=== PATIENT | male | born 1965 | race Caucasian/White ===

== ENCOUNTER → 2017-07-23 | Outpatient (CLI) | payer BC ==
[~2017-07-23] MED LIST: ASPI81TA28 PO; ATOR-24 PO; ATOR-54 PO; HMLI SC; INSDGI SC; LISI-461 PO; MULT-506 PO; PARO1TAB27 PO; TURM1POW
[2017-07-23 16:27] LABS: THYROID STIMULATING HORMONE 0.194 uIu/ml (0.300-4.500)
== END | disposition home or self-care (01) ==
LOC: C.LAB1850 14:33
PROVIDERS: ATTEND Physician Assistant
DX: R94.6 Abnormal results of thyroid function studies (principal)

== ENCOUNTER 2017-09-07 21:02 | Inpatient (IN) | payer BC ==
[~2017-09-07] VITALS: Ht 167.6 cm; Wt 75.7 kg
[2017-09-07] MEDS ORDERED: SODIUM CHLORIDE 0.9% 1000ML 1,000 ML IV STA ×3 (21:08→21:46)
--- NOTE | 2017-09-07 21:34 | EMERGENCY ROOM VISIT NOTE ---
History First contact with patient: 21:09 Chief Complaint: HYPERGLYCEMIA Stated Complaint: SEVERE VOMITING, HIGH PULSE, HIGH BLOOD SUGAR Nursing Triage Summary: Pt reports vomiting since yesterday. Pt has insulin pump and blood sugar was 453. Pt also reports elevated heart rate today. History of Present Illness The patient is a 51 year old male who presents to the Emergency Room with complaints of a 2-4 day hx of nausea/vomiting, diarrhea, hyperglycemia, nausea/ vomiting, and tachycardia He started to have diarrhea 4 days ago, which has stopped in the last 24 hours. He started having vomiting with any oral intake about 36 hours ago; he cannot keep any fluids or solids down. He has not had anything to eat or drink today. Diagnosed with IDDM about 18 years ago. Checks BG 3-4 times per day. Sugars were 350 after day, came back down to his normal range of 150-180, and 1 hr ago was 453. Last check prior to that was last night and was normal/150s. He states he hasn't checked glucose since then because he hasn't been eating. He reports he disconnected his pump because he hasn't eaten all day and didn't think he needed any insulin. Last changed pump on 4 days ago. Diagnosed with DM 18 years ago but was just started on pump in the last week. Last A1c was 8.2, which is the highest it has ever been. He also reports his breathing is labored and has an excessively dry mouth. 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 Had been seen by primary care walk in clinic today who gave him zofran for nausea, which didn't help, so family then called endo nurse, who suggested he present at ER. Review of Systems Constitutional: No fever, No chills, No sweats, No weight loss, No weakness , No fatigue, No problem reported Eyes: No worsening of vision, No eye pain, No redness, No discharge, No diplopia, No problem reported ENT: No hearing loss, No unusual epistaxis, No nasal symptoms, No sore throat, No tinnitus, No dental problems, No trouble swallowing, No problem reported Respiratory: + problem reported (weird breathing), No cough, No sputum, No wheezing, No shortness of breath, No dyspnea on exertion, No dyspnea at rest, No hemoptysis Cardiovascular: No chest pain, No orthopnea, No PND, No edema, No claudication, No palpitations, No problem reported Abdomen: + nausea, + vomiting, + diarrhea, No pain, No constipation, No GI bleeding, No problem reported Genitourinary - Male: No hematuria, No dysuria, No urinary frequency, No urinary urgency, No urinary hesitancy, No urinary retention, No urinary incontinence, No penile discharge, No lesions, No impotence, No problem reported Neurologic: No memory loss, No paralysis, No weakness, No numbness/tingling , No vertigo, No balance problems, No problem reported Endocrine: + fatigue, + excessive thirst, No excessive urination Past Medical/Surgical History Medical Problems: (1) Diabetes (2) DKA (diabetic ketoacidoses) (3) Hypertension Family History Diabetes mellitus Heart disease Hypertension Social History Smoking Status: Never Smoker Alcohol Use: occasionally Drug Use: none Marital Status: Housing Status: lives with family Occupation Status: employed Current/Historical Medications Scheduled Aspirin (Aspirin Ec), 81 MG PO DAILY Atorvastatin (Lipitor), 40 MG PO QPM Atorvastatin (Lipitor), 1 TAB PO DAILY Insulin Lispro (Human) (Humalog), 1 DOSE INJ UD Lisinopril (Lisinopril), 10 MG PO DAILY Methimazole (Methimazole), 10 MG PO DAILY Multivitamin (Multivitamin), 1 TAB PO DAILY Paroxetine (Paxil), 20 MG PO DAILY Physical Exam Vital Signs Date Time Temp Pulse Resp B/P (MAP) Pulse Ox O2 Delivery O2 Flow Rate FiO2 09/07/17 22:35 117 16 177/86 98 Room Air 09/07/17 21:42 99 Room Air 09/07/17 21:35 115 09/07/17 21:05 36.3 126 20 141/79 96 Room Air Physical Exam General Appearance: WD/WN, + mild distress Head: normocephalic, atraumatic Eyes: normal inspection, PERRL, EOMI ENT: normal ENT inspection, hearing grossly normal, pharynx normal Neck: supple, no adenopathy, thyroid normal, no JVD Respiratory/Chest: chest non-tender, lungs clear, normal breath sounds, + pertinent finding ([place] breathing with fruity odor) Cardiovascular: no edema, no gallop, no JVD, no murmur, normal peripheral pulses, + tachycardia Abdomen / GI: normal bowel sounds, non tender, soft, no organomegaly, no pulsatile mass Back: normal inspection, no CVA tenderness Extremities: normal inspection, no calf tenderness, no pedal edema 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, no motor/sensory deficits, alert , normal mood/affect, normal reflexes, oriented x 3 Medical Decision & Procedures Laboratory Results Test 09/07/17 21:38 09/07/17 22:34 Immature Granulocyte % (Auto) 0.3 % White Blood Count 18.25 K/uL (4.8-10.8) Red Blood Count 5.06 M/uL (4.7-6.1) Hemoglobin 15.4 g/dL (14.0-18.0) Hematocrit 46.1 % (42-52) Mean Corpuscular Volume 91.1 fL (80-100) Mean Corpuscular Hemoglobin 30.4 pg (25-34) Mean Corpuscular Hemoglobin Concent 33.4 g/dl (32-36) Platelet Count 310 K/uL (130-400) Mean Platelet Volume 10.5 fL (7.4-10.4) Neutrophils (%) (Auto) 92.7 % Lymphocytes (%) (Auto) 2.7 % Monocytes (%) (Auto) 4.2 % Eosinophils (%) (Auto) 0.0 % Basophils (%) (Auto) 0.1 % Neutrophils # (Auto) 16.92 K/uL (1.4-6.5) Lymphocytes # (Auto) 0.50 K/uL (1.2-3.4) Monocytes # (Auto) 0.77 K/uL (0.11-0.59) Eosinophils # (Auto) 0.00 K/uL (0-0.5) Basophils # (Auto) 0.01 K/uL (0-0.2) Immature Granulocyte # (Auto) 0.05 K/uL (0.00-0.02) Prothrombin Time 12.1 SECONDS (9.0-12.0) Prothromb Time International Ratio 1.1 (0.9-1.1) Activated Partial Thromboplast Time 26.7 SECONDS (21.0-31.0) Partial Thromboplastin Ratio 1.0 Total Bilirubin 1.6 mg/dl (0.2-1) Direct Bilirubin 0.5 mg/dl (0-0.2) Aspartate Amino Transf (AST/SGOT) 27 U/L (15-37) Alanine Aminotransferase (ALT/SGPT) 52 U/L (12-78) Alkaline Phosphatase 117 U/L (45-117) Troponin I < 0.015 ng/ml (0-0.045) Total Protein 8.5 gm/dl (6.4-8.2) Albumin 4.5 gm/dl (3.4-5.0) Lipase 174 U/L (73-393) Thyroid Stimulating Hormone (TSH) 0.850 uIu/ml (0.300-4.500) Urine Color YELLOW Urine Appearance CLEAR (CLEAR) Urine pH 5.0 (4.5-7.5) Urine Specific [place] 1.025 (1.000-1.030) Urine Protein NEG (NEG) Urine Glucose (UA) 3+ (NEG) Urine Ketones 3+ (NEG) Urine Occult Blood NEG (NEG) Urine Nitrite NEG (NEG) Urine Bilirubin NEG (NEG) Urine Urobilinogen NEG (NEG) Urine Leukocyte Esterase NEG (NEG) Urine RBC 0-4 /hpf (0-4) Urine WBC 0 /hpf (0-5) Urine Epithelial Cells 0-5 /lpf (0-5) Urine Bacteria NEG (NEG) Medications Administered Medications (Trade) Dose Ordered Sig/Chip Route Start Time Stop Time Status Last Admin Dose Admin Sodium Chloride 1,000 ml @ 999 mls/hr Q1H1M STAT IV 09/07/17 21:08 09/07/17 22:08 DC 09/07/17 21:08 999 MLS/HR Sodium Chloride 1,000 ml @ 999 mls/hr Q1H1M STAT IV 09/07/17 21:46 09/07/17 22:46 DC 09/07/17 22:17 999 MLS/HR Insulin Human Regular (Insulin IV Infusion Protocol) 1 ea NOW STAT N/A 09/07/17 22:27 09/07/17 22:28 DC 09/07/17 22:27 1 EA Miscellaneous (Insulin Protocol Dka Goal Range) 1 ea ONE ONCE N/A 09/07/17 22:30 09/07/17 22:31 DC 09/07/17 22:30 1 EA Miscellaneous (Insulin Protocol Moderate Stress Level) 1 ea ONE ONCE N/A 09/07/17 22:30 09/07/17 22:31 DC 09/07/17 22:30 1 EA Insulin Human Regular (NovoLIN R BOLUS FROM BAG) 2 unit NOW STAT IV 09/07/17 22:54 09/07/17 22:55 DC 09/07/17 22:54 2 UNIT ECG Indication: nausea, tachycardia, vomiting Rate (beats per minute): 113 Rhythm: sinus tachycardia Findings: no acute ischemic change Comparison ECG Date: no prior available ED Course 2114: Obtained full h&p from patient and . 2149: The patient was evaluated in room A12B by Dr. Ricci, who obtain a complete history and physical. 2206: Ordered NSS 1000 ml @ 999 mls/hr IV, NSS 1000 ml @ 125 mls/hr IV. 2145: Ordered NSS 1000 ml @ 999 mls/hr IV. 2226: Ordered Insulin Human Regular 1 ea N/A. 2229: Ordered Insulin Protocol Moderate Stress Level 1 ea N/A, Insulin Protocol Dka Goal Range 1 ea N/A. 223: I reevaluated the patient and he is feeling better. Urine showed 3+ ketonuria 224: Ordered Insulin Human Regular 1 ea Protocol N/A. 2245: Ordered Dc All Previously Ordered Diabetes Meds 1 ea N/A. 2251: Discussed the patient's case with Dr. Dillard. The patient will be evaluated for further treatment and disposition. Medical Decision Triage Nursing notes reviewed. The patient's presentation and history were concerning for hyperglycemia, vomiting and diarrhea. Etiologies such as hypo/hyperglycemia, DKA, dehydration, metabolic, infection, electrolyte abnormalities, cardiac sources, intracerebral event, toxicologic, neurologic, as well as others were entertained. The patient was evaluated. Clinically he is doing relatively well. He appears dehydrated and was mildly tachycardic. IV was established. He was given a 2 L normal saline bolus and then normal saline at 125 an hour. With simple treatment of the dehydration he was already feeling better. His heart rate was improving. Blood work was performed and the patient was found to have a leukocytosis on CBC. Chemistry panel revealed findings consistent with DKA and hyperglycemia. Repeat blood sugar revealed improvement however he was still very hyperglycemic. The patient had an insulin drip ordered. Consultation was made with internal medicine. The patient was admitted for further management. Impression Primary Impression: DKA (diabetic ketoacidoses) Departure Information Dispostion Admitted as an inpatient Condition FAIR Referrals Antoine Hernandez M.D. (PCP) Patient Instructions My [facility] Resident Tracking Resident Involvement: Resident Care Provided Care Provided: Adult ED Problem Qualifiers Primary Impression: DKA (diabetic ketoacidoses) Diabetes mellitus type: other specified (including KWAIS) Diabetes mellitus complication detail: without coma Qualified Codes: E13.10 - Other specified diabetes mellitus with ketoacidosis without coma
[2017-09-07] MEDS ORDERED: INSU100I INJ (21:49)
[2017-09-07] MEDS ORDERED: METH10TA6 PO (21:49)
[2017-09-07 21:51] LABS: HEMATOCRIT 46.1 % (42-52); MEAN CELL VOLUME 91.1 fL (80-100); MEAN CORPUSCULAR HEMOGLOBIN 30.4 pg (25-34); MEAN CORPUSCULAR HGB CONC 33.4 g/dl (32-36); MEAN PLATELET VOLUME 10.5 fL (7.4-10.4); PLATELET COUNT 310 K/uL (130-400); RED BLOOD COUNT 5.06 M/uL (4.7-6.1); WHITE BLOOD COUNT 18.25 K/uL (4.8-10.8)
[2017-09-07 22:04] LABS: INR 1.1 (0.9-1.1); PROTHROMBIN TIME (PATIENT) 12.1 SECONDS (9.0-12.0)
[2017-09-07 22:20] LABS: BASO % 0.1 %; BASO ABS # 0.01 K/uL (0-0.2); COMPLETE YES; IG% 0.3 %; LYMPH % 2.7 %; MONO % 4.2 %; NEUT % 92.7 %
[2017-09-07 22:25] LABS: ALT/SGPT 52 U/L (12-78); AST/SGOT 27 U/L (15-37); BLOOD UREA NITROGEN 36 mg/dl (7-18); BUN/CREATININE RATIO 21.2 (10-20); CALCIUM 10.2 mg/dl (8.5-10.1); CARBON DIOXIDE 8 mmol/L (21-32); CHLORIDE 87 mmol/L (98-107); CREATININE 1.69 mg/dl (0.60-1.40); GLUCOSE 590 mg/dl (70-99); MAGNESIUM 2.5 mg/dl (1.8-2.4); POTASSIUM 5.8 mmol/L (3.5-5.1); SODIUM 126 mmol/L (136-145)
[2017-09-07 22:26] LABS: ALKALINE PHOSPHATASE 117 U/L (45-117)
[2017-09-07] MEDS ORDERED: INSULIN IV INFUSION PROTOCOL STA ×2 (22:27→22:41)
[2017-09-07] MEDS ORDERED: DKA GOAL RANGE 150-250 mg/dl 1 EA ONE ×2 (22:30→22:45)
[2017-09-07] MEDS ORDERED: MODERATE STRESS LEVEL ONE (22:30)
[2017-09-07] MEDS ORDERED: DC ALL PREVIOUSLY ORDERED DIABETES MEDS ONE (22:45)
[2017-09-07] MEDS ORDERED: PHARMACY GLYCEMIC MGMT CONSULT PRN (22:45)
[2017-09-07] MEDS ORDERED: NovoLIN R BOLUS FROM BAG IV STA (22:54)
[2017-09-07] MEDS ORDERED: GLUCOSE 40% GEL 15 GM TUBE PO PRN (23:00)
[2017-09-07] MEDS ORDERED: GLUCOSE 10 TABS/TUBE PO PRN (23:00)
[2017-09-07] MEDS ORDERED: GLUCAGON FOR INJ 1 MG VIAL SQ PRN (23:00)
[2017-09-07] MEDS ORDERED: MAGNESIUM HYDROXIDE SUSP 30 ML UDC PO PRN (23:00)
[2017-09-07] MEDS ORDERED: ACETAMINOPHEN 325 MG TAB PO PRN (23:00)
[2017-09-07] MEDS ORDERED: ZOLPIDEM TARTRATE 5 MG TAB PO PRN (23:00)
[2017-09-07] MEDS ORDERED: DEXTROSE 50% 50 ML SYR IV PRN (23:00)
[2017-09-07] MEDS ORDERED: ONDANSETRON INJ 2 MG/ML 2 ML VIAL IV PRN (23:00)
[2017-09-07] MEDS ORDERED: ALUMINUM/MAGNESIUM/SIMETH (MAALOX MAX) 30 ML UDC PO PRN (23:00)
[2017-09-07] MEDS ORDERED: POLYETHYLENE (MIRALAX) 17 GM PACK PO PRN (23:00)
[2017-09-07] MEDS: INSULIN REGULAR 250 UNITS in SODIUM CHLORIDE 0.9% 250ML 250 ML IV SCH (23:07)
--- NOTE | 2017-09-07 23:11 | History and Physical ---
History & Physical Date & Time of Service: Sep 07, 2017 at 23:00 Chief Complaint: Severe Vomiting, High Pulse, High Blood Sugar Primary Care Physician: Antoine Hernandez M.D. History of Present Illness Source: patient, family 51 y/o M Hx DM I, HTN, HPL, hyperthyroidism. Recently began using an insulin pump as his A1C had been higher than expected. He developed nausea, vomiting and diarrhea 2 days prior which had persisted. He was attempting to take fluids and insulin as needed at home, however his readings continued to climb. He then developed weakness and hyperventilation and presented to the ER where DKA was confirmed. He denies CP, SOB, fevers and states he feels markedly improved after receiving a few liters of fluid an insulin in the ER. Past Medical/Surgical History Medical Problems: 1) Diabetes 2) Hypertension 3) Hyperlipidemia 4) Hyperthyroidism Family History Diabetes mellitus Heart disease Hypertension Social History Does not smoke or drink - works in [employer] Smoking Status: Never Smoker Drug Use: none Marital Status: Occupational Status: employed Allergies Coded Allergies: Penicillins (Unverified Allergy, Unknown, family allergy, 09/07/17) never been tested personally,but family is allergic Home Medications Scheduled Aspirin (Aspirin Ec), 81 MG PO DAILY Atorvastatin (Lipitor), 40 MG PO QPM Atorvastatin (Lipitor), 1 TAB PO DAILY Insulin Lispro (Human) (Humalog), 1 DOSE INJ UD Lisinopril (Lisinopril), 10 MG PO DAILY Methimazole (Methimazole), 10 MG PO DAILY Multivitamin (Multivitamin), 1 TAB PO DAILY Paroxetine (Paxil), 20 MG PO DAILY Review of Systems Constitutional: + weakness, No fever, No chills, No sweats Eyes: No worsening of vision ENT: No hearing loss, No unusual epistaxis, No nasal symptoms Respiratory: No cough, No wheezing Cardiovascular: No chest pain, No PND Abdomen: + nausea, + vomiting, + diarrhea Musculoskeletal: No joint pain Genitourinary - Male: No hematuria, No dysuria, No urinary frequency Neurologic: + weakness, No memory loss, No paralysis Psychiatric: No depression symptoms Endocrine: No fatigue Hematologic / Lymphatic: No abnormal bleeding/bruising Integumentary: No rash Allergic / Immunologic: No environmental allergies Physical Exam Vital Signs Date Time Temp Pulse Resp B/P (MAP) Pulse Ox O2 Delivery O2 Flow Rate FiO2 09/07/17 22:35 117 16 177/86 98 Room Air 09/07/17 21:42 99 Room Air 09/07/17 21:35 115 09/07/17 21:05 36.3 126 20 141/79 96 Room Air General Appearance: WD/WN, no apparent distress Head: normocephalic Eyes: normal inspection ENT: normal ENT inspection, pharynx normal Neck: supple, no JVD Respiratory/Chest: chest non-tender, lungs clear, normal breath sounds Cardiovascular: regular rate, rhythm, no edema, no gallop Abdomen/GI: normal bowel sounds, non tender, soft Back: normal inspection, no CVA tenderness Extremities/Musculoskelatal: normal inspection, no calf tenderness, normal capillary refill 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, no motor/sensory deficits, alert, oriented x 3 Skin: normal color, warm/dry Diagnostics Laboratory Results Results Past 24 Hours Test 09/07/17 21:38 09/07/17 22:34 09/07/17 22:40 09/07/17 22:48 Range/Units White Blood Count 18.25 4.8-10.8 K/uL Red Blood Count 5.06 4.7-6.1 M/uL Hemoglobin 15.4 14.0-18.0 g/dL Hematocrit 46.1 42-52 % Mean Corpuscular Volume 91.1 80-100 fL Mean Corpuscular Hemoglobin 30.4 25-34 pg Mean Corpuscular Hemoglobin Concent 33.4 32-36 g/dl Platelet Count 310 130-400 K/uL Mean Platelet Volume 10.5 7.4-10.4 fL Neutrophils (%) (Auto) 92.7 % Lymphocytes (%) (Auto) 2.7 % Monocytes (%) (Auto) 4.2 % Eosinophils (%) (Auto) 0.0 % Basophils (%) (Auto) 0.1 % Neutrophils # (Auto) 16.92 1.4-6.5 K/uL Lymphocytes # (Auto) 0.50 1.2-3.4 K/uL Monocytes # (Auto) 0.77 0.11-0.59 K/uL Eosinophils # (Auto) 0.00 0-0.5 K/uL Basophils # (Auto) 0.01 0-0.2 K/uL RDW Standard Deviation 45.4 36.4-46.3 fL RDW Coefficient of Variation 13.7 11.5-14.5 % Immature Granulocyte % (Auto) 0.3 % Immature Granulocyte # (Auto) 0.05 0.00-0.02 K/uL Prothrombin Time 12.1 9.0-12.0 SECONDS Prothromb Time International Ratio 1.1 0.9-1.1 Activated Partial Thromboplast Time 26.7 21.0-31.0 SECONDS Partial Thromboplastin Ratio 1.0 Sodium Level 126 136-145 mmol/L Potassium Level 5.8 3.5-5.1 mmol/L Chloride Level 87 98-107 mmol/L Carbon Dioxide Level 8 21-32 mmol/L Anion Gap 32.0 3-11 mmol/L Blood Urea Nitrogen 36 7-18 mg/dl Creatinine 1.69 0.60-1.40 mg/dl Est Creatinine Clear Calc Drug Dose 46.6 ml/min Estimated GFR () 53.3 Estimated GFR (Non- 46.0 BUN/Creatinine Ratio 21.2 10-20 Random Glucose 590 70-99 mg/dl Calcium Level 10.2 8.5-10.1 mg/dl Magnesium Level 2.5 1.8-2.4 mg/dl Total Bilirubin 1.6 0.2-1 mg/dl Direct Bilirubin 0.5 0-0.2 mg/dl Aspartate Amino Transf (AST/SGOT) 27 15-37 U/L Alanine Aminotransferase (ALT/SGPT) 52 12-78 U/L Alkaline Phosphatase 117 45-117 U/L Troponin I < 0.015 0-0.045 ng/ml Total Protein 8.5 6.4-8.2 gm/dl Albumin 4.5 3.4-5.0 gm/dl Lipase 174 73-393 U/L Thyroid Stimulating Hormone (TSH) 0.850 0.300-4.500 uIu/ml Bedside Glucose 460 70-99 mg/dl Microbiology Results 09/07/17 Urine Culture, Received Pending Impression Assessment and Plan 51 y/o M Hx DM I, HTN, HPL, hyperthyroidism. Recently began using an insulin pump as his A1C had been higher than expected. He developed nausea, vomiting and diarrhea 2 days prior which had persisted. He was attempting to take fluids and insulin as needed at home, however his readings continued to climb. He then developed weakness and hyperventilation and presented to the ER where DKA was confirmed. He denies CP, SOB, fevers and states he feels markedly improved after receiving a few liters of fluid an insulin in the ER. 1) DM with DKA - Pt placed on a DKA, insulin infusion protocol - electrolytes will be trended Q4h, aggressive hydration provided. He will be monitored on telemetry overnight. 2) Nausea/vomiting and diarrhea - appear to be resolving - possibly viral - can work-up further if symptoms recur or pt develops fevers. 3) HTN - Cont JONE with holding parameters for an elevated K 4) HPL - cont Statin Tx 5) Hyperthyroidism - recent Dx - had been placed on Methimazole which we will continue - he is pending outp f/u on 09/18. Level of Care Telemetry Resuscitation Status FULL RESUSCITATION VTE Prophylaxis VTE Risk Assessment Done? Y/N: Yes Risk Level: Low Given or contraindicated: Unfractionated heparin SQ
--- NOTE | 2017-09-07 23:13 | EMERGENCY ROOM VISIT NOTE ---
History Report prepared by Dyllan: Melanie Cr Under the Supervision of: Dr. Johnie Ricci M.D. First contact with patient: 21:08 Chief Complaint: HYPERGLYCEMIA Stated Complaint: SEVERE VOMITING, HIGH PULSE, HIGH BLOOD SUGAR History of Present Illness The patient is a 51 year old male who presents to the Emergency Room with complaints of an episode of hyperglycemia starting 2 days ago. The patient states he has had nausea, vomiting, and diarrhea. He states that he was just started on an Insulin pump this week. He reports that his sugars have been off since Thanksgiving and started vomiting on Thanksgiving, two days ago. He states that he can't keep anything down, even water. The patient reports that he turned his Insulin pump off last night because he thought since he wasn't able to eat he didn't need Insulin. He reports he normally checks his Insulin 3- 4 times a day. He states that when he checked it last night it was 150. He reports he didn't check it till right before he came in today and it was 453. The patient complains of being excessively thirsty. He notes he last changed his pump four days ago. He notes he has had Diabetes for 18 years. He notes that he tried Zofran at home with no relief. Pt denies LOC, headache, fevers, chills, diaphoresis, visual changes, neck pain , chest pain, breathing difficulties, abdominal pain, back pain, melena, hematochezia, urinary symptoms, numbness, weakness, lymphadenopathy, rash, or other complaints. Source of History: patient Onset: 2 days ago Position: other (global) Quality: other (global) Timing: other (episode) Associated Symptoms: + nausea, + vomiting, + diarrhea Note: The patient complains of being excessively thirsty. Review of Systems See HPI for pertinent positives and negatives. A total of ten systems were reviewed and were otherwise negative. Past Medical & Surgical Medical Problems: (1) Diabetes (2) DKA (diabetic ketoacidoses) (3) Hypertension Family History Diabetes mellitus Heart disease Hypertension Social History Smoking Status: Never Smoker Alcohol Use: occasionally Drug Use: none Marital Status: Housing Status: lives with family Occupation Status: employed Current/Historical Medications Scheduled Aspirin (Aspirin Ec), 81 MG PO DAILY Atorvastatin (Lipitor), 40 MG PO QPM Atorvastatin (Lipitor), 1 TAB PO DAILY Insulin Lispro (Human) (Humalog), 1 DOSE INJ UD Lisinopril (Lisinopril), 10 MG PO DAILY Methimazole (Methimazole), 10 MG PO DAILY Multivitamin (Multivitamin), 1 TAB PO DAILY Paroxetine (Paxil), 20 MG PO DAILY Allergies Coded Allergies: Penicillins (Unverified Allergy, Unknown, family allergy, 09/07/17) never been tested personally,but family is allergic Physical Exam Vital Signs Date Time Temp Pulse Resp B/P (MAP) Pulse Ox O2 Delivery O2 Flow Rate FiO2 09/07/17 22:35 117 16 177/86 98 Room Air 09/07/17 21:42 99 Room Air 09/07/17 21:35 115 09/07/17 21:05 36.3 126 20 141/79 96 Room Air Physical Exam GENERAL: Awake, alert, tired-appearing, in no distress HENT: Normocephalic, atraumatic. Oropharynx unremarkable. Dry mucus membranes. EYES: Normal conjunctiva. Sclera non-icteric. NECK: Supple. No nuchal rigidity. FROM. No JVD. RESPIRATORY: Clear to auscultation. CARDIAC: Tachycardic rate, normal rhythm. Extremities warm and well perfused. Pulses equal. ABDOMEN: Soft, non-distended. No tenderness to palpation. No rebound or guarding. No masses. RECTAL: Deferred. MUSCULOSKELETAL: Chest examination reveals no tenderness. The back is symmetrical on inspection without obvious abnormality. There is no CVA tenderness to palpation. No joint edema. LOWER EXTREMITIES: Calves are equal size bilaterally and non-tender. No edema. No discoloration. NEURO: Normal sensorium. No sensory or motor deficits noted. SKIN: No rash or jaundice noted. Tinting of skin noted. Medical Decision & Procedures Laboratory Results 09/07/17 21:38 Red Blood Count 5.06, Mean Corpuscular Volume 91.1, Mean Corpuscular Hemoglobin 30.4, Mean Corpuscular Hemoglobin Concent 33.4, Mean Platelet Volume 10.5, Neutrophils (%) (Auto) 92.7, Lymphocytes (%) (Auto) 2.7, Monocytes (%) (Auto) 4.2, Eosinophils (%) (Auto) 0.0, Basophils (%) (Auto) 0.1, Neutrophils # (Auto) 16.92, Lymphocytes # (Auto) 0.50, Monocytes # (Auto) 0.77, Eosinophils # (Auto) 0.00, Basophils # (Auto) 0.01 09/07/17 21:38 Test 09/07/17 21:38 09/07/17 22:34 09/07/17 22:48 09/07/17 23:05 White Blood Count 18.25 K/uL (4.8-10.8) Red Blood Count 5.06 M/uL (4.7-6.1) Hemoglobin 15.4 g/dL (14.0-18.0) Hematocrit 46.1 % (42-52) Mean Corpuscular Volume 91.1 fL (80-100) Mean Corpuscular Hemoglobin 30.4 pg (25-34) Mean Corpuscular Hemoglobin Concent 33.4 g/dl (32-36) Platelet Count 310 K/uL (130-400) Mean Platelet Volume 10.5 fL (7.4-10.4) Neutrophils (%) (Auto) 92.7 % Lymphocytes (%) (Auto) 2.7 % Monocytes (%) (Auto) 4.2 % Eosinophils (%) (Auto) 0.0 % Basophils (%) (Auto) 0.1 % Neutrophils # (Auto) 16.92 K/uL (1.4-6.5) Lymphocytes # (Auto) 0.50 K/uL (1.2-3.4) Monocytes # (Auto) 0.77 K/uL (0.11-0.59) Eosinophils # (Auto) 0.00 K/uL (0-0.5) Basophils # (Auto) 0.01 K/uL (0-0.2) RDW Standard Deviation 45.4 fL (36.4-46.3) RDW Coefficient of Variation 13.7 % (11.5-14.5) Immature Granulocyte % (Auto) 0.3 % Immature Granulocyte # (Auto) 0.05 K/uL (0.00-0.02) Prothrombin Time 12.1 SECONDS (9.0-12.0) Prothromb Time International Ratio 1.1 (0.9-1.1) Activated Partial Thromboplast Time 26.7 SECONDS (21.0-31.0) Partial Thromboplastin Ratio 1.0 Anion Gap 32.0 mmol/L (3-11) Est Creatinine Clear Calc Drug Dose 46.6 ml/min Estimated GFR () 53.3 Estimated GFR (Non- 46.0 BUN/Creatinine Ratio 21.2 (10-20) Calcium Level 10.2 mg/dl (8.5-10.1) Magnesium Level 2.5 mg/dl (1.8-2.4) Total Bilirubin 1.6 mg/dl (0.2-1) Direct Bilirubin 0.5 mg/dl (0-0.2) Aspartate Amino Transf (AST/SGOT) 27 U/L (15-37) Alanine Aminotransferase (ALT/SGPT) 52 U/L (12-78) Alkaline Phosphatase 117 U/L (45-117) Troponin I < 0.015 ng/ml (0-0.045) Total Protein 8.5 gm/dl (6.4-8.2) Albumin 4.5 gm/dl (3.4-5.0) Lipase 174 U/L (73-393) Thyroid Stimulating Hormone (TSH) 0.850 uIu/ml (0.300-4.500) Bedside Glucose 460 mg/dl (70-99) Laboratory results reviewed by me Medications Administered Medications (Trade) Dose Ordered Sig/Chip Route Start Time Stop Time Status Last Admin Dose Admin Sodium Chloride 1,000 ml @ 999 mls/hr Q1H1M STAT IV 09/07/17 21:08 09/07/17 22:08 DC 09/07/17 21:08 999 MLS/HR Sodium Chloride 1,000 ml @ 999 mls/hr Q1H1M STAT IV 09/07/17 21:46 09/07/17 22:46 DC 09/07/17 22:17 999 MLS/HR Insulin Human Regular 250 units/ Sodium Chloride 252.5 ml @ 0 mls/hr Q24H IV 09/07/17 23:00 10/07/17 22:59 09/07/17 23:07 1.8 MLS/HR ECG Indication: vomiting Rate (beats per minute): 113 Rhythm: sinus tachycardia Findings: no acute ischemic change, no ectopy ED Course 2149: The patient was evaluated in room A12B. A complete history and physical exam was performed. 2206: Ordered NSS 1000 ml @ 999 mls/hr IV, NSS 1000 ml @ 125 mls/hr IV. 2145: Ordered NSS 1000 ml @ 999 mls/hr IV. 2226: Ordered Insulin Human Regular 1 ea N/A. 2229: Ordered Insulin Protocol Moderate Stress Level 1 ea N/A, Insulin Protocol Dka Goal Range 1 ea N/A. 2230: I reevaluated the patient and he is feeling better. We are going to get a urine specimen. 2240: Ordered Insulin Human Regular 1 ea Protocol N/A. 2244: Ordered Dc All Previously Ordered Diabetes Meds 1 ea N/A. 225: Discussed the patient's case with Dr. Dillard. The patient will be evaluated for further treatment and disposition. Medical Decision Triage Nursing notes reviewed. The patient's presentation and history were concerning for hyperglycemia, vomiting and diarrhea. Etiologies such as hypo/hyperglycemia, DKA, dehydration, metabolic, infection, electrolyte abnormalities, cardiac sources, intracerebral event, toxicologic, neurologic, as well as others were entertained. The patient was evaluated. Clinically he is doing relatively well. He appears dehydrated and was mildly tachycardic. IV was established. He was given a 2 L normal saline bolus and then normal saline at 125 an hour. With simple treatment of the dehydration he was already feeling better. His heart rate was improving. Blood work was performed and the patient was found to have a leukocytosis on CBC. Chemistry panel revealed findings consistent with DKA and hyperglycemia. Repeat blood sugar revealed improvement however he was still very hyperglycemic. The patient had an insulin drip ordered. Consultation was made with internal medicine. The patient was admitted for further management. The patient was seen and examined with Dr. Pam Torrez, resident physician. We discussed the case and treatments ordered, reviewed the results, and determine the disposition. Please refer to the resident's note for additional details. I have been directly involved with the management and disposition as well as independently evaluated the patient as documented in this note. Medication Reconcilliation Current Medication List: was personally reviewed by me Blood Pressure Screening Patient's blood pressure: Elevated blood pressure Will be further monitored by the hospitalist. Consults Time Called: 2228 Consulting Physician: Dr. Dillard Returned Call: 2250 Discussed the patient's case with Dr. Dillard. The patient will be evaluated for further treatment and disposition. Impression Primary Impression: DKA (diabetic ketoacidoses) Scribe Attestation The scribe's documentation has been prepared under my direction and personally reviewed by me in its entirety. I confirm that the note above accurately reflects all work, treatment, procedures, and medical decision making performed by me. Departure Information Dispostion Being Evaluated By Hospitalist Referrals Antoine Hernandez M.D. (PCP) Patient Instructions My [facility]
[2017-09-07 23:14] LABS: MANUAL MICROSCOPIC REQUIRED? YES; URINE APPEARANCE CLEAR (CLEAR); URINE BILIRUBIN NEG (NEG); URINE COLOR YELLOW; URINE NITRITE NEG (NEG); URINE SPECIFIC GRAVITY 1.025 (1.000-1.030); UROBILINOGEN NEG (NEG)
[2017-09-07 23:19] LABS: VEN BLD GAS O2 SATURATION 79.7 %; VEN BLOOD GAS BASE EXCESS -17.6 mEq/L
[2017-09-07 23:23] LABS: REVIEW REQ? NO
[2017-09-07 23:26] LABS: URINE BACTERIA NEG (NEG); URINE RBC 0-4 /hpf (0-4); URINE WBC 0 /hpf (0-5)
[2017-09-07 23:30] VITALS: BP 143/74; PULSE 130; TEMP 36.6; O2SAT 97; BMI 26.0; BMI 26.8
[2017-09-07 23:40] LABS: BETA-HYDROXYBUTYRATE 122.27 mg/dL (0.2-2.81)
[2017-09-07] MEDS: PENDING D5NS+20mEq KCL IVF SCH (23:59)
[2017-09-07] MEDS: PENDING NSS+20mEq KCL IVF SCH (23:59)
[2017-09-08] VITALS (9 sets, daily range): BP systolic 100–143; BP diastolic 55–74; PULSE 72–130; TEMP 36.6–37; O2SAT 95–98
[2017-09-08] MEDS: SODIUM CHLORIDE 0.9% 1000ML 1,000 ML IV SCH ×2 (00:05→04:44)
[2017-09-08] MEDS: INSULIN REGULAR 250 UNITS in SODIUM CHLORIDE 0.9% 250ML 250 ML IV SCH ×4 (00:29→14:34)
[2017-09-08] MEDS: PENDING NSS+20mEq KCL IVF SCH ×2 (02:23→03:59)
[2017-09-08] MEDS: PENDING D5NS+20mEq KCL IVF SCH ×3 (02:23→06:19)
[2017-09-08 03:57] LABS: HEMATOCRIT 38.3 % (42-52); MEAN CELL VOLUME 88.2 fL (80-100); MEAN CORPUSCULAR HEMOGLOBIN 29.3 pg (25-34); MEAN CORPUSCULAR HGB CONC 33.2 g/dl (32-36); MEAN PLATELET VOLUME 9.7 fL (7.4-10.4); PLATELET COUNT 226 K/uL (130-400); RED BLOOD COUNT 4.34 M/uL (4.7-6.1); WHITE BLOOD COUNT 12.57 K/uL (4.8-10.8)
[2017-09-08 04:25] LABS: BUN/CREATININE RATIO 26.1 (10-20); CREATININE 1.19 mg/dl (0.60-1.40); MAGNESIUM 2.1 mg/dl (1.8-2.4); PHOSPHORUS 2.5 mg/dl (2.5-4.9); POTASSIUM 4.5 mmol/L (3.5-5.1)
[2017-09-08] MEDS ORDERED: NSS + 20MEQ KCL 1000ML 1,000 ML IV SCH (05:00)
[2017-09-08] MEDS ORDERED: NURSING VERBAL MED ORDER ONE (05:00)
[2017-09-08 05:07] LABS: BETA-HYDROXYBUTYRATE 86.8 mg/dL (0.2-2.81)
[2017-09-08] MEDS: HEPARIN SOD 5000 UNIT/0.5 ML CARP SQ SCH ×3 (06:19→21:37)
[2017-09-08] MEDS: METHIMAZOLE 5 MG TAB PO SCH (07:42)
[2017-09-08] MEDS: ASPIRIN 81 MG ECTAB PO SCH (07:42)
[2017-09-08] MEDS: PAROXETINE 20 MG TAB PO SCH (07:43)
[2017-09-08] MEDS: LISINOPRIL 10 MG TAB PO SCH (07:43)
[2017-09-08] MEDS: INSULIN ASPART 100 UNITS/ML 3 ML PEN SC SCH ×4 (07:48→21:37)
[2017-09-08 08:30] LABS: BUN/CREATININE RATIO 26.3 (10-20); CALCIUM 7.9 mg/dl (8.5-10.1); CREATININE 1.05 mg/dl (0.60-1.40); MAGNESIUM 2.1 mg/dl (1.8-2.4); PHOSPHORUS 2.1 mg/dl (2.5-4.9); POTASSIUM 4.7 mmol/L (3.5-5.1)
[2017-09-08] MEDS ORDERED: INSULIN ASPART 100 UNITS/ML 3 ML PEN SC SCH ×2 (09:00)
[2017-09-08] MEDS ORDERED: ATORVASTATIN 20 MG TAB PO SCH ×2 (09:00→21:00)
[2017-09-08] MEDS ORDERED: D5NSS + 20MEQ KCL 1,000 ML IV SCH (09:15)
[2017-09-08] MEDS ORDERED: POTASSIUM PHOS 3 MMOL/1 ML INFUSION IV STA ×2 (09:17→21:10)
[2017-09-08] MEDS ORDERED: INSULIN GLARGINE SOLOSTAR 100 UNITS/ML 3 ML PEN SC ONE (10:00)
[2017-09-08] MEDS ORDERED: SODIUM PHOSPHATE INJ 15 MMOL in SODIUM CHLORIDE 0.9% 250ML 250 ML IV ONE (10:30)
[2017-09-08 12:24] LABS: BUN/CREATININE RATIO 25.5 (10-20); CALCIUM 7.6 mg/dl (8.5-10.1); CREATININE 0.91 mg/dl (0.60-1.40); MAGNESIUM 2.1 mg/dl (1.8-2.4); PHOSPHORUS 2.1 mg/dl (2.5-4.9)
--- NOTE | 2017-09-08 14:40 | Pharmacy Progress Note ---
Glycemic Control Intl Consult Date of Service Sep 08, 2017. Scope Glycemic Pharmacist consulted by Dr Dillard on 09/08/17 for glycemic control and to write orders per [facility] inpatient glycemic control protocol Objective Weight (Kilograms): 73.000 Accuchecks BSG (last 24hrs): Test 09/07/17 21:38 09/07/17 22:48 09/08/17 00:18 09/08/17 01:15 Random Glucose 590 mg/dl (70-99) Bedside Glucose 460 mg/dl (70-99) 416 mg/dl (70-99) 410 mg/dl (70-99) Test 09/08/17 02:16 09/08/17 03:16 09/08/17 03:49 09/08/17 04:15 Bedside Glucose 386 mg/dl (70-99) 327 mg/dl (70-99) 299 mg/dl (70-99) Random Glucose 356 mg/dl (70-99) Test 09/08/17 05:19 09/08/17 06:17 09/08/17 07:08 09/08/17 07:21 Bedside Glucose 259 mg/dl (70-99) 236 mg/dl (70-99) 236 mg/dl (70-99) 216 mg/dl (70-99) Test 09/08/17 07:44 09/08/17 08:14 09/08/17 10:18 09/08/17 11:27 Random Glucose 231 mg/dl (70-99) Bedside Glucose 227 mg/dl (70-99) 195 mg/dl (70-99) 159 mg/dl (70-99) Test 09/08/17 11:47 09/08/17 12:14 Random Glucose 174 mg/dl (70-99) Bedside Glucose 202 mg/dl (70-99) Laboratory Data (last 24hrs) Test 09/07/17 21:38 09/08/17 03:49 09/08/17 07:44 09/08/17 11:47 Anion Gap 32.0 mmol/L 17.0 mmol/L 13.0 mmol/L 6.0 mmol/L BUN/Creatinine Ratio 21.2 26.1 26.3 25.5 Blood Urea Nitrogen 36 mg/dl 31 mg/dl 28 mg/dl 23 mg/dl Creatinine 1.69 mg/dl 1.19 mg/dl 1.05 mg/dl 0.91 mg/dl Potassium Level 5.8 mmol/L 4.5 mmol/L 4.7 mmol/L 4.0 mmol/L Sodium Level 126 mmol/L 129 mmol/L 133 mmol/L 131 mmol/L White Blood Count 18.25 K/uL 12.57 K/uL Red Blood Count 5.06 M/uL Hemoglobin 15.4 g/dL Hematocrit 46.1 % Mean Corpuscular Volume 91.1 fL Mean Corpuscular Hemoglobin 30.4 pg Mean Corpuscular Hemoglobin Concent 33.4 g/dl Platelet Count 310 K/uL Mean Platelet Volume 10.5 fL Neutrophils (%) (Auto) 92.7 % Lymphocytes (%) (Auto) 2.7 % Monocytes (%) (Auto) 4.2 % Eosinophils (%) (Auto) 0.0 % Basophils (%) (Auto) 0.1 % Neutrophils # (Auto) 16.92 K/uL Lymphocytes # (Auto) 0.50 K/uL Monocytes # (Auto) 0.77 K/uL Eosinophils # (Auto) 0.00 K/uL Basophils # (Auto) 0.01 K/uL Recent Pertinent Medications Outpatient Anti-diabetic Regimen: * Humalog pump (0.85 units/hr or around 20 units of basal insulin plus carbohydrate ratio of 1:10) .... prior to pump starting on Saturday, patient took Lantus 25 units SQ HS plus CF of 40 and CR of 1:4 * A1c = 8.3 % ~ 2 months ago The patient is currently receiving: * Insulin infusion: stable at 3.1 units/hr since 2 AM Risk Factors for Insulin Resistance: * Diet: T1DM full liquid diet Assessment & Plan ASSESSMENT: * Mr Jesus Alberto Sy is a 51 y/o M with a PMH of HTN, HPL, and hyperthyroidism who is admitted with DKA after turning his pump off yesterday. When he was admitted , his blood sugars were around 590 mg/dL. These have declined until around 200 mg/dL at lunch. The patient remains steady at 3.1 units/hr. * Mr Sy started his insulin pump approximately 5 days ago. Prior to this, he took Lantus 25 units at bedtime with Novolog (see parameters above). His glucose appeared well-controlled with an HbA1C of 8.3%. Whenever he started the insulin pump, his Lantus was decreased and Novolog parameters loosened slightly. * This information (gathered from the patient) does not correlate with the current rate of the insulin infusion at 3.1 unit/hr (estimates a basal rate or 75 units/day). There is much concern in giving too much basal insulin, especially to a type 1 diabetic. Perhaps the patient is currently basal deficient? Therefore, Lantus 25 units SQ x 1 was initiated while the insulin infusion was continued. The goal is to have the infusion turn itself off or have two consecutive blood sugars less than 180 mg/dL. * If the insulin infusion is turned off, reasonable to start Novolog with correction factor of 30 and carbohydrate ratio of 1 unit per 10 grams of carbohydrates. An overnight accucheck at 0200 should be ordered with a correction factor of 45. * Even if insulin infusion is not turned off, will order small dose of Lantus this evening in case patient remains basal deficient. PLAN FOR INPATIENT GLYCEMIC CONTROL: * Continuing IV insulin infusion per moderate (moderate/severe) stress protocol * Goal Range 150 - 250 mg/dl * In the critical care setting, continuous IV insulin infusion has been shown to be the best method for achieving glycemic targets. * Basal insulin with LANTUS 25 units SQ x 1 then 0-5 units SQ HS x 1 * Correctional Insulin with NOVOLOG / REGULAR per scale ACHS or Q6hrs while NPO * Goal Range: Low 150 mg/dL - High 250 mg/dL * Correction Factor: -- mg/dL/unit * Nutritional / Prandial insulin per carb ratio of 1 unit per (per calculator) grams CHO consumed * Please note that the plan above was derived based on current level of insulin resistance and hospital stress. These recommendations are appropriate for inpatient admission only. Plan of care upon discharge will need to be reassessed to avoid potential outpatient hypo/hyperglycemia. Thank you.
--- NOTE | 2017-09-08 16:32 | Family Medicine Progress Note ---
Progress Note Date of Service Sep 08, 2017. Subjective Pt evaluation today including: conversation w/ patient, physical exam, chart review, lab review, review of studies Pain: No pain reported this morning Voiding: no voiding problems, no incontinence Patient resting comfortably in bed this morning with no acute complaints overnight. The patient states that the last 2 days he was having nausea and was unable to eat so he thought that he should remove his insulin pump because he was not eating. It was after this that his sugar level continued to rise and he began to feel very ill and fatigued. Constitutional: + fatigue, No fever, No chills, No sweats Respiratory: No cough, No wheezing, No shortness of breath, No dyspnea at rest Cardiovascular: No chest pain, No palpitations Abdomen: No pain, No nausea, No vomiting, No diarrhea, No constipation Male : No dysuria, No urinary frequency Endo: No excessive thirst, No excessive urination Medications Current Inpatient Medications Medications (Trade) Dose Ordered Sig/Chip Route Start Time Stop Time Status Last Admin Dose Admin Miscellaneous Information (Consult Glycemic Management Pharmacy) 1 ea UD PRN N/A 09/07/17 22:45 10/07/17 22:44 Glucose (Glucose 40% Gel) UD PRN PO 09/07/17 23:00 10/07/17 22:59 Glucose (Glucose Chew Tab) 1 tabs UD PRN PO 09/07/17 23:00 10/07/17 22:59 Dextrose (Dextrose 50% 50ML Syringe) 50 ml UD PRN IV 09/07/17 23:00 10/07/17 22:59 Glucagon (Glucagon Inj) 1 mg UD PRN SQ 09/07/17 23:00 10/07/17 22:59 Heparin Sodium (Porcine) (Heparin Sq 5000 Unit/0.5ml) 5,000 unit Q8 SQ 09/08/17 06:00 10/08/17 05:59 09/08/17 14:35 5,000 UNIT Acetaminophen (Tylenol Tab) 650 mg Q4H PRN PO 09/07/17 23:00 10/07/17 22:59 Al Hydrox/Mg Hydrox/Simethicone (Maalox Max Susp) 15 ml Q4H PRN PO 09/07/17 23:00 10/07/17 22:59 Magnesium Hydroxide (Milk Of Magnesia Susp) 30 ml Q12H PRN PO 09/07/17 23:00 10/07/17 22:59 Zolpidem Tartrate (Ambien Tab) 5 mg HSZ PRN PO 09/07/17 23:00 10/07/17 22:59 Ondansetron HCl (Zofran Inj) 4 mg Q6H PRN IV 09/07/17 23:00 10/07/17 22:59 Polyethylene (Miralax Powder Packet) 17 gm DAILY PRN PO 09/07/17 23:00 10/07/17 22:59 Aspirin (Ecotrin Tab) 81 mg DAILY PO 09/08/17 09:00 10/08/17 08:59 09/08/17 07:42 81 MG Atorvastatin Calcium (Lipitor Tab) 40 mg QPM PO 09/08/17 21:00 10/08/17 20:59 Paroxetine HCl (pAXil TAB) 20 mg DAILY PO 09/08/17 09:00 10/08/17 08:59 09/08/17 07:43 20 MG Methimazole (Methimazole Tab) 10 mg DAILY PO 09/08/17 09:00 10/08/17 08:59 09/08/17 07:42 10 MG Lisinopril (Zestril Tab) 10 mg DAILY PO 09/08/17 09:00 10/08/17 08:59 09/08/17 07:43 10 MG Insulin Glargine (Lantus Solostar Pen) SEE PROTOCOL INSTRUCTIONS HS FL 09/08/17 21:00 09/08/17 21:01 Insulin Aspart (novoLOG ASPART) SLIDING SCALE ACHS FL 09/08/17 16:30 10/08/17 16:29 Insulin Aspart (novoLOG ASPART) SLIDING SCALE 0200 FL 09/09/17 02:00 09/09/17 02:01 Objective Vital Signs Date Time Temp Pulse Resp B/P (MAP) Pulse Ox O2 Delivery O2 Flow Rate FiO2 09/08/17 16:00 96 Room Air 09/08/17 15:11 36.9 83 16 116/70 (85) 96 Room Air 09/08/17 12:00 98 Room Air 09/08/17 11:03 37.0 87 18 100/55 (70) 95 Room Air 09/08/17 08:00 98 Room Air 09/08/17 07:49 36.8 96 20 120/73 (89) 98 Room Air 09/08/17 04:00 37.0 106 20 129/63 (85) 96 Room Air 09/08/17 04:00 Room Air 09/08/17 00:17 36.6 130 20 143/74 (97) 97 Room Air 09/07/17 23:30 36.6 130 20 143/74 97 Room Air 09/07/17 22:35 117 16 177/86 98 Room Air 09/07/17 21:42 99 Room Air 09/07/17 21:35 115 09/07/17 21:05 36.3 126 20 141/79 96 Room Air Physical Exam General Appearance: WD/WN, no apparent distress Eyes: normal inspection, sclerae normal Respiratory/Chest: chest non-tender, lungs clear, normal breath sounds Cardiovascular: regular rate, rhythm, no edema, no gallop Abdomen: normal bowel sounds, non tender, soft Neurologic/Psychiatric: alert, normal mood/affect, oriented x 3 Skin: normal color, warm/dry Laboratory Results Results Past 24 Hours Test 09/07/17 21:38 09/07/17 22:34 09/07/17 22:48 09/07/17 23:05 Range/Units White Blood Count 18.25 4.8-10.8 K/uL Red Blood Count 5.06 4.7-6.1 M/uL Hemoglobin 15.4 14.0-18.0 g/dL Hematocrit 46.1 42-52 % Mean Corpuscular Volume 91.1 80-100 fL Mean Corpuscular Hemoglobin 30.4 25-34 pg Mean Corpuscular Hemoglobin Concent 33.4 32-36 g/dl Platelet Count 310 130-400 K/uL Mean Platelet Volume 10.5 7.4-10.4 fL Neutrophils (%) (Auto) 92.7 % Lymphocytes (%) (Auto) 2.7 % Monocytes (%) (Auto) 4.2 % Eosinophils (%) (Auto) 0.0 % Basophils (%) (Auto) 0.1 % Neutrophils # (Auto) 16.92 1.4-6.5 K/uL Lymphocytes # (Auto) 0.50 1.2-3.4 K/uL Monocytes # (Auto) 0.77 0.11-0.59 K/uL Eosinophils # (Auto) 0.00 0-0.5 K/uL Basophils # (Auto) 0.01 0-0.2 K/uL RDW Standard Deviation 45.4 36.4-46.3 fL RDW Coefficient of Variation 13.7 11.5-14.5 % Immature Granulocyte % (Auto) 0.3 % Immature Granulocyte # (Auto) 0.05 0.00-0.02 K/uL Prothrombin Time 12.1 9.0-12.0 SECONDS Prothromb Time International Ratio 1.1 0.9-1.1 Activated Partial Thromboplast Time 26.7 21.0-31.0 SECONDS Partial Thromboplastin Ratio 1.0 Sodium Level 126 136-145 mmol/L Potassium Level 5.8 3.5-5.1 mmol/L Chloride Level 87 98-107 mmol/L Carbon Dioxide Level 8 21-32 mmol/L Anion Gap 32.0 3-11 mmol/L Blood Urea Nitrogen 36 7-18 mg/dl Creatinine 1.69 0.60-1.40 mg/dl Est Creatinine Clear Calc Drug Dose 46.6 ml/min Estimated GFR () 53.3 Estimated GFR (Non- 46.0 BUN/Creatinine Ratio 21.2 10-20 Random Glucose 590 70-99 mg/dl Calcium Level 10.2 8.5-10.1 mg/dl Magnesium Level 2.5 1.8-2.4 mg/dl Total Bilirubin 1.6 0.2-1 mg/dl Direct Bilirubin 0.5 0-0.2 mg/dl Aspartate Amino Transf (AST/SGOT) 27 15-37 U/L Alanine Aminotransferase (ALT/SGPT) 52 12-78 U/L Alkaline Phosphatase 117 45-117 U/L Troponin I < 0.015 0-0.045 ng/ml Total Protein 8.5 6.4-8.2 gm/dl Albumin 4.5 3.4-5.0 gm/dl Lipase 174 73-393 U/L Beta-Hydroxybutyric Acid 122.27 0.2-2.81 mg/dL Thyroid Stimulating Hormone (TSH) 0.850 0.300-4.500 uIu/ml Urine Color YELLOW Urine Appearance CLEAR CLEAR Urine pH 5.0 4.5-7.5 Urine Specific [place] 1.025 1.000-1.030 Urine Protein NEG NEG Urine Glucose (UA) 3+ NEG Urine Ketones 3+ NEG Urine Occult Blood NEG NEG Urine Nitrite NEG NEG Urine Bilirubin NEG NEG Urine Urobilinogen NEG NEG Urine Leukocyte Esterase NEG NEG Urine RBC 0-4 0-4 /hpf Urine WBC 0 0-5 /hpf Urine Epithelial Cells 0-5 0-5 /lpf Urine Bacteria NEG NEG Bedside Glucose 460 70-99 mg/dl Venous Blood pH 7.18 7.36-7.41 Venous Blood Partial Pressure CO2 25 38.0-50.0 mmHg Venous Blood Partial Pressure O2 52 mmHg Venous Blood HCO3 9 mmol/L Venous Blood Oxygen Saturation 79.7 % Venous Blood Base Excess -17.6 mEq/L Test 09/08/17 00:18 09/08/17 01:15 09/08/17 02:16 09/08/17 03:16 Range/Units Bedside Glucose 416 410 386 327 70-99 mg/dl Test 09/08/17 03:49 09/08/17 04:15 09/08/17 05:19 09/08/17 06:17 Range/Units White Blood Count 12.57 4.8-10.8 K/uL Red Blood Count 4.34 4.7-6.1 M/uL Hemoglobin 12.7 14.0-18.0 g/dL Hematocrit 38.3 42-52 % Mean Corpuscular Volume 88.2 80-100 fL Mean Corpuscular Hemoglobin 29.3 25-34 pg Mean Corpuscular Hemoglobin Concent 33.2 32-36 g/dl RDW Standard Deviation 44.5 36.4-46.3 fL RDW Coefficient of Variation 13.6 11.5-14.5 % Platelet Count 226 130-400 K/uL Mean Platelet Volume 9.7 7.4-10.4 fL Venous Blood pH 7.35 7.36-7.41 Sodium Level 129 136-145 mmol/L Potassium Level 4.5 3.5-5.1 mmol/L Chloride Level 100 98-107 mmol/L Carbon Dioxide Level 12 21-32 mmol/L Anion Gap 17.0 3-11 mmol/L Blood Urea Nitrogen 31 7-18 mg/dl Creatinine 1.19 0.60-1.40 mg/dl Est Creatinine Clear Calc Drug Dose 66.2 ml/min Estimated GFR () 81.5 Estimated GFR (Non- 70.3 BUN/Creatinine Ratio 26.1 10-20 Random Glucose 356 70-99 mg/dl Calcium Level 8.0 8.5-10.1 mg/dl Phosphorus Level 2.5 2.5-4.9 mg/dl Magnesium Level 2.1 1.8-2.4 mg/dl Beta-Hydroxybutyric Acid 86.80 0.2-2.81 mg/dL Bedside Glucose 299 259 236 70-99 mg/dl Test 09/08/17 07:08 09/08/17 07:21 09/08/17 07:44 09/08/17 08:14 Range/Units Bedside Glucose 236 216 227 70-99 mg/dl Venous Blood pH 7.40 7.36-7.41 Sodium Level 133 136-145 mmol/L Potassium Level 4.7 3.5-5.1 mmol/L Chloride Level 102 98-107 mmol/L Carbon Dioxide Level 18 21-32 mmol/L Anion Gap 13.0 3-11 mmol/L Blood Urea Nitrogen 28 7-18 mg/dl Creatinine 1.05 0.60-1.40 mg/dl Est Creatinine Clear Calc Drug Dose 75.1 ml/min Estimated GFR () 94.8 Estimated GFR (Non- 81.8 BUN/Creatinine Ratio 26.3 10-20 Random Glucose 231 70-99 mg/dl Calcium Level 7.9 8.5-10.1 mg/dl Phosphorus Level 2.1 2.5-4.9 mg/dl Magnesium Level 2.1 1.8-2.4 mg/dl Test 09/08/17 10:18 09/08/17 11:27 09/08/17 11:47 09/08/17 12:14 Range/Units Bedside Glucose 195 159 202 70-99 mg/dl Venous Blood pH 7.42 7.36-7.41 Sodium Level 131 136-145 mmol/L Potassium Level 4.0 3.5-5.1 mmol/L Chloride Level 102 98-107 mmol/L Carbon Dioxide Level 23 21-32 mmol/L Anion Gap 6.0 3-11 mmol/L Blood Urea Nitrogen 23 7-18 mg/dl Creatinine 0.91 0.60-1.40 mg/dl Est Creatinine Clear Calc Drug Dose 86.6 ml/min Estimated GFR () 112.7 Estimated GFR (Non- 97.2 BUN/Creatinine Ratio 25.5 10-20 Random Glucose 174 70-99 mg/dl Calcium Level 7.6 8.5-10.1 mg/dl Phosphorus Level 2.1 2.5-4.9 mg/dl Magnesium Level 2.1 1.8-2.4 mg/dl Test 09/08/17 14:25 09/08/17 15:22 09/08/17 16:00 Range/Units Bedside Glucose 147 124 70-99 mg/dl Microbiology Results 09/07/17 Urine Culture, Received Pending Assessment and Plan The patient is a 51-year-old male with type 1 diabetes that presented to the ED with a 2 day history of nausea vomiting and diarrhea, and was found to have significantly elevated glucose levels and DKA. The patient recently started using his insulin pump this Saturday, and it appears that he may require some more education for the pump. 1) Diabetic ketoacidosis - Glucose levels within goal and Anion Gap closed - Currently letting the insulin drip run along with Lantus sq - Patient currently on 25 units daily through his pump, although requiring significantly elevated insulin levels through the drip of approximately 3.1 units per hour or 70 units total daily - Patient may require adjustment of insulin pump and further education - Consult placed for attending ambulatory care - Advanced to regular type 1 diabetic diet - Discontinued IV fluids 2) Hypophosphatemia - Phos of 2.1 - 15mmol NaPhos 3) Hypertension - Continue home Lisinopril 10mg daily 4) Hyperlipidemia - Continue home Atorvastatin 40mg 5) Hyperthyroidism - Recent diagnosis - Currently on Methimazole 10mg 6) DVT prophylaxis - Heparin Resident Tracking Resident Involvement: Resident Care Provided Care Provided: Adult Hospital Medicine
[2017-09-08 16:51] LABS: BUN/CREATININE RATIO 24.8 (10-20); CALCIUM 7.9 mg/dl (8.5-10.1); CREATININE 0.77 mg/dl (0.60-1.40); MAGNESIUM 2.1 mg/dl (1.8-2.4); POTASSIUM 3.7 mmol/L (3.5-5.1)
[2017-09-08 20:20] LABS: BUN/CREATININE RATIO 19.4 (10-20); CALCIUM 7.9 mg/dl (8.5-10.1); CREATININE 1.03 mg/dl (0.60-1.40); POTASSIUM 3.7 mmol/L (3.5-5.1)
[2017-09-08 20:38] LABS: PHOSPHORUS 1.5 mg/dl (2.5-4.9)
[2017-09-08] MEDS ORDERED: INSULIN GLARGINE SOLOSTAR 100 UNITS/ML 3 ML PEN SC SCH (21:00)
[2017-09-08] MEDS ORDERED: POTASSIUM PHOSPHATE INJ 21 MMOL in SODIUM CHLORIDE 0.9% 500ML 500 ML IV STA (21:18)
[2017-09-08 23:47] LABS: BUN/CREATININE RATIO 23.5 (10-20); CALCIUM 7.7 mg/dl (8.5-10.1); CREATININE 0.82 mg/dl (0.60-1.40); POTASSIUM 3.8 mmol/L (3.5-5.1)
[2017-09-09 00:27] VITALS: BP 126/67; PULSE 78; TEMP 37.1; O2SAT 97
[2017-09-09] MEDS ORDERED: INSULIN ASPART 100 UNITS/ML 3 ML PEN SC SCH (02:00)
[2017-09-09 03:18] VITALS: BP 126/72; PULSE 70; TEMP 36.9; O2SAT 97
[2017-09-09] MEDS: HEPARIN SOD 5000 UNIT/0.5 ML CARP SQ SCH (05:40)
[2017-09-09 06:08] LABS: PHOSPHORUS 2.6 mg/dl (2.5-4.9)
[2017-09-09 07:46] VITALS: BP 116/73; PULSE 74; TEMP 36.9; O2SAT 95
[2017-09-09 08:16] LABS: ESTIMATED AVERAGE GLUCOSE 212 mg/dl; HA1C FLAG Normal (Normal)
[2017-09-09] MEDS: ASPIRIN 81 MG ECTAB PO SCH (08:44)
[2017-09-09] MEDS: PAROXETINE 20 MG TAB PO SCH (08:44)
[2017-09-09] MEDS: METHIMAZOLE 5 MG TAB PO SCH (08:44)
[2017-09-09] MEDS: LISINOPRIL 10 MG TAB PO SCH (08:45)
[2017-09-09 08:50] LABS: EOS % 0.3 %; HEMATOCRIT 35.4 % (42-52); IG% 0.1 %; LYMPH % 20.2 %; LYMPH ABS # 1.49 K/uL (1.2-3.4); MEAN CORPUSCULAR HEMOGLOBIN 29.5 pg (25-34); MEAN PLATELET VOLUME 9.1 fL (7.4-10.4); MONO % 8.3 %; NEUT % 71.1 %; PLATELET COUNT 144 K/uL (130-400); RED BLOOD COUNT 4.07 M/uL (4.7-6.1); WHITE BLOOD COUNT 7.38 K/uL (4.8-10.8)
[2017-09-09] MEDS: INSULIN ASPART 100 UNITS/ML 3 ML PEN SC SCH (08:51)
[2017-09-09 08:52] LABS: COMPLETE YES; MEAN CORPUSCULAR HGB CONC 33.9 g/dl (32-36)
[2017-09-09] MEDS ORDERED: INSULIN GLARGINE SOLOSTAR 100 UNITS/ML 3 ML PEN SC SCH (09:00)
[2017-09-09] MEDS ORDERED: DEXTROSE 50% 50 ML SYR IV PRN (09:00)
[2017-09-09] MEDS ORDERED: INSULIN HUMAN LISPRO (humaLOG) 100 UNITS/ML VIAL SC PRN (09:00)
[2017-09-09] MEDS ORDERED: GLUCOSE 10 TABS/TUBE PO PRN (09:00)
[2017-09-09] MEDS ORDERED: GLUCAGON FOR INJ 1 MG VIAL SQ PRN (09:00)
[2017-09-09] MEDS ORDERED: GLUCOSE 40% GEL 15 GM TUBE PO PRN (09:00)
[2017-09-09 09:18] LABS: BUN/CREATININE RATIO 23.6 (10-20); CALCIUM 8.2 mg/dl (8.5-10.1); CREATININE 0.67 mg/dl (0.60-1.40); POTASSIUM 4.3 mmol/L (3.5-5.1)
[2017-09-09 11:13] VITALS: BP 125/64; PULSE 83; TEMP 36.8; O2SAT 96
[2017-09-09] MEDS ORDERED: INSULIN GLARGINE SOLOSTAR 100 UNITS/ML 3 ML PEN SC ONE (11:45)
[2017-09-09 13:00] VITALS: Ht 167.6 cm; Wt 75.7 kg
--- NOTE | 2017-09-09 13:17 | Pharmacy Progress Note ---
Pharmacy Glycemic Short Note 2 Date of Service Sep 09, 2017. OUTPATIENT ANTIDIABETIC REGIMEN: * Humalog pump (basal rate of 0.85 units/hr; CF of 30 and CR of 10) ASSESSMENT: * Mr Sy is a 51 y/o M admitted with DKA. He was transitioned off an insulin infusion yesterday to basal-bolus. He received Lantus 25 units yesterday around 1030 AM (similar to previous Lantus prior to starting insulin pump). At 1130 AM today, the patient still did not have pump supplies to turn the insulin pump back on. After speaking with Dr Garza, it was decided to give an additional 24 hour dose of Lantus today. I watched the patient set a temporary basal rate of 0 % until 0900 tomorrow (supervised by Sabine Hanna) and give himself a bolus dose for lunch. Patient had greater understanding of pump after education. PLAN FOR INPATIENT GLYCEMIC CONTROL: * Lantus 20 units SQ x 1 dose * Humalog pump started ~1300 with bolus for lunch (temporary basal set to 0% until 0900 tomorrow morning) PLAN FOR DISCHARGE: * Insulin pump (Humalog) as outpatient setting follow-up with diabetes education
--- NOTE | 2017-09-09 13:33 | Discharge Instructions ---
Discharge Instructions Date of Service Sep 09, 2017. Admission Reason for Admission: DKA Discharge Discharge Diagnosis / Problem: Diabetic Ketoacidosis Discharge Goals Goal(s): Improve function, Learn about illness, Therapeutic intervention Activity Recommendations Activity Limitations: as noted below Lifting Limitations: gradually increase as tolerated Exercise/Sports Limitations: gradually increase as tolerated Shower/Bathe: no limitations . Instructions / Follow-Up Instructions / Follow-Up You were treated in the hospital due to a high glucose level. Your initially treated with IV insulin and fluids, and we were able to get your blood sugars back within a normal range. At this point we started giving you injectable insulin and started you back on an oral diet. This morning due to a lack of new connection pieces, we were unable to give you your morning basal dose of insulin through your insulin pump. Therefore we gave you an injection of basal insulin in the hospital. Before discharge you will resume using her insulin pump, and tomorrow morning you'll resume using basal insulin at 9 AM. For this time he will only do short acting meal coverage until tomorrow morning. It is important to have close follow-up with your machine binding folder treating your diabetes, to ensure that you have been adequately covering your meals. Your most recent hemoglobin A1c was greater than 9, meaning that you have had fairly poor control recently of your blood sugars. This may be likely due to the fact that you recently started using an insulin pump over this time, and have an adjustment period. We will not be changing your insulin pump dosing at this time. Diabetes: It is important to understand that when her blood sugar levels raise above 150 your causing damage to your blood vessels, that completely you at increased risk for heart attack, stroke, vision changes, kidney damage, and damage to your legs. For this reason it is important to check her blood sugar levels 2 hours after eating, and that your blood sugar level at that time is no higher than 150. Diet control with limiting carbohydrates is imperative to keep your blood sugar is down, as well as using the adequate amount of insulin. It is important to have close follow-up with your doctor and regularly monitor your sugars in order to best understand what your blood sugars regularly are, what insulin dose will require, and what foods are most likely contributing to her high sugar levels. Please follow-up with your primary care physician the next 2-3 days Please follow-up with your machine binding folder (Diabetes doctor) in the next week If you present with any worsening symptoms of those that brought you into the hospital, or any other inserting symptoms including blurriness of vision, lightheadedness, balance problems, chest pain, shortness of breath, fevers, chills, or any other concerning symptoms please be evaluated by a physician as soon as possible or return to the emergency department. Current Hospital Diet Patient's current hospital diet: Diabetes Type 1 Diet, Regular Diet Discharge Diet Recommended Diet: Diabetes Type 1 Diet Pending Studies Studies pending at discharge: no Laboratory Results Hemoglobin A1c Test 09/09/17 05:09 Range/Units Estimated Average Glucose 212 mg/dl Hemoglobin A1c 9.0 H 4.5-5.6 % Medical Emergencies . Who to Call and When: Medical Emergencies: If at any time you feel your situation is an emergency, please call 911 immediately. . Non-Emergent Contact Non-Emergency issues call your: Primary Care Provider . . "Provider Documentation" section prepared by Julio Garza. . VTE Core Measure Inpt VTE Proph given/why not?: Unfractionated heparin SQ
[2017-09-09 14:10] VITALS: BP 125/64; PULSE 83; TEMP 36.8; O2SAT 96
--- NOTE | 2017-09-09 15:57 | Discharge Summary ---
Discharge Summary Date of Service Sep 09, 2017. (Julio Garza MD) Discharge Summary Admission Date: Sep 07, 2017 at 22:54 Discharge Date: Sep 09, 2017 Discharge Disposition: Home Principal Diagnosis: Diabetic Ketoacidosis (Julio Garza MD) Medication Reconciliation Continued Medications: Aspirin (Aspirin Ec) 81 Mg Tab 81 MG PO DAILY Atorvastatin (Lipitor) 40 Mg Tab 40 MG PO QPM Atorvastatin (Lipitor) 20 Mg Tab 1 TAB PO DAILY for 90 Days, #90 TAB 1 Refill Insulin Lispro (Human) (Humalog) 100 Unit/Ml Inj 1 DOSE INJ UD for VIA INSULIN PUMP VIA INSULIN PUMP BASAL IS 24 UNITS DAILY,THEN NEEDED PER SLIDING SCALE Lisinopril (Lisinopril) 10 Mg Tab 10 MG PO DAILY Methimazole (Methimazole) 10 Mg Tab 10 MG PO DAILY Multivitamin (Multivitamin) Tab 1 TAB PO DAILY, TAB Paroxetine (Paxil) 20 Mg Tab 20 MG PO DAILY, TAB Discharge Exam Review of Systems: Constitutional: No fever, No chills, No fatigue Respiratory: No cough, No shortness of breath Cardiovascular: No chest pain, No palpitations Abdomen: No pain, No nausea, No vomiting, No diarrhea, No constipation Neurologic: No memory loss, No numbness/tingling, No balance problems Endocrine: No fatigue, No excessive thirst, No excessive urination Physical Exam: General Appearance: WD/WN, no apparent distress Eyes: normal inspection, sclerae normal Respiratory/Chest: chest non-tender, lungs clear, normal breath sounds Cardiovascular: regular rate, rhythm, no edema, no gallop Abdomen / GI: normal bowel sounds, non tender, soft Extremities: normal inspection, no calf tenderness Neurologic/Psychiatric: concession supervisor II-XII nml as tested, no motor/sensory deficits , alert, oriented x 3 (Julio Garza MD) Hospital Course The patient is a 51-year-old male with type 1 diabetes that presented to the ED with a 2 day history of nausea, vomiting, and diarrhea, and was found to have significantly elevated glucose levels (>450) and DKA. The patient recently started using his insulin pump this Saturday after being a type I diabetic on injectable insulin for the last 20 years. Patient was having nausea and vomiting for 2 days and because he was having no oral intake he decided to remove his insulin pump because he did not want her sugars to go too low. He began to feel significantly more ill and was brought into the emergency department. His glucose level was found to be in the 400s with an elevated anion gap. He was started on IV insulin and IV fluids. Over the next 12 hours we are able to bring his sugars down to goal range and his gap closed, and he was subsequently transitioned to subcutaneous insulin. After we were able to get his sugars with in range, the patient denied any further nausea or vomiting and was only feeling fatigued with no other acute complaints. It appears that previously the patient was on 25 units of Lantus prior to starting his insulin pump from subcutaneous injections, and based on his hourly rate he is getting approximately 20 units daily of basal insulin through his pump. His HbA1c was found to be greater than 9 in the hospital. The patient received diabetic education as well as counseling regarding diet and what his adequate sugar level should be. On discharge the patient was given a morning dose of Lantus subcutaneously and restarted on his insulin pump with instructions to resume his basal dosing tomorrow morning. Total Time Spent: Greater than 30 minutes This includes examination of the patient, discharge planning, medication reconciliation, and communication with other providers. (Julio Garza MD) Resident Physician Supervision Note: I interviewed and examined the patient. Discussed with Dr. Garza and agree with findings and plan as documented in the note. Any exceptions or clarifications are listed here: None Documented By: Rohit Oneil feeling better, seemed unaware of basics of DM management and complications. tried to educate vitals noted nad breathing unlabored no pallor or icterus DKA - due to stopping pump, uncontrolled DM - education provided, discussed matching carbs/insulin and maintaining better glycemic control than he's previously been doing stable for home, close PCP and endocrinology f/u (Rohit Oneil, D.O.) Discharge Instructions Please refer to the electronic Patient Visit Report (Discharge Instructions) for additional information. (Julio Garza MD) Additional Copies To Brendan Johns M.D.; Antoine Hernandez M.D. Resident Tracking Resident Involvement: Resident Care Provided Care Provided: Adult Hospital Medicine (Julio Garza MD)
== END 2017-09-09 14:43 | disposition home or self-care (01) | DRG 639 ==
LOC: C.EDB 21:03 → C.MED 22:54 → ENRESERV 23:02
PROVIDERS: ADMIT Internal Medicine; ATTEND Hospitalist
DX: E10.10 Type 1 diabetes mellitus with ketoacidosis without coma (principal); R11.2 Nausea with vomiting, unspecified; R19.7 Diarrhea, unspecified; E83.39 Other disorders of phosphorus metabolism; I10 Essential (primary) hypertension; E78.5 Hyperlipidemia, unspecified; E05.90 Thyrotoxicosis, unspecified without thyrotoxic crisis or storm; Z79.82 Long term (current) use of aspirin; Z79.899 Other long term (current) drug therapy; Z88.0 Allergy status to penicillin; Z83.3 Family history of diabetes mellitus; Z82.49 Family history of ischemic heart disease and other diseases of the circulatory system

== ENCOUNTER 2019-03-13 14:21 | Observation (INO) ==
--- OUTSIDE RECORDS SUMMARY | 2019-03-13 14:24 | External Medical Summary | Continuity of Care Document ---
:1965 Author Name Norman Guzman, Provider Address Unavailable Unavailable , Care Team Providers Name Role Phone Claudio Dumont PA-C Unavailable [email or web address] Unavailable Unavailable Unavailable Unavailable Unavailable Problems Anxiety (300.00) (F41.9) Type 1 diabetes mellitus with hypoglycemia (250.81) (E10.649 ) Goiter (240.9) (E04.9) Type 1 diabetes mellitus (250.01) (E10.9) Abnormal thyroid blood test (790.6) (R79.89) Dyslipidemia (272.4) (E78.5) Hypertension (401.9) (I10) Allergies and Adverse Reactions Penicillins (Allergy) Medications BD Insulin Syringe Ultrafine 30G X 1/2" 0.5 ML; Use with Lantus and Humalog insulin daily 4 times daily Refills: 0 Aspirin 81 MG TABS; Take 1 tablet daily Refills: 0 NovoLOG 100 UNIT/ML Subcutaneous Solutio n; 30-40 UNITS PER DAY VIA INSULIN PUMP CASEY Dumont Start: 21-Oct-2017 Quantity: 4 10 ML Vial Refills: 3 Basaglar KwikPen 100 UNIT/ML Subcutaneou s Solution Pen-injector; INJECT 35 UNITS AT BEDTIME; INCASE OF PUMP FAILURE CASEY Dumont Start: 04-Dec-2017 Quantity: 1 5 x 3 ML Pen Refills: 5 Glucagon Emergency 1 MG Injection Kit; USE DIRECTED. CASEY Mercer Start: 18-Sep-2017 Quantity: 1 Refills: 3 Ketostix In Vitro Strip; Test urine prn hyperglycemic ketosis CASEY Dumont Start: 18-Sep-2017 Quantity: 1 100 Strip Box Refills: 3 Jose Alfredo Contour Next Test STRP; test 5x a day CASEY Dumont Start: 18-Sep-2017 Quantity: 9 50 Strip Box Refills: 3 Atorvastatin Calcium 40 MG Oral Tablet; TAKE 1 TABLET DAILY DIRECTED. CASEY Dumont Start: 28-Jun-2017 Quantity: 90 Refills: 3 BD Pen Needle [place] U/F 32G X 4 MM; USE DIRECTED 3 T IMES A DAY CASEY Dumont Start: 25-Jul-2015 Quantity: 3 100 Unit Box Refills: 3 Ibuprofen 600 MG Oral Tablet; 1 qid prn Refills: 0 Multivitamins Oral Capsule; TAKE 1 CAPSULE DAILY. Refills: 0 Contour Next Test In Vitro Strip; TEST 5 TIMES A DAY CASEY Rogel Start: 28-Jul-2018 Quantity: 5 100 Strip Box Refills: 3 Lisinopril 10 MG Oral Tablet; Take one tablet daily by mouth CASEY Dumont Quantity: 90 Refills: 3 Paxil 20 MG Oral Tablet; TAKE 1 TABLET DAILY. Refills: 0 Procedures History of Surgery Vas Deferens Vasectomy Status: Completed Immunizations Tdap On: 15-Oct-2011 Pneumococcal polysaccharide vaccine, 23 valent On: 25-Jul-20 12 Influenza On: 31-Aug-2013 Family History Father Family history of cardiac disorder (V17.49) (Z82.49) Status: Active Family history of acute myocardial infarction (V17.3) (Z82.4 9) Status: Active uncle Family history of diabetes mellitus (V18.0) (Z83.3) Status: Active Plan of Treatment Planned Observations Planned Goals not documented Results No Known Results Results not documented Encounters Appointment; Claudio Dumont PA-C 09-Oct-2018 8:00 Encounter Diagnosis: Problem not documented Appointment; Claudio Dumont PA-C 28-May-2018 9:20 Encounter Diagnosis: Problem not documented Appointment; Claudio Duomnt PA-C 08-Apr-2018 17:00 Encounter Diagnosis: Problem not documented Appointment; Claudio Dumont PA-C 21-Nov-2017 16:30 Encounter Diagnosis: Problem not documented Appointment; Claudio Dumont PA-C 25-Oct-2017 9:00 Encounter Diagnosis: Problem not documented Appointment; Georgina Bragg R.D. 18-Sep-2017 14:00 Encounter Diagnosis: Problem not documented Appointment; Don Torres M.D. 18-Sep-2017 13:40 Encounter Diagnosis: Problem not documented Appointment; Claudio Dumont PA-C 28-Jun-2017 12:30 Encounter Diagnosis: Problem not documented Appointment; Claudio Dumont PA-C 26-Mar-2017 14:30 Encounter Diagnosis: Problem not documented Appointment; Claudio Dumont PA-C 25-Feb-2019 15:00 Encounter Diagnosis: Problem not documented
[2019-03-13 15:53] LABS: Basophils # (auto) 0.01 K/uL (0-0.2); Basophils % (auto) 0.1 %; Eosinophils # (auto) 0.01 K/uL (0-0.5); Eosinophils % (auto) 0.1 %; Hematocrit (blood only) 42.8 % (42-52); Lymphocytes # (auto) 1.27 K/uL (1.2-3.4); Lymphocytes % (auto) 16.4 %; Mean Corpuscular Volume 85.3 fL (80-100); Monocytes # (auto) 0.62 K/uL (0.11-0.59); Neutrophils # (auto) 5.84 K/uL (1.4-6.5); Neutrophils % (auto) 75.4 %; Platelet Count 198 K/uL (130-400); RDW Coefficient of Variation 13.4 % (11.5-14.5); RDW Standard Deviation 41.6 fL (36.4-46.3); Red Blood Count 5.02 M/uL (4.7-6.1); White Blood Count 7.75 K/uL (4.8-10.8)
[2019-03-13 16:03] LABS: INR 1.2 (0.9-1.1); Partial Thromboplastin Time 26.1 Seconds (21.0-31.0); Prothrombin Time 11.7 Seconds (9.0-12.0)
[2019-03-13 16:09] LABS: Alanine Aminotransferase 43 U/L (12-78); Albumin Level 3.7 gm/dl (3.4-5.0); Aspartate Aminotransferase 28 U/L (15-37); BUN Creatinine Ratio 19.6 (10-20); Blood Urea Nitrogen 18 mg/dl (7-18); Calcium 9.3 mg/dl (8.5-10.1); Carbon Dioxide 27 mmol/L (21-32); Chloride 104 mmol/L (98-107); Creatinine Clr Calc Pharmacy 92.2 ml/min; Est GFR (African American) 106.9; Est GFR (Non-African American) 92.2; Glucose 237 mg/dl (70-99); Sodium 137 mmol/L (136-145)
[2019-03-13 16:19] LABS: Alkaline Phosphatase 79 U/L (45-117); Bilirubin,Total 1.3 mg/dl (0.2-1); Globulin 3.7 gm/dl (2.5-4.0); Total Protein 7.4 gm/dl (6.4-8.2); Troponin I < 0.015 ng/ml (0-0.045)
--- NOTE | 2019-03-13 16:32 | XRay Report ---
SINGLE VIEW CHEST CLINICAL HISTORY: Atypical chest pain. FINDINGS: An AP, portable, upright chest radiograph is obtained. No prior studies are available for c omparison at the time of dictation. The cardiomediastinal silhouette is unremarkable. There is mild bibasilar atelectasis. The lungs and pleural spaces are otherwise clear. No pneumothorax is seen. The bony thorax is grossly intact. Indeterminate calcifications project over the left upper quadrant of the abdomen. IMPRESSION: No acute cardiopulmonary abnormality. Electronically signed by: Kanu Issa M.D. 03/13/2019 4:31 PM
--- NOTE | 2019-03-13 17:04 | Emergency Department Note ---
History of Present Illness General Chief complaint: Cardiac Assessment Stated complaint: HEART PAIN Source: patient Mode of arrival: ambulatory Limitations: no limitations History of Present Illness Maximum Pain Intensity: 1 This patient is a 53-year-old male who presents to emergency department complaining of extreme fatigue. The patient states that yesterday, he was doing yard work and felt completely exhausted while doing this. He states that normally, he would be able to perform this amount of physical work without any difficulty. He states that he became very tired, slightly lightheaded, nauseous and sweaty. He denies any chest pain, shortness of breath or palpitations. He states that his symptoms would resolve with rest. He had another episode of symptoms last night while doing work inside the house. The patient states he had another episode of symptoms 2 hours prior to arrival while at work. 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 The patient states that again he rested and his symptoms resolved. The patient denies any history of similar symptoms. He is a type I diabetic and states he is fairly well controlled. He additionally reports a history of hypertension and hyperlipidemia. He reports a strong family history of cardiac disease. He states that his father had his first TX at age 40. He also reports he has an uncle who had an TX and a brother with a valve replacement. The patient is not a smoker. Home Medications Home Medications Medication Instructions Recorded Confirmed Type aspirin [Aspir-81] 81 mg PO HS 03/13/19 03/13/19 History atorvastatin 40 mg PO HS 03/13/19 03/13/19 History insulin lispro [Humalog U-100 1 sliding scale dose CONTINUOUS 03/13/19 03/13/19 History Insulin] SUBCUTANEOUS INFUSION USEASDIRECTD lisinopril 10 mg PO HS 03/13/19 03/13/19 History multivitamin 1 tab PO HS 03/13/19 03/13/19 History paroxetine HCl [Paxil] 20 mg PO HS 03/13/19 03/13/19 History Allergies Allergy/AdvReac Type Severity Reaction Status Date / Time Penicillins Allergy Unknown STRONG Verified 03/13/19 15:46 FAMILY HX Past Med/Surg History Medical History Diabetes (Chronic) Hypertension (Chronic) DKA (diabetic ketoacidoses) (Resolved) Dyslipidemia Surgical History No pertinent past surgical history Social History Preferred Language: Russian Communication Ability: Effective Demand Planner Required: No Beliefs That Will Affect Care: None Current Living Situation: Spouse Other Information That Helps Us Care for You: No Feels Safe at Home: Yes Safety Concerns: Feels Safe At This Time Smoking Status: Never smoker Do You Dip or Chew Tobacco: No Second Hand Exposure: No Hx Alcohol Use: Yes Alcohol type: beer Hx Substance Use: No Review of Systems A total of 10 systems reviewed and were otherwise negative Physical Exam Vital Signs Vital Signs - 24 hr 03/13/19 14:29 03/13/19 15:18 03/13/19 15:38 Temperature 36.6 C Temperature Source Oral Sepsis Recent Fever Within 48 Hours No Sepsis Action Taken by Nursing No Action Required Pulse Rate 96 H 87 Pulse Rate from SpO2 Sensor Respiratory Rate 18 21 Respiratory Effort / Characteristics Non-Labored Spontaneous Respiratory Depth Normal Blood Pressure 171/94 H 118/68 Blood Pressure Mean 119 84 Blood Pressure Position Lying Pulse Oximetry 99 99 Oxygen Delivery Method Room Air Room Air 03/13/19 16:00 03/13/19 16:30 03/13/19 17:09 Temperature Temperature Source Sepsis Recent Fever Within 48 Hours Sepsis Action Taken by Nursing Pulse Rate 93 H 93 H 87 Pulse Rate from SpO2 Sensor 93 H 92 H 88 Respiratory Rate 21 26 H 22 Respiratory Effort / Characteristics Respiratory Depth Blood Pressure 134/84 147/95 H 106/53 L Blood Pressure Mean 100 112 70 Blood Pressure Position Pulse Oximetry 98 100 98 Oxygen Delivery Method 03/13/19 17:56 Temperature Temperature Source Sepsis Recent Fever Within 48 Hours Sepsis Action Taken by Nursing Pulse Rate 88 Pulse Rate from SpO2 Sensor Respiratory Rate 15 Respiratory Effort / Characteristics Respiratory Depth Blood Pressure 140/86 Blood Pressure Mean 104 Blood Pressure Position Pulse Oximetry Oxygen Delivery Method VITALS: Vitals are noted on the nurse's note and reviewed by myself. Vital signs stable. GENERAL: This is a 53-year-old male, in no acute distress, nondiaphoretic, well- developed well-nourished. SKIN: The skin was without rashes. EARS: External auditory canals clear, tympanic membranes pearly puentes without erythema or effusion bilaterally. EYES: Pupils equal round and reactive to light and accommodation. MOUTH: Mucous membranes moist. Tonsils are not enlarged. Pharynx without erythema or exudate. NECK: Supple without nuchal rigidity. No lymphadenopathy. HEART: Regular rate and rhythm without murmurs gallops or rubs. LUNGS: Clear to auscultation bilaterally without wheezes, rales or rhonchi. No retractions or accessory muscle use. MUSCULOSKELETAL: Full range of motion throughout. NEURO: Patient was alert and oriented to person place and time. Course Consultations Consultation #1: Dr. Ezequiel DOWD hospitalist Administered Medications Aspirin (Ecotrin Ectab) 81 mg PO [facility] Stop: 04/12/19 20:59 Last Admin: 03/13/19 21:36 Dose: 81 mg Documented by: [id number] Atorvastatin Calcium (Lipitor) 40 mg PO [facility] Stop: 04/12/19 20:59 Last Admin: 03/13/19 21:36 Dose: 40 mg Documented by: [id number] Diphenhydramine HCl (Benadryl Capsule) 25 mg PO [facility] Stop: 04/12/19 20:59 Last Admin: 03/13/19 23:14 Dose: 25 mg Documented by: [id number] Insulin Human Lispro (Humalog Insulin Pump) 1 ea N/A [facility]; Protocol Stop: 04/12/19 20:59 Last Admin: 03/13/19 22:14 Dose: 1 ea Documented by: [id number] Lisinopril (Zestril) 10 mg PO [facility] Stop: 04/12/19 20:59 Last Admin: 03/13/19 21:37 Dose: 10 mg Documented by: [id number] Multivitamins (Multivitamin Tab) 1 tab PO [facility] Stop: 04/12/19 20:59 Last Admin: 03/13/19 21:36 Dose: 1 tab Documented by: [id number] Paroxetine HCl (Paxil) 20 mg PO [facility] Stop: 04/12/19 20:59 Last Admin: 03/13/19 21:37 Dose: 20 mg Documented by: [id number] Medical Decision Making Differential Diagnosis Differential diagnosis includes acute coronary syndrome, pulmonary embolism, pneumothorax, pericarditis, myocarditis, endocarditis, anxiety, electrolyte abnormality, infection, dehydration, kidney failure, among others. Home Medications Current Medication List: was personally reviewed by me Laboratory Data Attestation: I reviewed the patient's lab results. Result diagrams: 03/13/19 15:29 05/31/19 15:29 Lab Results 03/13/19 03/13/19 03/13/19 Range/Units 15:29 15:29 15:29 WBC 7.75 (4.8-10.8) K/uL RBC 5.02 (4.7-6.1) M/uL Hgb 15.0 (14.0-18.0) g/dL Hct 42.8 (42-52) % MCV 85.3 (80-100) fL MCH 29.9 (25-34) pg MCHC 35.0 (32-36) g/dL RDW Std Deviation 41.6 (36.4-46.3) fL RDW Coeff of Dennise 13.4 (11.5-14.5) % Plt Count 198 (130-400) K/uL MPV 10.0 (7.4-10.4) fL Immature Gran % (Auto) 0.0 % Neut % (Auto) 75.4 % Lymph % (Auto) 16.4 % [place] % (Auto) 8.0 % Eos % (Auto) 0.1 % Baso % (Auto) 0.1 % Immature Gran # (Auto) 0.00 (0.00-0.02) K/uL Neut # (Auto) 5.84 (1.4-6.5) K/uL Lymph # (Auto) 1.27 (1.2-3.4) K/uL [place] # (Auto) 0.62 H (0.11-0.59) K/uL Eos # (Auto) 0.01 (0-0.5) K/uL Baso # (Auto) 0.01 (0-0.2) K/uL PT 11.7 (9.0-12.0) Seconds INR 1.2 H (0.9-1.1) APTT 26.1 (21.0-31.0) Seconds PTT Ratio 1.0 Sodium 137 (136-145) mmol/L Potassium 4.0 (3.5-5.1) mmol/L Chloride 104 (98-107) mmol/L Carbon Dioxide 27 (21-32) mmol/L Anion Gap 6.0 (3-11) BUN 18 (7-18) mg/dl Creatinine 0.94 (0.6-1.4) mg/dl Est Cr Clr Drug Dosing 92.2 ml/min Est GFR ( Amer) 106.9 Est GFR (Non-Af Amer) 92.2 BUN/Creatinine Ratio 19.6 (10-20) Glucose 237 H (70-99) mg/dl Calcium 9.3 (8.5-10.1) mg/dl Total Bilirubin 1.3 H (0.2-1) mg/dl AST 28 (15-37) U/L ALT 43 (12-78) U/L Alkaline Phosphatase 79 (45-117) U/L Troponin I < 0.015 (0-0.045) ng/ml Total Protein 7.4 (6.4-8.2) gm/dl Albumin 3.7 (3.4-5.0) gm/dl Globulin 3.7 (2.5-4.0) gm/dl Albumin/Globulin Ratio 1.0 (0.9-2) TSH 0.127 L (0.300-4.500) uIu/ml Imaging Data Attestation: I personally reviewed and interpreted this imaging study as follows: Radiologist's Impression: SINGLE VIEW CHEST CLINICAL HISTORY: Atypical chest pain. FINDINGS: An AP, portable, upright chest radiograph is obtained. No prior studies are available for comparison at the time of dictation. The cardiomediastinal silhouette is unremarkable. There is mild bibasilar atelectasis. The lungs and pleural spaces are otherwise clear. No pneumothorax is seen. The bony thorax is grossly intact. Indeterminate calcifications project over the left upper quadrant of the abdomen. IMPRESSION: No acute cardiopulmonary abnormality. ECG Data Attestation: I personally reviewed and interpreted this ECG as follows: Indication: weakness Rate (beats per minute): 90 Rhythm: normal sinus Findings: no acute ischemic change and no ectopy Change: no significant change Blood Pressure Blood Pressure Findings: Elevated blood pressure Blood Pressure Disposition: further management by hospitalist SULLY Nance The patient is a 53-year-old male who presents today complaining of fatigue and diaphoresis during exertion over the past 2 days. Labs revealed no leukocytosis, anemia or concerning electrolyte abnormalities. Glucose was elevated at 237. Troponin was not elevated. EKG showed no evidence of acute ischemia. Chest x-ray unremarkable. Given patient's strong family history and possibility of atypical presentation in diabetics, I did recommend admission/observation for further testing and cardiac rule out. Patient's HEART score was calculated to be 4. Patient was agreeable with the treatment plan. [facility] the patient for admission/observation. Impression & Plan Atypical angina Discharge Plan Visit Data *Final* Discharge Date/Time: 03/13/19 18:14 Chief Complaint: Cardiac Assessment Stated Complaint: HEART PAIN ED Provider: Paul Menon ED Midlevel Provider: Carmen Olson Discharge Problem: Atypical angina Patient Disposition: Admitted As Inpatient Discharge Instructions Interventions: ED Discharge Assessment Last Done: 03/13/19 18:14
--- NOTE | 2019-03-13 17:31 | History & Physical Report ---
Date of Service March 13, 2019 Assessment & Plan (1) Atypical angina: admit obs tele Trend troponins Echo Continue atorvastatin, asa (2) Diabetes: BSGs ac & hs Patient can manage his own pump (3) Hypertension: continue lisinopril (4) HLD (hyperlipidemia): Continue atorvastatin (5) Anxiety: Patient would like to wean off of his paroxetine but for now will continue (6) Hyperthyroidism: TSH was 0.127 In the past his baseline has been around 0.38. He has been on methimazole but has apparently been off of it for some time. Will order T4 for am Vital signs are stable so not sure if this is contributing to his symptoms. History of Present Illness Mr. Sy presents today after feeling intense fatigue and diaphoresis at points during physical exertion over the last three days. It has happened while at work and while working in his yard causing him to have to sit down until he felt better. He is very concerned because his family has a strong cardiac family history. His father had multiple heart attacks starting in his 40, his uncle from a heart attack and his brother has a cardiac stent. He has also been nauseas with little appetite. Pmhx: DMI, hld, htn, anxiety Social: works at [employer], non smoker, 4 nights per week drinks half a pint of liquor, no street drugs Primary Care Provider: Antoine Hernandez MD Allergies Allergy/AdvReac Type Severity Reaction Status Date / Time Penicillins Allergy Unknown STRONG Verified 03/13/19 15:46 FAMILY HX Home Medications Home Medications Medication Instructions Recorded Confirmed Type aspirin [Aspir-81] 81 mg PO HS 03/13/19 03/13/19 History atorvastatin 40 mg PO HS 03/13/19 03/13/19 History insulin lispro [Humalog U-100 1 sliding scale dose CONTINUOUS 03/13/19 03/13/19 History Insulin] SUBCUTANEOUS INFUSION USEASDIRECTD lisinopril 10 mg PO HS 03/13/19 03/13/19 History multivitamin 1 tab PO HS 03/13/19 03/13/19 History paroxetine HCl [Paxil] 20 mg PO HS 03/13/19 03/13/19 History Past Med/Surg History Medical History Diabetes (Chronic) Hypertension (Chronic) DKA (diabetic ketoacidoses) (Resolved) Dyslipidemia Surgical History No pertinent past surgical history Social History Preferred Language: Icelandic Communication Ability: Effective Missing Persons Investigator Required: No Beliefs That Will Affect Care: None Current Living Situation: Spouse Other Information That Helps Us Care for You: No Feels Safe at Home: Yes Safety Concerns: Feels Safe At This Time Smoking Status: Never smoker Do You Dip or Chew Tobacco: No Second Hand Exposure: No Hx Alcohol Use: Yes Alcohol type: beer Hx Substance Use: No Review of Systems Review of Systems: All systems reviewed & are unremarkable except as noted in HPI & below Physical Exam Physical Exam: General: no distress Eyes: normal inspection, PERLL Respiratory: chest non tender, clear to auscultation, normal breath sounds, no respiratory distress, no accessory muscle use Cardiac: regular rate and rhythm, no rub or gallop, no murmur, no edema, no jvd GI/: active bowel sounds, no abd pain or tenderness, soft, non distended Extremities: normal range of motion, normal strength, non tender Neuro/Psych: alert and oriented x 3, normal mood and affect Skin: normal color, dry Results & Data Vital Signs (Past 12 Hours) Vital Signs Temp Pulse Resp BP Pulse Ox 03/13/19 16:30 93 H 26 H 147/95 H 100 03/13/19 16:00 93 H 21 134/84 98 03/13/19 15:38 87 21 118/68 03/13/19 15:18 99 03/13/19 14:29 36.6 C 96 H 18 171/94 H 99 Code Status & VTE Plan Code Status full Supervising Physician Co-Signing Physician Notes MUSIC RESEARCHER Physician Supervision Note: I discussed with Lucero Luther NP and agree with findings and plan as documented in the note. Any exceptions or clarifications are listed here: None Patient was independently seen and examined in the ER he was not having any records were unremarkable. His symptoms really revolve more around profound episodes of fatigue which are not necessarily exacerbated by exercise Vitals are stable heart was regular without murmurs lungs were clear Patient be observed for serial troponins continued monitoring and echocardiogram. . Documented By: Too Luna
[2019-03-13] MEDS ORDERED: ACETAMINOPHEN 325 MG TAB PO PRN (19:46)
[2019-03-13] MEDS ORDERED: INSULIN HUMAN LISPRO (humaLOG) 100 UNITS/ML VIAL SC PRN (20:15)
[2019-03-13] MEDS ORDERED: GLUCOSE 40% GEL 15 GM TUBE PO PRN (20:15)
[2019-03-13] MEDS ORDERED: CARBOHYDRATES FOR HYPOGLYCEMIA PO PRN (20:15)
[2019-03-13] MEDS ORDERED: DEXTROSE 50% 50 ML SYRINGE IV PRN (20:15)
[2019-03-13] MEDS ORDERED: GLUCOSE 10 TABS/TUBE PO PRN (20:15)
[2019-03-13] MEDS ORDERED: GLUCAGON FOR INJ 1 MG VIAL SQ PRN (20:15)
[2019-03-13] MEDS ORDERED: ASPIRIN 81 MG ECTAB PO SCH (21:00)
[2019-03-13] MEDS ORDERED: MULTIVITAMIN TAB PO SCH (21:00)
[2019-03-13] MEDS ORDERED: LISINOPRIL 10 MG TAB PO SCH (21:00)
[2019-03-13] MEDS ORDERED: ATORVASTATIN 40 MG TAB PO SCH (21:00)
[2019-03-13] MEDS ORDERED: PARoxetine HCl 20 MG TAB PO SCH (21:00)
[2019-03-14 03:48] LABS: Basophils # (auto) 0.01 K/uL (0-0.2); Basophils % (auto) 0.2 %; Eosinophils # (auto) 0.07 K/uL (0-0.5); Eosinophils % (auto) 1.4 %; Hematocrit (blood only) 42.2 % (42-52); Hemoglobin 14.7 g/dL (14.0-18.0); Lymphocytes # (auto) 1.99 K/uL (1.2-3.4); Lymphocytes % (auto) 38.7 %; Mean Corpuscular Hgb Conc 34.8 g/dL (32-36); Mean Corpuscular Volume 85.3 fL (80-100); Mean Platelet Volume 9.7 fL (7.4-10.4); Monocytes # (auto) 0.72 K/uL (0.11-0.59); Neutrophils # (auto) 2.35 K/uL (1.4-6.5); Neutrophils % (auto) 45.7 %; Platelet Count 179 K/uL (130-400); RDW Coefficient of Variation 13.4 % (11.5-14.5); Red Blood Count 4.95 M/uL (4.7-6.1); White Blood Count 5.14 K/uL (4.8-10.8)
[2019-03-14 04:07] LABS: Alanine Aminotransferase 35 U/L (12-78); Albumin Level 3.5 gm/dl (3.4-5.0); Aspartate Aminotransferase 20 U/L (15-37); BUN Creatinine Ratio 23.4 (10-20); Blood Urea Nitrogen 18 mg/dl (7-18); Calcium 8.6 mg/dl (8.5-10.1); Carbon Dioxide 26 mmol/L (21-32); Chloride 104 mmol/L (98-107); Creatinine Clr Calc Pharmacy 109.7 ml/min; Est GFR (African American) 118.8; Est GFR (Non-African American) 102.5; Glucose 198 mg/dl (70-99); Sodium 136 mmol/L (136-145)
[2019-03-14 04:13] LABS: Alkaline Phosphatase 73 U/L (45-117); Globulin 3.5 gm/dl (2.5-4.0); Troponin I < 0.015 ng/ml (0-0.045)
[2019-03-14 07:02] LABS: Estimated Average Glucose 180 mg/dl
[2019-03-14 08:22] VITALS: BP 129/87; PULSE 80; TEMP 98.6; O2SAT 99
[2019-03-14] MEDS ORDERED: PERFLUTREN LIPID MICROSPHERE (DEFINITY) IV ONE (08:29)
--- NOTE | 2019-03-14 09:45 | Discharge Summary ---
Date of Service March 14, 2019 Admission HPI Per Admitting Provider Mr. Sy presents today after feeling intense fatigue and diaphoresis at points during physical exertion over the last three days. It has happened while at work and while working in his yard causing him to have to sit down until he felt better. He is very concerned because his family has a strong cardiac family history. His father had multiple heart attacks starting in his 40, his uncle from a heart attack and his brother has a cardiac stent. He has also been nauseas with little appetite. Pmhx: DMI, hld, htn, anxiety Social: works at [employer], non smoker, 4 nights per week drinks half a pint of liquor, no street drugs Principal Diagnosis Atypical angina Discharge Exam Constitutional WD/WN, vitals as above Respiratory normal respiratory effort, lungs clear to auscultation Cardiovascular RRR, no murmur, no edema Gastrointestinal (Abdomen) Inspection/Auscultation: abdomen normal to inspection and normal bowel sounds; abdomen not distended Percussion/Palpation: abdomen nontender Musculoskeletal no cyanosis or clubbing, extremities motor strength 5/5 Skin no rashes, warm and dry Neurologic moves all extremities and awake Psychiatric A+Ox3, euthymic affect Discharge Data Allergies Allergy/AdvReac Type Severity Reaction Status Date / Time Penicillins Allergy Unknown STRONG Verified 03/13/19 15:46 FAMILY HX Consultations 03/13/19 16:54 ED Decision to Admit Stat Hospital Course (1) Atypical angina: Trended troponins - normal x 3 Echo - EF 60%, no WMA Continue atorvastatin, asa No events on monitor, no further symptoms Discussed test results with patient and he agrees to outpatient stress test - Dr. Livingston will stress test patient outpatient this coming week. (2) Diabetes: BSGs ac & hs Patient can manage his own pump A1c was 7.9 (3) Hypertension: continue lisinopril (4) HLD (hyperlipidemia): Continue atorvastatin (5) Anxiety: Patient would like to wean off of his paroxetine but for now will continue (6) Hyperthyroidism: TSH was 0.127 In the past his baseline has been around 0.38. He has been on methimazole but has apparently been off of it for some time. T4 was normal. Should follow up with his primary care provider or endocrinology. Total Time Total Time Spent Total Time Spent (In Minutes): greater than 30 minutes Discharge Plan Discharge Items Patient Disposition: Home - Self-Care Reason For Visit: ATYPICAL ANGINA Discharge Diagnosis: Atypical angina Discharge Goals: Diagnostic testing Activity: Resume your previous activity Non-emergency contact: Primary Care Provider Call non-emergency contact if: you have any medication questions and your symptoms worsen Follow-up/Referrals: Antoine Hernandez MD [Primary Care Provider] - Diet: Regular Addtl Provider Instructions: Please see your primary care provider within about a week. Dr. Livingston's office will call you on Saturday to set up an outpatient stress test this week. Your A1c was 7.9 Prescriptions: Continued multivitamin Tablet 1 tab PO HS RF: 0 atorvastatin 40 mg Tablet 40 mg PO HS RF: 0 aspirin [Aspir-81] 81 mg Tablet,Delayed Release (Dr/Ec) 81 mg PO HS RF: 0 paroxetine HCl [Paxil] 20 mg Tablet 20 mg PO HS RF: 0 lisinopril 10 mg Tablet 10 mg PO HS RF: 0 insulin lispro [Humalog U-100 Insulin] 100 unit/mL Solution 1 sliding scale dose continuous subcutaneous infusion USEASDIRECTD RF: 0 Stand-Alone Forms: [facility] Discharge Orders: Discharge Order (Routine); Ordered 03/14/19 Ordered By: Lucero Luther Admission Data Admit Date/Time: 03/13/19 17:57 Attending Provider: Too Luna Admit Provider: Too Luna Primary Care Provider: Antoine Hernandez Other Providers: Favio Nieves Service: Telemetry
== END 2019-03-14 11:11 | disposition home or self-care (01) ==
LOC: ED 14:21 → 2E 14:21

== ENCOUNTER 2019-08-03 13:33 | Inpatient (IN) ==
[2019-08-03] MEDS ORDERED: ONDANSETRON INJ 2 MG/ML 2 ML VIAL IV STA (14:21)
[2019-08-03] MEDS ORDERED: SODIUM CHLORIDE 0.9% 1000ML 1,000 ML IV SCH ×2 (14:30→22:00)
[2019-08-03] MEDS ORDERED: NovoLIN-R INSULIN PER UNIT CHARGE IV STA (14:54)
[2019-08-03 14:55] LABS: Appearance Urine Clear (Clear); Bilirubin Urine Negative (Negative); Blood Urine Negative (Negative); Color Urine Yellow; Glucose Urine UA 3+ (Negative); Ketones Urine 2+ (Negative); Leukocyte Esterase Urine Negative (Negative); Nitrite Urine Negative (Negative); Protein Urine Negative (Negative); Specific Gravity Urine 1.023 (1.000-1.030); Urobilinogen Urine Negative (Negative)
[2019-08-03 14:56] LABS: Hematocrit (blood only) 40.8 % (42-52); Hemoglobin 13.7 g/dL (14.0-18.0); Mean Corpuscular Hemoglobin 30.2 pg (25-34); Mean Corpuscular Hgb Conc 33.6 g/dL (32-36); Mean Corpuscular Volume 90.1 fL (80-100); Mean Platelet Volume 10.2 fL (7.4-10.4); Platelet Count 244 K/uL (130-400); RDW Coefficient of Variation 14.7 % (11.5-14.5); RDW Standard Deviation 47.9 fL (36.4-46.3); Red Blood Count 4.53 M/uL (4.7-6.1); White Blood Count 14.41 K/uL (4.8-10.8)
[2019-08-03 14:58] LABS: iSTAT Creatinine 1.3 mg/dl (0.6-1.3); iSTAT Hemoglobin 14.6 g/dl (14.0-18.0); iSTAT Ionized Calcium 1.08 mmol/l (1.12-1.32); iSTAT Potassium 5.1 mEq/L (3.3-5.0)
[2019-08-03 15:18] LABS: Albumin Level 4.1 gm/dl (3.4-5.0); BUN Creatinine Ratio 25.7 (10-20); Calcium 9.3 mg/dl (8.5-10.1); Creatinine Clr Calc Pharmacy 49.7 ml/min; Est GFR (African American) 58.4; Est GFR (Non-African American) 50.4
[2019-08-03 15:21] LABS: Basophils # (auto) 0.01 K/uL (0-0.2); Basophils % (auto) 0.1 %; Echinocytes 1+; Immature Granulocytes # (auto) 0.03 K/uL (0.00-0.02); Immature Granulocytes % (auto) 0.2 %; Lymphocytes # (auto) 0.59 K/uL (1.2-3.4); Lymphocytes % (auto) 4.1 %; Monocytes # (auto) 0.68 K/uL (0.11-0.59); Monocytes % (auto) 4.7 %; Neutrophils % (auto) 90.9 %
[2019-08-03 15:25] LABS: Base Excess VBG -12.8 mEq/L; Oxygen Saturation VBG 74.8 %; pH VBG 7.31 (7.36-7.41)
--- NOTE | 2019-08-03 15:28 | XRay Report ---
XR chest 2V PA/lateral CLINICAL HISTORY: 53 years-old Male presenting with sob, clinical concern for pneumonia. TECHNIQUE: PA and lateral views of the chest were obtained. COMPARISON: 03/13/2019. FINDINGS: Cardiomediastinal silhouette normal. Lungs and pleural spaces clear. Degenerative changes in the lumb ar spine. Upper abdomen normal. IMPRESSION: 1. No acute cardiopulmonary disease. Electronically signed by: William Macias M.D. 08/03/2019 3:27 PM
[2019-08-03 15:47] LABS: Albumin Globulin Ratio 1.3 (0.9-2); Bilirubin,Total 1.1 mg/dl (0.2-1); Globulin 3.1 gm/dl (2.5-4.0); Total Protein 7.2 gm/dl (6.4-8.2)
[2019-08-03 15:59] LABS: Beta-Hydroxybutyrate 78.73 mg/dl (0.2-2.81)
[2019-08-03] MEDS ORDERED: ED DKA INSULIN DRIP ONE (16:20)
[2019-08-03] MEDS ORDERED: DKA GOAL RANGE 150-250 mg/dl ONE ×2 (16:20→21:52)
[2019-08-03] MEDS ORDERED: INSULIN REGULAR 250 UNITS in SODIUM CHLORIDE 0.9% 247.5 ML IV SCH ×2 (16:30→21:31)
[2019-08-03 16:52] LABS: Magnesium 1.9 mg/dl (1.8-2.4); Phosphorus 6.5 mg/dl (2.5-4.9)
--- NOTE | 2019-08-03 17:34 | History & Physical Report ---
Date of Service August 03, 2019 Assessment & Plan (1) DKA (diabetic ketoacidoses): BS improved with SSI x2 Holding insulin drip for now Recheck PRP HypoNa, HyperK as typical with DKA Monitor A1c pending IVF (2) EVE (acute kidney injury): Monitor with DKA tx (3) Anxiety: continue home meds (4) HLD (hyperlipidemia): continue home meds (5) Hypertension: continue home meds (6) DVT prophylaxis: SCDs, ambulation History of Present Illness Primary Care Provider: Antoine Hernandez MD 53 y/o M c/o elevated BS and DKA. Pt states that yesterday was a normal day for him. His BS is typically in the 140s-160s and this was the case yesterday. He woke around 3am with n/v and increased thirst. He was not able to take any water due to the n/v. He noted his BS was over 350. Pt states that sometimes his pump malfunctions, so he tried using a humalog pen that he keeps on hand. He could still not get his BS to decrease. He was noted to have heavy breathing, but no ale SOB. His sx were similar to when he had DKA a few years ago, so he came to the ED. Pt denies fever, chest pain, abd pain, c/d, LE pain or swelling. Pt was given insulin and IVF in the ED while awaiting insulin drip to be sent up from the pharmacy. BS are now down to 260s. He states he is starting to feel hungry. Last PO intake was 10p last night. Pt notes that he had about 8oz of liquor last night. He states this is a typical amount of alcohol intake for himself about 2 nights a week. Denies using sugary mixers. No other changes in diet. He has not felt sick otherwise. Allergies Allergy/AdvReac Type Severity Reaction Status Date / Time Penicillins Allergy Unknown STRONG Verified 08/03/19 14:53 FAMILY HX Home Medications Home Medications Medication Instructions Recorded Confirmed Type aspirin [Aspir-81] 81 mg PO HS 03/13/19 08/03/19 History atorvastatin 40 mg PO HS 03/13/19 08/03/19 History insulin lispro [Humalog U-100 0 unit CONTINUOUS SUBCUTANEOUS 03/13/19 08/03/19 History Insulin] INFUSION USEASDIRECTD lisinopril 10 mg PO HS 03/13/19 08/03/19 History multivitamin 1 tab PO HS 03/13/19 08/03/19 History paroxetine HCl [Paxil] 20 mg PO HS 03/13/19 08/03/19 History Past Med/Surg History Medical History Diabetes (Chronic) Hypertension (Chronic) DKA (diabetic ketoacidoses) (Resolved) Dyslipidemia Surgical History No pertinent past surgical history Family History Other Myocardial infarction Social History Preferred Language: Djiboutian Communication Ability: Effective Mail Opener Required: No Beliefs That Will Affect Care: None Current Living Situation: Spouse Feels Safe at Home: Yes Smoking Status: Never smoker Second Hand Exposure: No ; Hx Alcohol Use: Yes Alcohol type: beer and hard liquor Alcohol Intake Frequency Comment: 8 oz liquor last night Hx Substance Use: No Review of Systems Review of Systems: Pertinent positives and negatives reviewed in HPI--all others negative Physical Exam Constitutional: WD/WN, vitals as above Eyes: normal visual ayers by confrontation and + anicteric sclerae Neck: normal visual inspection and trachea midline Respiratory: normal respiratory effort, lungs clear to auscultation Cardiovascular: Rate/Rhythm: regular rhythm and + tachycardic Gastrointestinal (Abdomen): Inspection/Auscultation: abdomen not distended Percussion/Palpation: abdomen soft; abdomen nontender Musculoskeletal: Head/Neck/Chest: normocephalic and head atraumatic negative for edema, peripheral pulses intact Skin: no rashes, warm and dry Neurologic: awake; not confused Speech / Cognition: normal speech Psychiatric: A+Ox3, euthymic affect Results & Data Vital Signs (Past 12 Hours) Vital Signs Temp Pulse Pulse Resp BP BP Pulse Ox 08/03/19 17:00 115 H 18 147/64 H 98 08/03/19 15:00 113 H 27 H 145/65 H 100 08/03/19 14:35 98 08/03/19 13:35 36.6 C 110 H 20 117/72 99 Diagnostic Findings CXR: neg for acute ECG Rhythm: sinus tachycardia Code Status & VTE Plan Code Status Full code VTE Prophylaxis Plan VTE Prophylaxis will be ordered: Yes PG Care Time/CCT Total # of Minutes Spent Total Time Spent with Patient: Total time spent is greater than 50% in coordination of care (as documented) at patient's floor/unit and/or counseling patient: (1) DKA (diabetic ketoacidoses) Diabetes mellitus complication detail: without coma Diabetes mellitus type: other specified (including KWASI) Qualified Code(s): E13.10 - Other specified diabetes mellitus with ketoacidosis without coma
[2019-08-03] MEDS ORDERED: INSULIN HUMAN REGULAR SC STA (21:00)
[2019-08-03] MEDS ORDERED: NovoLIN-R INSULIN PER UNIT CHARGE SQ ONE (21:15)
[2019-08-03] MEDS ORDERED: NovoLIN-R INSULIN PER UNIT CHARGE ONE (21:15)
[2019-08-03] MEDS ORDERED: CARBOHYDRATES FOR HYPOGLYCEMIA PO PRN (21:31)
[2019-08-03] MEDS ORDERED: DC ALL PREVIOUSLY ORDERED DIABETES MEDS ONE (21:31)
[2019-08-03] MEDS ORDERED: ONDANSETRON INJ 2 MG/ML 2 ML VIAL IV PRN (21:31)
[2019-08-03] MEDS ORDERED: DEXTROSE 50% 50 ML SYRINGE IV PRN (21:31)
[2019-08-03] MEDS ORDERED: INSULIN ASPART 100 UNITS/ML 3 ML PEN SC SCH ×2 (21:31)
[2019-08-03] MEDS ORDERED: GLUCOSE 10 TABS/TUBE PO PRN (21:31)
[2019-08-03] MEDS ORDERED: MAGNESIUM HYDROXIDE SUSP 30 ML UDC PO PRN (21:31)
[2019-08-03] MEDS ORDERED: GLUCAGON FOR INJ 1 MG VIAL SQ PRN (21:31)
[2019-08-03] MEDS ORDERED: GLUCOSE 40% GEL 15 GM TUBE PO PRN (21:31)
[2019-08-03] MEDS ORDERED: PENDING 1/2NSS+20mEq KCL IVF SCH (22:00)
[2019-08-03] MEDS ORDERED: PHARMACY GLYCEMIC MGMT CONSULT PRN (22:14)
[2019-08-03] MEDS: ASPIRIN 81 MG ECTAB PO SCH (22:39)
[2019-08-03] MEDS: ATORVASTATIN 40 MG TAB PO SCH (22:39)
[2019-08-03] MEDS: PARoxetine HCl 20 MG TAB PO SCH (22:39)
[2019-08-03] MEDS: lisinopriL 10 MG TAB PO SCH (22:39)
[2019-08-03] MEDS: MULTIVITAMIN TAB PO SCH (22:40)
[2019-08-03 22:45] LABS: Calcium 8.5 mg/dl (8.5-10.1); Creatinine Clr Calc Pharmacy 61.7 ml/min; Est GFR (African American) 75.7; Est GFR (Non-African American) 65.3; Magnesium 1.8 mg/dl (1.8-2.4); Potassium 4.8 mmol/L (3.5-5.1)
[2019-08-03] MEDS: INSULIN ASPART 100 UNITS/ML 3 ML PEN SC SCH ×2 (22:52→22:53)
--- NOTE | 2019-08-03 23:03 | Emergency Department Note ---
Entered by Marie Mendosa acting as a scribe for History of Present Illness General Chief complaint: Vomiting Stated complaint: VOMITING SINCE 3 AM Source: patient History of Present Illness Provider complaint: Vomiting Onset (ago): day(s) 1 Location: abdomen Severity: moderate Pain Consistency: + other (Similar to last time he had DKA) Quality: + other (Vomiting) Relieved By: + none Exacerbated By: + none Associated symptoms: + denies other symptoms (Diarrhea, abdominal pain, urinary symptoms) and + other (Elevated blood sugar); no chest pain, no cough and no fever/chills The patient is a 53 year old male who presents to the Emergency Room with complaints of vomiting that began around 3am. The patient states it is not relieved nor exacerbated by anything specific. The patient notes that he is a Type 1 Diabetic and uses an Insulin pump. The patient denies experiencing any diarrhea, abdominal pain, or urinary symptoms. Additionally, the patient denies experiencing any chest pain, cough, or fever/chills. The patient mentioned that his sugar was 380 at 1:30pm and that he is experiencing similar symptoms that he had when he was in DKA previously. He is on a insulin pump. He did change the site prior to coming here. Home Medications Home Medications Medication Instructions Recorded Confirmed Type aspirin [Aspir-81] 81 mg PO HS 03/13/19 08/03/19 History atorvastatin 40 mg PO HS 03/13/19 08/03/19 History insulin lispro [Humalog U-100 0 unit CONTINUOUS SUBCUTANEOUS 03/13/19 08/03/19 History Insulin] INFUSION USEASDIRECTD lisinopril 10 mg PO HS 03/13/19 08/03/19 History multivitamin 1 tab PO HS 03/13/19 08/03/19 History paroxetine HCl [Paxil] 20 mg PO HS 03/13/19 08/03/19 History Allergies Allergy/AdvReac Type Severity Reaction Status Date / Time Penicillins Allergy Unknown STRONG Verified 08/03/19 14:53 FAMILY HX Past Med/Surg History Medical History Diabetes (Chronic) Hypertension (Chronic) DKA (diabetic ketoacidoses) (Resolved) Dyslipidemia Surgical History No pertinent past surgical history Family History Other Myocardial infarction Social History Preferred Language: [place] Communication Ability: Effective Supervisory Clerk Required: No Beliefs That Will Affect Care: None Current Living Situation: Spouse Feels Safe at Home: Yes Smoking Status: Never smoker Second Hand Exposure: No ; Hx Alcohol Use: Yes Alcohol type: beer and hard liquor Alcohol Intake Frequency Comment: 8 oz liquor last night Hx Substance Use: No Review of Systems See HPI for pertinent positives & negatives. and A total of 10 systems reviewed and were otherwise negative Physical Exam Vital Signs Vital Signs - 24 hr 08/03/19 13:35 08/03/19 14:35 08/03/19 15:00 Temperature 36.6 C Temperature Source Oral Sepsis Recent Fever Within 48 Hours No Sepsis New/Unexplained Change in Mental Status No Sepsis Action Taken by Nursing No Action Required Pulse Rate 110 H Pulse Rate [Apical] 113 H Respiratory Rate 20 27 H Blood Pressure 117/72 Blood Pressure [Left Arm] 145/65 H Blood Pressure Mean 87 Blood Pressure Mean [Left Arm] 91 Pulse Oximetry 99 98 100 Oxygen Delivery Method Room Air Room Air 08/03/19 17:00 Temperature Temperature Source Sepsis Recent Fever Within 48 Hours Sepsis New/Unexplained Change in Mental Status Sepsis Action Taken by Nursing Pulse Rate Pulse Rate [Apical] 115 H Respiratory Rate 18 Blood Pressure Blood Pressure [Left Arm] 147/64 H Blood Pressure Mean Blood Pressure Mean [Left Arm] 91 Pulse Oximetry 98 Oxygen Delivery Method Constitutional: Vital signs reviewed. Eyes: Pupils are equal round reactive to light. Conjunctiva are noninjected. ENT: Pharynx is clear without erythema or exudate. Mucous membranes are dry. Neck supple without meningeal signs. Respiratory: Clear to auscultation bilaterally. Breath sounds are equal bilaterally. Kussmaul respirations. Cardiovascular: Tachycardic rate of 110 and regular rhythm. No rubs or gallops. GI: Soft, nondistended and nontender. Bowel sounds are present. Musculoskeletal: No peripheral edema. No lower extremity tenderness. Integumentary: No cyanosis. Neurological: The patient is awake and alert. No focal deficits. Psychiatric: Normal affect. Course 1417: Past medical records reviewed. The patient was evaluated in room A03. A complete history and physical exam was performed. 1454: The patient's blood sugar was over 400. Potassium was 5.1 and Insulin pump was stopped. IV Insulin ordered. 1626: I reevaluated and discussed test results with the patient. The patient is now breathing normally and feels better. He had an elevated serum creatinine. 1630: I spoke with Dr. Garcia- Hospitalist about the patient's case and she will accept the patient for further evaluation. 1829: Marion Cates cancelled insulin drip. Administered Medications Aspirin (Ecotrin Ectab) 81 mg PO [facility] Stop: 09/02/19 21:30 Last Admin: 08/03/19 22:39 Dose: 81 mg Documented by: [id number] Atorvastatin Calcium (Lipitor) 40 mg PO [facility] Stop: 09/02/19 21:30 Last Admin: 08/03/19 22:39 Dose: 40 mg Documented by: [id number] Insulin Human Regular 250 (units/ Sodium Chloride) 250 mls @ 7.4 mls/hr IV .Q24H [facility]; Protocol Stop: 09/02/19 16:29 Last Admin: 08/03/19 22:32 Dose: 7.4 units/hr, 7.4 mls/hr Documented by: [id number] Cosigned by: [id number] Sodium Chloride (Nss 1000ml) 1,000 mls @ 150 mls/hr IV .Q6H40M [facility] Stop: 08/04/19 11:19 Last Admin: 08/03/19 22:40 Dose: 150 mls/hr Documented by: [id number] Insulin Aspart (Novolog Flexpen) 0 units SC [facility] Stop: 09/02/19 16:29 Last Admin: 08/03/19 22:53 Dose: Not Given Documented by: [id number] Cosigned by: [id number] Admin: 08/03/19 22:52 Dose: Not Given Documented by: [id number] Cosigned by: [id number] Lisinopril (Zestril) 10 mg PO [facility] Stop: 09/02/19 21:30 Last Admin: 08/03/19 22:39 Dose: 10 mg Documented by: [id number] Multivitamins (Multivitamin Tab) 1 tab PO [facility] Stop: 09/02/19 21:30 Last Admin: 08/03/19 22:40 Dose: 1 tab Documented by: [id number] Paroxetine HCl (Paxil) 20 mg PO HS [facility] Stop: 09/02/19 21:30 Last Admin: 08/03/19 22:39 Dose: 20 mg Documented by: [id number] Discontinued Medications Sodium Chloride (Nss 1000ml) 1,000 mls @ 999 mls/hr IV .Q1H1M [facility] Stop: 08/03/19 15:30 Last Infusion: 08/03/19 15:50 Dose: 0 mls/hr Documented by: [id number] Admin: 08/03/19 14:46 Dose: 999 mls/hr Documented by: [id number] Insulin Human Regular (Novolin R U-100 Per Unit) 8 units IV NOW STA Stop: 08/03/19 14:55 Last Admin: 08/03/19 15:01 Dose: 8 units Documented by: [id number] Cosigned by: [id number] Insulin Human Regular (Novolin R U-100 Per Unit) 10 units SQ ONE ONE Stop: 08/03/19 21:16 Last Admin: 08/03/19 21:19 Dose: 10 units Documented by: [id number] Cosigned by: [id number] Insulin Human Regular (Novolin R U-100 Per Unit) Confirm Administered Dose 10 units .ROUTE .STK-MED ONE Stop: 08/03/19 21:16 Last Admin: 08/03/19 21:21 Dose: Not Given Documented by: [id number] Miscellaneous (Insulin Protocol Dka Goal Range) 1 ea N/A ONE ONE Stop: 08/03/19 16:21 Last Admin: 08/03/19 22:38 Dose: 1 ea Documented by: [id number] Ondansetron HCl (Zofran) 4 mg IV NOW STA Stop: 08/03/19 14:22 Last Admin: 08/03/19 14:46 Dose: 4 mg Documented by: [id number] Medical Decision Making Differential Diagnosis Differential diagnosis includes: DKA, Dehydration, Insulin pump malfunction, UTI, pneumonia, gastritis. Medical Records Attestation: I reviewed the patient's medical records. The patient was here in February for chest pain. He was evaluated for hospitalization and had negative Troponin's and a normal echocardiogram. Home Medications Current Medication List: was personally reviewed by me Laboratory Data Attestation: I reviewed the patient's lab results. Result diagrams: 08/03/19 14:35 08/03/19 21:50 Lab Results 08/03/19 08/03/19 08/03/19 Range/Units 13:41 14:35 14:35 WBC 14.41 H (4.8-10.8) K/uL RBC 4.53 L (4.7-6.1) M/uL Hgb 13.7 L (14.0-18.0) g/dL POC Hgb (14.0-18.0) g/dl Hct 40.8 L (42-52) % POC Hct (42-52) % MCV 90.1 (80-100) fL MCH 30.2 (25-34) pg MCHC 33.6 (32-36) g/dL RDW Std Deviation 47.9 H (36.4-46.3) fL RDW Coeff of Dennise 14.7 H (11.5-14.5) % Plt Count 244 (130-400) K/uL MPV 10.2 (7.4-10.4) fL Immature Gran % (Auto) 0.2 % Neut % (Auto) 90.9 % Lymph % (Auto) 4.1 % [place] % (Auto) 4.7 % Eos % (Auto) 0.0 % Baso % (Auto) 0.1 % Immature Gran # (Auto) 0.03 H (0.00-0.02) K/uL Neut # (Auto) 13.10 H (1.4-6.5) K/uL Lymph # (Auto) 0.59 L (1.2-3.4) K/uL [place] # (Auto) 0.68 H (0.11-0.59) K/uL Eos # (Auto) 0.00 (0-0.5) K/uL Baso # (Auto) 0.01 (0-0.2) K/uL Echinocytes 1+ VBG pH (7.36-7.41) VBG pCO2 (38-50) mmHg VBG pO2 mmHg VBG HCO3 mmol/L VBG O2 Saturation % VBG Base Excess mEq/L Barometric Pressure mm/Hg POC Sodium (135-144) mEq/L Sodium 131 L (136-145) mmol/L POC Potassium (3.3-5.0) mEq/L Potassium 5.0 (3.5-5.1) mmol/L POC Chloride (101-112) mEq/L Chloride 94 L (98-107) mmol/L Carbon Dioxide 10 L (21-32) mmol/L POC Total CO2 (24-31) mEq/l Anion Gap 28.0 H (3-11) POC Anion Gap (16-25) mmol/L POC BUN (7-18) mg/dl BUN 40 H (7-18) mg/dl Creatinine 1.55 H (0.6-1.4) mg/dl POC Creatinine (0.6-1.3) mg/dl Est Cr Clr Drug Dosing 49.7 ml/min Est GFR ( Amer) 58.4 Est GFR (Non-Af Amer) 50.4 BUN/Creatinine Ratio 25.7 H (10-20) Glucose 422 H* (70-99) mg/dl POC Glucose 362 H* (70-99) POC Glucose (other) (70-99) mg/dl Calcium 9.3 (8.5-10.1) mg/dl POC Ioniz Calcium Gwendolyn (1.12-1.32) mmol/l Phosphorus 6.5 H (2.5-4.9) mg/dl Magnesium 1.9 (1.8-2.4) mg/dl Total Bilirubin 1.1 H (0.2-1) mg/dl AST 42 H (15-37) U/L ALT 56 (12-78) U/L Alkaline Phosphatase 91 (45-117) U/L Total Protein 7.2 (6.4-8.2) gm/dl Albumin 4.1 (3.4-5.0) gm/dl Globulin 3.1 (2.5-4.0) gm/dl Albumin/Globulin Ratio 1.3 (0.9-2) Beta-Hydroxybutyric Acd 78.73 H (0.2-2.81) mg/dl Urine Color Urine Appearance (Clear) Urine pH (4.5-7.5) Ur Specific [place] (1.000-1.030) Urine Protein (Negative) Urine Glucose (UA) (Negative) Urine Ketones (Negative) Urine Blood (Negative) Urine Nitrite (Negative) Urine Bilirubin (Negative) Urine Urobilinogen (Negative) Ur Leukocyte Esterase (Negative) 08/03/19 08/03/19 08/03/19 Range/Units 14:40 14:45 15:09 WBC (4.8-10.8) K/uL RBC (4.7-6.1) M/uL Hgb (14.0-18.0) g/dL POC Hgb 14.6 (14.0-18.0) g/dl Hct (42-52) % POC Hct 43 (42-52) % MCV (80-100) fL MCH (25-34) pg MCHC (32-36) g/dL RDW Std Deviation (36.4-46.3) fL RDW Coeff of Dennise (11.5-14.5) % Plt Count (130-400) K/uL MPV (7.4-10.4) fL Immature Gran % (Auto) % Neut % (Auto) % Lymph % (Auto) % [place] % (Auto) % Eos % (Auto) % Baso % (Auto) % Immature Gran # (Auto) (0.00-0.02) K/uL Neut # (Auto) (1.4-6.5) K/uL Lymph # (Auto) (1.2-3.4) K/uL [place] # (Auto) (0.11-0.59) K/uL Eos # (Auto) (0-0.5) K/uL Baso # (Auto) (0-0.2) K/uL Echinocytes VBG pH 7.31 L (7.36-7.41) VBG pCO2 23 L (38-50) mmHg VBG pO2 43 mmHg VBG HCO3 12 mmol/L VBG O2 Saturation 74.8 % VBG Base Excess -12.8 mEq/L Barometric Pressure 732.2 mm/Hg POC Sodium 131 L (135-144) mEq/L Sodium (136-145) mmol/L POC Potassium 5.1 H (3.3-5.0) mEq/L Potassium (3.5-5.1) mmol/L POC Chloride 97 L (101-112) mEq/L Chloride (98-107) mmol/L Carbon Dioxide (21-32) mmol/L POC Total CO2 12 L (24-31) mEq/l Anion Gap (3-11) POC Anion Gap 27.0 H (16-25) mmol/L POC BUN 34 H (7-18) mg/dl BUN (7-18) mg/dl Creatinine (0.6-1.4) mg/dl POC Creatinine 1.3 (0.6-1.3) mg/dl Est Cr Clr Drug Dosing ml/min Est GFR ( Amer) Est GFR (Non-Af Amer) BUN/Creatinine Ratio (10-20) Glucose (70-99) mg/dl POC Glucose (70-99) POC Glucose (other) 439 H* (70-99) mg/dl Calcium (8.5-10.1) mg/dl POC Ioniz Calcium Gwendolyn 1.08 L (1.12-1.32) mmol/l Phosphorus (2.5-4.9) mg/dl Magnesium (1.8-2.4) mg/dl Total Bilirubin (0.2-1) mg/dl AST (15-37) U/L ALT (12-78) U/L Alkaline Phosphatase (45-117) U/L Total Protein (6.4-8.2) gm/dl Albumin (3.4-5.0) gm/dl Globulin (2.5-4.0) gm/dl Albumin/Globulin Ratio (0.9-2) Beta-Hydroxybutyric Acd (0.2-2.81) mg/dl Urine Color Yellow Urine Appearance Clear (Clear) Urine pH 5.0 (4.5-7.5) Ur Specific [place] 1.023 (1.000-1.030) Urine Protein Negative (Negative) Urine Glucose (UA) 3+ H (Negative) Urine Ketones 2+ H (Negative) Urine Blood Negative (Negative) Urine Nitrite Negative (Negative) Urine Bilirubin Negative (Negative) Urine Urobilinogen Negative (Negative) Ur Leukocyte Esterase Negative (Negative) 08/03/19 08/03/19 Range/Units 15:50 16:40 WBC (4.8-10.8) K/uL RBC (4.7-6.1) M/uL Hgb (14.0-18.0) g/dL POC Hgb (14.0-18.0) g/dl Hct (42-52) % POC Hct (42-52) % MCV (80-100) fL MCH (25-34) pg MCHC (32-36) g/dL RDW Std Deviation (36.4-46.3) fL RDW Coeff of Dennise (11.5-14.5) % Plt Count (130-400) K/uL MPV (7.4-10.4) fL Immature Gran % (Auto) % Neut % (Auto) % Lymph % (Auto) % [place] % (Auto) % Eos % (Auto) % Baso % (Auto) % Immature Gran # (Auto) (0.00-0.02) K/uL Neut # (Auto) (1.4-6.5) K/uL Lymph # (Auto) (1.2-3.4) K/uL [place] # (Auto) (0.11-0.59) K/uL Eos # (Auto) (0-0.5) K/uL Baso # (Auto) (0-0.2) K/uL Echinocytes VBG pH (7.36-7.41) VBG pCO2 (38-50) mmHg VBG pO2 mmHg VBG HCO3 mmol/L VBG O2 Saturation % VBG Base Excess mEq/L Barometric Pressure mm/Hg POC Sodium (135-144) mEq/L Sodium (136-145) mmol/L POC Potassium (3.3-5.0) mEq/L Potassium (3.5-5.1) mmol/L POC Chloride (101-112) mEq/L Chloride (98-107) mmol/L Carbon Dioxide (21-32) mmol/L POC Total CO2 (24-31) mEq/l Anion Gap (3-11) POC Anion Gap (16-25) mmol/L POC BUN (7-18) mg/dl BUN (7-18) mg/dl Creatinine (0.6-1.4) mg/dl POC Creatinine (0.6-1.3) mg/dl Est Cr Clr Drug Dosing ml/min Est GFR ( Amer) Est GFR (Non-Af Amer) BUN/Creatinine Ratio (10-20) Glucose (70-99) mg/dl POC Glucose 314 H* 263 H (70-99) POC Glucose (other) (70-99) mg/dl Calcium (8.5-10.1) mg/dl POC Ioniz Calcium Gwendolyn (1.12-1.32) mmol/l Phosphorus (2.5-4.9) mg/dl Magnesium (1.8-2.4) mg/dl Total Bilirubin (0.2-1) mg/dl AST (15-37) U/L ALT (12-78) U/L Alkaline Phosphatase (45-117) U/L Total Protein (6.4-8.2) gm/dl Albumin (3.4-5.0) gm/dl Globulin (2.5-4.0) gm/dl Albumin/Globulin Ratio (0.9-2) Beta-Hydroxybutyric Acd (0.2-2.81) mg/dl Urine Color Urine Appearance (Clear) Urine pH (4.5-7.5) Ur Specific [place] (1.000-1.030) Urine Protein (Negative) Urine Glucose (UA) (Negative) Urine Ketones (Negative) Urine Blood (Negative) Urine Nitrite (Negative) Urine Bilirubin (Negative) Urine Urobilinogen (Negative) Ur Leukocyte Esterase (Negative) Imaging Data Radiologist's Impression: Radiology results as stated below per my review and the radiologist's interpretation: XR chest 2V PA/lateral CLINICAL HISTORY: 53 years-old Male presenting with sob, clinical concern for pneumonia. TECHNIQUE: PA and lateral views of the chest were obtained. COMPARISON: 03/13/2019. FINDINGS: Cardiomediastinal silhouette normal. Lungs and pleural spaces clear. Degenerative changes in the lumbar spine. Upper abdomen normal. IMPRESSION: 1. No acute cardiopulmonary disease. Electronically signed by: William Macias M.D. 08/03/2019 3:27 PM ECG Data Attestation: I personally reviewed and interpreted this ECG as follows: Indication: other (Abnormal breathing) Rate (beats per minute): 109 Rhythm: sinus tachycardia Findings: no peaked T-waves, no PVC and no ST elevation Blood Pressure Blood Pressure Findings: Elevated blood pressure Blood Pressure Disposition: elevated BP felt to be situational MDM Narrative I did evaluate the patient as noted above. The patient is presenting with vomiting and hyperglycemia. He states this is similar to when he had DKA in the past. He is on insulin pump and stated that he changed his site prior to coming here. He states he had no symptoms last night when he went to bed. He does have Kussmaul breathing on examination. He is also tachycardic. IV access was established. The patient was placed on a continuous cardiac rehabilitation program director. He was given a liter normal saline IV. I did order and personally review the patient's 12-lead EKG as described above. He has tachycardia without evidence of hyperkalemia or acute ischemia. I did order and personally reviewed the images of the patient's chest x-ray as described above. Chest x-ray does not show any evidence of pneumonia. I did order a urine analysis. He does not have a UTI. I did order and review the patient's blood work as noted in the electronic medical record. The patient has hyperglycemia with signs of DKA. His pH is 7 .3. He has an anion gap. Serum ketones are elevated. Creatinine is elevated as well. Potassium is 5.1. He was given insulin 8 units IV. I did order an insulin drip and discussed the case with the hospitalist and top case assembler. The hospitalist did cancel the insulin drip and so it was never started. I did reassess him. He is feeling better and has normal breathing at this time. Impression & Plan DKA (diabetic ketoacidoses), EVE (acute kidney injury) Discharge Plan Visit Data *Final* Discharge Date/Time: 08/03/19 21:27 Chief Complaint: Vomiting Stated Complaint: VOMITING SINCE 3 AM ED Provider: Too Bennett Discharge Problem: DKA (diabetic ketoacidoses), EVE (acute kidney injury) Patient Disposition: Admitted As Inpatient Discharge Instructions Interventions: ED Discharge Assessment Last Done: 08/03/19 21:27 Discharge Problem: DKA (diabetic ketoacidoses) Qualifiers: Diabetes mellitus type: other specified (including KWASI) Diabetes mellitus complication detail: without coma Qualified Code(s): E13.10 - Other specified diabetes mellitus with ketoacidosis without coma The scribe's documentation has been prepared under my direction and personally reviewed by me in its entirety. I confirm that the note above accurately reflects all work, treatment, procedures, and medical decision making performed by me.
[2019-08-03] MEDS ORDERED: SODIUM CHLOR 0.45% + 20MEQ KCL 20 MEQ/1,000 ML BAG IV SCH (23:15)
[2019-08-03 23:29] LABS: Beta-Hydroxybutyrate 92.77 mg/dl (0.2-2.81)
[2019-08-03] MEDS: ACETAMINOPHEN 325 MG TAB PO PRN (23:29)
[2019-08-03] MEDS: PENDING D5 1/2NS+20mEq KCL IVF SCH (23:37)
[2019-08-04] MEDS: PENDING D5 1/2NS+20mEq KCL IVF SCH (02:12)
[2019-08-04 02:39] LABS: BUN Creatinine Ratio 30.1 (10-20); Calcium 8.1 mg/dl (8.5-10.1); Creatinine Clr Calc Pharmacy 63.7 ml/min; Est GFR (African American) 78.7; Est GFR (Non-African American) 67.9; Magnesium 1.8 mg/dl (1.8-2.4); Phosphorus 2.2 mg/dl (2.5-4.9)
[2019-08-04] MEDS: D5W AND 1/2NSS + 20MEQ KCL 20 MEQ/1,000 ML BAG IV SCH ×2 (03:06→09:32)
[2019-08-04 06:59] LABS: Estimated Average Glucose 166 mg/dl; Hemoglobin A1C 7.4 % (4.5-5.6)
[2019-08-04] MEDS ORDERED: INSULIN PROTOCOL GOAL RANGE ONE (07:56)
[2019-08-04] MEDS ORDERED: PNEUMOCOCCAL POLYSACCHARIDES 25 MCG/0.5 ML VIAL/SYR IM ONE (08:00)
[2019-08-04] MEDS ORDERED: PNEUMOCOCCAL ADMINISTRATION CHARGE ONE (08:00)
[2019-08-04] MEDS ORDERED: INFLUENZA ADMINISTRATION CHARGE ONE (08:00)
[2019-08-04] MEDS ORDERED: INFLUENZA VIRUS QUAD VACCINE 0.5 ML SYR IM ONE (08:00)
[2019-08-04 09:07] LABS: Basophils # (auto) 0.01 K/uL (0-0.2); Basophils % (auto) 0.1 %; Hematocrit (blood only) 36.6 % (42-52); Hemoglobin 12.5 g/dL (14.0-18.0); Immature Granulocytes # (auto) 0.02 K/uL (0.00-0.02); Immature Granulocytes % (auto) 0.2 %; Lymphocytes # (auto) 1.46 K/uL (1.2-3.4); Mean Corpuscular Hgb Conc 34.2 g/dL (32-36); Mean Corpuscular Volume 87.8 fL (80-100); Mean Platelet Volume 10.2 fL (7.4-10.4); Monocytes # (auto) 1.38 K/uL (0.11-0.59); Monocytes % (auto) 11.4 %; Neutrophils # (auto) 9.28 K/uL (1.4-6.5); Neutrophils % (auto) 76.3 %; Platelet Count 218 K/uL (130-400); RDW Coefficient of Variation 14.6 % (11.5-14.5); RDW Standard Deviation 46.6 fL (36.4-46.3); Red Blood Count 4.17 M/uL (4.7-6.1); White Blood Count 12.15 K/uL (4.8-10.8)
[2019-08-04 09:14] LABS: BUN Creatinine Ratio 30.4 (10-20); Calcium 8.1 mg/dl (8.5-10.1); Creatinine Clr Calc Pharmacy 68.8 ml/min; Est GFR (African American) 86.5; Est GFR (Non-African American) 74.6; Potassium 4.1 mmol/L (3.5-5.1)
--- NOTE | 2019-08-04 10:08 | Pharmacy Report ---
Pharmacy Glycemic Short Note 2 - Date of Service August 04, 2019 - Glycemic Short BSG Results (Last 24 hours): 08/03/19 08/03/19 08/03/19 13:41 14:35 14:45 Glucose 422 H* POC Glucose 362 H* POC Glucose (other) 439 H* 08/03/19 08/03/19 08/03/19 15:50 16:40 19:45 Glucose POC Glucose 314 H* 263 H 365 H* POC Glucose (other) 08/03/19 08/03/19 08/03/19 21:49 21:50 23:28 Glucose 413 H* POC Glucose 391 H* 310 H* POC Glucose (other) 08/04/19 08/04/19 08/04/19 00:30 01:28 01:40 Glucose 220 H POC Glucose 263 H 224 H POC Glucose (other) 08/04/19 08/04/19 08/04/19 02:30 03:31 04:28 Glucose POC Glucose 176 H 157 H 150 H POC Glucose (other) 08/04/19 08/04/19 08/04/19 05:29 06:58 07:29 Glucose 147 H POC Glucose 166 H 119 H POC Glucose (other) 08/04/19 08/04/19 08:33 09:38 Glucose POC Glucose 122 H 132 H POC Glucose (other) OUTPATIENT ANTIDIABETIC REGIMEN: * Humalog insulin pump: * basal settings: 0.95 units/hr (22.8 units/day) * carb ratio: 1 unit per 6.5 grams CHO's consumed * sensitivity factor: 1684-9442 50mg/dL; 9231-8528 30mg/dL; 0880-3611 50mg/dL * A1c = 7.4% 08/03/19 ASSESSMENT: * Type 1 diabetic admitted for NV, found to be in DKA with EVE * Initial labs: Na 131 (corrected Na 134), Glu 422, AG 28, Bicarb 10, BOHB 78.7 * This AM, insulin drip running at 2.5 units/hr, BSGs in 100's, AG acidosis has resolved. Patient stated he no longer has NV. * Patient remains NPO at this time, Dextrose containing IVF's running at this time. * Patient does have pump supplies with him today, and he believes DKA may have been attributable to a bad site. * Patient is ready to transition off the insulin drip. Will touch base with hospitalist to determine today's plan. Transition back to pump to screen for pump malfunction? vs transition to SQ basal/bolus regimen today with conversion back to the pump tomorrow? PLAN FOR INPATIENT GLYCEMIC CONTROL: * Continue the IV insulin drip at this time, goal range 110-180 * Continue the dextrose containing IVFs until pt has a diet ordered * Consider transition to SQ basal/bolus regimen this AM vs conversion back to insulin pump. PLAN FOR DISCHARGE: * to be determined
[2019-08-04 10:10] LABS: Estimated Average Glucose 169 mg/dl; Hemoglobin A1C 7.5 % (4.5-5.6)
[2019-08-04] MEDS ORDERED: INSULIN HUMAN LISPRO (humaLOG) 100 UNITS/ML VIAL SC PRN (10:45)
[2019-08-04] MEDS: INSULIN ASPART 100 UNITS/ML 3 ML PEN SC SCH ×2 (10:46→12:07)
[2019-08-04] MEDS ORDERED: [UNRECOGNIZED DRUG - REMARK] ONE (11:45)
[2019-08-04] MEDS: PARoxetine HCl 20 MG TAB PO SCH (20:51)
[2019-08-04] MEDS: MULTIVITAMIN TAB PO SCH (20:51)
[2019-08-04] MEDS: ASPIRIN 81 MG ECTAB PO SCH (20:51)
[2019-08-04] MEDS: lisinopriL 10 MG TAB PO SCH (20:51)
[2019-08-04] MEDS: ATORVASTATIN 40 MG TAB PO SCH (20:51)
[2019-08-04] MEDS: ACETAMINOPHEN 325 MG TAB PO PRN (23:28)
[2019-08-04 23:33] VITALS: O2SAT 97
--- NOTE | 2019-08-04 23:40 | Hospitalist Progress Note ---
Date of Service August 04, 2019 Assessment & Plan (1) DKA (diabetic ketoacidoses): Patient was placed on insulin drip for DKA. ANION GAPED CLOSED. Plan is to restart insulin pump and restart diet. Will stop insulin pump. Will monitor anion gap. Continue IVF Monitor A1c 7.5 (2) EVE (acute kidney injury): Creatinine improved to after IVF. (3) Anxiety: continue home meds (4) HLD (hyperlipidemia): continue home meds (5) Hypertension: continue home meds (6) DVT prophylaxis: SCDs, ambulation Subjective Patient reports doing well today. He denies any new symptoms today. Patient denies fever, chills, nausea, vomiting, diarrhea. Review of Systems Review of Systems: All systems reviewed & are unremarkable except as noted in HPI & below Physical Exam Physical Exam: Constitutional: WD/WN, vitals as above Eyes: normal visual ayers by confrontation and + anicteric sclerae Neck: normal visual inspection and trachea midline Respiratory: normal respiratory effort, lungs clear to auscultation Cardiovascular: Rate/Rhythm: regular rhythm and + tachycardic Gastrointestinal (Abdomen): Inspection/Auscultation: abdomen not distended Percussion/Palpation: abdomen soft; abdomen nontender Musculoskeletal: Head/Neck/Chest: normocephalic and head atraumatic negative for edema, peripheral pulses intact Skin: no rashes, warm and dry Neurologic: awake; not confused Speech / Cognition: normal speech Psychiatric: A+Ox3, euthymic affect Results & Data Vital Signs (Past 12 Hours) Vital Signs Temp Pulse Pulse Resp BP BP Pulse Ox 08/04/19 23:00 36.9 C 104 H 20 136/81 97 08/04/19 19:55 36.8 C 89 20 119/74 95 08/04/19 15:47 95 H 08/04/19 15:00 36.7 C 86 20 145/75 H 98 PG Care Time/CCT Total # of Minutes Spent Total Time Spent with Patient: Total time spent is greater than 50% in coordination of care (as documented) at patient's floor/unit and/or counseling patient: (1) DKA (diabetic ketoacidoses) Diabetes mellitus complication detail: without coma Diabetes mellitus type: other specified (including KWASI) Qualified Code(s): E13.10 - Other specified diabetes mellitus with ketoacidosis without coma
[2019-08-05 04:51] VITALS: TEMP 98.1
[2019-08-05 08:13] VITALS: BP 125/73; PULSE 68
[2019-08-05 09:18] LABS: Basophils # (auto) 0.01 K/uL (0-0.2); Basophils % (auto) 0.2 %; Eosinophils # (auto) 0.02 K/uL (0-0.5); Eosinophils % (auto) 0.3 %; Hematocrit (blood only) 38.6 % (42-52); Hemoglobin 13.4 g/dL (14.0-18.0); Immature Granulocytes # (auto) 0.01 K/uL (0.00-0.02); Immature Granulocytes % (auto) 0.2 %; Lymphocytes # (auto) 0.97 K/uL (1.2-3.4); Lymphocytes % (auto) 14.8 %; Mean Corpuscular Hemoglobin 30.5 pg (25-34); Mean Corpuscular Hgb Conc 34.7 g/dL (32-36); Mean Corpuscular Volume 87.7 fL (80-100); Mean Platelet Volume 9.8 fL (7.4-10.4); Monocytes # (auto) 0.57 K/uL (0.11-0.59); Monocytes % (auto) 8.7 %; Neutrophils # (auto) 4.98 K/uL (1.4-6.5); Neutrophils % (auto) 75.8 %; Platelet Count 161 K/uL (130-400); RDW Coefficient of Variation 14.3 % (11.5-14.5); RDW Standard Deviation 46.1 fL (36.4-46.3); White Blood Count 6.56 K/uL (4.8-10.8)
--- NOTE | 2019-08-05 09:25 | Pharmacy Report ---
Pharmacy Glycemic Short Note 2 - Date of Service August 05, 2019 - Glycemic Short BSG Results (Last 24 hours): 08/04/19 08/04/19 08/04/19 09:38 10:31 11:30 POC Glucose 132 H 127 H 133 H 08/04/19 08/04/19 08/04/19 11:38 12:57 16:25 POC Glucose 131 H 187 H 223 H 08/05/19 07:55 POC Glucose 152 H OUTPATIENT ANTIDIABETIC REGIMEN: * Humalog insulin pump: * basal settings: 0.95 units/hr (22.8 units/day) * carb ratio: 1 unit per 6.5 grams CHO's consumed * sensitivity factor: 3342-5132 50mg/dL; 7014-8403 30mg/dL; 0850-8522 50mg/dL * A1c = 7.4% 08/03/19 ASSESSMENT: 08/05 * Patient was successfully transitioned back to his insulin pump yesterday afternoon * Patient is self-managing his glycemic control at this time with the use of his pump and CGM * The insulin pump appears to be working based upon review of his CGM data and recorded insulin doses * BSGs in the mid-100's this AM per his CGM and hospital Glucometer * Patient states he feels well this AM, no NV, tolerating his diet. * Awaiting f/u labs this AM. 08/04 * Type 1 diabetic admitted for NV, found to be in DKA with EVE * Initial labs: Na 131 (corrected Na 134), Glu 422, AG 28, Bicarb 10, BOHB 78.7 * This AM, insulin drip running at 2.5 units/hr, BSGs in 100's, AG acidosis has resolved. Patient stated he no longer has NV. * Patient remains NPO at this time, Dextrose containing IVF's running at this time. * Patient does have pump supplies with him today, and he believes DKA may have been attributable to a bad site. * Patient is ready to transition off the insulin drip. Will touch base with hospitalist to determine today's plan. Transition back to pump to screen for pump malfunction? vs transition to SQ basal/bolus regimen today with conversion back to the pump tomorrow? PLAN FOR INPATIENT GLYCEMIC CONTROL: * Continue the IV insulin drip at this time, goal range 110-180 * Continue the dextrose containing IVFs until pt has a diet ordered * Consider transition to SQ basal/bolus regimen this AM vs conversion back to insulin pump. PLAN FOR DISCHARGE: * A1c (7.4%) is near target, patient may resume his insulin pump on discharge per home settings w/ close f/u with twister hand if having difficulties with glycemic control. * He should have close f/u with twister hand soon after discharge given recent episode of DKA.
[2019-08-05 09:57] LABS: BUN Creatinine Ratio 24.9 (10-20); Calcium 8.8 mg/dl (8.5-10.1); Creatinine Clr Calc Pharmacy 126.4 ml/min; Est GFR (African American) 132.1; Potassium 3.9 mmol/L (3.5-5.1)
--- NOTE | 2019-08-11 16:41 | Discharge Summary ---
Date of Service August 05, 2019 Admission HPI Per Admitting Provider 53 y/o M c/o elevated BS and DKA. Pt states that yesterday was a normal day for him. His BS is typically in the 140s-160s and this was the case yesterday. He woke around 3am with n/v and increased thirst. He was not able to take any water due to the n/v. He noted his BS was over 350. Pt states that sometimes his pump malfunctions, so he tried using a humalog pen that he keeps on hand. He could still not get his BS to decrease. He was noted to have heavy breathing, but no ale SOB. His sx were similar to when he had DKA a few years ago, so he came to the ED. Pt denies fever, chest pain, abd pain, c/d, LE pain or swelling. Pt was given insulin and IVF in the ED while awaiting insulin drip to be sent up from the pharmacy. BS are now down to 260s. He states he is starting to feel hungry. Last PO intake was 10p last night. Pt notes that he had about 8oz of liquor last night. He states this is a typical amount of alcohol intake for himself about 2 nights a week. Denies using sugary mixers. No other changes in diet. He has not felt sick otherwise. Principal Diagnosis diabetic ketoacidosis Discharge Exam Constitutional: WD/WN, vitals as above Eyes: normal visual ayers by confrontation and + anicteric sclerae Neck: normal visual inspection and trachea midline Respiratory: normal respiratory effort, lungs clear to auscultation Cardiovascular: Rate/Rhythm: regular rhythm and + tachycardic Gastrointestinal (Abdomen): Inspection/Auscultation: abdomen not distended Percussion/Palpation: abdomen soft; abdomen nontender Musculoskeletal: Head/Neck/Chest: normocephalic and head atraumatic negative for edema, peripheral pulses intact Skin: no rashes, warm and dry Neurologic: awake; not confused Speech / Cognition: normal speech Psychiatric: A+Ox3, euthymic affect Discharge Data Allergies Allergy/AdvReac Type Severity Reaction Status Date / Time Penicillins Allergy Unknown STRONG Verified 08/03/19 14:53 FAMILY HX Consultations 08/03/19 16:21 ED Decision to Admit Stat Hospital Course (1) DKA (diabetic ketoacidoses): Patient was admitted with DKA and was treated will IVF and insulin drip. Insulin pump insertion location was switched. Once anion gap was closed, aurora was placed back on his insulin pump. Monitored for a period of 24 hours to confirm insulin pump was working. This was confirmed. Patient will followup with PCP and clinical quality analyst (2) EVE (acute kidney injury): Creatinine improved to after IVF. (3) Anxiety: continue home meds (4) HLD (hyperlipidemia): continue home meds (5) Hypertension: continue home meds (6) DVT prophylaxis: SCDs, ambulation Total Time Total Time Spent Total Time Spent (In Minutes): 32 Total Time Includes: Examination of the Patient, Discharge Planning and Medication Reconciliation Discharge Plan Discharge Items Patient Disposition: Home - Self-Care Reason For Visit: DKA Discharge Diagnosis: Diabetic ketoacidosis Activity: Resume your previous activity Non-emergency contact: Primary Care Provider Call non-emergency contact if: you have any medication questions Follow-up/Referrals: Antoine Hernandez MD [Primary Care Provider] - 08/11/19 8:50 am (Please, follow up at Dr. Rousseau's office with his associate, Dr. Bandar Deleon, on SaturdayAugust 11 at 8:50 am. *If you need to change this appointment, call the office at [phone].) Diet: Carb Count or DM1 Addtl Attending Provider Instructions: Please resume prior regimen for diabetes contorl. Godwin recommend followup Pending Studies at Discharge: No Stand-Alone Forms: My [facility] [employer], Smoking Cessation Medications and DC Order Prescriptions: Continued multivitamin Tablet 1 tab PO HS RF: 0 atorvastatin 40 mg Tablet 40 mg PO HS RF: 0 aspirin [Aspir-81] 81 mg Tablet,Delayed Release (Dr/Ec) 81 mg PO HS RF: 0 paroxetine HCl [Paxil] 20 mg Tablet 20 mg PO HS RF: 0 lisinopril 10 mg Tablet 10 mg PO HS RF: 0 insulin lispro [Humalog U-100 Insulin] 100 unit/mL Solution continuous subcutaneous infusion [id number] RF: 0 Discharge Orders: Discharge Order (Routine); Ordered 08/05/19 Ordered By: João Zelaya Admission Data Admit Date/Time: 08/03/19 17:31 Attending Provider: João Zelaya Admit Provider: Janet Garcia Primary Care Provider: Antoine Hernandez Other Interventions: Discharge Summary Assessment (RN) Last Done: 08/05/19 11:41 DC Date/Time DO NOT enter until pt leaves facility: 08/05/19 12:22
== END 2019-08-05 12:22 | disposition home or self-care (01) | DRG 638 ==
LOC: ED 13:33 → 2S 17:31 → SUATTDRO 17:31 → 2S 21:27 → 2N 08-04 14:39

== ENCOUNTER 2020-02-12 18:08 | Inpatient (IN) ==
[2020-02-12] MEDS ORDERED: SODIUM CHLORIDE 0.9% 1000ML 1,000 ML IV ONE (18:27)
[2020-02-12] MEDS ORDERED: LORazepam 1 MG/2 ML VIAL IV STA ×3 (18:27→20:33)
--- NOTE | 2020-02-12 18:49 | Emergency Department Note ---
History of Present Illness General Chief complaint: Nausea Stated complaint: nausea, abd normal sweating, shaking Time Seen by Provider: 02/12/20 18:21 History of Present Illness Provider complaint: Nausea Onset (ago): day(s) 1 54-year-old insulin-dependent diabetic male presents to the emergency department with nausea and diaphoresis. He states that he woke up and has been feeling very nauseated and has been sweaty. He denies any fevers. He denies any anosm ia or loss of taste. He denies any chest pain he denies any shortness of breath, hemoptysis, fever, abdominal pain, or exposure to anyone who is COVID-19 positive or person of interest. Patient does state "he has been on a bragg" since Saturday. He states he drank approximately 8 shots of whiskey last night. He denies any falls. Patient states he has been drinking heavily since Saturday. He states he has been drinking for recreational purposes and has not had any suicidal intention or ideation. He has not been using any other drugs. He is not ingested any pills in attempt to harm himself. Home Medications Home Medications Medication Instructions Recorded Confirmed Type aspirin [Aspir-81] 81 mg PO HS 03/13/19 02/12/20 History lisinopril 10 mg PO HS 03/13/19 02/12/20 History multivitamin 1 tab PO HS 03/13/19 02/12/20 History paroxetine HCl [Paxil] 20 mg PO HS 03/13/19 02/12/20 History blood sugar diagnostic #450 ea 08/28/19 10/26/19 Rx atorvastatin 40 mg tablet 40 mg PO HS #90 tab 09/04/19 02/12/20 Rx lancets 33 gauge #500 ea 10/26/19 10/26/19 Rx insulin aspart U-100 [Novolog 1 sliding scale dose CONTINUOUS 02/12/20 02/12/20 History U-100 Insulin aspart] SUBCUTANEOUS INFUSION DAILY Allergies Allergy/AdvReac Type Severity Reaction Status Date / Time Penicillins Allergy Unknown STRONG Verified 02/12/20 20:13 FAMILY HX Past Med/Surg History Medical History Diabetes (Chronic) DKA (diabetic ketoacidoses) (Resolved) Dyslipidemia Hypertension (Chronic) Surgical History Hx of vasectomy Family History Father Myocardial infarction Uncle Diabetes Social History Preferred Language: B[place] Communication Ability: Effective 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 Beliefs That Will Affect Care: None Current Living Situation: Spouse Feels Safe at Home: Yes Smoking Status: Never smoker Second Hand Exposure: No ; Hx Alcohol Use: Yes Alcohol type: beer and hard liquor Alcohol Intake Frequency Comment: 8 oz liquor last night Hx Substance Use: No Review of Systems A total of 10 systems reviewed and were otherwise negative Physical Exam Vital Signs Vital Signs - 24 hr 02/12/20 18:14 02/12/20 19:48 02/12/20 20:43 Temperature 37 C Temperature Source Oral Pulse Rate 145 H Pulse Rate [Right Finger] 119 H 132 H Respiratory Rate 19 18 18 Blood Pressure 142/93 H Blood Pressure [Left Arm] 162/97 H 163/88 H Blood Pressure Mean 109 Blood Pressure Mean [Left Arm] 118 113 Pulse Oximetry 97 98 98 Oxygen Flow Rate 93 Sepsis Recent Fever Within 48 Hours No Sepsis Action Taken by Nursing No Action Required Physical Exam GENERAL: Tremulous. HENT: Exam performed. - Head: Normocephalic and atraumatic. - Right Ear: External ear normal. No mastoid tenderness. - Left Ear: External ear normal. No mastoid tenderness. - Mouth/Throat: The oropharynx is clear and moist. No trismus in the jaw. No dental abscesses or uvula swelling. No oropharyngeal exudate or tonsillar abscesses. EYES: Conjunctivae and EOM are normal. Pupils are equal, round, and reactive to light. Right eye exhibits no discharge. Left eye exhibits no discharge. No scleral icterus. NECK: Normal range of motion. Neck supple. No JVD present. No spinous process tenderness present. No carotid bruit present. No rigidity. No tracheal deviation and normal range of motion present. No Brudzinski's sign and no Kernig's sign noted. CV: Tachycardic rate, regular rhythm, normal heart sounds and intact distal pulses. There is no peripheral edema. Palpable radial pulses bue. PULM/CHEST: Effort normal and breath sounds normal. No respiratory distress. No stridor. He has no wheezes. He has no rales. - Chest Wall: He exhibits no tenderness. ABD: The abdomen is soft. Bowel sounds are normal. He has no distension. No mass is present. There is no tenderness. There is no rebound, no guarding, no Tsai's sign and no tenderness at McBurney's point. Rovsig negative. MUSC/SKEL: Normal range of motion. There is no peripheral edema, tenderness or deformity. LYMPH: No cervical adenopathy. NEURO: He is alert and oriented to person, place, and time. He has normal s trength. No cranial nerve deficit or sensory deficit. Coordination and gait normal. GCS eye subscore is 4. GCS verbal subscore is 5. GCS motor subscore is 6. Cerebellar tests wnl. SKIN: Skin is warm and dry. He is not diaphoretic. PSYCH: He has a normal mood and affect. Behavior is normal. Judgment and thought content normal. Course Course 1814: The patient was evaluated in room C7. A complete history and physical exam was performed. Cardiac monitoring: An order was placed for continuous cardiac monitoring. The monitor shows a rate of 140 with sinus tachycardia rhythm 1944: On reassessment the patient is still tremulous and tachycardic. His labs show elevated liver function tests which are thought to be due to his alcohol abuse. His bilirubin is at baseline. His lipase is within normal limits. We will repeat the dose of Ativan to see if we can improve his tachycardia and tremor, if we are unsuccessful then the patient will be need to be admitted for DTs. 2035: Patient flynn tachycardic and tremulous. Will repeat dose of Ativan. Patient will be admitted for DTs. [facility] hospitalist Dr. Alexandra notified of patient Administered Medications Discontinued Medications Sodium Chloride (Nss 1000ml) 1,000 mls @ 999 mls/hr IV .Q1H1M ONE Stop: 02/12/20 19:27 Last Infusion: 02/12/20 20:13 Dose: 0 mls/hr Documented by: [id number] Admin: 02/12/20 18:55 Dose: 999 mls/hr Documented by: [id number] Lorazepam (Ativan) 1 mg in 2 mls @ 2 mls/min IV NOW STA Stop: 02/12/20 18:28 Last Admin: 02/12/20 19:05 Dose: 2 mls/min Documented by: [id number] Lorazepam (Ativan) 1 mg in 2 mls @ 2 mls/min IV NOW STA Stop: 02/12/20 19:38 Last Admin: 02/12/20 19:47 Dose: 2 mls/min Documented by: [id number] Lorazepam (Ativan) 1 mg in 2 mls @ 2 mls/min IV NOW STA Stop: 02/12/20 20:34 Last Admin: 02/12/20 20:55 Dose: 2 mls/min Documented by: [id number] Critical Care Time Critical Care Time: Yes Total Critical Care Time: 54 I have personally spent greater than 54 minutes of critical care time in the direct management of this patient. This includes bedside care, interpretation of diagnostic studies, and testing, discussion with consultants, patient, and family members, and other required patient management activities. This 54 minutes is in excess of all separately billable procedures. Medical Decision Making Laboratory Data Result diagrams: 02/12/20 18:49 02/12/20 18:49 Lab Results 02/12/20 02/12/20 02/12/20 Range/Units 18:25 18:49 18:49 WBC 10.16 (4.8-10.8) K/uL RBC 5.55 (4.7-6.1) M/uL Hgb 16.7 (14.0-18.0) g/dL Hct 47.4 (42-52) % MCV 85.4 (80-100) fL MCH 30.1 (25-34) pg MCHC 35.2 (32-36) g/dL RDW Std Deviation 45.0 (36.4-46.3) fL RDW Coeff of Dennise 14.4 (11.5-14.5) % Plt Count 197 (130-400) K/uL MPV 9.7 (7.4-10.4) fL Immature Gran % (Auto) 0.2 % Neut % (Auto) 83.6 % Lymph % (Auto) 9.1 % Nance % (Auto) 6.9 % Eos % (Auto) 0.0 % Baso % (Auto) 0.2 % Immature Gran # (Auto) 0.02 (0.00-0.02) K/uL Neut # (Auto) 8.50 H (1.4-6.5) K/uL Lymph # (Auto) 0.92 L (1.2-3.4) K/uL Nance # (Auto) 0.70 H (0.11-0.59) K/uL Eos # (Auto) 0.00 (0-0.5) K/uL Baso # (Auto) 0.02 (0-0.2) K/uL Sodium 134 L (136-145) mmol/L Potassium 4.1 (3.5-5.1) mmol/L Chloride 98 (98-107) mmol/L Carbon Dioxide 25 (21-32) mmol/L Anion Gap 11.0 (3-11) BUN 13 (7-18) mg/dl Creatinine 0.79 (0.6-1.4) mg/dl Est Cr Clr Drug Dosing 104.4 ml/min Est GFR ( Amer) 118.0 Est GFR (Non-Af Amer) 101.8 BUN/Creatinine Ratio 16.4 (10-20) Glucose 222 H (70-99) mg/dl POC Glucose 225 H (70-99) mg/dl Calcium 9.9 (8.5-10.1) mg/dl Total Bilirubin 1.8 H (0.2-1) mg/dl Direct Bilirubin 0.4 H (0-0.2) mg/dl AST 85 H (15-37) U/L ALT 94 H (12-78) U/L Alkaline Phosphatase 98 (45-117) U/L Total Protein 8.4 H (6.4-8.2) gm/dl Albumin 4.5 (3.4-5.0) gm/dl Lipase 131 (73-393) U/L Ethyl Alcohol mg/dL (0-3) mg/dl 02/12/20 Range/Units 18:49 WBC (4.8-10.8) K/uL RBC (4.7-6.1) M/uL Hgb (14.0-18.0) g/dL Hct (42-52) % MCV (80-100) fL MCH (25-34) pg MCHC (32-36) g/dL RDW Std Deviation (36.4-46.3) fL RDW Coeff of Dennise (11.5-14.5) % Plt Count (130-400) K/uL MPV (7.4-10.4) fL Immature Gran % (Auto) % Neut % (Auto) % Lymph % (Auto) % Nance % (Auto) % Eos % (Auto) % Baso % (Auto) % Immature Gran # (Auto) (0.00-0.02) K/uL Neut # (Auto) (1.4-6.5) K/uL Lymph # (Auto) (1.2-3.4) K/uL Nance # (Auto) (0.11-0.59) K/uL Eos # (Auto) (0-0.5) K/uL Baso # (Auto) (0-0.2) K/uL Sodium (136-145) mmol/L Potassium (3.5-5.1) mmol/L Chloride (98-107) mmol/L Carbon Dioxide (21-32) mmol/L Anion Gap (3-11) BUN (7-18) mg/dl Creatinine (0.6-1.4) mg/dl Est Cr Clr Drug Dosing ml/min Est GFR ( Amer) Est GFR (Non-Af Amer) BUN/Creatinine Ratio (10-20) Glucose (70-99) mg/dl POC Glucose (70-99) mg/dl Calcium (8.5-10.1) mg/dl Total Bilirubin (0.2-1) mg/dl Direct Bilirubin (0-0.2) mg/dl AST (15-37) U/L ALT (12-78) U/L Alkaline Phosphatase (45-117) U/L Total Protein (6.4-8.2) gm/dl Albumin (3.4-5.0) gm/dl Lipase (73-393) U/L Ethyl Alcohol mg/dL < 3.0 (0-3) mg/dl ECG Data Rate (beats per minute): 118 Rhythm: + sinus tachycardia ECG Intervals/blocks: + Normal QRS, + Normal OK and + Normal QT-c ECG ST segments: + Normal ST segments MDM Narrative 1814: The patient was evaluated in room C7. A complete history and physical exam was performed. Cardiac monitoring: An order was placed for continuous cardiac monitoring. The monitor shows a rate of 140 with sinus tachycardia rhythm 1944: On reassessment the patient is still tremulous and tachycardic. His labs show elevated liver function tests which are thought to be due to his alcohol abuse. His bilirubin is at baseline. His lipase is within normal limits. We will repeat the dose of Ativan to see if we can improve his tachycardia and tremor, if we are unsuccessful then the patient will be need to be admitted for DTs. 2035: Patient flynn tachycardic and tremulous. Will repeat dose of Ativan. Patient will be admitted for DTs. [facility] hospitalist Dr. Alexandra notified of patient Impression & Plan DTs (delirium tremens) Discharge Plan Visit Data Chief Complaint: Nausea Stated Complaint: nausea, abd normal sweating, shaking ED Provider: Douglas Dick Discharge Problem: DTs (delirium tremens) Patient Disposition: Being Evaluated by Hospitalist Forms Stand Alone Forms: [employer] Prescriptions Prescriptions: No Action (DME) Contour Next Test Strips strip See Rx Instructions .ROUTE .MEDSUPPLY Qty: 450 RF: 3 atorvastatin 40 mg tablet 40 mg PO HS Qty: 90 RF: 3 (DME) lancets 33 gauge misc See Rx Instructions .ROUTE .MEDSUPPLY Qty: 500 RF: 3 insulin aspart U-100 [Novolog U-100 Insulin aspart] 100 unit/mL solution 1 sliding scale dose continuous subcutaneous infusion DAILY RF: 0 multivitamin Tablet 1 tab PO HS RF: 0 aspirin [Aspir-81] 81 mg Tablet,Delayed Release (Dr/Ec) 81 mg PO HS RF: 0 paroxetine HCl [Paxil] 20 mg Tablet 20 mg PO HS RF: 0 lisinopril 10 mg Tablet 10 mg PO HS RF: 0 Referrals Referrals: Antoine Hernandez MD [Primary Care Provider] -
[2020-02-12 19:03] LABS: Basophils # (auto) 0.02 K/uL (0-0.2); Basophils % (auto) 0.2 %; Hematocrit (blood only) 47.4 % (42-52); Hemoglobin 16.7 g/dL (14.0-18.0); Immature Granulocytes # (auto) 0.02 K/uL (0.00-0.02); Immature Granulocytes % (auto) 0.2 %; Lymphocytes # (auto) 0.92 K/uL (1.2-3.4); Lymphocytes % (auto) 9.1 %; Mean Corpuscular Hemoglobin 30.1 pg (25-34); Mean Corpuscular Hgb Conc 35.2 g/dL (32-36); Mean Corpuscular Volume 85.4 fL (80-100); Mean Platelet Volume 9.7 fL (7.4-10.4); Monocytes % (auto) 6.9 %; Neutrophils % (auto) 83.6 %; Platelet Count 197 K/uL (130-400); RDW Coefficient of Variation 14.4 % (11.5-14.5); Red Blood Count 5.55 M/uL (4.7-6.1); White Blood Count 10.16 K/uL (4.8-10.8)
[2020-02-12 19:19] LABS: Albumin Level 4.5 gm/dl (3.4-5.0); BUN Creatinine Ratio 16.4 (10-20); Bilirubin Direct 0.4 mg/dl (0-0.2); Calcium 9.9 mg/dl (8.5-10.1); Creatinine Clr Calc Pharmacy 104.4 ml/min; Est GFR (Non-African American) 101.8; Potassium 4.1 mmol/L (3.5-5.1)
[2020-02-12 19:23] LABS: Bilirubin,Total 1.8 mg/dl (0.2-1); Total Protein 8.4 gm/dl (6.4-8.2)
--- NOTE | 2020-02-12 23:21 | History & Physical Report ---
Date of Service February 12, 2020 Assessment & Plan (1) Alcohol withdrawal: Admit to monitored bed with AWSS protocol. Place on Ativan 1 mg p.o. 3 times daily. Cessation counseling. Thiamine 100 mg p.o. daily. Folic acid 1 mg p.o. daily. Present on Admission?: Yes (2) Insulin pump in place: Type 1 diabetes mellitus with insulin pump in place- Patient will manage his blood sugars with his own pump, but will notify nursing of dosages given. Check hemoglobin A1c Present on Admission?: Yes (3) Type 1 diabetes mellitus: See above Present on Admission?: Yes (4) Hypertension: Continue lisinopril and aspirin Present on Admission?: Yes (5) Abnormal LFTs (liver function tests): Repeat laboratories in a.m. Order CT of abdomen and pelvis without contrast to further assess Present on Admission?: Yes (6) Anxiety: Continue paroxetine 20 mg at bedtime Present on Admission?: Yes (7) HLD (hyperlipidemia): Continue atorvastatin 40 mg at bedtime Check a fasting lipid panel Present on Admission?: Yes Admission and Anticipated Discharge Date Admission Date: February 12, 2020 Anticipated date of discharge: 02/15/20 History of Present Illness Chief Complaint: The patient presents to the emergency department with the onset this morning of sweats, palpitations, nausea and generalized shaking. Primary Care Provider: Antoine Hernandez MD The patient is a 54-year-old male with a past medical history including diabetes mellitus type 1, DKA, EVE, anxiety, hyperlipidemia, hypertension, anxiety and previous alcohol withdrawal. He presents to the emergency department with report of last alcohol intake approximately 24 hours previously, with symptoms he is experienced before and became concerned regarding alcohol withdrawal. He reports he is unable to hold any oral intake down over the past 24 hours due to severe nausea. Allergies Allergy/AdvReac Type Severity Reaction Status Date / Time Penicillins Allergy Unknown STRONG Verified 02/12/20 20:13 FAMILY HX Home Medications Home Medications Medication Instructions Recorded Confirmed Type aspirin [Aspir-81] 81 mg PO HS 03/13/19 02/12/20 History lisinopril 10 mg PO HS 03/13/19 02/12/20 History multivitamin 1 tab PO HS 03/13/19 02/12/20 History paroxetine HCl [Paxil] 20 mg PO HS 05/31/19 05/01/20 History blood sugar diagnostic #450 ea 08/28/19 10/26/19 Rx atorvastatin 40 mg tablet 40 mg PO HS #90 tab 09/04/19 02/12/20 Rx lancets 33 gauge #500 ea 10/26/19 10/26/19 Rx insulin aspart U-100 [Novolog 1 sliding scale dose CONTINUOUS 02/12/20 02/12/20 History U-100 Insulin aspart] SUBCUTANEOUS INFUSION DAILY Past Med/Surg History Medical History Diabetes (Chronic) DKA (diabetic ketoacidoses) (Resolved) Dyslipidemia Hypertension (Chronic) Surgical History Hx of vasectomy Family History Father Myocardial infarction Uncle Diabetes Social History Preferred Language: Citizen Of [place] Communication Ability: Effective Daycare Worker Required: No Beliefs That Will Affect Care: None Current Living Situation: Spouse Other Information That Helps Us Care for You: No Feels Safe at Home: Yes Safety Concerns: Feels Safe At This Time Smoking Status: Never smoker Do You Dip or Chew Tobacco: No ; Second Hand Exposure: No ; Tobacco Cessation Education Requested by Patient: No Hx Alcohol Use: Yes Alcohol type: beer and hard liquor Alcohol Intake Frequency Comment: 8 oz liquor last night Hx Substance Use: No Review of Systems Review of Systems: The patient denies chest pain, shortness of breath, dyspnea on exertion, cough, lower extremity swelling, sore throat, vomiting, diarrhea , constipation, pelvic pain, blood in urine or stool, dysuria, urinary frequency or urgency, lightheadedness, dizziness, headache, memory loss, loss of consciousness, rash, abnormal bruising or bleeding, or night sweats. The review of systems is otherwise negative other than for that already noted above, and at least 10 systems have been reviewed. Physical Exam Physical Exam: The patient is awake, alert and oriented 3, normocephalic and atraumatic, lying in bed, with obvious shaking of upper and lower extremities, and otherwise in no acute distress. HEENT--PERRL, EOMI, mucous membranes and oropharynx dry. Neck--supple. No JVD. No bruits. Thyroid normal, trachea midline, no adenopathy. Heart--normal S1 and S2. No murmurs, rubs or gallops. Lungs--clear bilaterally, no respiratory distress, no accessory muscle use. Abdomen--normal bowel sounds and soft. Nontender. Nondistended. Extremities--no cyanosis or clubbing. No edema. Dermatologic--normal skin turgor, normal color, no abnormal lymph nodes, no rash. Neurologic--cranial nerves II through XII grossly intact. Generalized tremor noted upper greater than lower extremities Rheumatologic--normal range of motion. Psychiatric--normal affect. Results & Data Results & Data ([facility]) Vital Signs (Past 12 Hours) Vital Signs Temp Pulse Pulse Resp BP BP Pulse Ox 02/12/20 22:37 127 H 22 161/95 H 96 02/12/20 22:04 132 H 20 152/111 H 98 02/12/20 20:43 132 H 18 163/88 H 98 02/12/20 19:48 119 H 18 162/97 H 98 02/12/20 18:14 98.6 F 145 H 19 142/93 H 97 Laboratory Results Laboratory Results WBC 10.16 K/uL (4.8-10.8) 02/12/20 18:49 RBC 5.55 M/uL (4.7-6.1) 02/12/20 18:49 Hgb 16.7 g/dL (14.0-18.0) 02/12/20 18:49 Hct 47.4 % (42-52) 02/12/20 18:49 MCV 85.4 fL (80-100) 02/12/20 18:49 MCH 30.1 pg (25-34) 02/12/20 18:49 MCHC 35.2 g/dL (32-36) 02/12/20 18:49 RDW Std Deviation 45.0 fL (36.4-46.3) 02/12/20 18:49 RDW Coeff of Dennise 14.4 % (11.5-14.5) 02/12/20 18:49 Plt Count 197 K/uL (130-400) 02/12/20 18:49 MPV 9.7 fL (7.4-10.4) 02/12/20 18:49 Immature Gran % (Auto) 0.2 % 02/12/20 18:49 Neut % (Auto) 83.6 % 02/12/20 18:49 Lymph % (Auto) 9.1 % 02/12/20 18:49 [place] % (Auto) 6.9 % 02/12/20 18:49 Eos % (Auto) 0.0 % 02/12/20 18:49 Baso % (Auto) 0.2 % 02/12/20 18:49 Immature Gran # (Auto) 0.02 K/uL (0.00-0.02) 02/12/20 18:49 Neut # (Auto) 8.50 K/uL (1.4-6.5) H 02/12/20 18:49 Lymph # (Auto) 0.92 K/uL (1.2-3.4) L 02/12/20 18:49 [place] # (Auto) 0.70 K/uL (0.11-0.59) H 02/12/20 18:49 Eos # (Auto) 0.00 K/uL (0-0.5) 02/12/20 18:49 Baso # (Auto) 0.02 K/uL (0-0.2) 02/12/20 18:49 Sodium 134 mmol/L (136-145) L 02/12/20 18:49 Potassium 4.1 mmol/L (3.5-5.1) 02/12/20 18:49 Chloride 98 mmol/L (98-107) 02/12/20 18:49 Carbon Dioxide 25 mmol/L (21-32) 02/12/20 18:49 Anion Gap 11.0 (3-11) 02/12/20 18:49 BUN 13 mg/dl (7-18) 02/12/20 18:49 Creatinine 0.79 mg/dl (0.6-1.4) 02/12/20 18:49 Est Cr Clr Drug Dosing 104.4 ml/min 02/12/20 18:49 Est GFR ( Amer) 118.0 02/12/20 18:49 Est GFR (Non-Af Amer) 101.8 02/12/20 18:49 BUN/Creatinine Ratio 16.4 (10-20) 02/12/20 18:49 Glucose 222 mg/dl (70-99) H 02/12/20 18:49 POC Glucose 225 mg/dl (70-99) H 02/12/20 18:25 Calcium 9.9 mg/dl (8.5-10.1) 02/12/20 18:49 Total Bilirubin 1.8 mg/dl (0.2-1) H 02/12/20 18:49 Direct Bilirubin 0.4 mg/dl (0-0.2) H 02/12/20 18:49 AST 85 U/L (15-37) H 02/12/20 18:49 ALT 94 U/L (12-78) H 02/12/20 18:49 Alkaline Phosphatase 98 U/L (45-117) 02/12/20 18:49 Total Protein 8.4 gm/dl (6.4-8.2) H 02/12/20 18:49 Albumin 4.5 gm/dl (3.4-5.0) 02/12/20 18:49 Lipase 131 U/L (73-393) 02/12/20 18:49 Folate 17.64 ng/ml (>5.38) 02/13/20 00:08 Ethyl Alcohol mg/dL < 3.0 mg/dl (0-3) 02/12/20 18:49 Code Status & VTE Plan Code Status Full code VTE Prophylaxis Plan VTE Prophylaxis will be ordered: Yes PG Care Time/CCT Total # of Minutes Spent Total Time Spent with Patient: Total time spent is greater than 50% in coordination of care (as documented) at patient's floor/unit and/or counseling patient: Coding Level of Care Code 30925 Initial Inpt Care Lvl 3 Diagnoses Alcohol withdrawal F10.[address] Z96.41 Type 1 diabetes mellitus E10.9 Hypertension I10 Abnormal LFTs (liver function tests) R94.5 Anxiety F41.9 HLD (hyperlipidemia) E78.5
[2020-02-12] MEDS ORDERED: ATIVAN IV ALCOHOL WITHDRAWL IV PRN (23:49)
[2020-02-12] MEDS ORDERED: LORazepam 2 MG/4 ML VIAL IV PRN (23:49)
[2020-02-12] MEDS ORDERED: MAGNESIUM HYDROXIDE SUSP 30 ML UDC PO PRN (23:49)
[2020-02-12] MEDS ORDERED: ALUMINUM/MAGNESIUM SUSP 30 ML UDC PO PRN (23:49)
[2020-02-12] MEDS ORDERED: LORazepam 3 MG/6 ML VIAL IV PRN (23:49)
[2020-02-12] MEDS ORDERED: LORazepam 2 MG/4 ML VIAL ONE (23:58)
[2020-02-13] MEDS ORDERED: DEXTROSE 50% 50 ML SYRINGE IV PRN (00:15)
[2020-02-13] MEDS: FOLIC ACID 1 MG TAB PO SCH ×2 (00:15→08:18)
[2020-02-13] MEDS: THIAMINE HCL 100 MG TAB PO SCH ×2 (00:15→08:18)
[2020-02-13] MEDS ORDERED: GLUCOSE 10 TABS/TUBE PO PRN (00:15)
[2020-02-13] MEDS ORDERED: GLUCOSE 40% GEL 15 GM TUBE PO PRN (00:15)
[2020-02-13] MEDS ORDERED: CARBOHYDRATES FOR HYPOGLYCEMIA PO PRN (00:15)
[2020-02-13] MEDS ORDERED: GLUCAGON FOR INJ 1 MG VIAL SQ PRN (00:15)
[2020-02-13] MEDS ORDERED: INSULIN ASPART 100 UNITS/ML VIAL SC PRN ×2 (02:45→07:59)
[2020-02-13] MEDS: LORazepam 1 MG/2 ML VIAL IV PRN ×2 (02:46→05:25)
[2020-02-13 06:25] LABS: Appearance Urine Clear (Clear); Bacteria Urine Automated Negative (Negative); Bilirubin Urine Negative (Negative); Blood Urine Negative (Negative); Color Urine Orange; Glucose Urine UA 2+ (Negative); Ketones Urine 2+ (Negative); Leukocyte Esterase Urine Negative (Negative); Nitrite Urine Negative (Negative); RBC Urine Automated 0-4 /hpf (0-4); Specific Gravity Urine 1.027 (1.000-1.030); Urobilinogen Urine Negative (Negative); pH Urine >= 9.0 (4.5-7.5)
[2020-02-13 06:28] LABS: Protein Urine Negative (Negative); Sulfosalicylic Acid Urine Negative (Negative)
[2020-02-13 07:02] LABS: Basophils # (auto) 0.01 K/uL (0-0.2); Basophils % (auto) 0.1 %; Eosinophils # (auto) 0.02 K/uL (0-0.5); Eosinophils % (auto) 0.3 %; Hematocrit (blood only) 43.4 % (42-52); Immature Granulocytes # (auto) 0.01 K/uL (0.00-0.02); Immature Granulocytes % (auto) 0.1 %; Lymphocytes # (auto) 1.73 K/uL (1.2-3.4); Lymphocytes % (auto) 25.4 %; Mean Corpuscular Hemoglobin 29.8 pg (25-34); Mean Corpuscular Hgb Conc 34.6 g/dL (32-36); Mean Corpuscular Volume 86.1 fL (80-100); Mean Platelet Volume 10.1 fL (7.4-10.4); Monocytes # (auto) 0.99 K/uL (0.11-0.59); Monocytes % (auto) 14.5 %; Neutrophils # (auto) 4.05 K/uL (1.4-6.5); Neutrophils % (auto) 59.6 %; Platelet Count 180 K/uL (130-400); RDW Coefficient of Variation 14.6 % (11.5-14.5); RDW Standard Deviation 45.6 fL (36.4-46.3); Red Blood Count 5.04 M/uL (4.7-6.1); White Blood Count 6.81 K/uL (4.8-10.8)
[2020-02-13 07:16] LABS: INR 1.2 (0.9-1.1); Partial Thromboplastin Time 27.3 Seconds (21.0-31.0); Prothrombin Time 12.4 Seconds (9.0-12.0)
[2020-02-13 07:25] LABS: Estimated Average Glucose 177 mg/dl; Hemoglobin A1C 7.8 % (4.5-5.6)
[2020-02-13] MEDS ORDERED: NovoLOG INSULIN PUMP SCH (07:30)
[2020-02-13 07:37] LABS: Potassium 3.5 mmol/L (3.5-5.1)
[2020-02-13 07:38] LABS: Albumin Level 3.7 gm/dl (3.4-5.0); BUN Creatinine Ratio 18.8 (10-20); Calcium 9.2 mg/dl (8.5-10.1); Creatinine Clr Calc Pharmacy 125.9 ml/min; Est GFR (Non-African American) 109.6; Magnesium 1.8 mg/dl (1.8-2.4)
[2020-02-13 07:53] LABS: Albumin Globulin Ratio 1.1 (0.9-2); Bilirubin,Total 1.9 mg/dl (0.2-1); Globulin 3.5 gm/dl (2.5-4.0); Total Protein 7.2 gm/dl (6.4-8.2)
--- NOTE | 2020-02-13 07:53 | Electrocardiogram Report ---
Test Reason : Blood Pressure : / mmHG Vent. Rate : 118 BPM Atrial Rate : 118 BPM P-R Int : 150 ms QRS Dur : 084 ms QT Int : 312 ms P-R-T Axes : 056 060 053 degrees QTc Int : 437 ms Poor data quality, interpretation may be adversely affected Sinus tachycardia Otherwise normal ECG When compared with ECG of 03-AUG-2019 14:45, No significant change was found Confirmed by Yonathan Harrington ([id number]) on 02/13/2020 7:53:42 AM Referred By: REFERRED SELF Confirmed By:Yonathan Harrington
[2020-02-13] MEDS: LORazepam 1 MG TAB PO SCH ×2 (08:17→14:46)
[2020-02-13] MEDS ORDERED: PHYTONADIONE 5 MG TAB PO STA (08:45)
[2020-02-13] MEDS ORDERED: INSULIN ASPART PER UNIT SC SCH (09:00)
[2020-02-13] MEDS: INSULIN GLARGINE SOLOSTAR 100 UNITS/ML 3 ML PEN SC SCH ×2 (09:32→19:59)
[2020-02-13] MEDS: INSULIN ASPART 100 UNITS/ML 3 ML PEN SC SCH ×3 (11:59→20:00)
--- NOTE | 2020-02-13 15:22 | Hospitalist Progress Note ---
Date of Service February 13, 2020 Assessment & Plan (1) Alcohol withdrawal: reduce ativan to prn only - HR has come down nicely and no tremor continue thiamine and folate looks to be improving - hopefully home tomorrow (would be approaching 72hrs past last drink, and if he continues to look well w less benzos and further removed from EtOH would then be safe for home) (2) Insulin pump in place: pump ran out of insulin - change to basal bolus similar parameters (dropped basal slightly for now since it can't be down-adjusted as dynamically as a pump) (3) Type 1 diabetes mellitus: See above A1c was 7.8 (4) Hypertension: Continue lisinopril and aspirin -- BP variable but OK given situation (5) Abnormal LFTs (liver function tests): not severely elevated, suspect relates to EtOH abuse INR sl up -- give vitamin K and follow up INR in AM follow LFTs periodically (6) Anxiety: Continue paroxetine 20 mg at bedtime (7) HLD (hyperlipidemia): Continue atorvastatin 40 mg at bedtime (LFTs not high enough to warrant cessation, and are likely to improve w EtOH cessation) lipids appear adulterated by EtOH abuse - HDL 144. (8) DVT prophylaxis: ambulation Admission and Anticipated Discharge Date Admission Date: February 12, 2020 Subjective feeling ok now. no new complaints. shaking less, heart rate improving. hasn't had EtOH since night. wants to quit drinking because he is tired of how this is impacting his life. hasn't really formulated a plan yet but notes that he will with . baseline EtOH appears to have been between a pint and a fifth of liquor basically daily Review of Systems Review of Systems: All systems reviewed & are unremarkable except as noted in HPI & below Physical Exam Physical Exam: gen aao pleasant nad heent nc at mmm breathing unlabored no accessory muscles good effort skin no rashes no pallor or icterus neuro no focal deficits minimal/no tremor mental status intact Results & Data Results & Data ([facility]) Vital Signs (Past 12 Hours) Vital Signs Temp Pulse Pulse Pulse Resp BP Pulse Ox 02/13/20 15:13 101 H 02/13/20 12:00 98.8 F 107 H 22 157/98 H 95 02/13/20 08:09 95 H 02/13/20 07:11 97.9 F 93 H 20 138/89 96 05/02/20 04:00 98.8 F 119 H 24 124/79 97 PG Care Time/CCT Total # of Minutes Spent Total Time Spent with Patient: Total time spent is greater than 50% in coordination of care (as documented) at patient's floor/unit and/or counseling patient: Coding Level of Care Code 28217 Subseq Hosp Care Lvl 3 Diagnoses Alcohol withdrawal F10.[address] Z96.41 Type 1 diabetes mellitus E10.9 Hypertension I10 Abnormal LFTs (liver function tests) R94.5 Anxiety F41.9 HLD (hyperlipidemia) E78.5 DVT prophylaxis Z29.9
[2020-02-13] MEDS ORDERED: ASPIRIN 81 MG ECTAB PO SCH (21:00)
[2020-02-13] MEDS ORDERED: MULTIVITAMIN TAB PO SCH (21:00)
[2020-02-13] MEDS ORDERED: PARoxetine HCL 20 MG TAB PO SCH (21:00)
[2020-02-13] MEDS ORDERED: ATORVASTATIN 40 MG TAB PO SCH (21:00)
[2020-02-13] MEDS ORDERED: lisinopriL 10 MG TAB PO SCH (21:00)
[2020-02-14 06:31] LABS: INR 1.1 (0.9-1.1); Prothrombin Time 11.9 Seconds (9.0-12.0)
[2020-02-14] MEDS: FOLIC ACID 1 MG TAB PO SCH (07:55)
[2020-02-14] MEDS: THIAMINE HCL 100 MG TAB PO SCH (07:55)
[2020-02-14] MEDS: INSULIN ASPART 100 UNITS/ML 3 ML PEN SC SCH ×2 (07:56→11:59)
[2020-02-14] MEDS: INSULIN GLARGINE SOLOSTAR 100 UNITS/ML 3 ML PEN SC SCH (07:56)
--- NOTE | 2020-02-14 18:10 | Discharge Summary ---
Date of Service February 14, 2020 Admission HPI Per Admitting Provider The patient is a 54-year-old male with a past medical history including diabetes mellitus type 1, DKA, EVE, anxiety, hyperlipidemia, hypertension, anxiety and previous alcohol withdrawal. He presents to the emergency department with report of last alcohol intake approximately 24 hours previously, with symptoms he is experienced before and became concerned regarding alcohol withdrawal. He reports he is unable to hold any oral intake down over the past 24 hours due to severe nausea. Principal Diagnosis EtOH abuse, withdrawal Discharge Exam gen aaox3 pleasant nad heent nc at mmm breathing unlabored no accessory muscles good effort skin no rashes no pallor or icterus neuro cn 2-12 grossly intact gross motor intact no significant tremor. mental status normal mood and affect good recent and remote recall Discharge Data Allergies Allergy/AdvReac Type Severity Reaction Status Date / Time Penicillins Allergy Unknown STRONG Verified 02/12/20 20:13 FAMILY HX Consultations 02/12/20 20:35 ED Decision to Admit Stat 02/12/20 23:49 Consult Case Management - Discharge Planning Routine Hospital Course (1) Alcohol withdrawal: doing well - no ativan since mid yesterday, now nearly 72hrs from last drink and withdrawal clearly resolving - safe for home; discussed sobriety strategies continue thiamine and folate (2) Insulin pump in place: insulin pump once home - had to transiently change to basal bolus here due to insulin pump running out (3) Type 1 diabetes mellitus: See above A1c was 7.8 (4) Hypertension: Continue lisinopril at discharge-- BP variable but OK given situation (5) Abnormal LFTs (liver function tests): not severely elevated, suspect relates to EtOH abuse INR sl up -- but improved w vitamin K follow LFTs periodically - probably next check ~3-4wks (6) Anxiety: Continue paroxetine 20 mg at bedtime (7) HLD (hyperlipidemia): Continue atorvastatin 40 mg at bedtime (LFTs not high enough to warrant cessation, and are likely to improve w EtOH cessation) lipids appear adulterated by EtOH abuse - HDL 144. (8) DVT prophylaxis: ambulation Total Time Total Time Spent Total Time Spent (In Minutes): <30 Discharge Plan Discharge Items Patient Disposition: Home - Self-Care Reason For Visit: ALCOHOL WITHDRAWL Discharge Diagnosis: withdrawal improving Activity: Resume your previous activity Non-emergency contact: Primary Care Provider Call non-emergency contact if: you have any medication questions Follow-up/Referrals: Antoine Hernandez MD [Primary Care Provider] - Diet: Regular Addtl Attending Provider Instructions: have Dr Hernandez order repeat liver tests (CMP, INR) in about a month - but as we discussed i would expect things to get better over time Pending Studies at Discharge: No Stand-Alone Forms: My [facility], Smoking Cessation Medications and DC Order Prescriptions: Continued (DME) Contour Next Test Strips strip See Rx Instructions .ROUTE .MEDSUPPLY Qty: 450 RF: 3 atorvastatin 40 mg tablet 40 mg PO HS Qty: 90 RF: 3 (DME) lancets 33 gauge misc See Rx Instructions .ROUTE .MEDSUPPLY Qty: 500 RF: 3 insulin aspart U-100 [Novolog U-100 Insulin aspart] 100 unit/mL solution 1 sliding scale dose continuous subcutaneous infusion DAILY RF: 0 multivitamin Tablet 1 tab PO HS RF: 0 aspirin [Aspir-81] 81 mg Tablet,Delayed Release (Dr/Ec) 81 mg PO HS RF: 0 paroxetine HCl [Paxil] 20 mg Tablet 20 mg PO HS RF: 0 lisinopril 10 mg Tablet 10 mg PO HS RF: 0 Discharge Orders: Discharge Order (Routine); Ordered 02/14/20 Ordered By: Rohit Dorantes/Other Patient Handouts: Diabetes and Drinking Alcohol, Alcoholism Myths Facts, Diabetes Activity Tips Admission Data Admit Date/Time: 02/12/20 21:54 Attending Provider: Rohit Oneil Admit Provider: Sudarshan Sal Primary Care Provider: Antoine Hernandez Other Providers: Sudarshan Sal Other Interventions: Discharge Summary Assessment (RN) Last Done: 02/14/20 12:16 DC Date/Time DO NOT enter until pt leaves facility: 02/14/20 12:57 Coding Level of Care Code D/C Day Management <30 mins Diagnoses Alcohol withdrawal F10.[address] Z96.41 Type 1 diabetes mellitus E10.9 Hypertension I10 Abnormal LFTs (liver function tests) R94.5 Anxiety F41.9 HLD (hyperlipidemia) E78.5 DVT prophylaxis Z29.9
[2020-02-14] MEDS ORDERED: INSULIN GLARGINE SOLOSTAR 100 UNITS/ML 3 ML PEN SC SCH (21:00)
== END 2020-02-14 12:57 | disposition home or self-care (01) | DRG 897 ==
LOC: ED 18:08 → 2S 21:54 → SUATTDRO 21:54 → 2S 22:37

== ENCOUNTER 2020-11-10 07:09 | Inpatient (IN) ==
[2020-11-10] MEDS ORDERED: SODIUM CHLORIDE 0.9% 1000ML 2,000 ML IV ONE (07:23)
[2020-11-10] MEDS ORDERED: THIAMINE HCL 100 MG in SYRINGE 9 ML IV STA (07:23)
[2020-11-10] MEDS ORDERED: ONDANSETRON INJ 2 MG/ML 2 ML VIAL IV STA (07:23)
[2020-11-10] MEDS ORDERED: MULTIVITAMIN TAB PO STA (07:23)
[2020-11-10] MEDS ORDERED: FOLIC ACID 1 MG in SYRINGE 9.8 ML IV STA (07:23)
--- NOTE | 2020-11-10 07:35 | Emergency Department Note ---
History of Present Illness General Chief complaint: Vomiting Stated complaint: VOMITING,HARD TO BREATHE Time Seen by Provider: 11/10/20 07:16 Source: patient Mode of arrival: ambulatory Limitations: no limitations History of Present Illness Provider complaint: "Ketoacidosis" Onset (ago): day(s) 1 Associated symptoms: + nausea/vomiting and + shortness of breath Treatments prior to arrival: other (insulin) This 55-year-old male patient presents to the emergency department today for evaluation of "ketoacidosis". The patient states he does have a history of the same with similar symptoms. He is a type I diabetic with a history of hypertension and hyperlipidemia. The patient also reports history of alcoholism and drinks 5-6 mixed drinks daily. His most recent drink was at 9 PM last night . Patient states last evening, he began dry heaving with labored breathing. He states his blood sugar was 260 and he was having difficulty getting it down. He denies any associated infectious symptoms such as fever, chills, cough, congestion, pain. No dysuria, urinary frequency, urinary hesitancy. He states blood sugar last night was 240. Normal is in the 120s. Patient denies any diarrhea or constipation. No hemoptysis. Home Medications Medication Instructions Recorded Confirmed Type multivitamin 1 tab PO HS 03/13/19 11/10/20 History paroxetine HCl [Paxil] 20 mg PO HS 03/13/19 11/10/20 History lancets 33 gauge #500 ea 10/26/19 10/26/19 Rx lisinopril 10 mg tablet 10 mg PO HS #90 tab 08/29/20 11/10/20 Rx Novolog U-100 Insulin aspart 100 See Rx Instructions .ROUTE 09/12/20 11/10/20 Rx unit/mL subcutaneous solution .COMPLEX #40 ml NS blood sugar diagnostic #450 ea 09/12/20 Rx atorvastatin 40 mg tablet 40 mg PO HS #90 tab 09/28/20 11/10/20 Rx aspirin [Aspirin Low Dose] 81 mg PO DAILY 11/10/20 11/10/20 History Allergies Allergy/AdvReac Type Severity Reaction Status Date / Time Penicillins Allergy Unknown STRONG Verified 11/10/20 08:24 FAMILY HX Past Med/Surg History Medical History Diabetes DKA (diabetic ketoacidoses) Dyslipidemia Hypertension Insulin pump in place Surgical History (Updated 06/13/20 @ 13:48 by [employer]) Hx of vasectomy Family History Father Myocardial infarction Uncle Diabetes Social History Smoking Status: Never smoker Second Hand Exposure: No; Hx Alcohol Use: Yes Alcohol type: beer and hard liquor Alcohol Intake Frequency Comment: 8 oz liquor last night Hx Substance Use: No Preferred Language: Djiboutian Communication Ability: Effective Emt/Paramedic Required: No Beliefs That Will Affect Care: None Current Living Situation: Spouse Feels Safe at Home: Yes Assistive Devices: Glasses Review of Systems A total of 10 systems reviewed and were otherwise negative Physical Exam Vital Signs Vital Signs - 24 hr 11/10/20 07:13 11/10/20 07:59 11/10/20 08:00 Temperature 36.7 C Temperature Source Oral Pulse Rate 137 H 126 H 126 H Pulse Rate [Apical] Respiratory Rate 30 H 28 H 27 H Respiratory Effort / Characteristics Short of Breath Respiratory Depth Shallow Respiratory Pattern Tachypnea Blood Pressure 137/80 Blood Pressure [Right Arm] Blood Pressure Mean 99 Blood Pressure Mean [Right Arm] Blood Pressure Position Sitting Pulse Oximetry 98 Oxygen Delivery Method Room Air Sepsis Recent Fever Within 48 Hours No Sepsis New/Unexplained Change in Mental Status No Sepsis Action Taken by Nursing Physician Notified 11/10/20 08:30 11/10/20 08:40 11/10/20 09:00 Temperature Temperature Source Pulse Rate 135 H 138 H 138 H Pulse Rate [Apical] Respiratory Rate 32 H 29 H 37 H Respiratory Effort / Characteristics Respiratory Depth Respiratory Pattern Blood Pressure 150/84 H Blood Pressure [Right Arm] Blood Pressure Mean 106 Blood Pressure Mean [Right Arm] Blood Pressure Position Pulse Oximetry Oxygen Delivery Method Sepsis Recent Fever Within 48 Hours Sepsis New/Unexplained Change in Mental Status Sepsis Action Taken by Nursing 11/10/20 09:30 11/10/20 10:00 11/10/20 10:23 Temperature Temperature Source Pulse Rate 140 H 155 H 146 H Pulse Rate [Apical] Respiratory Rate 32 H 27 H 30 H Respiratory Effort / Characteristics Respiratory Depth Respiratory Pattern Blood Pressure 125/65 Blood Pressure [Right Arm] Blood Pressure Mean 85 Blood Pressure Mean [Right Arm] Blood Pressure Position Pulse Oximetry Oxygen Delivery Method Sepsis Recent Fever Within 48 Hours Sepsis New/Unexplained Change in Mental Status Sepsis Action Taken by Nursing 11/10/20 10:30 11/10/20 11:19 11/10/20 11:33 Temperature Temperature Source Pulse Rate 144 H Pulse Rate [Apical] 149 H 150 H Respiratory Rate 43 H 36 H 32 H Respiratory Effort / Characteristics Respiratory Depth Respiratory Pattern Blood Pressure Blood Pressure [Right Arm] 137/75 149/73 H Blood Pressure Mean Blood Pressure Mean [Right Arm] 95 98 Blood Pressure Position Pulse Oximetry 99 98 Oxygen Delivery Method Room Air Room Air Sepsis Recent Fever Within 48 Hours Sepsis New/Unexplained Change in Mental Status Sepsis Action Taken by Nursing VITALS: Vitals are noted on the nurse's note and reviewed by myself. Pt. is tachycardic and tachypnic. O2 saturation 98% on room air. BP 137/80. Temp 36.7. GENERAL: This is a 55-year-old white male, tachypneic, sitting upright, nondiaphoretic, well-developed well-nourished. SKIN: The skin was without rashes, erythema, edema, or bruising. There is no tenting of the skin. Capillary refill less than 2 seconds. HEAD: Normocephalic atraumatic. EYES: Conjunctivae without injection, sclerae without icterus. NECK: Supple without nuchal rigidity. No lymphadenopathy. No thyromegaly. Cervical spine is nontender. No JVD. HEART: Regular rate and rhythm without murmurs gallops or rubs. LUNGS: Clear to auscultation bilaterally without wheezes, rales or rhonchi. No retractions or accessory muscle use. ABDOMEN: Positive bowel sounds x 4. Soft, nontender, without masses or organomegaly. No guarding or rebound tenderness. No CVA tenderness bilaterally. MUSCULOSKELETAL: No muscle atrophy, erythema, or edema noted. Full range of motion without joint tenderness in all extremities. No tenderness to palpation. Normal gait. Strength 5/5 throughout. NEURO: Patient was alert and oriented to person place and time. No focal neurological deficits. Course Course The patient was seen and evaluated as above. An order was placed for continuous cardiac monitoring. The monitor shows a sinus tachycardia at a rate of 137 bpm. IV access obtained, labs drawn. Patient medicated with 2 L IV fluids, Zofran, multivitamin, folic acid, thiamine. I discussed the case with my attending. Imaging performed and reviewed by myself and radiologist as noted. Labs reviewed by myself. I discussed the findings with the patient at bedside. I asked that he discontinue his insulin pump. I did observe him discontinuing the pump. Pt. medicated with another liter IV fluids, IV Ativan due to tremor which has started, and insulin drip. I discussed the case with the night warehouse manager. I discussed the case with Andreia Rashid PA-C. She did agree to see and evaluate the patient for admission. Administered Medications Insulin Human Regular 250 (units/ Sodium Chloride) 250 mls @ 7.5 mls/hr IV .Q24H KIKI; Protocol Stop: 12/10/20 08:59 Last Titration: 11/10/20 11:18 Dose: 9 units/hr, 9 mls/hr Documented by: [id number] Cosigned by: [id number] Admin: 11/10/20 10:17 Dose: 7.5 units/hr, 7.5 mls/hr Documented by: [id number] Cosigned by: [id number] Potassium Chloride 40 meq/ (Parenteral Electrolytes) 1,020 mls @ 125 mls/hr IV .Q8H10M KIKI Stop: 12/10/20 10:44 Last Admin: 11/10/20 12:05 Dose: 125 mls/hr Documented by: [id number] Discontinued Medications Diphenhydramine HCl (Diphenhydramine 50 Mg/Ml Vial) 25 mg IV NOW STA Stop: 11/10/20 08:20 Last Admin: 11/10/20 08:25 Dose: 25 mg Documented by: [id number] Gabapentin (Gabapentin 800mg Alcohol Withdrawal Load) 1 ea PO NOW STA; Protocol Stop: 11/10/20 10:33 Last Admin: 11/10/20 10:58 Dose: 1 ea Documented by: [id number] Gabapentin (Gabapentin 400 Mg Cap) 800 mg PO NOW ONE Stop: 11/10/20 10:33 Last Admin: 11/10/20 11:32 Dose: 800 mg Documented by: [id number] Sodium Chloride (Nss 1000ml) 2,000 mls @ 999 mls/hr IV .Q2H1M ONE Stop: 11/10/20 09:23 Last Infusion: 11/10/20 10:29 Dose: 0 mls/hr Documented by: [id number] Admin: 11/10/20 07:57 Dose: 999 mls/hr Documented by: [id number] Thiamine HCl 100 mg/ Syringe 10 mls @ 2 mls/min IV NOW STA Stop: 11/10/20 07:27 Last Admin: 11/10/20 08:41 Dose: 2 mls/min Documented by: [id number] Folic Acid 1 mg/ Syringe 10 mls @ 5 mls/min IV NOW STA Stop: 11/10/20 07:24 Last Admin: 11/10/20 08:40 Dose: 5 mls/min Documented by: [id number] Prochlorperazine (Compazine) 2 mls @ 1 mls/min IV ONE ONE Stop: 11/10/20 08:20 Last Admin: 11/10/20 08:25 Dose: 1 mls/min Documented by: [id number] Lorazepam (Ativan) 1 mg in 2 mls @ 2 mls/min IV NOW STA Stop: 11/10/20 09:01 Last Admin: 11/10/20 10:12 Dose: Not Given Documented by: [id number] Sodium Chloride (Nss 1000ml) 1,000 mls @ 999 mls/hr IV .Q1H1M ONE Stop: 11/10/20 10:14 Last Admin: 11/10/20 10:17 Dose: 999 mls/hr Documented by: [id number] Insulin Human Regular (Novolin-R Bolus From Bag) 7 units IV ONE ONE Stop: 11/10/20 09:16 Last Admin: 11/10/20 10:21 Dose: 7 units Documented by: [id number] Cosigned by: [id number] Multivitamins (Multivitamin Tab) 1 tab PO NOW STA Stop: 11/10/20 07:24 Last Admin: 11/10/20 08:41 Dose: 1 tab Documented by: [id number] Ondansetron HCl (Ondansetron Inj 2 Mg/Ml 2 Ml Vial) 4 mg IV NOW STA Stop: 11/10/20 07:24 Last Admin: 11/10/20 07:57 Dose: 4 mg Documented by: [id number] Thiamine HCl (Thiamine Hcl 100 Mg/Ml 2 Ml Vial) Confirm Administered Dose 200 mg .ROUTE .STK-MED ONE Stop: 11/10/20 08:12 Last Admin: 11/10/20 08:14 Dose: Not Given Documented by: [id number] Medical Decision Making Differential Diagnosis DKA, electrolyte abnormality, metabolic abnormality, pneumonia, pneumothorax, COPD, CHF, infections, cardiac ischemia, pulmonary embolism, musculoskeletal, ga strointestinal, Covid-19, as well as other pathologies. Medical Records Attestation: I reviewed the patient's medical records. Home Medications Current Medication List: was personally reviewed by me Laboratory Data Attestation: I reviewed the patient's lab results. Leukocytosis of 17,000. No anemia or thrombocytopenia. Creatinine elevated 1.46. CO2 3, anion gap 36. Hepatic function and electrolytes without significant abnormality. Glucose 344. Troponin negative. Lipase 104. Coags normal. Alcohol 67.9. Result diagrams: 11/10/20 07:36 11/10/20 07:36 Lab Results 11/10/20 11/10/20 11/10/20 Range/Units 07:18 07:36 07:36 WBC 17.28 H (4.8-10.8) K/uL RBC 5.27 (4.7-6.1) M/uL Hgb 15.7 (14.0-18.0) g/dL Hct 47.3 (42-52) % MCV 89.8 (80-100) fL MCH 29.8 (25-34) pg MCHC 33.2 (32-36) g/dL RDW Std Deviation 47.4 H (36.4-46.3) fL RDW Coeff of Dennise 14.5 (11.5-14.5) % Plt Count 290 (130-400) K/uL MPV 10.5 H (7.4-10.4) fL Immature Gran % (Auto) 0.3 % Neut % (Auto) 89.6 % Lymph % (Auto) 3.3 % Finney % (Auto) 6.7 % Eos % (Auto) 0.0 % Baso % (Auto) 0.1 % Neut # (Auto) 15.49 H (1.4-6.5) K/uL Lymph # (Auto) 0.57 L (1.2-3.4) K/uL Finney # (Auto) 1.16 H (0.11-0.59) K/uL Eos # (Auto) 0.00 (0-0.5) K/uL Baso # (Auto) 0.01 (0-0.2) K/uL Immature Gran # (Auto) 0.05 H (0.00-0.02) K/uL Echinocytes 1+ PT (9.0-12.0) Seconds INR (0.9-1.1) APTT (21.0-31.0) Seconds PTT Ratio VBG pH (7.36-7.41) VBG pCO2 (38-50) mmHg VBG pO2 mmHg VBG HCO3 mmol/L VBG O2 Saturation % VBG Base Excess mEq/L Barometric Pressure mm/Hg Sodium 135 L (136-145) mmol/L Potassium 4.6 (3.5-5.1) mmol/L Chloride 97 L (98-107) mmol/L Carbon Dioxide 3 L* (21-32) mmol/L Anion Gap 36.0 H (3-11) BUN 19 H (7-18) mg/dl Creatinine 1.46 H (0.6-1.4) mg/dl Est Cr Clr Drug Dosing 51.6 ml/min Est GFR ( Amer) 61.9 Est GFR (Non-Af Amer) 53.4 BUN/Creatinine Ratio 13.2 (10-20) Glucose 344 H* (70-99) mg/dl POC Glucose 321 H* (70-99) mg/dl Estimat Average Glucose mg/dl Hemoglobin A1c (4.5-5.6) % Calcium 10.0 (8.5-10.1) mg/dl Phosphorus (2.5-4.9) mg/dl Magnesium 1.8 (1.8-2.4) mg/dl Total Bilirubin 1.1 H (0.2-1) mg/dl AST 61 H (15-37) U/L ALT 72 (12-78) U/L Alkaline Phosphatase 114 (45-117) U/L Troponin I < 0.015 (0-0.045) ng/ml Total Protein 8.3 H (6.4-8.2) gm/dl Albumin 4.3 (3.4-5.0) gm/dl Globulin 4.0 (2.5-4.0) gm/dl Albumin/Globulin Ratio 1.1 (0.9-2) Lipase 104 (73-393) U/L Beta-Hydroxybutyric Acd 54.70 H (0.2-2.81) mg/dl Procalcitonin (0-0.5) ng/ml TSH 0.454 (0.300-4.500) uIu/ml Urine Color Urine Appearance (Clear) Urine pH (4.5-7.5) Ur Specific Woodman (1.000-1.030) Urine Protein (Negative) Urine Glucose (UA) (Negative) Urine Ketones (Negative) Urine Blood (Negative) Urine Nitrite (Negative) Urine Bilirubin (Negative) Urine Urobilinogen (Negative) Ur Leukocyte Esterase (Negative) Urine WBC (Auto) (0-5) /hpf Urine RBC (Auto) (0-4) /hpf U Hyaline Cast (Auto) (0-5) /lpf U Epithel Cells (Auto) (0-5) /lpf Urine Bacteria (Auto) (Negative) Urine Opiates Screen (Neg) Ur Methadone, Qual (Neg) Urine Barbiturates (Neg) Ur Phencyclidine (PCP) (Neg) U Amphetamin/Meth Scrn (Neg) MDMA (Ecstasy) Screen (Neg) U Benzodiazepines Scrn (Neg) Ur Cocaine Metabolite (Neg) U Marijuana (THC) Screen (Neg) Ethyl Alcohol mg/dL (0-3) mg/dl COVID-19 Eval Order SARS-CoV-2, RNA, NAAT (NEGATIVE) 11/10/20 11/10/20 11/10/20 Range/Units 07:36 07:36 07:36 WBC (4.8-10.8) K/uL RBC (4.7-6.1) M/uL Hgb (14.0-18.0) g/dL Hct (42-52) % MCV (80-100) fL MCH (25-34) pg MCHC (32-36) g/dL RDW Std Deviation (36.4-46.3) fL RDW Coeff of Dennise (11.5-14.5) % Plt Count (130-400) K/uL MPV (7.4-10.4) fL Immature Gran % (Auto) % Neut % (Auto) % Lymph % (Auto) % Finney % (Auto) % Eos % (Auto) % Baso % (Auto) % Neut # (Auto) (1.4-6.5) K/uL Lymph # (Auto) (1.2-3.4) K/uL Finney # (Auto) (0.11-0.59) K/uL Eos # (Auto) (0-0.5) K/uL Baso # (Auto) (0-0.2) K/uL Immature Gran # (Auto) (0.00-0.02) K/uL Echinocytes PT 12.0 (9.0-12.0) Seconds INR 1.1 (0.9-1.1) APTT 26.3 (21.0-31.0) Seconds PTT Ratio 0.9 VBG pH (7.36-7.41) VBG pCO2 (38-50) mmHg VBG pO2 mmHg VBG HCO3 mmol/L VBG O2 Saturation % VBG Base Excess mEq/L Barometric Pressure mm/Hg Sodium (136-145) mmol/L Potassium (3.5-5.1) mmol/L Chloride (98-107) mmol/L Carbon Dioxide (21-32) mmol/L Anion Gap (3-11) BUN (7-18) mg/dl Creatinine (0.6-1.4) mg/dl Est Cr Clr Drug Dosing ml/min Est GFR ( Amer) Est GFR (Non-Af Amer) BUN/Creatinine Ratio (10-20) Glucose (70-99) mg/dl POC Glucose (70-99) mg/dl Estimat Average Glucose 171 mg/dl Hemoglobin A1c 7.6 H (4.5-5.6) % Calcium (8.5-10.1) mg/dl Phosphorus (2.5-4.9) mg/dl Magnesium (1.8-2.4) mg/dl Total Bilirubin (0.2-1) mg/dl AST (15-37) U/L ALT (12-78) U/L Alkaline Phosphatase (45-117) U/L Troponin I (0-0.045) ng/ml Total Protein (6.4-8.2) gm/dl Albumin (3.4-5.0) gm/dl Globulin (2.5-4.0) gm/dl Albumin/Globulin Ratio (0.9-2) Lipase (73-393) U/L Beta-Hydroxybutyric Acd (0.2-2.81) mg/dl Procalcitonin (0-0.5) ng/ml TSH (0.300-4.500) uIu/ml Urine Color Urine Appearance (Clear) Urine pH (4.5-7.5) Ur Specific Woodman (1.000-1.030) Urine Protein (Negative) Urine Glucose (UA) (Negative) Urine Ketones (Negative) Urine Blood (Negative) Urine Nitrite (Negative) Urine Bilirubin (Negative) Urine Urobilinogen (Negative) Ur Leukocyte Esterase (Negative) Urine WBC (Auto) (0-5) /hpf Urine RBC (Auto) (0-4) /hpf U Hyaline Cast (Auto) (0-5) /lpf U Epithel Cells (Auto) (0-5) /lpf Urine Bacteria (Auto) (Negative) Urine Opiates Screen (Neg) Ur Methadone, Qual (Neg) Urine Barbiturates (Neg) Ur Phencyclidine (PCP) (Neg) U Amphetamin/Meth Scrn (Neg) MDMA (Ecstasy) Screen (Neg) U Benzodiazepines Scrn (Neg) Ur Cocaine Metabolite (Neg) U Marijuana (THC) Screen (Neg) Ethyl Alcohol mg/dL 67.9 H (0-3) mg/dl COVID-19 Eval Order SARS-CoV-2, RNA, NAAT (NEGATIVE) 11/10/20 11/10/20 11/10/20 Range/Units 07:36 07:44 09:15 WBC (4.8-10.8) K/uL RBC (4.7-6.1) M/uL Hgb (14.0-18.0) g/dL Hct (42-52) % MCV (80-100) fL MCH (25-34) pg MCHC (32-36) g/dL RDW Std Deviation (36.4-46.3) fL RDW Coeff of Dennise (11.5-14.5) % Plt Count (130-400) K/uL MPV (7.4-10.4) fL Immature Gran % (Auto) % Neut % (Auto) % Lymph % (Auto) % Finney % (Auto) % Eos % (Auto) % Baso % (Auto) % Neut # (Auto) (1.4-6.5) K/uL Lymph # (Auto) (1.2-3.4) K/uL Finney # (Auto) (0.11-0.59) K/uL Eos # (Auto) (0-0.5) K/uL Baso # (Auto) (0-0.2) K/uL Immature Gran # (Auto) (0.00-0.02) K/uL Echinocytes PT (9.0-12.0) Seconds INR (0.9-1.1) APTT (21.0-31.0) Seconds PTT Ratio VBG pH 7.08 L (7.36-7.41) VBG pCO2 26 L (38-50) mmHg VBG pO2 59 mmHg VBG HCO3 7 mmol/L VBG O2 Saturation 81.0 % VBG Base Excess -21.2 mEq/L Barometric Pressure 736.8 mm/Hg Sodium (136-145) mmol/L Potassium (3.5-5.1) mmol/L Chloride (98-107) mmol/L Carbon Dioxide (21-32) mmol/L Anion Gap (3-11) BUN (7-18) mg/dl Creatinine (0.6-1.4) mg/dl Est Cr Clr Drug Dosing ml/min Est GFR ( Amer) Est GFR (Non-Af Amer) BUN/Creatinine Ratio (10-20) Glucose (70-99) mg/dl POC Glucose (70-99) mg/dl Estimat Average Glucose mg/dl Hemoglobin A1c (4.5-5.6) % Calcium (8.5-10.1) mg/dl Phosphorus 6.0 H (2.5-4.9) mg/dl Magnesium (1.8-2.4) mg/dl Total Bilirubin (0.2-1) mg/dl AST (15-37) U/L ALT (12-78) U/L Alkaline Phosphatase (45-117) U/L Troponin I (0-0.045) ng/ml Total Protein (6.4-8.2) gm/dl Albumin (3.4-5.0) gm/dl Globulin (2.5-4.0) gm/dl Albumin/Globulin Ratio (0.9-2) Lipase (73-393) U/L Beta-Hydroxybutyric Acd (0.2-2.81) mg/dl Procalcitonin 0.38 (0-0.5) ng/ml TSH (0.300-4.500) uIu/ml Urine Color Urine Appearance (Clear) Urine pH (4.5-7.5) Ur Specific Woodman (1.000-1.030) Urine Protein (Negative) Urine Glucose (UA) (Negative) Urine Ketones (Negative) Urine Blood (Negative) Urine Nitrite (Negative) Urine Bilirubin (Negative) Urine Urobilinogen (Negative) Ur Leukocyte Esterase (Negative) Urine WBC (Auto) (0-5) /hpf Urine RBC (Auto) (0-4) /hpf U Hyaline Cast (Auto) (0-5) /lpf U Epithel Cells (Auto) (0-5) /lpf Urine Bacteria (Auto) (Negative) Urine Opiates Screen (Neg) Ur Methadone, Qual (Neg) Urine Barbiturates (Neg) Ur Phencyclidine (PCP) (Neg) U Amphetamin/Meth Scrn (Neg) MDMA (Ecstasy) Screen (Neg) U Benzodiazepines Scrn (Neg) Ur Cocaine Metabolite (Neg) U Marijuana (THC) Screen (Neg) Ethyl Alcohol mg/dL (0-3) mg/dl COVID-19 Eval Order SARS-CoV-2, RNA, NAAT (NEGATIVE) 11/10/20 11/10/20 11/10/20 Range/Units 10:20 10:20 10:35 WBC (4.8-10.8) K/uL RBC (4.7-6.1) M/uL Hgb (14.0-18.0) g/dL Hct (42-52) % MCV (80-100) fL MCH (25-34) pg MCHC (32-36) g/dL RDW Std Deviation (36.4-46.3) fL RDW Coeff of Dennise (11.5-14.5) % Plt Count (130-400) K/uL MPV (7.4-10.4) fL Immature Gran % (Auto) % Neut % (Auto) % Lymph % (Auto) % Finney % (Auto) % Eos % (Auto) % Baso % (Auto) % Neut # (Auto) (1.4-6.5) K/uL Lymph # (Auto) (1.2-3.4) K/uL Finney # (Auto) (0.11-0.59) K/uL Eos # (Auto) (0-0.5) K/uL Baso # (Auto) (0-0.2) K/uL Immature Gran # (Auto) (0.00-0.02) K/uL Echinocytes PT (9.0-12.0) Seconds INR (0.9-1.1) APTT (21.0-31.0) Seconds PTT Ratio VBG pH (7.36-7.41) VBG pCO2 (38-50) mmHg VBG pO2 mmHg VBG HCO3 mmol/L VBG O2 Saturation % VBG Base Excess mEq/L Barometric Pressure mm/Hg Sodium (136-145) mmol/L Potassium (3.5-5.1) mmol/L Chloride (98-107) mmol/L Carbon Dioxide (21-32) mmol/L Anion Gap (3-11) BUN (7-18) mg/dl Creatinine (0.6-1.4) mg/dl Est Cr Clr Drug Dosing ml/min Est GFR ( Amer) Est GFR (Non-Af Amer) BUN/Creatinine Ratio (10-20) Glucose (70-99) mg/dl POC Glucose (70-99) mg/dl Estimat Average Glucose mg/dl Hemoglobin A1c (4.5-5.6) % Calcium (8.5-10.1) mg/dl Phosphorus (2.5-4.9) mg/dl Magnesium (1.8-2.4) mg/dl Total Bilirubin (0.2-1) mg/dl AST (15-37) U/L ALT (12-78) U/L Alkaline Phosphatase (45-117) U/L Troponin I (0-0.045) ng/ml Total Protein (6.4-8.2) gm/dl Albumin (3.4-5.0) gm/dl Globulin (2.5-4.0) gm/dl Albumin/Globulin Ratio (0.9-2) Lipase (73-393) U/L Beta-Hydroxybutyric Acd (0.2-2.81) mg/dl Procalcitonin (0-0.5) ng/ml TSH (0.300-4.500) uIu/ml Urine Color Yellow Urine Appearance Clear (Clear) Urine pH 5.0 (4.5-7.5) Ur Specific Woodman 1.024 (1.000-1.030) Urine Protein 1+ H (Negative) Urine Glucose (UA) 3+ H (Negative) Urine Ketones 3+ H (Negative) Urine Blood 1+ H (Negative) Urine Nitrite Negative (Negative) Urine Bilirubin Negative (Negative) Urine Urobilinogen Negative (Negative) Ur Leukocyte Esterase Negative (Negative) Urine WBC (Auto) 1-5 (0-5) /hpf Urine RBC (Auto) 0-4 (0-4) /hpf U Hyaline Cast (Auto) 1-5 (0-5) /lpf U Epithel Cells (Auto) 10-20 H (0-5) /lpf Urine Bacteria (Auto) Negative (Negative) Urine Opiates Screen Neg (Neg) Ur Methadone, Qual Neg (Neg) Urine Barbiturates Neg (Neg) Ur Phencyclidine (PCP) Neg (Neg) U Amphetamin/Meth Scrn Neg (Neg) MDMA (Ecstasy) Screen Neg (Neg) U Benzodiazepines Scrn Neg (Neg) Ur Cocaine Metabolite Neg (Neg) U Marijuana (THC) Screen Neg (Neg) Ethyl Alcohol mg/dL (0-3) mg/dl COVID-19 [email or web address]-2, RNA, NAAT (NEGATIVE) 11/10/20 11/10/20 Range/Units 10:35 11:16 WBC (4.8-10.8) K/uL RBC (4.7-6.1) M/uL Hgb (14.0-18.0) g/dL Hct (42-52) % MCV (80-100) fL MCH (25-34) pg MCHC (32-36) g/dL RDW Std Deviation (36.4-46.3) fL RDW Coeff of Dennise (11.5-14.5) % Plt Count (130-400) K/uL MPV (7.4-10.4) fL Immature Gran % (Auto) % Neut % (Auto) % Lymph % (Auto) % Finney % (Auto) % Eos % (Auto) % Baso % (Auto) % Neut # (Auto) (1.4-6.5) K/uL Lymph # (Auto) (1.2-3.4) K/uL Finney # (Auto) (0.11-0.59) K/uL Eos # (Auto) (0-0.5) K/uL Baso # (Auto) (0-0.2) K/uL Immature Gran # (Auto) (0.00-0.02) K/uL Echinocytes PT (9.0-12.0) Seconds INR (0.9-1.1) APTT (21.0-31.0) Seconds PTT Ratio VBG pH (7.36-7.41) VBG pCO2 (38-50) mmHg VBG pO2 mmHg VBG HCO3 mmol/L VBG O2 Saturation % VBG Base Excess mEq/L Barometric Pressure mm/Hg Sodium (136-145) mmol/L Potassium (3.5-5.1) mmol/L Chloride (98-107) mmol/L Carbon Dioxide (21-32) mmol/L Anion Gap (3-11) BUN (7-18) mg/dl Creatinine (0.6-1.4) mg/dl Est Cr Clr Drug Dosing ml/min Est GFR ( Amer) Est GFR (Non-Af Amer) BUN/Creatinine Ratio (10-20) Glucose (70-99) mg/dl POC Glucose 335 H* (70-99) mg/dl Estimat Average Glucose mg/dl Hemoglobin A1c (4.5-5.6) % Calcium (8.5-10.1) mg/dl Phosphorus (2.5-4.9) mg/dl Magnesium (1.8-2.4) mg/dl Total Bilirubin (0.2-1) mg/dl AST (15-37) U/L ALT (12-78) U/L Alkaline Phosphatase (45-117) U/L Troponin I (0-0.045) ng/ml Total Protein (6.4-8.2) gm/dl Albumin (3.4-5.0) gm/dl Globulin (2.5-4.0) gm/dl Albumin/Globulin Ratio (0.9-2) Lipase (73-393) U/L Beta-Hydroxybutyric Acd (0.2-2.81) mg/dl Procalcitonin (0-0.5) ng/ml TSH (0.300-4.500) uIu/ml Urine Color Urine Appearance (Clear) Urine pH (4.5-7.5) Ur Specific Woodman (1.000-1.030) Urine Protein (Negative) Urine Glucose (UA) (Negative) Urine Ketones (Negative) Urine Blood (Negative) Urine Nitrite (Negative) Urine Bilirubin (Negative) Urine Urobilinogen (Negative) Ur Leukocyte Esterase (Negative) Urine WBC (Auto) (0-5) /hpf Urine RBC (Auto) (0-4) /hpf U Hyaline Cast (Auto) (0-5) /lpf U Epithel Cells (Auto) (0-5) /lpf Urine Bacteria (Auto) (Negative) Urine Opiates Screen (Neg) Ur Methadone, Qual (Neg) Urine Barbiturates (Neg) Ur Phencyclidine (PCP) (Neg) U Amphetamin/Meth Scrn (Neg) MDMA (Ecstasy) Screen (Neg) U Benzodiazepines Scrn (Neg) Ur Cocaine Metabolite (Neg) U Marijuana (THC) Screen (Neg) Ethyl Alcohol mg/dL (0-3) mg/dl COVID-19 Eval Order SARS-CoV-2, RNA, NAAT NEGATIVE (NEGATIVE) Imaging Data Radiologist's Impression: XR chest 1V portable HISTORY: dyspnea COMPARISON: Chest 08/03/2019. FINDINGS: The lungs are clear. Cardiac silhouette is normal in size. No pleural effusions. No pneumothorax. IMPRESSION: No acute process. ACT 112: Negative or not required by law. Electronically signed by: Hermilo Osman M.D. 11/10/2020 8:40 AM ECG Data Attestation: I personally reviewed and interpreted this ECG as follows: Indication: + other (tachypnea, tachycardia) Rate (beats per minute): 139 Rhythm: + sinus tachycardia ECG Byars: + Normal ECG ST segments: no ST depression, no ST elevation and no T-wave inversions Comparison ECG Date: from (02/12/2020) Change: no significant change Blood Pressure Blood Pressure Findings: Elevated blood pressure Blood Pressure Disposition: elevated BP felt to be situational MDM Narrative This 55-year-old male patient presents to the emergency department today for evaluation of tachypnea, vomiting, and labored breathing. The patient states symptoms are consistent with the DKA he has experienced in the past. Symptoms began last evening. Complicating factors, the patient is an alcoholic and reports to drinking 5-6 mixed drinks daily, most recent was at 9 PM, though he admitted that it was likely later when I discussed his positive alcohol level at bedside. Patient was hydrated with a total of 3 L of IV fluids. His he was given thiamine and folic acid as well as multivitamin due to history of alcoholism. On reevaluation, the patient did have some tremors, so was given IV Ativan. He was started on an insulin drip. His tachypnea improved while in the department. He will be admitted to the [facility] Hospitalist service for further management of the DKA. Please see hospitalist dictation regarding ongoing management and care of this patient. The chart was completed utilizing [employer] voice recognition software. Grammatical errors, random word insertions, pronoun errors, and incomplete sentences are an occasional consequence of this system due to software limitations, ambient noise, and hardware issues. Any formal questions or concerns about the content, text, or information contained within the body of this dictation should be directly addressed to the provider for clarification. Impression & Plan DKA (diabetic ketoacidoses), Type 1 diabetes mellitus, Alcoholism /alcohol abuse Discharge Plan Visit Data Chief Complaint: Vomiting Stated Complaint: VOMITING,HARD TO BREATHE ED Provider: Lenin Espinoza ED Midlevel Provider: Caty Nieto Discharge Problem: DKA (diabetic ketoacidoses), Type 1 diabetes mellitus, Alcoholism /alcohol abuse Forms Stand Alone Forms: [facility] Prescriptions Prescriptions: No Action lisinopril 10 mg tablet 10 mg PO HS Qty: 90 RF: 3 (DME) Contour Next Test Strips Strip See Rx Instructions .ROUTE .MEDSUPPLY Qty: 450 RF: 0 insulin aspart U-100 [Novolog U-100 Insulin aspart] 100 unit/mL solution See Rx Instructions .ROUTE .COMPLEX Qty: 40 RF: 0 atorvastatin 40 mg tablet 40 mg PO HS Qty: 90 RF: 3 (DME) lancets 33 gauge misc See Rx Instructions .ROUTE .MEDSUPPLY Qty: 500 RF: 3 multivitamin Tablet 1 tab PO HS RF: 0 paroxetine HCl [Paxil] 20 mg Tablet 20 mg PO HS RF: 0 aspirin [Aspirin Low Dose] 81 mg Tablet,Delayed Release (Dr/Ec) 81 mg PO DAILY RF: 0 Referrals Referrals: Antoine Hernandez MD [Primary Care Provider] - Discharge Problem: DKA (diabetic ketoacidoses) Qualifiers: Diabetes mellitus type: type 1 Diabetes mellitus complication detail: without coma Qualified Code(s): E10.10 - Type 1 diabetes mellitus with ketoacidosis without coma Type 1 diabetes mellitus Qualifiers: Diabetes mellitus complication status: with ketoacidosis Diabetes mellitus complication detail: without coma Qualified Code(s): E10.10 - Type 1 diabetes mellitus with ketoacidosis without coma
[2020-11-10 08:03] LABS: Hematocrit (blood only) 47.3 % (42-52); Hemoglobin 15.7 g/dL (14.0-18.0); Mean Corpuscular Hemoglobin 29.8 pg (25-34); Mean Corpuscular Hgb Conc 33.2 g/dL (32-36); Mean Corpuscular Volume 89.8 fL (80-100); Mean Platelet Volume 10.5 fL (7.4-10.4); Platelet Count 290 K/uL (130-400); RDW Coefficient of Variation 14.5 % (11.5-14.5); RDW Standard Deviation 47.4 fL (36.4-46.3); Red Blood Count 5.27 M/uL (4.7-6.1); White Blood Count 17.28 K/uL (4.8-10.8)
[2020-11-10] MEDS ORDERED: THIAMINE HCL 100 MG/ML 2 ML VIAL ONE (08:11)
[2020-11-10 08:15] LABS: INR 1.1 (0.9-1.1); Partial Thromboplastin Ratio 0.9; Partial Thromboplastin Time 26.3 Seconds (21.0-31.0)
[2020-11-10] MEDS ORDERED: PROCHLORPERAZINE 2 ML IV ONE (08:19)
[2020-11-10] MEDS ORDERED: diphenhydrAMINE 50 MG/ML VIAL IV STA (08:19)
[2020-11-10 08:36] LABS: Basophils # (auto) 0.01 K/uL (0-0.2); Basophils % (auto) 0.1 %; Echinocytes 1+; Immature Granulocytes # (auto) 0.05 K/uL (0.00-0.02); Immature Granulocytes % (auto) 0.3 %; Lymphocytes # (auto) 0.57 K/uL (1.2-3.4); Lymphocytes % (auto) 3.3 %; Monocytes # (auto) 1.16 K/uL (0.11-0.59); Monocytes % (auto) 6.7 %; Neutrophils # (auto) 15.49 K/uL (1.4-6.5); Neutrophils % (auto) 89.6 %
--- NOTE | 2020-11-10 08:41 | XRay Report ---
XR chest 1V portable HISTORY: dyspnea COMPARISON: Chest 08/03/2019. FINDINGS: The lungs are clear. Cardiac silhouette is normal in size. No pleural effusions. No pneumot horax. IMPRESSION: No acute process. ACT 112: Negative or not required by law. Electronically signed by: Hermilo Osman M.D. 11/10/2020 8:40 AM
[2020-11-10 08:45] LABS: Alanine Aminotransferase 72 U/L (12-78); Albumin Level 4.3 gm/dl (3.4-5.0); Aspartate Aminotransferase 61 U/L (15-37); BUN Creatinine Ratio 13.2 (10-20); Bilirubin,Total 1.1 mg/dl (0.2-1); Blood Urea Nitrogen 19 mg/dl (7-18); Carbon Dioxide 3 mmol/L (21-32); Chloride 97 mmol/L (98-107); Creatinine Clr Calc Pharmacy 51.6 ml/min; Est GFR (African American) 61.9; Est GFR (Non-African American) 53.4; Glucose 344 mg/dl (70-99); Lipase 104 U/L (73-393); Magnesium 1.8 mg/dl (1.8-2.4); Potassium 4.6 mmol/L (3.5-5.1); Sodium 135 mmol/L (136-145)
[2020-11-10] MEDS ORDERED: GLUCOSE 40% GEL 15 GM TUBE PO PRN (08:52)
[2020-11-10] MEDS ORDERED: DEXTROSE 50% 50 ML SYRINGE IV PRN (08:52)
[2020-11-10] MEDS ORDERED: GLUCOSE 10 TABS/TUBE PO PRN (08:52)
[2020-11-10] MEDS ORDERED: ED DKA INSULIN DRIP ONE (08:52)
[2020-11-10] MEDS ORDERED: CARBOHYDRATES FOR HYPOGLYCEMIA PO PRN (08:52)
[2020-11-10] MEDS ORDERED: GLUCAGON FOR INJ 1 MG VIAL SQ PRN (08:52)
[2020-11-10 08:55] LABS: Albumin Globulin Ratio 1.1 (0.9-2); Alkaline Phosphatase 114 U/L (45-117); Total Protein 8.3 gm/dl (6.4-8.2); Troponin I < 0.015 ng/ml (0-0.045)
[2020-11-10] MEDS ORDERED: LORazepam 1 MG/2 ML VIAL IV STA (09:00)
[2020-11-10] MEDS ORDERED: THIAMINE HCL 100 MG in SYRINGE 9 ML IV SCH (09:00)
[2020-11-10] MEDS ORDERED: FOLIC ACID 1 MG in SYRINGE 9.8 ML IV SCH (09:00)
[2020-11-10] MEDS ORDERED: INSULIN REGULAR 250 UNITS in SODIUM CHLORIDE 0.9% 247.5 ML IV SCH ×2 (09:00→12:41)
[2020-11-10] MEDS ORDERED: SODIUM CHLORIDE 0.9% 1000ML 1,000 ML IV ONE (09:14)
[2020-11-10] MEDS ORDERED: NovoLIN-R BOLUS FROM BAG IV ONE (09:15)
[2020-11-10 09:42] LABS: Base Excess VBG -21.2 mEq/L; pH VBG 7.08 (7.36-7.41)
[2020-11-10 09:46] LABS: Estimated Average Glucose 171 mg/dl; Hemoglobin A1C 7.6 % (4.5-5.6)
[2020-11-10 09:48] LABS: Thyroid Stimulating Hormone 0.454 uIu/ml (0.300-4.500)
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
[2020-11-10] MEDS ORDERED: ATIVAN IV ALCOHOL WITHDRAWL IV SCH (10:32)
[2020-11-10] MEDS ORDERED: GABAPENTIN 800MG ALCOHOL WITHDRAWAL LOAD PO STA (10:32)
[2020-11-10] MEDS ORDERED: GABAPENTIN 400 MG CAP PO ONE (10:32)
[2020-11-10] MEDS ORDERED: POTASSIUM CHLORIDE 40 MEQ in NORMOSOL-R 1,000 ML IV SCH (10:45)
[2020-11-10 10:49] LABS: Appearance Urine Clear (Clear); Bacteria Urine Automated Negative (Negative); Bilirubin Urine Negative (Negative); Blood Urine 1+ (Negative); Color Urine Yellow; Glucose Urine UA 3+ (Negative); Ketones Urine 3+ (Negative); Leukocyte Esterase Urine Negative (Negative); Nitrite Urine Negative (Negative); Protein Urine 1+ (Negative); RBC Urine Automated 0-4 /hpf (0-4); Specific Gravity Urine 1.024 (1.000-1.030); Urobilinogen Urine Negative (Negative)
[2020-11-10 11:17] LABS: Amphetamines+Metham, Urine Neg (Neg); Barbiturates, Urine Neg (Neg); Benzodiazepine, Urine Neg (Neg); Cocaine, Urine Neg (Neg); MDMA (Ecstacy), Urine Neg (Neg); Methadone, Urine Neg (Neg); Opiate, Urine Neg (Neg); Phencyclidine, Urine Neg (Neg)
[2020-11-10] MEDS ORDERED: INSULIN ASPART 100 UNITS/ML 3 ML PEN SC SCH (11:30)
[2020-11-10] MEDS ORDERED: ACETAMINOPHEN 325 MG TAB PO PRN (12:41)
[2020-11-10] MEDS ORDERED: ONDANSETRON INJ 2 MG/ML 2 ML VIAL IV PRN (12:41)
[2020-11-10] MEDS ORDERED: PHARMACY GLYCEMIC MGMT CONSULT PRN (13:04)
[2020-11-10 13:06] LABS: Base Excess VBG -10.6 mEq/L; pH VBG 7.33 (7.36-7.41)
[2020-11-10 13:23] LABS: Calcium 7.4 mg/dl (8.5-10.1); Est GFR (African American) 66.8; Est GFR (Non-African American) 57.7; Magnesium 1.3 mg/dl (1.8-2.4); Potassium 4.7 mmol/L (3.5-5.1)
[2020-11-10] MEDS: INSULIN ASPART 100 UNITS/ML 3 ML PEN SC SCH ×4 (13:23→22:22)
[2020-11-10] MEDS: POTASSIUM CHLORIDE / WTR 10 MEQ/100 ML PLCT IV SCH ×4 (13:59→17:02)
[2020-11-10] MEDS: D5W AND 1/2NSS 1,000 ML IV SCH ×2 (14:00→22:21)
[2020-11-10] MEDS: MAGNESIUM SULFATE / D5W 1 GM/100 ML BAG IV SCH ×4 (14:01→20:07)
[2020-11-10] MEDS ORDERED: NORMOSOL-R 1,000 ML IV ONE (14:02)
[2020-11-10] MEDS ORDERED: LORazepam 2 MG/4 ML VIAL IV PRN (14:18)
[2020-11-10] MEDS ORDERED: ATIVAN IV ALCOHOL WITHDRAWL IV PRN (14:18)
[2020-11-10] MEDS ORDERED: LORazepam 1 MG TAB PO PRN ×2 (14:18)
[2020-11-10] MEDS ORDERED: LORazepam 3 MG/6 ML VIAL IV PRN (14:18)
[2020-11-10] MEDS ORDERED: LORazepam 1 MG/2 ML VIAL IV PRN ×2 (14:18)
--- NOTE | 2020-11-10 14:40 | Critical Care Consultation ---
Date of Consultation November 10, 2020 Assessment & Plan (1) DKA (diabetic ketoacidoses): Continue DKA protocol. We will start him on D5 half-normal saline at 125 mL an hour. He likely has a component of alcoholic ketosis. Anion gap is improving. Bicarbonate is improving as well. We will bridge him with long- acting insulin along with insulin pump over 2 hours once his anion gap closes. Continue to replace potassium and magnesium. Keeping close eye and phosphorus levels. A1c noted at 7.6. Continue alcohol withdrawal protocol. Started on thiamine and folic acid. EVE is improving. We will follow-up repeat lactate. No signs of infection at this time. Procalcitonin negative. Urine drug screen negative on admission. Will give additional liter of Normosol. CRITICAL CARE TIME - I have personally spent 32 minutes of critical care time in the direct management of this patient. This is a life/limb threatening event. This includes time spent evaluating patient, direct bedside care, chart review, placing orders, interpretation of diagnostic studies, discussion with consultants, patient, and family members, as well as other required patient management activities. This time is exclusive of all separately billable procedures, and teaching time and separate from and in addition to any other critical care service time. (2) EVE (acute kidney injury): (3) Lactic acidosis: (4) Alcohol withdrawal: History of Present Illness Reason for Consultation: DKA and alcohol withdrawal Requesting Physician: Dr. Johnie Vaughn Attending Physician: Jamin Vaughn History of Present Illness 55-year-old male with a past medical history of type 1 diabetes mellitus on continuous insulin pump, hypertension, hyperlipidemia and alcoholism presenting to the hospital due to nausea vomiting. Patient notes that his breathing was "weird". He drinks alcohol intermittently and notes that yesterday he drank half 1/5 of whiskey. Last evening he was dry heaving. He notes that he checked his urine ketones which were positive. He denies any cough, fevers, chills, diabetic foot wounds or abdominal pain presently. He was last seen by endocrinology on 10/26/2019. Patient works at [employer] at [facility] [employer]. He does endorse vaping marijuana. Urine drug screen was negative. Lactic acid was 6.8. Anion gap was 36 on admission. Serum bicarb was 3. He is currently on insulin drip. He has received 3 L of fluid boluses. He is on Normosol 125 mL an hour. We are starting him on D5 half-normal saline. Allergies Allergy/AdvReac Type Severity Reaction Status Date / Time Penicillins Allergy Unknown STRONG Verified 11/10/20 08:24 FAMILY HX Home Medications Medication Instructions Recorded Confirmed Type multivitamin 1 tab PO HS 03/13/19 11/10/20 History paroxetine HCl [Paxil] 20 mg PO HS 03/13/19 11/10/20 History lancets 33 gauge #500 ea 10/26/19 10/26/19 Rx lisinopril 10 mg tablet 10 mg PO HS #90 tab 08/29/20 11/10/20 Rx Novolog U-100 Insulin aspart 100 See Rx Instructions .ROUTE 09/12/20 11/10/20 Rx unit/mL subcutaneous solution .COMPLEX #40 ml NS blood sugar diagnostic #450 ea 09/12/20 Rx atorvastatin 40 mg tablet 40 mg PO HS #90 tab 09/28/20 11/10/20 Rx aspirin [Aspirin Low Dose] 81 mg PO DAILY 11/10/20 11/10/20 History Patient History Medical History Diabetes DKA (diabetic ketoacidoses) Dyslipidemia Hypertension Insulin pump in place Surgical History Hx of vasectomy Family History Father Myocardial infarction Uncle Diabetes Social History Smoking Status: Never smoker Second Hand Exposure: No; Hx Alcohol Use: Yes Alcohol type: beer and hard liquor Alcohol Intake Frequency Comment: 8 oz liquor last night Hx Substance Use: No Preferred Language: Yakut Communication Ability: Effective Nurse Healthcare Manager Required: No Beliefs That Will Affect Care: None Current Living Situation: Spouse Feels Safe at Home: Yes Assistive Devices: Glasses Review of Systems Review of Systems: All systems reviewed & are unremarkable except as noted in HPI & below Physical Exam Constitutional: WD/WN, vitals as above Eyes: PERRL, conjunctivae normal, anicteric sclerae ENMT: external ear and nose normal, oropharynx normal Neck: normal visual inspection Respiratory: Kussmaul respirations noted. No wheezing. Cardiovascular: Rate/Rhythm: regular rhythm and + tachycardic Heart Sounds: normal S1 and normal S2 Gastrointestinal (Abdomen): normal bowel sounds, soft, nontender, no hepatosplenomegaly Musculoskeletal: no cyanosis or clubbing, extremities motor strength 5/5 Skin: no rashes, warm and dry Neurologic: PERRL, EOMI, accommodation nl, no face palsy, no dysarthria Psychiatric: A+Ox3, euthymic affect Results & Data Results & Data ([facility]) Vital Signs (Past 12 Hours) Vital Signs Temp Pulse Pulse Resp BP BP Pulse Ox 11/10/20 12:16 141 H 28 H 152/93 H 98 11/10/20 11:33 150 H 32 H 149/73 H 98 11/10/20 11:19 149 H 36 H 137/75 99 11/10/20 10:30 144 H 43 H 11/10/20 10:23 146 H 30 H 125/65 11/10/20 10:00 155 H 27 H 11/10/20 09:30 140 H 32 H 11/10/20 09:00 138 H 37 H 11/10/20 08:40 138 H 29 H 150/84 H 11/10/20 08:30 135 H 32 H 11/10/20 08:00 126 H 27 H 11/10/20 07:59 126 H 28 H 11/10/20 07:13 98.1 F 137 H 30 H 137/80 98 I reviewed vital signs, labs and imaging Coding Level of Care Code Critical Care 1st 30-74 mins Diagnoses DKA (diabetic ketoacidoses) E10.10 Diabetes mellitus complication detail: without coma Diabetes mellitus type: type 1 EVE (acute kidney injury) N17.9 Lactic acidosis E87.2 Alcohol withdrawal F10.239 Time Spent (min) 32 (1) DKA (diabetic ketoacidoses) Diabetes mellitus complication detail: without coma Diabetes mellitus type: type 1 Qualified Code(s): E10.10 - Type 1 diabetes mellitus with ketoacidosis without coma
--- NOTE | 2020-11-10 14:50 | Pharmacy Report ---
Pharmacy Glycemic Short Note 2 - Date of Service November 10, 2020 - Glycemic Short BSG Results (Last 24 hours): 11/10/20 11/10/20 11/10/20 07:18 07:36 11:16 Glucose 344 H* POC Glucose 321 H* 335 H* 11/10/20 11/10/20 11/10/20 12:16 12:51 13:18 Glucose 251 H POC Glucose 287 H 235 H OUTPATIENT ANTIDIABETIC REGIMEN: * Insulin Pump with following setting: * basal settings: 0.95 units/hr (22.8 units/day) * carb ratio: 1 unit per 6.5 grams CHO's consumed * sensitivity factor: 5663-3135 50mg/dL; 9222-0842 30mg/dL; 4141-1718 50mg/dL * Avg TDD over 7 days: 43 units * AVG TDD over 14 days: 40.6 u * A1c 7.6% ASSESSMENT: * Patient admitted with severe DKA, VBG 7.08, Bicarb 3, BSG is the 300s. * Insulin pump was suspended and initiated on an insulin drip per the DKA protocol in the emergency department. * Patient also drinks alcohol daily, starting ativan withdrawal protocol, AWSS scoring * Currently on normosol R + NS @125, D5W+1/2NS @ 125 ml/hr PLAN FOR INPATIENT GLYCEMIC CONTROL: * Patient was initiated on an insulin infusion per DKA protocol, currently running @ 7.2 units/hr, patient currently within goal range with dextrose containing fluids added. * Continue insulin infusion
--- NOTE | 2020-11-10 17:05 | Electrocardiogram Report ---
Test Reason : Blood Pressure : / mmHG Vent. Rate : 139 BPM Atrial Rate : 139 BPM P-R Int : 138 ms QRS Dur : 084 ms QT Int : 286 ms P-R-T Axes : 046 018 043 degrees QTc Int : 435 ms Poor data quality, interpretation may be adversely affected Sinus tachycardia Otherwise normal ECG When compared with ECG of 12-FEB-2020 18:25, No significant change was found Confirmed by Lucas Castañeda ([id number]) on 11/10/2020 5:05:02 PM Referred By: REFERRED SELF Confirmed By:Siddharth Castañeda
[2020-11-10 17:06] LABS: BUN Creatinine Ratio 13.8 (10-20); Calcium 7.4 mg/dl (8.5-10.1); Creatinine Clr Calc Pharmacy 74.8 ml/min; Est GFR (African American) 86.2; Est GFR (Non-African American) 74.4; Magnesium 1.9 mg/dl (1.8-2.4); Potassium 4.8 mmol/L (3.5-5.1)
[2020-11-10 17:21] LABS: Phosphorus 0.7 mg/dl (2.5-4.9)
[2020-11-10] MEDS ORDERED: POTASSIUM PHOS 3 MMOL/1 ML INFUSION IV STA (17:26)
[2020-11-10] MEDS ORDERED: INSULIN GLARGINE SOLOSTAR 100 UNITS/ML 3 ML PEN SC ONE (17:30)
[2020-11-10] MEDS ORDERED: POTASSIUM PHOSPHATE 30 MMOL in SODIUM CHLORIDE 0.9% 500 ML IV ONE (18:00)
[2020-11-10] MEDS ORDERED: GABAPENTIN 400 MG CAP PO SCH (18:00)
[2020-11-10] MEDS: DC IV INSULIN INFUSION 1 EA DEVI SCH ×4 (19:00→22:00)
[2020-11-10] MEDS: ATORVASTATIN 40 MG TAB PO SCH (20:09)
[2020-11-10] MEDS: MULTIVITAMIN TAB PO SCH (20:09)
[2020-11-10] MEDS: PARoxetine HCL 20 MG TAB PO SCH (20:10)
[2020-11-10] MEDS: lisinopril 10 MG TAB PO SCH (20:10)
[2020-11-10 20:30] LABS: BUN Creatinine Ratio 13.7 (10-20); Creatinine Clr Calc Pharmacy 78.3 ml/min; Est GFR (African American) 91.1; Est GFR (Non-African American) 78.6; Magnesium 2.7 mg/dl (1.8-2.4); Potassium 4.6 mmol/L (3.5-5.1)
[2020-11-10 21:15] LABS: Phosphorus 1.5 mg/dl (2.5-4.9)
[2020-11-10] MEDS ORDERED: NORMOSOL-R 1,000 ML IV SCH (23:45)
[2020-11-11] MEDS ORDERED: D5W AND 1/2NSS 1,000 ML IV SCH (02:15)
[2020-11-11] MEDS: INSULIN ASPART 100 UNITS/ML 3 ML PEN SC SCH ×3 (02:18→08:09)
[2020-11-11 05:26] LABS: Basophils # (auto) 0.01 K/uL (0-0.2); Basophils % (auto) 0.1 %; Eosinophils # (auto) 0.01 K/uL (0-0.5); Eosinophils % (auto) 0.1 %; Hematocrit (blood only) 36.9 % (42-52); Hemoglobin 12.4 g/dL (14.0-18.0); Immature Granulocytes # (auto) 0.03 K/uL (0.00-0.02); Immature Granulocytes % (auto) 0.2 %; Lymphocytes # (auto) 2.13 K/uL (1.2-3.4); Lymphocytes % (auto) 15.9 %; Mean Corpuscular Hemoglobin 29.7 pg (25-34); Mean Corpuscular Hgb Conc 33.6 g/dL (32-36); Mean Corpuscular Volume 88.3 fL (80-100); Monocytes # (auto) 1.25 K/uL (0.11-0.59); Monocytes % (auto) 9.3 %; Neutrophils # (auto) 9.94 K/uL (1.4-6.5); Neutrophils % (auto) 74.4 %; Platelet Count 201 K/uL (130-400); RDW Coefficient of Variation 14.9 % (11.5-14.5); RDW Standard Deviation 48.1 fL (36.4-46.3); Red Blood Count 4.18 M/uL (4.7-6.1); White Blood Count 13.37 K/uL (4.8-10.8)
[2020-11-11 07:28] LABS: Albumin Level 2.9 gm/dl (3.4-5.0); BUN Creatinine Ratio 15.3 (10-20); Calcium 7.8 mg/dl (8.5-10.1); Creatinine Clr Calc Pharmacy 102.3 ml/min; Est GFR (African American) 115.4; Est GFR (Non-African American) 99.6; Magnesium 2.7 mg/dl (1.8-2.4); Potassium 4.1 mmol/L (3.5-5.1)
[2020-11-11 07:32] LABS: Albumin Globulin Ratio 1.1 (0.9-2); Bilirubin,Total 1.8 mg/dl (0.2-1); Globulin 2.6 gm/dl (2.5-4.0); Phosphorus 2.4 mg/dl (2.5-4.9); Total Protein 5.5 gm/dl (6.4-8.2)
[2020-11-11] MEDS ORDERED: GABAPENTIN 400 MG CAP PO SCH (08:00)
[2020-11-11] MEDS: ASPIRIN 81 MG ECTAB PO SCH (08:07)
[2020-11-11] MEDS ORDERED: FOLIC ACID 1 MG in SYRINGE 9.8 ML IV SCH (09:00)
[2020-11-11] MEDS ORDERED: MULTIVITAMIN TAB PO SCH (09:00)
[2020-11-11] MEDS ORDERED: THIAMINE HCL 100 MG in SYRINGE 9 ML IV SCH (09:00)
[2020-11-11] MEDS ORDERED: SODIUM PHOSPHATE 3 MMOL/1 ML 5 ML VIAL IV STA (10:45)
[2020-11-11] MEDS ORDERED: SODIUM PHOSPHATE 12 MMOL in SODIUM CHLORIDE 0.9% 250 ML IV ONE (11:00)
--- NOTE | 2020-11-11 11:02 | Critical Care Progress Note ---
Date of Service November 11, 2020 Assessment & Plan (1) DKA (diabetic ketoacidoses): Patient's DKA has resolved. Pharmacy is assisting with insulin management at this time. Received long-acting insulin yesterday evening. inclusion paraeducator is currently in the room discussing management of his insulin pump. He may have had pump malfunction. Diet is ordered. His lactic acidosis is resolved. Electrolyte disturbances are significantly improved. Continue alcohol withdrawal protocol. We are replacing his phosphorus this morning. His total bilirubin is elevated today. He has mild LFT derangements, possibly related to alcoholism. Will need follow-up as an outpatient. No signs of sepsis. No indication for antibiotics at this point. He has not had any significant signs of delirium tremens today. Continue thiamine and folic acid. Stable for transfer to the floor. (2) EVE (acute kidney injury): (3) Lactic acidosis: (4) Alcohol withdrawal: Admission and Anticipated Discharge Date Admission Date: November 10, 2020 Subjective No new issues overnight. Anion gap is closed. Patient's tachycardia has mostly resolved. Saturating 95% on room air. No complaints. Minimal DT symptoms. Mild shaking noted. Review of Systems Review of Systems: All systems reviewed & are unremarkable except as noted in HPI & below Physical Exam Constitutional: WD/WN, vitals as above Eyes: PERRL, conjunctivae normal, anicteric sclerae ENMT: external ear and nose normal, oropharynx normal Neck: normal visual inspection Respiratory: normal respiratory effort, lungs clear to auscultation Cardiovascular: Rate/Rhythm: regular rhythm and + tachycardic Heart Sounds: normal S1 and normal S2 Gastrointestinal (Abdomen): normal bowel sounds, soft, nontender, no hepatosplenomegaly Musculoskeletal: no cyanosis or clubbing, extremities motor strength 5/5 Skin: no rashes, warm and dry Neurologic: PERRL, EOMI, accommodation nl, no face palsy, no dysarthria Psychiatric: A+Ox3, euthymic affect Results & Data Results & Data ([facility]) Vital Signs (Past 12 Hours) Vital Signs Temp Pulse Resp BP Pulse Ox 11/11/20 09:00 100 H 29 H 119/57 L 11/11/20 08:00 102 H 22 127/77 95 11/11/20 07:00 97 H 18 100/66 96 11/11/20 06:00 86 25 H 102/68 95 11/11/20 05:00 87 21 107/74 96 11/11/20 04:01 98.2 F 11/11/20 04:00 86 16 102/66 96 11/11/20 03:00 88 6 L 97/65 L 95 11/11/20 02:00 87 12 100/67 95 11/11/20 01:01 101 H 36 H 98/74 L 94 11/11/20 01:00 95 H 20 93 11/11/20 00:00 99.1 F 93 H 9 L 108/74 11/10/20 23:00 92 H 34 H 98/71 L I reviewed vital signs, labs and imaging Coding Level of Care Code 51447 Subseq Hosp Care Lvl 3 Diagnoses DKA (diabetic ketoacidoses) E10.10 Diabetes mellitus complication detail: without coma Diabetes mellitus type: type 1 EVE (acute kidney injury) N17.9 Lactic acidosis E87.2 Alcohol withdrawal F10.239 (1) DKA (diabetic ketoacidoses) Diabetes mellitus complication detail: without coma Diabetes mellitus type: type 1 Qualified Code(s): E10.10 - Type 1 diabetes mellitus with ketoacidosis without coma
[2020-11-11] MEDS ORDERED: INSULIN ASPART 100 UNITS/ML 3 ML PEN SC SCH (11:30)
[2020-11-11] MEDS ORDERED: INSULIN ASPART 100 UNITS/ML VIAL SC PRN (14:45)
--- NOTE | 2020-11-11 14:51 | Pharmacy Report ---
Pharmacy Glycemic Short Note 2 - Date of Service November 11, 2020 - Glycemic Short BSG Results (Last 24 hours): 11/10/20 11/10/20 11/10/20 14:49 15:27 16:33 Glucose POC Glucose 218 H 225 H 198 H 11/10/20 11/10/20 11/10/20 16:38 17:59 18:45 Glucose 190 H POC Glucose 233 H 191 H 11/10/20 11/10/20 11/10/20 19:46 20:05 20:44 Glucose 146 H POC Glucose 172 H 138 H 11/10/20 11/10/20 11/11/20 21:49 22:04 01:43 Glucose POC Glucose 103 H 100 H 78 11/11/20 11/11/20 11/11/20 05:15 07:01 07:32 Glucose 115 H POC Glucose 94 127 H 11/11/20 11:32 Glucose POC Glucose 222 H OUTPATIENT ANTIDIABETIC REGIMEN: * Insulin Pump with following setting: * basal settings: 0.95 units/hr (22.8 units/day) * carb ratio: 1 unit per 6.5 grams CHO's consumed * sensitivity factor: 2477-2309 50mg/dL; 8036-2339 30mg/dL; 4611-8469 50mg/dL * Avg TDD over 7 days: 43 units * AVG TDD over 14 days: 40.6 u * A1c 7.6% ASSESSMENT: 11/11 * Patient was transitioned off of insulin once gap closed with 25 units of lantus, novolog parameters were started close to home carb ratio of 6 and slightly tighter correction factor of 20. * [facility]. * Insulin pump supplies present and will transition back to his pump, lantus dose was administered ~1800 last night, can do a temporary basal 0-50% rate if patient starts to go low until lantus wears off. 11/10 * Patient admitted with severe DKA, VBG 7.08, Bicarb 3, BSG is the 300s. * Insulin pump was suspended and initiated on an insulin drip per the DKA protocol in the emergency department. * Patient also drinks alcohol daily, starting ativan withdrawal protocol, AWSS scoring * Currently on normosol R + NS @125, D5W+1/2NS @ 125 ml/hr PLAN FOR INPATIENT GLYCEMIC CONTROL: * Transition to insulin pump; patient to manage insulin pump, will follow for management recommendations or transition to basal/bolus if needed
[2020-11-11] MEDS ORDERED: GABAPENTIN 800MG ALCOHOL WITHDRAWAL LOAD PO ONE (16:22)
[2020-11-11] MEDS ORDERED: GABAPENTIN 400 MG CAP PO ONE (16:30)
[2020-11-11] MEDS: NovoLOG INSULIN PUMP SCH ×2 (17:41→22:33)
[2020-11-11] MEDS: ATORVASTATIN 40 MG TAB PO SCH (20:22)
[2020-11-11] MEDS: PARoxetine HCL 20 MG TAB PO SCH (20:22)
[2020-11-11] MEDS: MULTIVITAMIN TAB PO SCH (20:22)
[2020-11-11] MEDS: lisinopril 10 MG TAB PO SCH (20:22)
--- NOTE | 2020-11-11 21:22 | Hospitalist Progress Note ---
Date of Service November 11, 2020 Assessment & Plan (1) DKA (diabetic ketoacidoses): - Admit to ICU -Anion gap has closed, off insulin drip. -Back on insulin pump. It likely was a malfunction with the catheter, this was replaced. -will monitor for another night. If doing well, will discharge in AM. will transfer out of the ICU. (2) Type 1 diabetes mellitus: - As above, has been diabetic for > 20 years per pt memory (3) Alcohol withdrawal: - Currently tremoring, will monitor closely. Last drink was last night around 10pm, and had 1/2 a 5th of whiskey. - Gabapentin protocol with 800 mg loading dose now - Pt has previously been treated here for withdrawal per chart review - pt does not intend to quit drinking -Will place on gabapentin taper and likely discharge in AM. (4) Hypertension: - Cont lisinopril, BP stable - EKG reviewed, sinus tachy (5) HLD (hyperlipidemia): - Cont atorvastatin 40 mg HS (6) Anxiety: - hx of such, continue paxil 20 mg HS (7) Hyperthyroidism: - Follows with outpatient endo with Claudio Dumont - TSH 0.454 DVT ppx: TEDs CODE: Full Admission and Anticipated Discharge Date Admission Date: November 10, 2020 Subjective 55 yo male reports feeling well. He feels like he can go home. D/W nurse, he has been having tremors today. Will restart gabapentin. Review of Systems Review of Systems: All systems reviewed & are unremarkable except as noted in HPI & below Physical Exam Physical Exam: General: awake, alert, no apparent distress, + fine tremor Head: Normocephalic, atraumatic ENT: PERRL, EOMI, no pharyngeal exudate, +mucous membranes dry, poor dentition. Chest: Clear to auscultation, on room air, + tachypneic, no adventitious breath sounds Cardiac: + Sinus tachycardia with HR in 140s at bedside, no murmur, no JVD, normal peripheral pulses, good capillary refill Abdominal: NABS x 4 quadrants, soft, nondistended, nontender to palpation, no rebound or guarding. + insulin pump in RLQ has been suspended for now. Extremities: Normal inspection, no peripheral edema or erythema, calfs nontender to palpation Psych: Normal mood and affect Neuro: AAO x 3, strength intact bilaterally and rated 5/5, no motor deficits, speech is clear, no peripheral sensory deficits, + fine tremor Results & Data Results & Data ([facility]) Vital Signs (Past 12 Hours) Vital Signs Temp Pulse Pulse Resp BP Pulse Ox 11/11/20 17:30 36.8 C 68 16 144/84 H 93 11/11/20 16:00 77 11/11/20 15:00 89 26 H 11/11/20 14:00 87 26 H 96 11/11/20 13:00 105 H 24 94 11/11/20 12:00 99 H 21 95 11/11/20 11:04 121 H 11/11/20 10:00 88 16 96 PG Care Time/CCT Total # of Minutes Spent Total Time Spent with Patient: Total time spent is greater than 50% in coordination of care (as documented) at patient's floor/unit and/or counseling patient: Coding Level of Care Code 49173 Subseq Hosp Care Lvl 3 Diagnoses DKA (diabetic ketoacidoses) E10.10 Diabetes mellitus complication detail: without coma Diabetes mellitus type: type 1 Type 1 diabetes mellitus E10.10 Diabetes mellitus complication detail: without coma Diabetes mellitus complication status: with ketoacidosis Alcohol withdrawal F10.239 Hypertension I10 HLD (hyperlipidemia) E78.5 Anxiety F41.9 Hyperthyroidism E05.90 Time Spent (min) 35 (1) DKA (diabetic ketoacidoses) Diabetes mellitus complication detail: without coma Diabetes mellitus type: type 1 Qualified Code(s): E10.10 - Type 1 diabetes mellitus with ketoacidosis without coma (2) Type 1 diabetes mellitus Diabetes mellitus complication detail: without coma Diabetes mellitus complication status: with ketoacidosis Qualified Code(s): E10.10 - Type 1 diabetes mellitus with ketoacidosis without coma
[2020-11-11] MEDS: GABAPENTIN 400 MG CAP PO SCH (21:39)
[2020-11-12] MEDS: GABAPENTIN 400 MG CAP PO SCH (04:07)
[2020-11-12 06:10] LABS: Eosinophils # (auto) 0.01 K/uL (0-0.5); Eosinophils % (auto) 0.1 %; Hematocrit (blood only) 37.5 % (42-52); Hemoglobin 12.7 g/dL (14.0-18.0); Immature Granulocytes # (auto) 0.01 K/uL (0.00-0.02); Immature Granulocytes % (auto) 0.1 %; Lymphocytes # (auto) 1.61 K/uL (1.2-3.4); Lymphocytes % (auto) 23.4 %; Mean Corpuscular Hemoglobin 29.5 pg (25-34); Mean Corpuscular Hgb Conc 33.9 g/dL (32-36); Mean Platelet Volume 10.2 fL (7.4-10.4); Monocytes # (auto) 0.62 K/uL (0.11-0.59); Neutrophils # (auto) 4.63 K/uL (1.4-6.5); Neutrophils % (auto) 67.4 %; Platelet Count 176 K/uL (130-400); RDW Coefficient of Variation 14.1 % (11.5-14.5); RDW Standard Deviation 45.8 fL (36.4-46.3); Red Blood Count 4.31 M/uL (4.7-6.1); White Blood Count 6.88 K/uL (4.8-10.8)
[2020-11-12] MEDS: ASPIRIN 81 MG ECTAB PO SCH (08:17)
[2020-11-12] MEDS: NovoLOG INSULIN PUMP SCH ×2 (08:19→12:27)
[2020-11-12] MEDS ORDERED: THIAMINE HCL 100 MG TAB PO SCH (09:00)
[2020-11-12] MEDS ORDERED: FOLIC ACID 1 MG TAB PO SCH (09:00)
[2020-11-12] MEDS ORDERED: GABAPENTIN 400 MG CAP PO SCH ×2 (12:00→14:00)
--- NOTE | 2020-11-13 08:51 | Discharge Summary ---
Date of Service November 12, 2020 Admission HPI Per Admitting Provider This is a 55 yo M with PMHx of DM type I with management on insulin pump, HTN, HLD, anxiety, and alcohol use who presents in DKA with glucose of ~350. He reports beginning to feel ill last night around 10pm. He had insulin pump on and was functioning correctly. Looking back at his readings, glucose was in 230s- 250s yesterday afternoon to last evening. Admits to being nauseous and vomiting last night, denies diarrhea or other changes in bowel habits. Denies COVID-19 known positive exposures, travel, or fever. Denies any respiratory like symptoms although appears tachypneic, and he is on room air. He admits to drinking 1/2 a 5th of whiskey last evening, and had alcohol level this morning of 67. He admits to doing this "more often than not", and states he feels shaky and very thirsty, denies going through withdrawal in the past. Pt is requesting more water to drink at bedside. Social Hx: admits to alcohol use as above, denies use of tobacco, marijuana or other illicit drugs. Currently is layed off from work with [employer], this occurred [facility]. Lives at home with his who knows he is here in the hospital. Principal Diagnosis DKA Discharge Exam General: awake, alert, no apparent distress, + fine tremor Head: Normocephalic, atraumatic ENT: PERRL, EOMI, no pharyngeal exudate, +mucous membranes dry, poor dentition. Chest: Clear to auscultation, on room air, + tachypneic, no adventitious breath sounds Cardiac: + Sinus tachycardia with HR in 140s at bedside, no murmur, no JVD, normal peripheral pulses, good capillary refill Abdominal: NABS x 4 quadrants, soft, nondistended, nontender to palpation, no rebound or guarding. + insulin pump in [facility] has been suspended for now. Extremities: Normal inspection, no peripheral edema or erythema, calfs nontender to palpation Psych: Normal mood and affect Neuro: AAO x 3, strength intact bilaterally and rated 5/5, no motor deficits, speech is clear, no peripheral sensory deficits, + fine tremor * Discharge Data Allergies Allergy/AdvReac Type Severity Reaction Status Date / Time Penicillins Allergy Unknown STRONG Verified 11/10/20 08:24 FAMILY HX Consultations 11/10/20 09:15 ED Decision to Admit Stat 11/10/20 12:41 Consult [facility] Specialist Routine Hospital Course (1) DKA (diabetic ketoacidoses): - Admit to ICU -Anion gap has closed, off insulin drip. -Back on insulin pump. It likely was a malfunction with the catheter, this was replaced. -Did well after 24 hours being on the medical floor, will dischargre. (2) Type 1 diabetes mellitus: - As above, has been diabetic for > 20 years per pt memory (3) Alcohol withdrawal: - Currently tremoring, will monitor closely. Last drink was last night around 10pm, and had 1/2 a 5th of whiskey. - Gabapentin protocol with 800 mg loading dose now - Pt has previously been treated here for withdrawal per chart review - pt does not intend to quit drinking -Will place on gabapentin taper and discharge. counselled patient to not take gabapentin with alcohol. (4) Hypertension: - Cont lisinopril, BP stable - EKG reviewed, sinus tachy (5) HLD (hyperlipidemia): - Cont atorvastatin 40 mg HS (6) Anxiety: - hx of such, continue paxil 20 mg HS (7) Hyperthyroidism: - Follows with outpatient endo with Claudio Dumont - TSH 0.454 DVT ppx: TEDs CODE: Full Total Time Total Time Spent Total Time Spent (In Minutes): 32 Total Time Includes: Examination of the Patient, Discharge Planning and Medication Reconciliation Discharge Plan Discharge Items Patient Disposition: Home - Self-Care Reason For Visit: DKA Discharge Diagnosis: DKA Activity: Resume your previous activity Non-emergency contact: Primary Care Provider Call non-emergency contact if: you have any medication questions Follow-up/Referrals: Antoine Hernandez MD [Primary Care Provider] - Diet: Carb Count or DM1 and Heart Healthy Addtl Attending Provider Instructions: Recommend followup with PCP in 1-2 weeks. Do not drink alcohol with gabpentin taper. Pending Studies at Discharge: No Stand-Alone Forms: My Agenda, Smoking Cessation Medications and DC Order Prescriptions: New gabapentin 400 mg capsule 400 mg PO DAILY Qty: 6 RF: 0 Continued lisinopril 10 mg tablet 10 mg PO HS Qty: 90 RF: 3 (DME) Contour Next Test Strips Strip See Rx Instructions .ROUTE .MEDSUPPLY Qty: 450 RF: 0 insulin aspart U-100 [Novolog U-100 Insulin aspart] 100 unit/mL solution See Rx Instructions .ROUTE .COMPLEX Qty: 40 RF: 0 atorvastatin 40 mg tablet 40 mg PO HS Qty: 90 RF: 3 (DME) lancets 33 gauge misc See Rx Instructions .ROUTE .MEDSUPPLY Qty: 500 RF: 3 multivitamin Tablet 1 tab PO HS RF: 0 paroxetine HCl [Paxil] 20 mg Tablet 20 mg PO HS RF: 0 aspirin [Aspirin Low Dose] 81 mg Tablet,Delayed Release (Dr/Ec) 81 mg PO DAILY RF: 0 Discharge Orders: Discharge Order (Routine); Ordered 11/12/20 Ordered By: João Zelaya Admission Data Admit Date/Time: 11/10/20 09:45 Attending Provider: João Zelaya Admit Provider: Jamin Vaughn Primary Care Provider: Antoine Hernandez Other Providers: Chuy Mendoza ; Jamin Vaughn Other Interventions: Discharge Summary Assessment (RN) Last Done: 11/12/20 12:37 Coding Level of Care Code D/C Day Management >30 mins Diagnoses DKA (diabetic ketoacidoses) E10.10 Diabetes mellitus complication detail: without coma Diabetes mellitus type: type 1 Type 1 diabetes mellitus E10.10 Diabetes mellitus complication detail: without coma Diabetes mellitus complication status: with ketoacidosis Alcohol withdrawal F10.239 Hypertension I10 HLD (hyperlipidemia) E78.5 Anxiety F41.9 Hyperthyroidism E05.90
[2020-11-13] MEDS ORDERED: GABAPENTIN 400 MG CAP PO SCH (18:00)
[2020-11-14] MEDS ORDERED: GABAPENTIN 400 MG CAP PO SCH
[2020-11-15] MEDS ORDERED: GABAPENTIN 400 MG CAP PO SCH (06:00)
== END 2020-11-12 13:09 | disposition home or self-care (01) | DRG 638 ==
LOC: ED 07:09 → 1E 09:45 → SUATTDRO 09:45 → 1E 12:19 → 3W 11-11 15:36

== ENCOUNTER 2021-05-08 09:40 | Inpatient (IN) ==
[2021-05-08] MEDS ORDERED: SODIUM CHLORIDE 0.9% 1000ML 2,000 ML IV ONE (09:58)
[2021-05-08] MEDS ORDERED: ONDANSETRON INJ 2 MG/ML 2 ML VIAL IV STA (09:58)
--- NOTE | 2021-05-08 10:01 | Emergency Department Note ---
Impression & Plan DKA (diabetic ketoacidosis), Type 1 diabetes mellitus, Alcoholism /alcohol abuse, Leukocytosis, Acute hyperkalemia ED Provider Note NAME: KELLY BAKER AGE: 55 SEX: M : 1965 ARRIVES VIA: Ambulance INFORMANT: Patient ED PROVIDER(S): Rohit Thakkar DO CHIEF COMPLAINT: Nausea vomiting HPI: Patient is a 55-year-old male who is an alcoholic type I diabetic that presents the ER for nausea and vomiting. Patient notes the symptoms started last night. He is unable to keep anything down. He denies any headache or change in vision. No chest pain or shortness of breath. No belly pain. Denies any dysuria, urgency, or frequency. No cough or runny nose. No other infectious symptoms. He notes his blood sugars have been more elevated than usual in the 200s to 300s. He has had his insulin pump on. He has not changed recently. He came in by ambulance and they given fluids and Zofran and he does feel little better. ROS: See above HPI for pertinent positives & negatives. A total of 10 systems reviewed and were otherwise negative. PAST MEDICAL HISTORY:See Below PAST SURGICAL HISTORY:See Below FAMILY HISTORY:See Below SOCIAL HISTORY:See Below HOME MEDICATIONS:See Below ALLERGIES:See Below VITALS:See Below PHYSICAL EXAMINATION: GENERAL: Sitting up in bed, alert, ill-appearing, disheveled, dry heaving EYE EXAM: normal conjunctiva. PERRL and EOM's grossly intact. OROPHARYNX: no exudate, no erythema, lips, buccal mucosa, and tongue normal and mucous membranes are dry NECK: supple, no nuchal rigidity, no adenopathy, non-tender LUNGS: Clear to auscultation. Normal chest wall mechanics HEART: no murmurs, S1 normal and S2 normal ABDOMEN: abdomen soft, non-tender, normo-active bowel sounds, no masses, no rebound or guarding. BACK: Back is symmetrical on inspection and there is no deformity, no midline tenderness, no CVA tenderness. SKIN: no rashes and no bruising UPPER EXTREMITIES: upper extremities are grossly normal. LOWER EXTREMITIES: No pitting edema. NEURO EXAM: Normal sensorium, cranial nerves II-XII grossly intact, normal speec h, no gross weakness of arms, no gross weakness of legs. MEDICAL DECISION MAKING: Patient is a 55-year-old gentleman the presents the ER for nausea vomiting. He is a type I diabetic. Notes sugars have been elevated recently. She denies any cough or congestion. No runny nose. No belly pain. No urinary symptoms. IV was established blood work obtained. Labs show leukocytosis of 2000. No significant anemia. ABG with a CO2 of 15 and a bicarb of 9. BMP with a p otassium of 5.2. CO2 13. Glucose elevated at 320. LFTs bilirubin was unremarkable. Troponin was negative. UA with plus for ketones. Patient was given 3 L of IV fluids, he was placed on insulin drip and given a bolus. He was monitored closely. Discussed with the hospitalist admitted for DKA. Chest x- ray was unremarkable. Triage Nursing notes reviewed. Limited review of prior medical records performed Vital Signs: reviewed and remarkable for tahcy Differential diagnosis: Differential diagnoses includes but is not limited to gastritis, peptic ulcer disease, GERD, gallbladder disease, pancreatitis, small bowel obstruction, acute coronary syndrome, pericarditis, ischemic bowel, irritable bowel disease, irritable bowel syndrome, appendicitis, diverticulitis, malignancy, hernia, urinary tract infection, torsion, perforation, trauma, infectious. ER treatment provided: See below Diagnostics interpreted by me: ECG: Sinus tachycardia rate of 108 Normal axis No PVCs QTC 469 Cardiac Monitoring: An order was placed for continuous cardiac monitoring. The monitor shows a rate of 113 with sinus rhythm. Laboratory studies: As stated above and show below. Imaging studies: Portable AP upright 1 view of the chest shows no focal infiltrate or pneumothorax Consultation(s): Discussed with hospitalist for further evaluation Procedures: none Critical Care: I have personally spent 42 minutes of critical care time in the direct management of this patient. This includes bedside care, interpretation of gwen gnostic studies, and testing, discussion with consultants, patient, and family members, and other required patient management activities. This 42 minutes is in excess of all separately billable procedures. Past Med/Surg History Medical History EVE (acute kidney injury) DKA (diabetic ketoacidoses) DKA (diabetic ketoacidoses) Dyslipidemia Hypertension Insulin pump in place Surgical History Hx of vasectomy Family History Father Myocardial infarction Uncle Diabetes Social History (Updated 05/08/21 @ 12:50 by Kanu Barclay PA-C) Smoking Status: Never smoker Second Hand Exposure: No; Hx Alcohol Use: Yes Alcohol type: hard liquor Alcohol Intake Frequency: 4 or More x per/Week Hx Substance Use: Yes Last Used Substance: Days (ago) Preferred Language: Citizen Of [place] Communication Ability: Effective Patch Sander Required: No Beliefs That Will Affect Care: None Current Living Situation: Spouse Feels Safe at Home: Yes Assistive Devices: Glasses Allergies Allergies Allergy/AdvReac Type Severity Reaction Status Date / Time Penicillins Allergy Unknown STRONG Verified 05/08/21 10:35 FAMILY HX Home Meds Home Medications Medication Instructions Recorded Confirmed multivitamin 1 tab PO HS 03/13/19 05/08/21 paroxetine HCl 20 mg tablet (Paxil) 20 mg PO HS 03/13/19 05/08/21 aspirin 81 mg tablet,delayed 81 mg PO DAILY 11/10/20 05/08/21 release (Aspirin Low Dose) Previous Rx's Medication Instructions Recorded lancets 33 gauge #500 ea 10/26/19 lisinopril 10 mg tablet 10 mg PO HS #90 tab 08/29/20 atorvastatin 40 mg tablet 40 mg PO HS #90 tab 09/28/20 blood sugar diagnostic (Contour #[id number] ea 12/13/20 Next Test Strips) Novolog U-100 Insulin aspart 100 See Rx Instructions .ROUTE 04/26/21 unit/mL subcutaneous solution .COMPLEX #40 ml NS (insulin aspart U-100) Results & Data (ED) Vital Signs Vital Signs - 24 hr 05/08/21 09:45 05/08/21 10:00 05/08/21 10:14 Temperature 36.8 C Temperature Source Oral Pulse Rate 109 H 111 H 80 Pulse Rate [Apical] Pulse Rate from SpO2 Sensor 110 H Pulse Rhythm [Apical] Respiratory Rate 23 18 18 Respiratory Effort / Characteristics Respiratory Depth Respiratory Pattern Blood Pressure 136/69 126/72 136/99 Blood Pressure [Right Arm] Blood Pressure Mean 91 90 111 Blood Pressure Mean [Right Arm] Blood Pressure Position [Right Arm] Pulse Oximetry 99 99 Oxygen Delivery Method Sepsis Recent Fever Within 48 Hours No Sepsis New/Unexplained Change in Mental Status No Sepsis Action Taken by Nursing No Action Required 05/08/21 10:30 05/08/21 11:00 05/08/21 11:30 Temperature Temperature Source Pulse Rate 111 H 110 H Pulse Rate [Apical] Pulse Rate from SpO2 Sensor 113 H 110 H Pulse Rhythm [Apical] Respiratory Rate 20 30 H Respiratory Effort / Characteristics Respiratory Depth Respiratory Pattern Blood Pressure 141/72 H 150/77 H 128/64 Blood Pressure [Right Arm] Blood Pressure Mean 95 101 85 Blood Pressure Mean [Right Arm] Blood Pressure Position [Right Arm] Pulse Oximetry 99 99 Oxygen Delivery Method Sepsis Recent Fever Within 48 Hours Sepsis New/Unexplained Change in Mental Status Sepsis Action Taken by Nursing 05/08/21 12:00 05/08/21 12:30 05/08/21 13:00 Temperature Temperature Source Pulse Rate 122 H Pulse Rate [Apical] Pulse Rate from SpO2 Sensor 123 H 123 H Pulse Rhythm [Apical] Respiratory Rate 21 Respiratory Effort / Characteristics Respiratory Depth Respiratory Pattern Blood Pressure 147/78 H 142/80 H 132/73 Blood Pressure [Right Arm] Blood Pressure Mean 101 100 92 Blood Pressure Mean [Right Arm] Blood Pressure Position [Right Arm] Pulse Oximetry 96 93 Oxygen Delivery Method Sepsis Recent Fever Within 48 Hours Sepsis New/Unexplained Change in Mental Status Sepsis Action Taken by Nursing 05/08/21 13:16 05/08/21 13:30 Temperature Temperature Source Pulse Rate 114 H Pulse Rate [Apical] 117 H Pulse Rate from SpO2 Sensor 115 H Pulse Rhythm [Apical] Regular Respiratory Rate 24 28 H Respiratory Effort / Characteristics Spontaneous Respiratory Depth Normal Respiratory Pattern Regular Blood Pressure 129/74 Blood Pressure [Right Arm] 132/73 Blood Pressure Mean 92 Blood Pressure Mean [Right Arm] 92 Blood Pressure Position [Right Arm] Sitting Pulse Oximetry 99 100 Oxygen Delivery Method Room Air Sepsis Recent Fever Within 48 Hours Sepsis New/Unexplained Change in Mental Status Sepsis Action Taken by Nursing Laboratory Data Result diagrams: 05/08/21 10:00 05/08/21 10:00 Lab Results 05/08/21 05/08/21 05/08/21 Range/Units 09:53 09:59 10:00 WBC 17.01 H (4.8-10.8) K/uL RBC 4.62 L (4.7-6.1) M/uL Hgb 13.7 L (14.0-18.0) g/dL POC Hgb 14.6 (14.0-18.0) g/dl Hct 40.5 L (42-52) % POC Hct 43 (42-52) % MCV 87.7 (80-100) fL MCH 29.7 (25-34) pg MCHC 33.8 (32-36) g/dL RDW Std Deviation 47.7 H (36.4-46.3) fL RDW Coeff of Dennise 15.0 H (11.5-14.5) % Plt Count 257 (130-400) K/uL MPV 9.9 (7.4-10.4) fL Immature Gran % (Auto) 0.2 % Neut % (Auto) 90.0 % Lymph % (Auto) 3.4 % [place] % (Auto) 6.3 % Eos % (Auto) 0.0 % Baso % (Auto) 0.1 % Neut # (Auto) 15.31 H (1.4-6.5) K/uL Lymph # (Auto) 0.57 L (1.2-3.4) K/uL [place] # (Auto) 1.08 H (0.11-0.59) K/uL Eos # (Auto) 0.00 (0-0.5) K/uL Baso # (Auto) 0.01 (0-0.2) K/uL Immature Gran # (Auto) 0.04 H (0.00-0.02) K/uL Echinocytes 1+ ABG pH (7.35-7.45) ABG pCO2 (35-46) mmHg ABG pO2 (80-95) mmHg ABG HCO3 (19-24) mmol/L ABG O2 Saturation (90-95) % ABG Base Excess (-9-1.8) mEq/L Len Test (Pos) Barometric Pressure mm/Hg Oxygen Given POC Sodium 136 (135-144) mmol/L Sodium (136-145) mmol/L POC Potassium 5.7 H (3.3-5.0) mmol/L Potassium (3.5-5.1) mmol/L POC Chloride 102 (101-112) mmol/L Chloride (98-107) mmol/L Carbon Dioxide (21-32) mmol/L POC Total CO2 16 L (24-31) mmol/L Anion Gap (3-11) POC Anion Gap 25.0 (16-25) mmol/L POC BUN 30 H (7-18) mg/dl BUN (7-18) mg/dl Creatinine (0.6-1.4) mg/dl POC Creatinine 0.9 (0.6-1.3) mg/dl Est Cr Clr Drug Dosing ml/min Est GFR ( Amer) ml/min Est GFR (Non-Af Amer) ml/min BUN/Creatinine Ratio (10-20) Glucose (70-99) mg/dl POC Glucose 359 H* (70-99) mg/dl POC Glucose (other) 340 H (70-99) mg/dl Estimat Average Glucose mg/dl Hemoglobin A1c (4.5-5.6) % Calcium (8.5-10.1) mg/dl POC Ioniz Calcium Gwendolyn 0.99 L (1.12-1.32) mmol/l Phosphorus (2.5-4.9) mg/dl Magnesium (1.8-2.4) mg/dl Total Bilirubin (0.2-1) mg/dl AST (15-37) U/L ALT (12-78) U/L Alkaline Phosphatase (45-117) U/L Troponin I (0-0.045) ng/ml Total Protein (6.4-8.2) gm/dl Albumin (3.4-5.0) gm/dl Globulin (2.5-4.0) gm/dl Albumin/Globulin Ratio (0.9-2) Lipase (73-393) U/L Beta-Hydroxybutyric Acd (0.2-2.81) mg/dl Urine Color Urine Appearance (Clear) Urine pH (4.5-7.5) Ur Specific [place] (1.000-1.030) Urine Protein (Negative) Urine Glucose (UA) (Negative) Urine Ketones (Negative) Urine Blood (Negative) Urine Nitrite (Negative) Urine Bilirubin (Negative) Urine Urobilinogen (Negative) Ur Leukocyte Esterase (Negative) COVID-19 Eval Order 05/08/21 05/08/21 05/08/21 Range/Units 10:00 11:05 11:05 WBC (4.8-10.8) K/uL RBC (4.7-6.1) M/uL Hgb (14.0-18.0) g/dL POC Hgb (14.0-18.0) g/dl Hct (42-52) % POC Hct (42-52) % MCV (80-100) fL MCH (25-34) pg MCHC (32-36) g/dL RDW Std Deviation (36.4-46.3) fL RDW Coeff of Dennise (11.5-14.5) % Plt Count (130-400) K/uL MPV (7.4-10.4) fL Immature Gran % (Auto) % Neut % (Auto) % Lymph % (Auto) % [place] % (Auto) % Eos % (Auto) % Baso % (Auto) % Neut # (Auto) (1.4-6.5) K/uL Lymph # (Auto) (1.2-3.4) K/uL [place] # (Auto) (0.11-0.59) K/uL Eos # (Auto) (0-0.5) K/uL Baso # (Auto) (0-0.2) K/uL Immature Gran # (Auto) (0.00-0.02) K/uL Echinocytes ABG pH (7.35-7.45) ABG pCO2 (35-46) mmHg ABG pO2 (80-95) mmHg ABG HCO3 (19-24) mmol/L ABG O2 Saturation (90-95) % ABG Base Excess (-9-1.8) mEq/L Len Test (Pos) Barometric Pressure mm/Hg Oxygen Given POC Sodium (135-144) mmol/L Sodium 136 (136-145) mmol/L POC Potassium (3.3-5.0) mmol/L Potassium 5.2 H (3.5-5.1) mmol/L POC Chloride (101-112) mmol/L Chloride 100 (98-107) mmol/L Carbon Dioxide 13 L (21-32) mmol/L POC Total CO2 (24-31) mmol/L Anion Gap 23.0 H (3-11) POC Anion Gap (16-25) mmol/L POC BUN (7-18) mg/dl BUN 23 H (7-18) mg/dl Creatinine 0.97 (0.6-1.4) mg/dl POC Creatinine (0.6-1.3) mg/dl Est Cr Clr Drug Dosing 86.2 ml/min Est GFR ( Amer) 101.4 ml/min Est GFR (Non-Af Amer) 87.5 ml/min BUN/Creatinine Ratio 23.5 H (10-20) Glucose 318 H* (70-99) mg/dl POC Glucose (70-99) mg/dl POC Glucose (other) (70-99) mg/dl Estimat Average Glucose 177 mg/dl Hemoglobin A1c 7.8 H (4.5-5.6) % Calcium 9.2 (8.5-10.1) mg/dl POC Ioniz Calcium Gwendolyn (1.12-1.32) mmol/l Phosphorus 3.3 (2.5-4.9) mg/dl Magnesium 2.0 (1.8-2.4) mg/dl Total Bilirubin 0.8 (0.2-1) mg/dl AST 50 H (15-37) U/L ALT 59 (12-78) U/L Alkaline Phosphatase 76 (45-117) U/L Troponin I < 0.015 (0-0.045) ng/ml Total Protein 7.2 (6.4-8.2) gm/dl Albumin 3.8 (3.4-5.0) gm/dl Globulin 3.4 (2.5-4.0) gm/dl Albumin/Globulin Ratio 1.1 (0.9-2) Lipase 136 (73-393) U/L Beta-Hydroxybutyric Acd 42.53 H 55.69 H (0.2-2.81) mg/dl Urine Color Urine Appearance (Clear) Urine pH (4.5-7.5) Ur Specific [place] (1.000-1.030) Urine Protein (Negative) Urine Glucose (UA) (Negative) Urine Ketones (Negative) Urine Blood (Negative) Urine Nitrite (Negative) Urine Bilirubin (Negative) Urine Urobilinogen (Negative) Ur Leukocyte Esterase (Negative) COVID-19 Eval Order 05/08/21 05/08/21 05/08/21 Range/Units 11:14 11:20 11:25 WBC (4.8-10.8) K/uL RBC (4.7-6.1) M/uL Hgb (14.0-18.0) g/dL POC Hgb (14.0-18.0) g/dl Hct (42-52) % POC Hct (42-52) % MCV (80-100) fL MCH (25-34) pg MCHC (32-36) g/dL RDW Std Deviation (36.4-46.3) fL RDW Coeff of Dennise (11.5-14.5) % Plt Count (130-400) K/uL MPV (7.4-10.4) fL Immature Gran % (Auto) % Neut % (Auto) % Lymph % (Auto) % [place] % (Auto) % Eos % (Auto) % Baso % (Auto) % Neut # (Auto) (1.4-6.5) K/uL Lymph # (Auto) (1.2-3.4) K/uL [place] # (Auto) (0.11-0.59) K/uL Eos # (Auto) (0-0.5) K/uL Baso # (Auto) (0-0.2) K/uL Immature Gran # (Auto) (0.00-0.02) K/uL Echinocytes ABG pH 7.41 (7.35-7.45) ABG pCO2 15 L (35-46) mmHg ABG pO2 116 H (80-95) mmHg ABG HCO3 9 L (19-24) mmol/L ABG O2 Saturation 98.5 H (90-95) % ABG Base Excess -12.3 L (-9-1.8) mEq/L Len Test Pos (Pos) Barometric Pressure 731.7 mm/Hg Oxygen Given RA POC Sodium (135-144) mmol/L Sodium (136-145) mmol/L POC Potassium (3.3-5.0) mmol/L Potassium (3.5-5.1) mmol/L POC Chloride (101-112) mmol/L Chloride (98-107) mmol/L Carbon Dioxide (21-32) mmol/L POC Total CO2 (24-31) mmol/L Anion Gap (3-11) POC Anion Gap (16-25) mmol/L POC BUN (7-18) mg/dl BUN (7-18) mg/dl Creatinine (0.6-1.4) mg/dl POC Creatinine (0.6-1.3) mg/dl Est Cr Clr Drug Dosing ml/min Est GFR ( Amer) ml/min Est GFR (Non-Af Amer) ml/min BUN/Creatinine Ratio (10-20) Glucose (70-99) mg/dl POC Glucose 312 H* (70-99) mg/dl POC Glucose (other) (70-99) mg/dl Estimat Average Glucose mg/dl Hemoglobin A1c (4.5-5.6) % Calcium (8.5-10.1) mg/dl POC Ioniz Calcium Gwendolyn (1.12-1.32) mmol/l Phosphorus (2.5-4.9) mg/dl Magnesium (1.8-2.4) mg/dl Total Bilirubin (0.2-1) mg/dl AST (15-37) U/L ALT (12-78) U/L Alkaline Phosphatase (45-117) U/L Troponin I (0-0.045) ng/ml Total Protein (6.4-8.2) gm/dl Albumin (3.4-5.0) gm/dl Globulin (2.5-4.0) gm/dl Albumin/Globulin Ratio (0.9-2) Lipase (73-393) U/L Beta-Hydroxybutyric Acd (0.2-2.81) mg/dl Urine Color Yellow Urine Appearance Clear (Clear) Urine pH 5.0 (4.5-7.5) Ur Specific [place] 1.022 (1.000-1.030) Urine Protein Negative (Negative) Urine Glucose (UA) 3+ H (Negative) Urine Ketones 4+ H (Negative) Urine Blood Negative (Negative) Urine Nitrite Negative (Negative) Urine Bilirubin Negative (Negative) Urine Urobilinogen Negative (Negative) Ur Leukocyte Esterase Negative (Negative) COVID-19 Eval Order 05/08/21 05/08/21 05/08/21 Range/Units 11:57 12:06 13:41 WBC (4.8-10.8) K/uL RBC (4.7-6.1) M/uL Hgb (14.0-18.0) g/dL POC Hgb (14.0-18.0) g/dl Hct (42-52) % POC Hct (42-52) % MCV (80-100) fL MCH (25-34) pg MCHC (32-36) g/dL RDW Std Deviation (36.4-46.3) fL RDW Coeff of Dennise (11.5-14.5) % Plt Count (130-400) K/uL MPV (7.4-10.4) fL Immature Gran % (Auto) % Neut % (Auto) % Lymph % (Auto) % [place] % (Auto) % Eos % (Auto) % Baso % (Auto) % Neut # (Auto) (1.4-6.5) K/uL Lymph # (Auto) (1.2-3.4) K/uL [place] # (Auto) (0.11-0.59) K/uL Eos # (Auto) (0-0.5) K/uL Baso # (Auto) (0-0.2) K/uL Immature Gran # (Auto) (0.00-0.02) K/uL Echinocytes ABG pH (7.35-7.45) ABG pCO2 (35-46) mmHg ABG pO2 (80-95) mmHg ABG HCO3 (19-24) mmol/L ABG O2 Saturation (90-95) % ABG Base Excess (-9-1.8) mEq/L Len Test (Pos) Barometric Pressure mm/Hg Oxygen Given POC Sodium (135-144) mmol/L Sodium (136-145) mmol/L POC Potassium (3.3-5.0) mmol/L Potassium (3.5-5.1) mmol/L POC Chloride (101-112) mmol/L Chloride (98-107) mmol/L Carbon Dioxide (21-32) mmol/L POC Total CO2 (24-31) mmol/L Anion Gap (3-11) POC Anion Gap (16-25) mmol/L POC BUN (7-18) mg/dl BUN (7-18) mg/dl Creatinine (0.6-1.4) mg/dl POC Creatinine (0.6-1.3) mg/dl Est Cr Clr Drug Dosing ml/min Est GFR ( Amer) ml/min Est GFR (Non-Af Amer) ml/min BUN/Creatinine Ratio (10-20) Glucose (70-99) mg/dl POC Glucose 249 H 206 H (70-99) mg/dl POC Glucose (other) (70-99) mg/dl Estimat Average Glucose mg/dl Hemoglobin A1c (4.5-5.6) % Calcium (8.5-10.1) mg/dl POC Ioniz Calcium Gwendolyn (1.12-1.32) mmol/l Phosphorus (2.5-4.9) mg/dl Magnesium (1.8-2.4) mg/dl Total Bilirubin (0.2-1) mg/dl AST (15-37) U/L ALT (12-78) U/L Alkaline Phosphatase (45-117) U/L Troponin I (0-0.045) ng/ml Total Protein (6.4-8.2) gm/dl Albumin (3.4-5.0) gm/dl Globulin (2.5-4.0) gm/dl Albumin/Globulin Ratio (0.9-2) Lipase (73-393) U/L Beta-Hydroxybutyric Acd (0.2-2.81) mg/dl Urine Color Urine Appearance (Clear) Urine pH (4.5-7.5) Ur Specific [place] (1.000-1.030) Urine Protein (Negative) Urine Glucose (UA) (Negative) Urine Ketones (Negative) Urine Blood (Negative) Urine Nitrite (Negative) Urine Bilirubin (Negative) Urine Urobilinogen (Negative) Ur Leukocyte Esterase (Negative) COVID-19 Eval Order Covid19 at [facility] Administered Medications Insulin Human Regular 250 (units/ Sodium Chloride) 250 mls @ 4.8 mls/hr IV .Q24H KIKI; Protocol Stop: 06/07/21 10:44 Last Titration: 05/08/21 13:09 Dose: 4.8 units/hr, 4.8 mls/hr Documented by: [id number] Cosigned by: [id number] Titration: 05/08/21 12:36 Dose: 0 units/hr, 0 mls/hr Documented by: [id number] Cosigned by: [id number] Admin: 05/08/21 11:26 Dose: 8 units/hr, 8 mls/hr Documented by: [id number] Cosigned by: [id number] Discontinued Medications Sodium Chloride (Nss 1000ml) 2,000 mls @ 999 mls/hr IV .Q2H1M ONE Stop: 05/08/21 11:58 Last Admin: 05/08/21 10:04 Dose: 999 mls/hr Documented by: [id number] Parenteral Electrolytes (Normosol-R) 1,000 mls @ 999 mls/hr IV .Q1H1M ONE Stop: 05/08/21 13:53 Last Admin: 05/08/21 13:14 Dose: 999 mls/hr Documented by: [id number] Insulin Human Regular (Novolin-R Bolus From Bag) 8 units IV ONE ONE Stop: 05/08/21 10:46 Last Admin: 05/08/21 11:27 Dose: 8 units Documented by: [id number] Cosigned by: [id number] Miscellaneous (Stat Iv Infusion Titration Per Protocol) 1 ea N/A NOW STA Stop: 05/08/21 10:42 Last Admin: 05/08/21 11:30 Dose: 1 ea Documented by: [id number] Misblasaneous (Dka Goal Range 150-250 Mg/Dl) 1 ea N/A ONE ONE Stop: 05/08/21 10:42 Last Admin: 05/08/21 11:30 Dose: 1 ea Documented by: [id number] Chandaaneous (Stat Iv Infusion Titration Per Protocol) 1 ea N/A NOW STA Stop: 05/08/21 12:44 Last Admin: 05/08/21 13:55 Dose: 1 ea Documented by: [id number] Ondansetron HCl (Ondansetron Inj 2 Mg/Ml 2 Ml Vial) 4 mg IV NOW STA Stop: 05/08/21 09:59 Last Admin: 05/08/21 10:04 Dose: 4 mg Documented by: [id number] Imaging Data Radiologist's Impression: Chest X-Ray 05/08/21 09:54 XR chest 1V portable HISTORY: vomiting COMPARISON: Chest 11/10/2020. FINDINGS: The lungs are clear. Cardiac silhouette is normal in size. No pleural effusions. No pneumothorax. IMPRESSION: No acute process. ACT 112: Negative or not required by law. Electronically signed by: Hermilo Osman M.D. 05/08/2021 10:33 AM Discharge Plan Visit Data Chief Complaint: Illness ED Provider: Rohit Thakkar Discharge Problem: DKA (diabetic ketoacidosis), Type 1 diabetes mellitus, Alcoholism /alcohol abuse, Leukocytosis, Acute hyperkalemia Forms Stand Alone Forms: [facility] [employer]othing Prescriptions Prescriptions: No Action lisinopril 10 mg tablet 10 mg PO HS Qty: 90 RF: 3 atorvastatin 40 mg tablet 40 mg PO HS Qty: 90 RF: 3 (DME) Contour Next Test Strips Strip See Rx Instructions .ROUTE .MEDSUPPLY Qty: 450 RF: 0 insulin aspart U-100 [Novolog U-100 Insulin aspart] 100 unit/mL solution See Rx Instructions .ROUTE .COMPLEX Qty: 40 RF: 0 (DME) lancets 33 gauge misc See Rx Instructions .ROUTE .MEDSUPPLY Qty: 500 RF: 3 multivitamin Tablet 1 tab PO HS RF: 0 paroxetine HCl [Paxil] 20 mg Tablet 20 mg PO HS RF: 0 aspirin [Aspirin Low Dose] 81 mg Tablet,Delayed Release (Dr/Ec) 81 mg PO DAILY RF: 0 Referrals Referrals: Antoine Hernandez MD [Primary Care Provider] -
[2021-05-08 10:09] LABS: Hematocrit (blood only) 40.5 % (42-52); Hemoglobin 13.7 g/dL (14.0-18.0); Mean Corpuscular Hemoglobin 29.7 pg (25-34); Mean Corpuscular Hgb Conc 33.8 g/dL (32-36); Mean Corpuscular Volume 87.7 fL (80-100); Mean Platelet Volume 9.9 fL (7.4-10.4); Platelet Count 257 K/uL (130-400); RDW Standard Deviation 47.7 fL (36.4-46.3); Red Blood Count 4.62 M/uL (4.7-6.1); White Blood Count 17.01 K/uL (4.8-10.8)
[2021-05-08 10:12] LABS: iSTAT Creatinine 0.9 mg/dl (0.6-1.3); iSTAT Hemoglobin 14.6 g/dl (14.0-18.0); iSTAT Ionized Calcium 0.99 mmol/l (1.12-1.32); iSTAT Potassium 5.7 mmol/L (3.3-5.0)
[2021-05-08 10:35] LABS: Basophils # (auto) 0.01 K/uL (0-0.2); Basophils % (auto) 0.1 %; Echinocytes 1+; Immature Granulocytes # (auto) 0.04 K/uL (0.00-0.02); Immature Granulocytes % (auto) 0.2 %; Lymphocytes # (auto) 0.57 K/uL (1.2-3.4); Lymphocytes % (auto) 3.4 %; Monocytes # (auto) 1.08 K/uL (0.11-0.59); Monocytes % (auto) 6.3 %; Neutrophils # (auto) 15.31 K/uL (1.4-6.5)
--- NOTE | 2021-05-08 10:35 | XRay Report ---
XR chest 1V portable HISTORY: vomiting COMPARISON: Chest 11/10/2020. FINDINGS: The lungs are clear. Cardiac silhouette is normal in size. No pleural effusions. No pneumot horax. IMPRESSION: No acute process. ACT 112: Negative or not required by law. Electronically signed by: Hermilo Osman M.D. 05/08/2021 10:33 AM
[2021-05-08 10:37] LABS: Alanine Aminotransferase 59 U/L (12-78); Albumin Globulin Ratio 1.1 (0.9-2); Albumin Level 3.8 gm/dl (3.4-5.0); Alkaline Phosphatase 76 U/L (45-117); Aspartate Aminotransferase 50 U/L (15-37); BUN Creatinine Ratio 23.5 (10-20); Bilirubin,Total 0.8 mg/dl (0.2-1); Blood Urea Nitrogen 23 mg/dl (7-18); Calcium 9.2 mg/dl (8.5-10.1); Carbon Dioxide 13 mmol/L (21-32); Chloride 100 mmol/L (98-107); Creatinine Clr Calc Pharmacy 86.2 ml/min; Est GFR (African American) 101.4 ml/min; Est GFR (Non-African American) 87.5 ml/min; Globulin 3.4 gm/dl (2.5-4.0); Glucose 318 mg/dl (70-99); Lipase 136 U/L (73-393); Potassium 5.2 mmol/L (3.5-5.1); Sodium 136 mmol/L (136-145); Total Protein 7.2 gm/dl (6.4-8.2); Troponin I < 0.015 ng/ml (0-0.045)
[2021-05-08] MEDS ORDERED: CARBOHYDRATES FOR HYPOGLYCEMIA PO PRN (10:41)
[2021-05-08] MEDS ORDERED: DKA GOAL RANGE 150-250 mg/dl ONE ×2 (10:41→16:31)
[2021-05-08] MEDS ORDERED: DEXTROSE 50% 50 ML SYRINGE IV PRN (10:41)
[2021-05-08] MEDS ORDERED: GLUCAGON FOR INJ 1 MG VIAL SQ PRN (10:41)
[2021-05-08] MEDS ORDERED: GLUCOSE 40% GEL 15 GM TUBE PO PRN (10:41)
[2021-05-08] MEDS ORDERED: GLUCOSE 10 TABS/TUBE PO PRN (10:41)
[2021-05-08] MEDS ORDERED: STAT IV Infusion **Titration per Protocol STA ×3 (10:41→12:43)
[2021-05-08] MEDS ORDERED: NovoLIN-R BOLUS FROM BAG IV ONE (10:45)
[2021-05-08 10:48] LABS: Beta-Hydroxybutyrate 42.53 mg/dl (0.2-2.81)
[2021-05-08 11:26] LABS: Base Excess ABG -12.3 mEq/L (-9-1.8); HCO3 ABG 9 mmol/L (19-24); Oxygen Saturation ABG 98.5 % (90-95); PCO2 ABG 15 mmHg (35-46); PO2 ABG 116 mmHg (80-95); pH ABG 7.41 (7.35-7.45)
[2021-05-08] MEDS: INSULIN REGULAR 250 UNITS in SODIUM CHLORIDE 0.9% 247.5 ML IV SCH (11:26)
[2021-05-08 11:30] LABS: Appearance Urine Clear (Clear); Bilirubin Urine Negative (Negative); Blood Urine Negative (Negative); Color Urine Yellow; Glucose Urine UA 3+ (Negative); Ketones Urine 4+ (Negative); Leukocyte Esterase Urine Negative (Negative); Nitrite Urine Negative (Negative); Protein Urine Negative (Negative); Specific Gravity Urine 1.022 (1.000-1.030); Urobilinogen Urine Negative (Negative)
[2021-05-08 11:30] LABS: Allen Test Pos (Pos)
[2021-05-08 11:57] LABS: Phosphorus 3.3 mg/dl (2.5-4.9)
[2021-05-08] MEDS ORDERED: PHARMACY GLYCEMIC MGMT CONSULT STA (12:43)
[2021-05-08] MEDS ORDERED: GABAPENTIN 800MG ALCOHOL WITHDRAWAL LOAD PO STA (12:43)
[2021-05-08] MEDS ORDERED: NORMOSOL-R 1,000 ML IV ONE (12:53)
--- NOTE | 2021-05-08 12:59 | History & Physical Report ---
Date of Service May 08, 2021 Assessment & Plan (1) DKA (diabetic ketoacidoses): Plan: Attending: Dr. Painting Impression: This is a 55-year-old male that is a type I diabetic. He has an insulin pump which has been removed. In the past patient has had issues with the catheter. Patient was started on insulin drip in the emergency department. This will be continued. Patient is anion gap is 23. He is not acidotic by ABGs. At this time patient will be started on insulin drip with frequent labs. Potassium was 5.1 -we will watch this closely Patient restarted on normal saline at 125 mL an hour. He has already received 2 L in the emergency department DKA protocol will be followed Patient will be placed on thiamine, folic acid, multivitamin daily Check a B12 level Glycemic consult requested. Pharmacy input is appreciated (2) Type 1 diabetes mellitus: Plan: Patient with insulin pump that has malfunctioned in the past Insulin catheters been removed Insulin drip and follow serial labs Hopefully we can close the anion gap and get BSGs better controlled Anticipating restarting insulin pump tomorrow after discharge and will give Lantus prior to discharge and prior to turning off insulin gtt (3) Leukocytosis: Plan: White count of 17,000 No fever or chills. Positive for nausea and vomiting which is most likely associated to DKA Urine is clear of bacteria Check procalcitonin We will hold on antibiotics at this time Follow serial labs (4) Alcoholism /alcohol abuse: Plan: Alcohol withdrawal severity scale will be followed Gabapentin ordered for withdrawal We will start as needed lorazepam IV for symptoms of withdrawal based on AWSS Last drink was last night at 10 PM (1 pint of whiskey) Discussed need for alcohol abstention with patient Encourage abstinence on discharge (5) Anxiety: Plan: Lorazepam IV for alcohol withdrawal based on AWSS Continue paroxetine (Paxil) (6) Abnormal LFTs (liver function tests): Plan: Most likely associated with chronic alcohol abuse Check repeat labs in the morning (7) DVT prophylaxis: Plan: Heparin 5000 units subcu every 12 hours PRIYANKA [place] SCDs Please refer to Dr. Painting's addendum for further instructions and corrections. History of Present Illness Chief Complaint: Hyperglycemia/DKA secondary to failed insulin pump Primary Care Provider: Antoine Hernandez MD Attending: Dr. Joann Painting This is a 55-year-old male with a past medical history of diabetes mellitus type 1 with insulin pump, ethanol abuse, abnormal LFTs, hyper thyroidism, anxiety, hyperlipidemia. The patient presents saying that he does not feel well and has nausea and vomiting secondary to high sugars. He started to feel unwell last night and this continued throughout the night into the morning. He had some vomiting earlier and currently has continued nausea. He has no fever or chills. He denies any chest pain. He has no unusual back pain. He is tachycardic with a rate in the 120s as well as tachypneic when I enter the room. He has no cough or sputum production. His troponin is negative. He has no diarrhea. The patient is an alcoholic and drinks daily. He had a pint of whiskey last night at 10:00pm. Alcohol level was not checked in the emergency department. Allergies Allergy/AdvReac Type Severity Reaction Status Date / Time Penicillins Allergy Unknown STRONG Verified 05/08/21 10:35 FAMILY HX Home Medications Medication Instructions Recorded Confirmed Type multivitamin 1 tab PO HS 03/13/19 05/08/21 History paroxetine HCl 20 mg tablet (Paxil) 20 mg PO HS 03/13/19 05/08/21 History lancets 33 gauge #500 ea 10/26/19 03/14/21 Rx lisinopril 10 mg tablet 10 mg PO HS #90 tab 08/29/20 05/08/21 Rx atorvastatin 40 mg tablet 40 mg PO HS #90 tab 09/28/20 05/08/21 Rx aspirin 81 mg tablet,delayed 81 mg PO DAILY 11/10/20 05/08/21 History release (Aspirin Low Dose) blood sugar diagnostic (Contour #450 ea 12/13/20 03/14/21 Rx Next Test Strips) Novolog U-100 Insulin aspart 100 See Rx Instructions .ROUTE 04/26/21 05/08/21 Rx unit/mL subcutaneous solution .COMPLEX #40 ml NS (insulin aspart U-100) Past Med/Surg History Medical History EVE (acute kidney injury) DKA (diabetic ketoacidoses) DKA (diabetic ketoacidoses) Dyslipidemia Hypertension Insulin pump in place Surgical History Hx of vasectomy Family History Father Myocardial infarction Uncle Diabetes Social History (Updated 05/08/21 @ 12:50 by Kanu Barclay PA-C) Smoking Status: Never smoker Second Hand Exposure: No; Hx Alcohol Use: Yes Alcohol type: hard liquor Alcohol Intake Frequency: 4 or More x per/Week Hx Substance Use: No Preferred Language: Azeri Communication Ability: Effective Electroless Plater Required: No Beliefs That Will Affect Care: None Current Living Situation: Significant Other Other Information That Helps Us Care for You: No Feels Safe at Home: Yes Safety Concerns: Feels Safe At This Time Assistive Devices: None Review of Systems Review of Systems: All systems reviewed & are unremarkable except as noted in Subjective Physical Exam Physical Exam: GENERAL : No acute distress. Appears anxious EYES: No icterus, gaze conjugate. Pupils equal round and reactive to light NOSE: No evidence of epistaxis MOUTH: No lesions or candidiasis. Mucosa moist NECK: Supple. No carotid bruits or stridor appreciated LUNGS: CTA B/L, no wheezes, rales or rhonchi. Patient tachypneic HEART: Regular, rate in the 120s ABDOMEN: Soft, NT, ND, BS Present EXTREMITIES: No LE edema, pedal pulses intact NEURO: A&OX3. No asterixis Results & Data Results & Data ([facility]) Vital Signs (Past 12 Hours) Vital Signs Temp Pulse Resp BP Pulse Ox 05/08/21 12:30 122 H 21 142/80 H 96 05/08/21 12:00 147/78 H 05/08/21 11:30 110 H 30 H 128/64 99 05/08/21 11:00 150/77 H 99 05/08/21 10:30 111 H 20 141/72 H 05/08/21 10:14 36.8 C 80 18 136/99 99 05/08/21 10:00 111 H 18 126/72 05/08/21 09:45 109 H 23 136/69 99 Laboratory Results 05/08/21 10:00 05/08/21 10:00 05/08/21 11:14 ABG pH 7.41 ABG pCO2 15 L ABG pO2 116 H ABG HCO3 9 L ABG O2 Saturation 98.5 H ABG Base Excess -12.3 L 05/08/21 10:00 Troponin I < 0.015 Diagnostic Findings XR chest 1V portable HISTORY: vomiting COMPARISON: Chest 11/10/2020. FINDINGS: The lungs are clear. Cardiac silhouette is normal in size. No pleural effusions. No pneumothorax. IMPRESSION: No acute process. ACT 112: Negative or not required by law. Electronically signed by: Hermilo Osman M.D. 05/08/2021 10:33 AM Code Status & VTE Plan Code Status Full resuscitation: Level I VTE Prophylaxis Plan VTE Prophylaxis will be ordered: Yes Supervising Physician Co-Signing Physician Notes PA Supervision Note: I personally saw and examined the patient. I verified all day points and agree with DONNA Barclay with the following exceptions and/or additions: Pt here with N/V and elevated glucose. He reports hsi pump has been working fine, but did drink quite a bit of EtOH last night. Denies fevers/chills, diarrhea, abd pain, or SOB or cough. No chest pain. He denies any issues previously with EtOH withdrawal. History and ROS reviewed, pt requesting something for sleep in hospital. Has mild GANDARA and requests tylenol Vitals reviewed NAD< AAOx3, no tremor RRR no mgr CTAB no wcr ABd +BS soft NT ND, no HSM Ext no edema or calf tenderness Skin no rashes Labs and Rads reviewed 55 yo male here with DKA likely caused by excessive EtOH intake. Gap already closed when he got to the floor today continue IVFs, insulin gtt and wean off as able to with basal and bolus insulin, appreciate Pharmacy management as well add lorazepam for insomnia continue gabapentin for EtOH withdrawal prevention add tylenol prn GANDARA replace Phosphorus for hypophosphatemia PG Care Time/CCT Total # of Minutes Spent Total Time Spent with Patient: Total time spent is greater than 50% in coordination of care (as documented) at patient's floor/unit and/or counseling patient: 45 minutes Coding Level of Care Code 92957 Initial Inpt Care Lvl 3 Diagnoses DKA (diabetic ketoacidoses) E13.10 Type 1 diabetes mellitus E10.10 Diabetes mellitus complication detail: without coma Diabetes mellitus complication status: with ketoacidosis Alcoholism /alcohol abuse F10.20 Anxiety F41.9 Abnormal LFTs (liver function tests) R94.5 DVT prophylaxis Z29.9 Leukocytosis D72.829 Time Spent (min) 45 (1) Type 1 diabetes mellitus Diabetes mellitus complication detail: without coma Diabetes mellitus complication status: with ketoacidosis Qualified Code(s): E10.10 - Type 1 diabetes mellitus with ketoacidosis without coma
[2021-05-08 13:32] LABS: Beta-Hydroxybutyrate 55.69 mg/dl (0.2-2.81)
[2021-05-08 13:42] LABS: Estimated Average Glucose 177 mg/dl; Hemoglobin A1C 7.8 % (4.5-5.6)
[2021-05-08] MEDS: D5W AND 1/2NSS 1,000 ML IV SCH ×2 (14:50→21:06)
[2021-05-08] MEDS ORDERED: PENDING D5 1/2NS+20mEq KCL IVF SCH (16:31)
[2021-05-08] MEDS ORDERED: PENDING 1/2NSS+20mEq KCL IVF SCH (16:31)
[2021-05-08] MEDS ORDERED: ATIVAN IV ALCOHOL WITHDRAWL IV PRN (16:31)
[2021-05-08] MEDS ORDERED: LORazepam 3 MG/6 ML VIAL IV PRN (16:31)
[2021-05-08] MEDS ORDERED: SODIUM CHLORIDE 0.9% 1000ML 1,000 ML IV SCH (16:31)
[2021-05-08] MEDS ORDERED: ONDANSETRON INJ 2 MG/ML 2 ML VIAL IV PRN (16:31)
[2021-05-08] MEDS ORDERED: LORazepam 1 MG/2 ML VIAL IV PRN (16:31)
[2021-05-08] MEDS ORDERED: LORazepam 2 MG/4 ML VIAL IV PRN (16:31)
[2021-05-08] MEDS ORDERED: POLYETHYLENE (MIRALAX) 17 GM PACK PO PRN (16:31)
[2021-05-08] MEDS ORDERED: ALUMINUM/MAGNESIUM SUSP 30 ML UDC PO PRN (16:31)
[2021-05-08] MEDS ORDERED: INSULIN REGULAR 250 UNITS in SODIUM CHLORIDE 0.9% 247.5 ML IV SCH (16:31)
[2021-05-08] MEDS ORDERED: PHARMACY GLYCEMIC MGMT CONSULT PRN (16:34)
[2021-05-08] MEDS: INSULIN ASPART 100 UNITS/ML 3 ML PEN SC SCH ×4 (16:39→21:48)
[2021-05-08] MEDS ORDERED: GABAPENTIN 400 MG CAP PO ONE (17:00)
[2021-05-08] MEDS: THIAMINE HCL 100 MG TAB PO SCH (17:36)
[2021-05-08] MEDS: FOLIC ACID 1 MG TAB PO SCH (17:36)
[2021-05-08 17:50] LABS: BUN Creatinine Ratio 22.2 (10-20); Calcium 8.4 mg/dl (8.5-10.1); Creatinine Clr Calc Pharmacy 81.9 ml/min; Est GFR (African American) 102.7 ml/min; Est GFR (Non-African American) 88.6 ml/min; Magnesium 1.9 mg/dl (1.8-2.4); Potassium 4.1 mmol/L (3.5-5.1)
[2021-05-08 17:57] LABS: Phosphorus 0.8 mg/dl (2.5-4.9)
[2021-05-08] MEDS ORDERED: POTASSIUM PHOS 3 MMOL/1 ML INFUSION IV STA (18:03)
[2021-05-08] MEDS ORDERED: MAGNESIUM SULFATE / D5W 1 GM/100 ML BAG IV ONE (18:15)
[2021-05-08] MEDS ORDERED: POTASSIUM PHOSPHATE 21 MMOL in SODIUM CHLORIDE 0.9% 500 ML IV ONE (18:30)
[2021-05-08] MEDS ORDERED: LORazepam 0.5 MG TAB PO PRN (19:09)
[2021-05-08] MEDS ORDERED: ACETAMINOPHEN 325 MG TAB PO PRN (19:09)
[2021-05-08] MEDS ORDERED: PARoxetine HCL 20 MG TAB PO SCH (21:00)
[2021-05-08] MEDS ORDERED: ATORVASTATIN 40 MG TAB PO SCH (21:00)
[2021-05-08] MEDS ORDERED: lisinopril 10 MG TAB PO SCH (21:00)
[2021-05-08] MEDS ORDERED: MULTIVITAMIN TAB PO SCH (21:00)
[2021-05-08] MEDS: HEPARIN SOD 5,000 UNIT/0.5 ML VIAL SQ SCH (21:01)
[2021-05-08] MEDS: D5W AND 1/2NSS + 20MEQ KCL 20 MEQ/1,000 ML BAG IV SCH (22:15)
[2021-05-09 00:05] LABS: BUN Creatinine Ratio 31.8 (10-20); Calcium 8.3 mg/dl (8.5-10.1); Creatinine Clr Calc Pharmacy 109.1 ml/min; Est GFR (African American) 121.7 ml/min; Magnesium 2.4 mg/dl (1.8-2.4); Potassium 4.1 mmol/L (3.5-5.1)
[2021-05-09 00:17] LABS: Phosphorus 2.7 mg/dl (2.5-4.9)
[2021-05-09] MEDS: GABAPENTIN 400 MG CAP PO SCH ×2 (00:58→06:07)
[2021-05-09] MEDS: D5W AND 1/2NSS + 20MEQ KCL 20 MEQ/1,000 ML BAG IV SCH (06:08)
[2021-05-09] MEDS: HEPARIN SOD 5,000 UNIT/0.5 ML VIAL SQ SCH (07:33)
[2021-05-09] MEDS: FOLIC ACID 1 MG TAB PO SCH (07:33)
[2021-05-09] MEDS: THIAMINE HCL 100 MG TAB PO SCH (07:33)
[2021-05-09] MEDS: INSULIN ASPART 100 UNITS/ML 3 ML PEN SC SCH (08:04)
[2021-05-09 08:28] LABS: Basophils # (auto) 0.01 K/uL (0-0.2); Basophils % (auto) 0.1 %; Eosinophils # (auto) 0.01 K/uL (0-0.5); Eosinophils % (auto) 0.1 %; Hematocrit (blood only) 36.4 % (42-52); Hemoglobin 12.4 g/dL (14.0-18.0); Immature Granulocytes # (auto) 0.02 K/uL (0.00-0.02); Immature Granulocytes % (auto) 0.2 %; Lymphocytes % (auto) 15.1 %; Mean Corpuscular Hemoglobin 29.6 pg (25-34); Mean Corpuscular Hgb Conc 34.1 g/dL (32-36); Mean Corpuscular Volume 86.9 fL (80-100); Mean Platelet Volume 9.4 fL (7.4-10.4); Monocytes # (auto) 0.82 K/uL (0.11-0.59); Monocytes % (auto) 7.3 %; Neutrophils # (auto) 8.68 K/uL (1.4-6.5); Neutrophils % (auto) 77.2 %; Platelet Count 210 K/uL (130-400); RDW Coefficient of Variation 15.3 % (11.5-14.5); RDW Standard Deviation 49.1 fL (36.4-46.3); Red Blood Count 4.19 M/uL (4.7-6.1); White Blood Count 11.24 K/uL (4.8-10.8)
[2021-05-09] MEDS ORDERED: ASPIRIN 81 MG ECTAB PO SCH (09:00)
--- NOTE | 2021-05-09 09:02 | Electrocardiogram Report ---
Test Reason : Blood Pressure : / mmHG Vent. Rate : 108 BPM Atrial Rate : 108 BPM P-R Int : 154 ms QRS Dur : 090 ms QT Int : 350 ms P-R-T Axes : 054 020 041 degrees QTc Int : 469 ms Poor data quality, interpretation may be adversely affected Sinus tachycardia Otherwise normal ECG When compared with ECG of 10-NOV-2020 08:33, No significant change was found Confirmed by Jefferson Hudson ([id number]) on 05/09/2021 9:01:36 AM Referred By: REFERRED SELF Confirmed By:Jefferson Hudson
[2021-05-09 09:04] LABS: Albumin Level 2.7 gm/dl (3.4-5.0); Bilirubin Direct 0.4 mg/dl (0-0.2); Bilirubin,Total 1.8 mg/dl (0.2-1); Total Protein 5.8 gm/dl (6.4-8.2)
[2021-05-09 10:33] LABS: BUN Creatinine Ratio 27.8 (10-20); Calcium 7.6 mg/dl (8.5-10.1); Creatinine Clr Calc Pharmacy 124.7 ml/min; Est GFR (African American) 128.6 ml/min; Est GFR (Non-African American) 110.9 ml/min; Magnesium 2.2 mg/dl (1.8-2.4); Potassium 3.8 mmol/L (3.5-5.1)
[2021-05-09 10:35] LABS: Phosphorus 2.4 mg/dl (2.5-4.9)
--- NOTE | 2021-05-09 11:20 | Pharmacy Report ---
Pharmacy Glycemic Short Note 2 - Date of Service May 09, 2021 - Glycemic Short BSG Results (Last 24 hours): 05/08/21 05/08/21 05/08/21 11:25 12:06 13:41 Glucose POC Glucose 312 H* 249 H 206 H 05/08/21 05/08/21 05/08/21 14:47 15:47 16:53 Glucose 193 H POC Glucose 190 H 190 H 05/08/21 05/08/21 05/08/21 17:02 17:55 19:02 Glucose POC Glucose 182 H 178 H 178 H 05/08/21 05/08/21 05/08/21 19:59 20:53 22:00 Glucose POC Glucose 179 H 158 H 128 H 05/08/21 05/08/21 05/08/21 22:55 23:39 23:58 Glucose 95 POC Glucose 98 113 H 05/09/21 05/09/21 05/09/21 00:57 02:08 03:00 Glucose POC Glucose 174 H 185 H 192 H 05/09/21 05/09/21 05/09/21 04:03 05:07 06:06 Glucose POC Glucose 199 H 184 H 178 H 05/09/21 05/09/21 05/09/21 07:47 08:02 09:55 Glucose 161 H POC Glucose 170 H 211 H 05/09/21 10:58 Glucose POC Glucose 211 H OUTPATIENT ANTIDIABETIC REGIMEN: * Novolog Insulin Pump with following setting: * basal settings: 0.95 units/hr (22.8 units/day) * carb ratio: 1 unit per 6.5 grams CHO's consumed * sensitivity factor: 0001-9050 50mg/dL; 9693-0000 30mg/dL; 0006-2560 50mg/dL ASSESSMENT: * 55 year old admitted with DKA and started on insulin drip yesterday, continued overnight and this AM * Patient follows [facility] for diabetes management. On interview with patient, he states his blood sugars had been high likely related to ETOH use. He had tried to give himself boluses with pump at home when he noticed higher BSGs, but unable to bring down blood sugar * He states that he typically does pretty well with insulin pump and BSGs stable. * Continues on insulin drip this AM. Patient states he is feeling well this AM and is eating/drinking - plan to transition him back over to insulin pump as plan is to likely discharge him today * Patient states he feels comfortable with attaching insulin pump and has all supplies with him. Will resume pump today around noon and will d/c insulin drip PLAN FOR INPATIENT GLYCEMIC CONTROL: * Start insulin pump - d/c insulin drip PLAN FOR DISCHARGE: * A1c ~7.8% - goal <7 * Reasonable to continue home insulin pump on discharge and for continued care with [place] [facility] for DM management.
[2021-05-09] MEDS ORDERED: POTASSIUM PHOS 3 MMOL/1 ML INFUSION IV STA (11:41)
[2021-05-09] MEDS ORDERED: NovoLOG INSULIN PUMP SCH (12:00)
[2021-05-09] MEDS ORDERED: POTASSIUM PHOSPHATE 15 MMOL in SODIUM CHLORIDE 0.9% 250 ML IV ONE (12:30)
[2021-05-09] MEDS: INSULIN REGULAR 250 UNITS in SODIUM CHLORIDE 0.9% 247.5 ML IV SCH (12:35)
[2021-05-09] MEDS ORDERED: GABAPENTIN 400 MG CAP PO SCH ×2 (15:00→17:00)
[2021-05-09 15:19] VITALS: TEMP 99.1; O2SAT 98
--- NOTE | 2021-05-09 16:57 | Discharge Summary ---
Date of Service May 09, 2021 Admission HPI Per Admitting Provider Attending: Dr. Joann Painting This is a 55-year-old male with a past medical history of diabetes mellitus type 1 with insulin pump, ethanol abuse, abnormal LFTs, hyper thyroidism, anxiety, hyperlipidemia. The patient presents saying that he does not feel well and has nausea and vomiting secondary to high sugars. He started to feel unwell last night and this continued throughout the night into the morning. He had some vomiting earlier and currently has continued nausea. He has no fever or chills. He denies any chest pain. He has no unusual back pain. He is tachycardic with a rate in the 120s as well as tachypneic when I enter the room. He has no cough or sputum production. His troponin is negative. He has no diarrhea. The patient is an alcoholic and drinks daily. He had a pint of whiskey last night at 10:00pm. Alcohol level was not checked in the emergency department. Principal Diagnosis DKA, alcohol abuse Discharge Exam Constitutional WD/WN, vitals as above Eyes PERRL, conjunctivae normal, anicteric sclerae ENMT external ear and nose normal, oropharynx normal Neck trachea midline, no thyromegaly Respiratory normal respiratory effort, lungs clear to auscultation Cardiovascular RRR, no murmur, no edema Chest (Breasts) Chest: normal inspection of chest Gastrointestinal (Abdomen) normal bowel sounds, soft, nontender, no hepatosplenomegaly Musculoskeletal Extremities: extremities normal to inspection; no cyanosis and no clubbing Skin no rashes, warm and dry Neurologic moves all extremities and awake; no focal motor deficits Psychiatric A+Ox3, euthymic affect Lymphatic no lymphedema Discharge Data Allergies Allergy/AdvReac Type Severity Reaction Status Date / Time Penicillins Allergy Unknown STRONG Verified 05/08/21 10:35 FAMILY HX Consultations 05/08/21 12:08 ED Decision to Admit Stat Ordered Studies Chest X-Ray 05/08/21 09:54 XR chest 1V portable HISTORY: vomiting COMPARISON: Chest 11/10/2020. FINDINGS: The lungs are clear. Cardiac silhouette is normal in size. No pleural effusions. No pneumothorax. IMPRESSION: No acute process. ACT 112: Negative or not required by law. Electronically signed by: Hermilo Osman M.D. 05/08/2021 10:33 AM Hospital Course (1) DKA (diabetic ketoacidoses): This is a 55-year-old male that is a type I diabetic with an insulin pump who presented in DKA after excessive alcohol use. He has had issues with this in the past causing DKA. He also had nausea vomiting leukocytosis all of which now are completely resolved. His anion gap was 23 upon admission but quickly closed on insulin drip and with IV fluid hydration. He remained on insulin drip for 24 hours and was weaned to his home insulin pump with assistance of pharmacy glycemic control consultation. He was given IV fluid hydration and electrolyte replacement. He was doing very well and was tolerating p.o., stable for discharge to home on hospital day #2. (2) Type 1 diabetes mellitus: Insulin pump use as above Follow-up with PCP (3) Leukocytosis: White count of 17,000 upon admission improved to 11,000 without antibiotics No fever or chills. Positive for nausea and vomiting which is most likely associated to DKA Urine is clear of bacteria Procalcitonin negative We will hold on antibiotics at this time (4) Alcoholism /alcohol abuse: Alcohol withdrawal severity scale was followed Gabapentin taper ordered for withdrawal Discussed need for alcohol abstention with patient Encourage abstinence on discharge-he is interested in seeking outpatient alcohol abuse counseling (5) Anxiety: Continue paroxetine (Paxil) (6) Abnormal LFTs (liver function tests): Most likely associated with chronic alcohol abuse Total bilirubin and AST mildly elevated Counseled on alcohol cessation Follow LFTs as an outpatient with PCP (7) Hypophosphatemia: Replaced with IV potassium phosphorus (8) DVT prophylaxis: Heparin 5000 units subcu every 12 hours PRIYANKA [place] SCDs Disposition-stable for discharge home Total Time Total Time Spent Total Time Spent (In Minutes): 35 min Discharge Plan Discharge Items Patient Disposition: Home - Self-Care Reason For Visit: DKA, TACHYCARDIA Discharge Diagnosis: Diabetic ketoacidosis Condition on Discharge: Good Activity: Resume your previous activity Non-emergency contact: Primary Care Provider Call non-emergency contact if: you have any medication questions and your symptoms worsen Follow-up/Referrals: Antoine Hernandez MD [Primary Care Provider] - (Follow-up within 1 to 2 weeks) Diet: Carb Count or DM1 Addtl Attending Provider Instructions: It is important that you abstain from drinking alcohol moving forward as this is contributing to you developing diabetic ketoacidosis. This condition can be fatal in certain cases. Please seek out outpatient alcohol/substance abuse addiction counseling as we discussed to help you learn ways to manage your alcohol abuse. Follow-up with your primary care doctor within 1 to 2 weeks. Pending Studies at Discharge: No Stand-Alone Forms: [facility], Work/School Release, Smoking Cessation Medications and DC Order Prescriptions: New folic acid 1 mg Tablet 1 mg PO QAM Qty: 30 RF: 0 thiamine HCl (vitamin B1) [Vitamin B-1] 100 mg Tablet 100 mg PO QAM Qty: 30 RF: 0 Continued lisinopril 10 mg tablet 10 mg PO HS Qty: 90 RF: 3 atorvastatin 40 mg tablet 40 mg PO HS Qty: 90 RF: 3 (DME) Contour Next Test Strips Strip See Rx Instructions .ROUTE .MEDSUPPLY Qty: 450 RF: 0 insulin aspart U-100 [Novolog U-100 Insulin aspart] 100 unit/mL solution See Rx Instructions .ROUTE .COMPLEX Qty: 40 RF: 0 (DME) lancets 33 gauge misc See Rx Instructions .ROUTE .MEDSUPPLY Qty: 500 RF: 3 multivitamin Tablet 1 tab PO HS RF: 0 paroxetine HCl [Paxil] 20 mg Tablet 20 mg PO HS RF: 0 aspirin [Aspirin Low Dose] 81 mg Tablet,Delayed Release (Dr/Ec) 81 mg PO DAILY RF: 0 Discharge Orders: Discharge Order (Routine); Ordered 05/09/21 Ordered By: Joann Painting Admission Data Admit Date/Time: 05/08/21 12:43 Attending Provider: Joann Painting Admit Provider: oJann Painting Primary Care Provider: Antoine Hernandez Other Providers: Joann Painting Coding Level of Care Code D/C DAY MANAGEMENT >30 MINS Diagnoses DKA (diabetic ketoacidoses) E13.10 Type 1 diabetes mellitus E10.69 Diabetes mellitus complication status: with other specified complication Leukocytosis D72.829 Alcoholism /alcohol abuse F10.20 Anxiety F41.9 Abnormal LFTs (liver function tests) R94.5 DVT prophylaxis Z29.9 Hypophosphatemia E83.39
[2021-05-09 17:02] VITALS: BP 114/67; PULSE 88
[2021-05-10] MEDS ORDERED: GABAPENTIN 400 MG CAP PO SCH (21:00)
[2021-05-12] MEDS ORDERED: GABAPENTIN 400 MG CAP PO SCH (09:00)
== END 2021-05-09 17:20 | disposition home or self-care (01) | DRG 638 ==
LOC: ED 09:40 → 2W 12:43

== ENCOUNTER 2024-03-19 11:32 | Inpatient (IN) ==
--- NOTE | 2024-03-19 11:58 | Emergency Department Note ---
Impression & Plan Vomiting, Alcohol withdrawal, Alkalosis, metabolic, Alcohol abuse, Type 1 diabetes mellitus ED Provider Note NAME: KELLY BAKER AGE: 58 SEX: M : 1965 ARRIVES VIA: Ambulance INFORMANT: Patient ED PROVIDER(S): Rohit Thakkar DO CHIEF COMPLAINT: Vomiting HPI: Patient is a 58-year-old type I diabetic, history of alcoholism who presents to the ER for nausea and vomiting. This been present since 8 AM this morning. Unable to keep anything down. Denies any headache or change in vision. No chest pain or shortness of breath. No dysuria, urgency, or frequency. No other exacerbating or remitting factors. He notes that he does drink alcohol regularly. He drinks about a pint a day. He has been weaning down over the past several days. Last night he had 2 shots. He notes he has been shaky since then. ADDITIONAL HISTORY OBTAINED: Per HPI Chronic Medical/Social Conditions Affecting Care: Per HPI PAST MEDICAL HISTORY:See Below PAST SURGICAL HISTORY:See Below FAMILY HISTORY:See Below SOCIAL HISTORY:See Below HOME MEDICATIONS:See Below ALLERGIES:See Below VITALS:See Below PHYSICAL EXAMINATION: GENERAL: Sitting up in bed, alert, disheveled, slightly shaky, no acute distress EYE EXAM: normal conjunctiva. OROPHARYNX: mucous membranes are moist NECK: supple, no nuchal rigidity, no adenopathy, non-tender LUNGS: Clear to auscultation. Normal chest wall mechanics HEART: no murmurs, S1 normal and S2 normal ABDOMEN: abdomen soft, non-tender, normo-active bowel sounds, no masses, no rebound or guarding. UPPER EXTREMITIES: upper extremities are grossly normal. LOWER EXTREMITIES: No pitting edema. NEURO EXAM: Normal sensorium, cranial nerves II-XII grossly intact, normal speech, no gross weakness of arms, no gross weakness of legs. MEDICAL DECISION MAKING: Patient is a 58-year-old female who presents ER for above-stated complaint. IV was established blood work was obtained. Labs show mild leukocytosis of 10.9 thousand. No significant anemia. VBG with a pH of 7.5 and a CO2 of 21. BMP with gap of 30 and a bicarb of 15. Glucose was elevated at 150. T. bili 1.4. LFTs and lipase is negative. UA with plus for ketones. Do favor that this is a component of withdrawal. He was given 2 of Ativan in combination with 3 L of fluids, and Zofran. CT abdomen pelvis showed no acute pathology. He was updated bedside discharge follow-up PCP as an outpatient. Consults/Care Managements Discussions: Per MDM Triage Nursing notes reviewed. Limited review of prior medical records performed Vital Signs: reviewed and remarkable for HTN and tachy Differential diagnosis: Differential diagnoses includes but is not limited to gastritis, peptic ulcer disease, GERD, gallbladder disease, pancreatitis, small bowel obstruction, appendicitis, diverticulitis, hernia, urinary tract infection, torsion, perforation, trauma, infectious. ER treatment provided: See below Diagnostics interpreted by me include EKG and cardiac monitoring as listed below: -Cardiac Monitoring: An order was placed for continuous cardiac monitoring. The monitor shows a rate of 101 with sinus rhythm. -ECG: none -Laboratory studies:Interpreted by me as stated above in MDM and shown below. 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 Abnormal thyroid function test Erectile dysfunction DKA (diabetic ketoacidosis) (05/08/21) Hypophosphatemia Subclinical hyperthyroidism Alcoholism /alcohol abuse (Acute) Insulin pump in place Abnormal LFTs (liver function tests) Type 1 diabetes mellitus (Acute) Hyperthyroidism Anxiety HLD (hyperlipidemia) Pain in right knee (Acute) Medical History DKA (diabetic ketoacidosis) (10/2020) Lactic acidosis EVE (acute kidney injury) DKA (diabetic ketoacidoses) (07/2019) Atypical angina Dyslipidemia Hypertension Surgical History Hx of vasectomy Family History Father Myocardial infarction Uncle Diabetes Social History Smoking Status: Never smoker Second Hand Exposure: No; Do You Dip or Chew Tobacco: No; Hx Alcohol Use: Yes Alcohol type: hard liquor Alcohol Intake Frequency: 4 or More x per/Week Hx Substance Use: No Preferred Language: Pashto Communication Ability: Effective Neonatal Doctor Required: No Beliefs That Will Affect Care: None marital status: Current Living Situation: Significant Other Feels Safe at Home: Yes Assistive Devices: Glasses Allergies Allergies Allergy/AdvReac Type Severity Reaction Status Date / Time Penicillins Allergy Unknown STRONG Verified 01/15/23 11:07 FAMILY HX Home Meds Home Medications Medication Instructions Recorded Confirmed multivitamin 1 tab PO HS 03/13/19 03/19/24 paroxetine HCl 20 mg tablet (Paxil) 20 mg PO HS 03/13/19 03/19/24 aspirin 81 mg tablet,delayed 81 mg PO DAILY 11/10/20 03/19/24 release (Jose Alfredo Low Dose Aspirin) Saccharomyces boulardii [Daily 1 ea PO DAILY 07/31/21 03/19/24 Probiotic (S. boulardii)] omega-3 fatty acids [Fish Oil 1 cap PO DAILY 07/31/21 03/19/24 Concentrate] glucosamine 750 mg-chondroit 100 1 tab PO DAILY 11/14/21 03/19/24 mg-msm-D3 25 cpo-xish-hsx bor tablet sildenafil 50 mg tablet 25 mg PO DAILY PRN sexual activity 01/15/23 03/19/24 insulin aspart U-100 100 unit/mL 40 unit subcut UD PRN pump failure 03/19/24 03/19/24 (3 mL) subcutaneous pen (Novolog FlexPen U-100 Insulin aspart) Previous Rx's Medication Instructions Recorded lancets 33 gauge #500 ea 10/26/19 blood sugar diagnostic (Accu-Chek #450 ea 04/10/22 Guide test strips) lisinopril 10 mg tablet 10 mg PO HS #90 tabs 09/20/23 atorvastatin 40 mg tablet 40 mg PO HS #90 tabs 10/08/23 Novolog U-100 Insulin aspart 100 See Rx Instructions .Route 12/16/23 unit/mL subcutaneous solution .COMPLEX #50 mL (insulin aspart U-100) Results & Data (ED) Vital Signs Vital Signs - 24 hr 03/19/24 11:35 03/19/24 12:00 03/19/24 12:02 Temperature 36.6 C Temperature Source Oral Pulse Rate 105 H Pulse Rate [Apical] 95 H Pulse Rate from SpO2 Sensor Pulse Rhythm [Apical] Respiratory Rate 20 15 Respiratory Effort / Characteristics Non-Labored Spontaneous Respiratory Depth Normal Respiratory Pattern Regular Blood Pressure 144/104 H Blood Pressure [Right Arm] 154/102 H Blood Pressure Mean 117 Blood Pressure Mean [Right Arm] 119 Blood Pressure Position Sitting Blood Pressure Position [Right Arm] Pulse Oximetry 97 100 Oxygen Delivery Method Room Air Room Air Room Air Sepsis Recent Fever Within 48 Hours No Sepsis New/Unexplained Change in Mental Status No Sepsis Action Taken by Nursing No Action Required 03/19/24 12:16 03/19/24 12:57 03/19/24 13:48 Temperature Temperature Source Pulse Rate 112 H 106 H Pulse Rate [Apical] 105 H Pulse Rate from SpO2 Sensor 106 H Pulse Rhythm [Apical] Regular Respiratory Rate 18 18 Respiratory Effort / Characteristics Non-Labored Spontaneous Respiratory Depth Normal Respiratory Pattern Regular Blood Pressure 168/102 H Blood Pressure [Right Arm] 170/96 H Blood Pressure Mean 124 Blood Pressure Mean [Right Arm] 120 Blood Pressure Position Blood Pressure Position [Right Arm] Sitting Pulse Oximetry 99 98 Oxygen Delivery Method Room Air Room Air Sepsis Recent Fever Within 48 Hours Sepsis New/Unexplained Change in Mental Status Sepsis Action Taken by Nursing 03/19/24 15:48 Temperature Temperature Source Pulse Rate 119 H Pulse Rate [Apical] Pulse Rate from SpO2 Sensor Pulse Rhythm [Apical] Respiratory Rate 20 Respiratory Effort / Characteristics Respiratory Depth Respiratory Pattern Blood Pressure 149/104 H Blood Pressure [Right Arm] Blood Pressure Mean Blood Pressure Mean [Right Arm] Blood Pressure Position Blood Pressure Position [Right Arm] Pulse Oximetry Oxygen Delivery Method Sepsis Recent Fever Within 48 Hours Sepsis New/Unexplained Change in Mental Status Sepsis Action Taken by Nursing Laboratory Data 03/19/24 11:40 03/19/24 11:40 Lab Results 03/19/24 03/19/24 03/19/24 Range/Units 11:40 13:00 13:49 WBC 10.91 H (4.8-10.8) K/ul RBC 5.53 (4.70-6.10) M/uL Hgb 16.3 (14.0-18.0) g/dl Hct 46.8 (42.0-52.0) % MCV 84.6 (80.0-100.0) fL MCH 29.5 (25.0-34.0) pg MCHC 34.8 (32.0-36.0) g/dL RDW Std Deviation 42.5 (36.4-46.3) fL RDW Coeff of Dennise 13.5 (11.5-14.5) % Plt Count 405 H (130-400) K/uL MPV 9.4 (9.4-12.4) fL Immature Gran % (Auto) 0.3 % Neut % (Auto) 84.8 % Lymph % (Auto) 10.5 % [place] % (Auto) 4.1 % Eos % (Auto) 0.0 % Baso % (Auto) 0.3 % Neut # (Auto) 9.25 H (1.40-6.50) K/uL Lymph # (Auto) 1.15 L (1.20-3.40) K/uL [place] # (Auto) 0.45 (0.11-0.59) K/uL Eos # (Auto) 0.00 (0.00-0.50) K/uL Baso # (Auto) 0.03 (0.00-0.20) K/uL Immature Gran # (Auto) 0.03 (0.01-0.20) K/uL VBG pH 7.50 H (7.36-7.41) VBG pCO2 21 L (38-50) mmHg VBG pO2 43 mmHg VBG HCO3 16 mmol/L VBG O2 Saturation 75.7 % VBG Base Excess -4.6 mEq/L Sodium 140 (136-145) mmol/L Potassium 3.8 (3.5-5.1) mmol/L Chloride 95 L (98-107) mmol/L Carbon Dioxide 15 L (21-32) mmol/L Anion Gap 30 H (3-11) BUN 22 (6-23) mg/dl Creatinine 0.81 (0.6-1.4) mg/dl Est Cr Clr Drug Dosing 89.7 ml/min Est GFR ( Amer) 113.5 ml/min Est GFR (Non-Af Amer) 98.0 ml/min BUN/Creatinine Ratio 27.2 H (10-20) Glucose 131 H (70-99(Fasting)) mg/dl POC Glucose 131 H (70-99) mg/dl Osmolality 303 H (280-300) mOsm/kg Calcium 10.2 (8.6-10.3) mg/dl Total Bilirubin 1.4 H (0.2-1.0) mg/dl AST 57 H (13-39) U/L ALT 52 (7-52) U/L Alkaline Phosphatase 92 (34-104) U/L Total Protein 8.2 (6.0-8.3) gm/dl Albumin 4.6 (3.4-5.0) gm/dl Globulin 3.6 (2.5-4.0) gm/dl Albumin/Globulin Ratio 1.3 (0.9-2) Lipase 4 L (11-82) U/L Urine Color Yellow Urine Appearance Clear (Clear) Urine pH 6.0 (4.5-7.5) Ur Specific [place] > 1.045 H (1.000-1.030) Urine Protein Trace H (Negative) Urine Glucose (UA) Negative (Negative) Urine Ketones 4+ H (Negative) Urine Blood Negative (Negative) Urine Nitrite Negative (Negative) Urine Bilirubin Negative (Negative) Urine Urobilinogen Negative (Negative) Ur Leukocyte Esterase Negative (Negative) Urine WBC (Auto) 0-5 (0-5) /hpf Urine RBC (Auto) 0-2 (0-2) /hpf U Hyaline Cast (Auto) 0-2 (0-2) /lpf U Epithel Cells (Auto) 0-2 (0-2) /hpf Urine Bacteria (Auto) None Seen (None Seen) Urine Opiates Screen Neg (Neg) Ur Methadone, Qual Neg (Neg) Urine Fentanyl Screen Neg (Neg) Urine Barbiturates Neg (Neg) Ur Phencyclidine (PCP) Neg (Neg) U Amphetamin/Meth Scrn Neg (Neg) MDMA (Ecstasy) Screen Neg (Neg) U Benzodiazepines Scrn Neg (Neg) Ur Cocaine Metabolite Neg (Neg) U Marijuana (THC) Screen Neg (Neg) Ethyl Alcohol mg/dL < 10.0 (<10.0) mg/dl 03/19/24 Range/Units 15:44 WBC (4.8-10.8) K/ul RBC (4.70-6.10) M/uL Hgb (14.0-18.0) g/dl Hct (42.0-52.0) % MCV (80.0-100.0) fL MCH (25.0-34.0) pg MCHC (32.0-36.0) g/dL RDW Std Deviation (36.4-46.3) fL RDW Coeff of Dennise (11.5-14.5) % Plt Count (130-400) K/uL MPV (9.4-12.4) fL Immature Gran % (Auto) % Neut % (Auto) % Lymph % (Auto) % [place] % (Auto) % Eos % (Auto) % Baso % (Auto) % Neut # (Auto) (1.40-6.50) K/uL Lymph # (Auto) (1.20-3.40) K/uL [place] # (Auto) (0.11-0.59) K/uL Eos # (Auto) (0.00-0.50) K/uL Baso # (Auto) (0.00-0.20) K/uL Immature Gran # (Auto) (0.01-0.20) K/uL VBG pH (7.36-7.41) VBG pCO2 (38-50) mmHg VBG pO2 mmHg VBG HCO3 mmol/L VBG O2 Saturation % VBG Base Excess mEq/L Sodium (136-145) mmol/L Potassium (3.5-5.1) mmol/L Chloride (98-107) mmol/L Carbon Dioxide (21-32) mmol/L Anion Gap (3-11) BUN (6-23) mg/dl Creatinine (0.6-1.4) mg/dl Est Cr Clr Drug Dosing ml/min Est GFR ( Amer) ml/min Est GFR (Non-Af Amer) ml/min BUN/Creatinine Ratio (10-20) Glucose (70-99(Fasting)) mg/dl POC Glucose 158 H (70-99) mg/dl Osmolality (280-300) mOsm/kg Calcium (8.6-10.3) mg/dl Total Bilirubin (0.2-1.0) mg/dl AST (13-39) U/L ALT (7-52) U/L Alkaline Phosphatase (34-104) U/L Total Protein (6.0-8.3) gm/dl Albumin (3.4-5.0) gm/dl Globulin (2.5-4.0) gm/dl Albumin/Globulin Ratio (0.9-2) Lipase (11-82) U/L Urine Color Urine Appearance (Clear) Urine pH (4.5-7.5) Ur Specific [place] (1.000-1.030) Urine Protein (Negative) Urine Glucose (UA) (Negative) Urine Ketones (Negative) Urine Blood (Negative) Urine Nitrite (Negative) Urine Bilirubin (Negative) Urine Urobilinogen (Negative) Ur Leukocyte Esterase (Negative) Urine WBC (Auto) (0-5) /hpf Urine RBC (Auto) (0-2) /hpf U Hyaline Cast (Auto) (0-2) /lpf U Epithel Cells (Auto) (0-2) /hpf Urine Bacteria (Auto) (None Seen) Urine Opiates Screen (Neg) Ur Methadone, Qual (Neg) Urine Fentanyl Screen (Neg) Urine Barbiturates (Neg) Ur Phencyclidine (PCP) (Neg) U Amphetamin/Meth Scrn (Neg) MDMA (Ecstasy) Screen (Neg) U Benzodiazepines Scrn (Neg) Ur Cocaine Metabolite (Neg) U Marijuana (THC) Screen (Neg) Ethyl Alcohol mg/dL (<10.0) mg/dl Administered Medications Potassium Chloride/Dextrose/Sod Cl (D5w And 1/2nss + 20meq Kcl) 20 meq in 1,000 mls @ 150 mls/hr IV .Q6H40M [facility] Stop: 04/18/24 14:29 Last Admin: 03/19/24 15:47 Dose: 150 mls/hr Documented By: JESSICA Insulin Human Regular 250 (units/ Sodium Chloride) 250 mls @ 1.9 mls/hr IV .Q24H [facility]; Protocol Stop: 04/18/24 14:59 Last Admin: 03/19/24 15:47 Dose: 1.9 unit/hr, 1.9 mls/hr Documented By: JESSICA Co-signed By: [place] Discontinued Medications Sodium Chloride (Nss) 1,000 mls @ 999 mls/hr IV .Q1H1M [facility] Stop: 03/19/24 14:00 Last Infusion: 03/19/24 13:58 Dose: Infused Documented By: Admin: 03/19/24 12:57 Dose: 999 mls/hr Documented By: Infusion: 03/19/24 12:57 Dose: Infused Documented By: Admin: 03/19/24 11:59 Dose: 999 mls/hr Documented By: OLIVER Thiamine HCl 100 mg/ Syringe 10 mls @ 2 mls/min IV NOW STA Stop: 03/19/24 13:44 Last Admin: 03/19/24 14:20 Dose: 2 mls/min Documented By: JESSICA Folic Acid 1 mg/ Syringe 10 mls @ 5 mls/min IV NOW STA Stop: 03/19/24 13:41 Last Admin: 03/19/24 14:20 Dose: 5 mls/min Documented By: JESSICA Parenteral Electrolytes (Plasma-Lyte A Ph 7.4) 1,000 mls @ 999 mls/hr IV .Q1H1M ONE Stop: 03/19/24 14:42 Last Infusion: 03/19/24 15:08 Dose: Infused Documented By: Admin: 03/19/24 14:12 Dose: 999 mls/hr Documented By: OLIVER Thiamine HCl 500 mg/ Sodium (Chloride) 55 mls @ 210 mls/hr IV NOW STA Stop: 03/19/24 15:25 Last Admin: 03/19/24 15:48 Dose: 210 mls/hr Documented By: JESSICA Ioversol (Optiray 320 100ml) 94 ml IV ONCE ONE Stop: 03/19/24 12:41 Last Admin: 03/19/24 12:41 Dose: 94 ml Documented By: JACKIE Lorazepam (Lorazepam 1 Mg/1 Ml Syr Ed Inj Use) 2 mg IV ONE STA Stop: 03/19/24 13:41 Last Admin: 03/19/24 14:19 Dose: 2 mg Documented By: JESSICA Ondansetron HCl (Ondansetron Inj 2 Mg/Ml 2 Ml Vial) 4 mg IV NOW STA Stop: 03/19/24 11:52 Last Admin: 03/19/24 11:59 Dose: 4 mg Documented By: OLIVER Phenobarbital Sodium (Phenobarbital Sodium 65 Mg/Ml Vial) 130 mg IV NOW STA Stop: 03/19/24 14:36 Last Admin: 03/19/24 15:48 Dose: 130 mg Documented By: JESSICA Potassium Chloride (Potassium Chloride Crtab 20 Meq Tabcr) 40 meq PO NOW STA Stop: 03/19/24 14:23 Last Admin: 03/19/24 15:49 Dose: 40 meq Documented By: JESSICA Imaging Data Radiologist's Impression: Abdomen/Pelvis CT 03/19/24 11:51 CT SCAN OF THE ABDOMEN AND PELVIS WITH IV CONTRAST CLINICAL HISTORY: Nausea and vomiting COMPARISON STUDY: No priors. TECHNIQUE: Following the IV administration of 94 cc of Optiray 320, CT scan of the abdomen and pelvis is performed from the lung bases to the proximal femora. Images are reviewed in the axial, sagittal, and coronal planes. IV contrast was administered without complication. A dose lowering technique was utilized adhering to the principles of ALARA. CT DOSE: 848.31 mGy.cm FINDINGS: Lung bases: The heart is normal in size and without pericardial effusion. The lung bases are clear. There is a ehosc-ev-bkuunobn hiatal hernia. Liver: The contrast-enhanced liver is normal in size and contour. Attenuation is diffusely diminished indicating steatosis. There is no intrahepatic biliary ductal dilatation. The hepatic veins and portal veins are patent. Gallbladder: Unremarkable. Spleen: Normal in size and attenuation. Pancreas: Unremarkable. Adrenal glands: Unremarkable. Kidneys: The contrast enhanced kidneys are normal in size and without hydronephrosis. 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 The kidneys enhance symmetrically. A circumaortic left renal vein is incidentally noted. Abdominal vasculature: The abdominal aorta is normal in course and caliber. Bowel: There is mild to moderate colonic diverticulosis without CT evidence of acute diverticulitis. No bowel obstruction is seen. Mild to moderate fecal retention is noted throughout the colon. The appendix is well-visualized and normal. Peritoneum: There is no intraperitoneal free air or abdominal ascites. There is a fat-containing umbilical hernia. Lymphadenopathy: None. Pelvic viscera: The prostate gland is mildly enlarged and heterogeneous. The bladder wall is thickened/trabeculated indicating chronic outlet obstruction. Skeletal structures: No lytic or blastic lesions are seen. Mild to moderate lumbosacral spondylosis is observed. 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 IMPRESSION: 1. No acute infectious or inflammatory findings are identified in the abdomen or pelvis. 2. Hepatic steatosis. 3. Colonic diverticulosis without CT evidence of acute diverticulitis. 4. Additional findings as above. ACT 112: Negative or not required by law. Electronically signed by: Kanu Issa M.D. 03/19/2024 1:09 PM Discharge Plan Visit Data Chief Complaint: Illness ED Provider: Rohit Thakkar Discharge Problem: Vomiting, Alcohol withdrawal, Alkalosis, metabolic, Alcohol abuse, Type 1 diabetes mellitus Forms Stand Alone Forms: My [facility] Prescriptions Prescriptions: No Action (DME) Accu-Chek Guide test strips Strip See Rx Instructions .Route Qty: 450 3RF Rx Instructions: test blood sugar 5 x daily lisinopril 10 mg tablet 10 mg PO HS Qty: 90 1RF atorvastatin 40 mg tablet 40 mg PO HS Qty: 90 3RF insulin aspart U-100 [Novolog U-100 Insulin aspart] 100 unit/mL solution See Rx Instructions .ROUTE .COMPLEX MDD 50 units Qty: 50 1RF Rx Instructions: Infuse via insulin pump up to 50 units per day; Saccharomyces boulardii [Daily Probiotic (S. boulardii)] 1 ea PO DAILY Rx Instructions: otc unable to verify omega-3 fatty acids [Fish Oil Concentrate] 1 cap PO DAILY Rx Instructions: otc unable to verify sildenafil 50 mg tablet 25 mg PO DAILY PRN (Reason: sexual activity) Rx Instructions: administer 30 minutes to 4 hours before activity; if unsuccessful with half tablet and can remaining half; do not take more then 50 mg in one day. (DME) lancets 33 gauge misc See Rx Instructions .ROUTE .MEDSUPPLY Qty: 500 3RF Rx Instructions: test 5 times daily xppg-wadgz-ahv-D3-hyal-rafat bor 750 mg-100 mg- 25 mcg tablet 1 tab PO DAILY Rx Instructions: otc unable to verify multivitamin Tablet 1 tab PO HS Rx Instructions: otc unable to verify paroxetine HCl [Paxil] 20 mg Tablet 20 mg PO HS aspirin [Jose Alfredo Low Dose Aspirin] 81 mg Tablet,Delayed Release (Dr/Ec) 81 mg PO DAILY Rx Instructions: otc unable to verify insulin aspart U-100 [Novolog FlexPen U-100 Insulin] 100 unit/mL (3 mL) insulin pen 40 unit subcut UD PRN (Reason: pump failure) Rx Instructions: Not on record with failure. 40 units daily prn in case of pump failure Referrals Referrals: Antoine Hernandez MD [Outside Practitioners] - Discharge Problem: Vomiting Qualifiers: Vomiting type: unspecified Nausea presence: unspecified Qualified Code(s): R 11.10 - Vomiting, unspecified Alcohol withdrawal Qualifiers: Complication of substance-induced condition: with unspecified complication Q ualified Code(s): F10.939 - Alcohol use, unspecified with withdrawal, unspecified Type 1 diabetes mellitus Qualifiers: Diabetes mellitus complication status: with other specified complication Q ualified Code(s): E10.69 - Type 1 diabetes mellitus with other specified complication
[2024-03-19] MEDS: ONDANSETRON INJ 2 MG/ML 2 ML VIAL IV STA (11:59)
[2024-03-19] MEDS: SODIUM CHLORIDE 0.9% 1,000 ML IV SCH (11:59)
[2024-03-19 12:12] LABS: Basophils # (auto) 0.03 K/uL (0.00-0.20); Basophils % (auto) 0.3 %; Hematocrit (blood only) 46.8 % (42.0-52.0); Hemoglobin 16.3 g/dl (14.0-18.0); Immature Granulocytes # (auto) 0.03 K/uL (0.01-0.20); Immature Granulocytes % (auto) 0.3 %; Lymphocytes # (auto) 1.15 K/uL (1.20-3.40); Lymphocytes % (auto) 10.5 %; Mean Corpuscular Hemoglobin 29.5 pg (25.0-34.0); Mean Corpuscular Hgb Conc 34.8 g/dL (32.0-36.0); Mean Corpuscular Volume 84.6 fL (80.0-100.0); Mean Platelet Volume 9.4 fL (9.4-12.4); Monocytes # (auto) 0.45 K/uL (0.11-0.59); Monocytes % (auto) 4.1 %; Neutrophils # (auto) 9.25 K/uL (1.40-6.50); Neutrophils % (auto) 84.8 %; Platelet Count 405 K/uL (130-400); RDW Coefficient of Variation 13.5 % (11.5-14.5); RDW Standard Deviation 42.5 fL (36.4-46.3); Red Blood Count 5.53 M/uL (4.70-6.10); White Blood Count 10.91 K/ul (4.8-10.8)
[2024-03-19 12:27] LABS: Albumin Globulin Ratio 1.3 (0.9-2); Albumin Level 4.6 gm/dl (3.4-5.0); BUN Creatinine Ratio 27.2 (10-20); Bilirubin,Total 1.4 mg/dl (0.2-1.0); Calcium 10.2 mg/dl (8.6-10.3); Creatinine Clr Calc Pharmacy 89.7 ml/min; Est GFR (African American) 113.5 ml/min; Globulin 3.6 gm/dl (2.5-4.0); Potassium 3.8 mmol/L (3.5-5.1); Total Protein 8.2 gm/dl (6.0-8.3)
[2024-03-19] MEDS: OPTIRAY 320 100ml IV ONE (12:41)
--- NOTE | 2024-03-19 13:11 | CT Scan Report ---
CT SCAN OF THE ABDOMEN AND PELVIS WITH IV CONTRAST CLINICAL HISTORY: Nausea and vomiting COMPARISON STUDY: No priors. TECHNIQUE: Following the IV administration of 94 cc of Optiray 320, CT scan of the abdomen and pelvi s is performed from the lung bases to the proximal femora. Images are reviewed in the axial, sagittal , and coronal planes. IV contrast was administered without complication. A dose lowering technique wa s utilized adhering to the principles of ALARA. CT DOSE: 848.31 mGy.cm FINDINGS: Lung bases: The heart is normal in size and without pericardial effusion. The lung bases are clear. T here is a zxend-al-nhzdtdpm hiatal hernia. Liver: The contrast-enhanced liver is normal in size and contour. Attenuation is diffusely diminished indicating steatosis. There is no intrahepatic biliary ductal dilatation. The hepatic veins and port al veins are patent. Gallbladder: Unremarkable. Spleen: Normal in size and attenuation. Pancreas: Unremarkable. Adrenal glands: Unremarkable. Kidneys: The contrast enhanced kidneys are normal in size and without hydronephrosis. 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 The ki dneys enhance symmetrically. A circumaortic left renal vein is incidentally noted. Abdominal vasculature: The abdominal aorta is normal in course and caliber. Bowel: There is mild to moderate colonic diverticulosis without CT evidence of acute diverticulitis. No bowel obstruction is seen. Mild to moderate fecal retention is noted throughout the colon. The rafa endix is well-visualized and normal. Peritoneum: There is no intraperitoneal free air or abdominal ascites. There is a fat-containing umbi lical hernia. Lymphadenopathy: None. Pelvic viscera: The prostate gland is mildly enlarged and heterogeneous. The bladder wall is thickene d/trabeculated indicating chronic outlet obstruction. Skeletal structures: No lytic or blastic lesions are seen. Mild to moderate lumbosacral spondylosis i s observed. 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 IMPRESSION: 1. No acute infectious or inflammatory findings are identified in the abdomen or pelvis. 2. Hepatic steatosis. 3. Colonic diverticulosis without CT evidence of acute diverticulitis. 4. Additional findings as above. ACT 112: Negative or not required by law. Electronically signed by: Kanu Issa M.D. 03/19/2024 1:09 PM
[2024-03-19 13:13] LABS: Appearance Urine Clear (Clear); Color Urine Yellow; Specific Gravity Urine > 1.045 (1.000-1.030)
[2024-03-19 13:14] LABS: Bacteria Urine Automated None Seen (None Seen); Bilirubin Urine Negative (Negative); Blood Urine Negative (Negative); Cast Urine Automated 0-2 /lpf (0-2); Epithelial Cell Urine Auto 0-2 /hpf (0-2); Glucose Urine UA Negative (Negative); Ketones Urine 4+ (Negative); Leukocyte Esterase Urine Negative (Negative); Nitrite Urine Negative (Negative); Protein Urine Trace (Negative); RBC Urine Automated 0-2 /hpf (0-2); Urobilinogen Urine Negative (Negative); WBC Urine Automated 0-5 /hpf (0-5)
--- NOTE | 2024-03-19 13:50 | History & Physical Report ---
Date of Service March 19, 2024 Assessment & Plan (1) Alcoholic ketoacidosis: Plan: Type I DM Patient with BSG of 131, but with 4+ ketones in the setting of alcohol abuse VBG ordered at time of admission consultation Osmolality and medical alcohol added Patient typically has a good outpatient control and is in goal 70% of the time at last check. Last A1c 6.7%. Total daily dose per 24 hours approximately 42.7 units at last pump interrogation. Carb ratio 1:55.9 depending on the time of day, correction factor approximately 91330 depending on time of day ? Alcohol induced euglycemic DKA with hepatic suppression. VBG 7.5///16. Patient is tachypneic. He has a primary respiratory alkalosis, with secondary underlying mixed alkalosis/acidosis with anion gap elevation. ? Alcoholic ketoacidosis versus early DKA vs euglycemic DKA. Will start i nsulin gtt. and start fluids as D5 with potassium supplementation as glucose and potassium are within goal range, continue this until anion gap and bicarb both normalized then --> SQ CTA/P without acute pathology. No cough or respiratory symptoms. No URI symptoms. UA is uninfected appearing. (2) 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: (3) DKA (diabetic ketoacidosis): (4) HLD (hyperlipidemia): (5) Alcohol withdrawal: Plan: Alcohol abuse, withdrawal Patient generally with around 1 pint of alcohol per day liquor intake. Last drink evening of 03/18/2024. Has been trying to self taper and is down to around 2 drinks per night Medical alcohol negative on admission Urine tox ordered 8 mOsm/kg osmolar gap; normal. No evidence of secondary underlying ingestion - CTA/P: No acute findings. Diverticulosis without diverticulitis. Hepatic steatosis Bili 1.4, AST 57, ALT and alk phos are normal. No signs of obstruction/biliary pathology. Suspect mild transaminitis with alcohol use. Trended CM consulted Phenobarbital Protocol: Moderate alcohol severity withdrawal risk due to underlying transaminitis. Denies narcotic, ingestion, head injury, recent sedatives. Low risk for respiratory compromise, no underlying pulmonary disease, no acute pneumonia or trauma Discussed with pharmacy. Initially ordered for 8 mg/kg phenobarb frontloaded protocol. Given moderate withdrawal risk, will switch to pharmacy order set with initial 130 mg IV load, followed by 65 mg IV every 15 as needed until a AWSS less than 6 or RASS 0/-1 is achieved. Soft stop total cumulative dose of 1280mg, hard stop 1950 mg. After RASS 0/-1 has been achieved, may use a postloading oral taper with 60 mg twice daily for 1 to 2 days, followed by 30 mg twice daily for another 1 to 2 days based on clinical reassessment PMID: 43508640, 2020. Front loaded phenobarb superior with less mech ventilation and less need for continuatious sedation compared to low intermittent dosing. PMID: 27178626, 2022. Front loaded phenobarbital with less respiratory complications, shorter ICU stay, and lower LOS compared to benzodiazepine protocol,. PMID: 86439647, 2021. Phenobarbital with significantly shorter LOS. Combination of benzos and phenobarbital compared to either therapy alone is associated with increased length of stay, increased ICU care, and increased hypotension. Do not use benzodiazepine adjunct therapy overnight due to risk of precipitated respiratory compromise. Plan Chronic issues: HTN:Hypertensive, without EVE Diaphoretic, appears in alcohol withdrawal. Will reassess after phenobarbital load HLD: Atorvastatin continued DVT prophylaxis: Heparin Disposition: PCU CODE STATUS: Full code Diet: N.p.o. until pH normalizes,gap closes and bicarb normalizes, then may advance to type I DM and transition to basal bolus insulin History of Present Illness Primary Care Provider: Claudio Dumont PA-C Hung is a 58-year-old male with past medical history of alcohol abuse, type 1 diabetes mellitus, hypothyroidism who was self tapering alcohol use down with recent use around 1 pint of liquor per day last drink evening of 03/18/2024 who developed nausea/vomiting day of admission and unable to tolerate p.o. intake. In the ER he is with a BSG of 131, but has a anion gap of 30 and a bicarb of 15. VBG/alcohol/osmolality not drawn PUking all night. Checked ketones last night, normal. +N/V. Denies polyuria Denies abdominal pain Was normal 2 days ago No fevers, chills, or sweats. Did feel hot/cold overnight. No cough. No congestion. No diarrhea or constipation Other than DM takes a statin and blood pressure medicines. Both of these have been doing well Normally atkes 35-40 units total per day. Has an insulin pump. No malfunctions or issues lately. Is currently running at basal rate of .95/hr. ETOH: Normally drinks 1/2-1 pint of whiskey per day for 'years'. No hx of liver problems. In the last 3-4 days has been tapering down to 2-3 shots yesterday and none the day before. Has had shakes before, but never had diagnosed withdrawal or seizures. Medical History: Reviewed Medications: Reviewed Surgical History: Reviewed Family history: Reviewed Allergies: Reviewed. Unknown if allergic to PCN, pt has never got it but is concerned due to strong family history Social History: ETOH as noted. No tobacco. Occasional marijuana use. Code Status: Full Allergies Allergy/AdvReac Type Severity Reaction Status Date / Time Penicillins Allergy Unknown STRONG Verified 01/15/23 11:07 FAMILY HX Home Medications Medication Instructions Recorded Confirmed Type multivitamin 1 tab PO HS 03/13/19 01/15/23 History paroxetine HCl 20 mg tablet (Paxil) 20 mg PO HS 03/13/19 01/15/23 History lancets 33 gauge #500 ea 10/26/19 01/15/23 Rx aspirin 81 mg tablet,delayed 81 mg PO DAILY 11/10/20 01/15/23 History release (Jose Alfredo Low Dose Aspirin) Saccharomyces boulardii [Daily 1 ea PO DAILY 07/31/21 01/15/23 History Probiotic (S. boulardii)] omega-3 fatty acids [Fish Oil 1 cap PO DAILY 07/31/21 01/15/23 History Concentrate] glucosamine 750 mg-chondroit 100 1 tab PO DAILY 11/14/21 01/15/23 History mg-msm-D3 25 cia-ghun-ozo bor tablet insulin aspart U-100 100 unit/mL 40 unit (0.4 mL) subcut DAILY #15 11/23/21 01/15/23 Rx (3 mL) subcutaneous pen (Novolog mL FlexPen U-100 Insulin aspart) blood sugar diagnostic (Accu-Chek #450 ea 04/10/22 01/15/23 Rx Guide test strips) sildenafil 50 mg tablet 25 mg PO DAILY PRN sexual activity 01/15/23 History lisinopril 10 mg tablet 10 mg PO HS #90 tabs 09/20/23 Rx atorvastatin 40 mg tablet 40 mg PO HS #90 tabs 10/08/23 Rx Novolog U-100 Insulin aspart 100 See Rx Instructions .Route 12/16/23 Rx unit/mL subcutaneous solution .COMPLEX #50 mL (insulin aspart U-100) Past Med/Surg History Problem List Alcohol withdrawal Alcoholic ketoacidosis 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 Abnormal thyroid function test Erectile dysfunction DKA (diabetic ketoacidosis) (05/08/21) Hypophosphatemia Subclinical hyperthyroidism Alcoholism /alcohol abuse (Acute) Insulin pump in place Abnormal LFTs (liver function tests) Type 1 diabetes mellitus (Acute) Hyperthyroidism Anxiety HLD (hyperlipidemia) Pain in right knee (Acute) Medical History DKA (diabetic ketoacidosis) (10/2020) Lactic acidosis EVE (acute kidney injury) DKA (diabetic ketoacidoses) (07/2019) Atypical angina Dyslipidemia Hypertension Surgical History Hx of vasectomy Family History Father Myocardial infarction Uncle Diabetes Social History Smoking Status: Never smoker Second Hand Exposure: No; Do You Dip or Chew Tobacco: No; Hx Alcohol Use: Yes Alcohol type: hard liquor Alcohol Intake Frequency: 4 or More x per/Week Hx Substance Use: No Preferred Language: Dominican Communication Ability: Effective 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 NAD. Cooperative. HEENT: Atraumatic, normocephalic. Vision and hearing grossly intact Pulm: CTAB A&P. -wheezes, -rales, -rhonchi. Symmetrical chest rise. No increased work of breathing. No respiratory distress. Cardiac: Regular, tachycardic. Radial pulses intact and symmetrical. Abdominal: Trace epigastric tenderness to palpation, nondistended, soft. BS present. Extremities: Slight resting tremor. Warm, diaphoretic. Distal extremity strength and sensation are grossly intact Results & Data Results & Data Vital Signs (Past 12 Hours) Vital Signs Temp Pulse Pulse Resp BP BP Pulse Ox 03/19/24 12:57 105 H 18 170/96 H 99 03/19/24 12:16 112 H 03/19/24 12:02 03/19/24 12:00 95 H 15 154/102 H 100 03/19/24 11:35 36.6 C 105 H 20 144/104 H 97 O2 Del Method 03/19/24 12:57 Room Air 03/19/24 12:16 03/19/24 12:02 Room Air 03/19/24 12:00 Room Air 03/19/24 11:35 Room Air PG Care Time/CCT Total # of Minutes Spent Total Time Spent with Patient: Total time spent is greater than 50% in coordination of care (as documented) at patient's floor/unit and/or counseling patient: Coding Level of Care Code 19534 INT INP/OBS CARE 3/75MIN Diagnoses Alcoholic ketoacidosis E87.29 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 E10.3299 Diabetic ketoacidosis without coma associated with type 1 diabetes mellitus E10.10 Diabetes mellitus type: type 1 Diabetes mellitus complication detail: without coma Mixed hyperlipidemia E78.2 Hyperlipidemia type: mixed hyperlipidemia Alcohol withdrawal F10.239 (3) DKA (diabetic ketoacidosis) Diabetes mellitus type: type 1 Diabetes mellitus complication detail: without coma Qualified Code(s): E10.10 - Type 1 diabetes mellitus with ketoacidosis without coma (4) HLD (hyperlipidemia) Hyperlipidemia type: mixed hyperlipidemia Qualified Code(s): E78.2 - Mixed hyperlipidemia
[2024-03-19 14:01] LABS: Base Excess VBG -4.6 mEq/L; HCO3 VBG 16 mmol/L; Oxygen Saturation VBG 75.7 %; PCO2 VBG 21 mmHg (38-50); PO2 VBG 43 mmHg
[2024-03-19] MEDS ORDERED: PHENobarbital sodium 65 MG/ML VIAL IV STA (14:11)
[2024-03-19] MEDS ORDERED: PHENobarbital PO Alcohol Withdrawal PO STA (14:11)
[2024-03-19] MEDS: PLASMA-LYTE A 1,000 ML IV ONE (14:12)
[2024-03-19] MEDS: LORazepam 1 MG/1 ML SYR ED Inj Use IV STA (14:19)
[2024-03-19] MEDS: FOLIC ACID 1 MG in SYRINGE 9.8 ML IV STA (14:20)
[2024-03-19] MEDS: THIAMINE HCL 100 MG in SYRINGE 9 ML IV STA (14:20)
[2024-03-19] MEDS ORDERED: STAT IV Infusion **Titration per Protocol STA (14:22)
[2024-03-19] MEDS ORDERED: PHARMACY GLYCEMIC MGMT CONSULT PRN (14:22)
[2024-03-19] MEDS ORDERED: PHENobarbital sodium 65 MG/ML VIAL IV PRN ×3 (14:27→16:35)
[2024-03-19] MEDS ORDERED: INSULIN REGULAR 250 UNITS in SODIUM CHLORIDE 0.9% 247.5 ML IV SCH ×2 (14:30→15:00)
[2024-03-19 14:55] LABS: Amphetamines+Metham, Urine Neg (Neg); Barbiturates, Urine Neg (Neg); Benzodiazepine, Urine Neg (Neg); Cocaine, Urine Neg (Neg); Fentanyl, Urine Neg (Neg); MDMA (Ecstacy), Urine Neg (Neg); Marijuana, Urine Neg (Neg); Methadone, Urine Neg (Neg); Opiate, Urine Neg (Neg); Phencyclidine, Urine Neg (Neg)
--- NOTE | 2024-03-19 14:59 | Billing Data ---
Date of Service March 19, 2024 Coding Level of Care Code 02602 CRITICAL CARE 1ST 30-74M Additional Critical Care Time Total Critical Care Time: 45 45 minutes of direct critical care time has been provided including direct patient assessment,s, coordination of insulin drip, lab review, and phenobarbital protocol and coordination with nursing and pharmacy staff
[2024-03-19] MEDS: INSULIN REGULAR 250 UNITS in SODIUM CHLORIDE 0.9% 247.5 ML IV SCH (15:47)
[2024-03-19] MEDS: D5W AND 1/2NSS + 20MEQ KCL 20 MEQ/1,000 ML BAG IV SCH (15:47)
[2024-03-19] MEDS: THIAMINE HCL 500 MG in SODIUM CHLORIDE 0.9% 50 ML IV STA (15:48)
[2024-03-19] MEDS: PHENobarbital sodium 65 MG/ML VIAL IV STA (15:48)
[2024-03-19] MEDS: POTASSIUM CHLORIDE CRTAB 20 MEQ TABCR PO STA (15:49)
[2024-03-19 15:59] LABS: Calcium 8.4 mg/dl (8.6-10.3); Creatinine Clr Calc Pharmacy 115.3 ml/min; Est GFR (African American) 125.9 ml/min; Est GFR (Non-African American) 108.6 ml/min; Magnesium 1.7 mg/dl (1.7-2.4); Phosphorus 1.7 mg/dl (2.5-4.9); Potassium 4.1 mmol/L (3.5-5.1)
[2024-03-19] MEDS: STAT IV Infusion **Titration per Protocol STA (16:00)
[2024-03-19] MEDS: DKA GOAL RANGE 150-250 mg/dl ONE (16:00)
[2024-03-19] MEDS ORDERED: INSULIN ASPART PER UNIT CHARGE SC SCH (16:30)
[2024-03-19] MEDS ORDERED: ONDANSETRON INJ 2 MG/ML 2 ML VIAL IV PRN (16:55)
[2024-03-19] MEDS: INSULIN ASPART PER UNIT CHARGE SC SCH (17:57)
[2024-03-19 18:25] LABS: Base Excess VBG -0.3 mEq/L; HCO3 VBG 23 mmol/L; Oxygen Saturation VBG 70.7 %; PCO2 VBG 32 mmHg (38-50); PO2 VBG 41 mmHg; pH VBG 7.46 (7.36-7.41)
[2024-03-19 18:48] LABS: BUN Creatinine Ratio 24.6 (10-20); Creatinine Clr Calc Pharmacy 111.8 ml/min; Est GFR (African American) 124.3 ml/min; Est GFR (Non-African American) 107.2 ml/min; Magnesium 1.7 mg/dl (1.7-2.4); Potassium 4.2 mmol/L (3.5-5.1)
[2024-03-19] MEDS: HEPARIN SOD 5,000 UNIT/0.5 ML VIAL SQ SCH (20:30)
[2024-03-19 22:47] LABS: HCO3 VBG 24 mmol/L; Oxygen Saturation VBG 92.5 %; PCO2 VBG 31 mmHg (38-50); PO2 VBG 61 mmHg; pH VBG 7.49 (7.36-7.41)
[2024-03-19 23:06] LABS: BUN Creatinine Ratio 23.1 (10-20); Calcium 7.9 mg/dl (8.6-10.3); Creatinine Clr Calc Pharmacy 111.8 ml/min; Est GFR (African American) 124.3 ml/min; Est GFR (Non-African American) 107.2 ml/min; Magnesium 1.6 mg/dl (1.7-2.4); Phosphorus 1.7 mg/dl (2.5-4.9); Potassium 3.9 mmol/L (3.5-5.1)
[2024-03-19] MEDS ORDERED: POTASSIUM PHOS 3 MMOL/1 ML INFUSION IV STA (23:16)
[2024-03-19] MEDS: MAGNESIUM SULFATE / D5W 1 GM/100 ML BAG IV SCH (23:46)
[2024-03-20] MEDS: POTASSIUM PHOSPHATE 21 MMOL in SODIUM CHLORIDE 0.9% 500 ML IV ONE (01:49)
[2024-03-20 02:36] LABS: Base Excess VBG 0.1 mEq/L; HCO3 VBG 24 mmol/L; Oxygen Saturation VBG 95.2 %; PCO2 VBG 34 mmHg (38-50); PO2 VBG 68 mmHg; pH VBG 7.45 (7.36-7.41)
[2024-03-20 02:50] LABS: Basophils # (auto) 0.03 K/uL (0.00-0.20); Basophils % (auto) 0.4 %; Eosinophils # (auto) 0.01 K/uL (0.00-0.50); Eosinophils % (auto) 0.1 %; Hematocrit (blood only) 36.9 % (42.0-52.0); Hemoglobin 12.7 g/dl (14.0-18.0); Immature Granulocytes # (auto) 0.01 K/uL (0.01-0.20); Immature Granulocytes % (auto) 0.1 %; Lymphocytes # (auto) 1.66 K/uL (1.20-3.40); Lymphocytes % (auto) 23.1 %; Mean Corpuscular Hemoglobin 29.3 pg (25.0-34.0); Mean Corpuscular Hgb Conc 34.4 g/dL (32.0-36.0); Mean Corpuscular Volume 85.2 fL (80.0-100.0); Mean Platelet Volume 9.4 fL (9.4-12.4); Monocytes # (auto) 0.88 K/uL (0.11-0.59); Monocytes % (auto) 12.2 %; Neutrophils # (auto) 4.61 K/uL (1.40-6.50); Neutrophils % (auto) 64.1 %; Platelet Count 258 K/uL (130-400); RDW Coefficient of Variation 13.8 % (11.5-14.5); RDW Standard Deviation 43.7 fL (36.4-46.3); Red Blood Count 4.33 M/uL (4.70-6.10)
[2024-03-20 03:01] LABS: Albumin Globulin Ratio 1.4 (0.9-2); Albumin Level 3.2 gm/dl (3.4-5.0); BUN Creatinine Ratio 21.9 (10-20); Bilirubin,Total 1.6 mg/dl (0.2-1.0); Calcium 7.7 mg/dl (8.6-10.3); Creatinine Clr Calc Pharmacy 113.5 ml/min; Est GFR (African American) 125.1 ml/min; Est GFR (Non-African American) 107.9 ml/min; Globulin 2.3 gm/dl (2.5-4.0); Magnesium 2.3 mg/dl (1.7-2.4); Phosphorus 2.4 mg/dl (2.5-4.9); Potassium 3.8 mmol/L (3.5-5.1); Total Protein 5.5 gm/dl (6.0-8.3)
[2024-03-20 05:48] LABS: Base Excess VBG -1.1 mEq/L; HCO3 VBG 23 mmol/L; Oxygen Saturation VBG 96.3 %; PCO2 VBG 34 mmHg (38-50); PO2 VBG 72 mmHg; pH VBG 7.43 (7.36-7.41)
[2024-03-20 06:16] LABS: BUN Creatinine Ratio 21.1 (10-20); Calcium 7.5 mg/dl (8.6-10.3); Creatinine Clr Calc Pharmacy 140.4 ml/min; Est GFR (African American) 131.2 ml/min; Est GFR (Non-African American) 113.2 ml/min; Magnesium 2.2 mg/dl (1.7-2.4); Phosphorus 3.8 mg/dl (2.5-4.9); Potassium 4.1 mmol/L (3.5-5.1)
[2024-03-20] MEDS ORDERED: PHENobarbitaL 30 MG TAB PO SCH (08:30)
[2024-03-20] MEDS: THIAMINE HCL 100 MG in SYRINGE 9 ML IV SCH (08:32)
[2024-03-20] MEDS: FOLIC ACID 1 MG in SYRINGE 9.8 ML IV SCH (08:32)
[2024-03-20 08:34] LABS: Estimated Average Glucose 169 mg/dl; Hemoglobin A1C 7.5 % (4.5-5.6)
--- NOTE | 2024-03-20 10:18 | Pharmacy Report ---
Pharmacy Glycemic Short Note 2 - Date of Service March 20, 2024 - Glycemic Short BSG Results (Last 24 hours): 03/19/24 03/19/24 03/19/24 11:40 15:14 15:44 Glucose 131 H 158 H POC Glucose 131 H 158 H 03/19/24 03/19/24 03/19/24 17:03 18:02 18:13 Glucose 188 H POC Glucose 149 H 158 H 03/19/24 03/19/24 03/19/24 19:02 20:17 21:30 Glucose POC Glucose 174 H 194 H 187 H 03/19/24 03/19/24 03/20/24 22:19 22:39 00:04 Glucose 219 H POC Glucose 195 H 212 H 03/20/24 03/20/24 03/20/24 01:53 02:22 03:06 Glucose 256 H POC Glucose 256 H 232 H 03/20/24 03/20/24 03/20/24 04:04 05:06 05:35 Glucose 215 H POC Glucose 212 H 208 H 03/20/24 03/20/24 03/20/24 07:04 08:02 08:59 Glucose POC Glucose 177 H 152 H 140 H 03/20/24 10:02 Glucose POC Glucose 165 H OUTPATIENT ANTIDIABETIC REGIMEN: * Medtronic 770G pump with CGM - utilizes Novolog U-100 * Basal rate: 0.95 units/hr for 24 hours * CF: 1873-1023 is 50 ; 9678-0018 is 30 ; 2100 - 0000 is 50 * CR: 7786-3856 is 5.9 ; 2387-9872 is 5.4 * HbA1c: 7.5% (03/20/24) ASSESSMENT: * 58 yo M admitted on 03/20/24 secondary to alcohol withdrawal and DKA. Pharmacy has been consulted to assist with inpatient glycemic management. Patient is a Type 1 diabetic as an outpatient. Please refer to outpatient regimen and most recent HbA1c above. * Initial labs showed a glucose of 158, anion gap of 15 and CO2 of 20. Patient was started on an insulin drip at 1.9 units/hr. * Drip ran throughout the night but DKA resolved rapidly. Currently running at 1.8 units/hr. Most recent labs showed anion gap of 5 and CO2 of 22. pH was 7.43 this AM. * Spoke with patient this morning. Will shut off insulin drip and patient prefers to utilize pump while inpatient. Has all supplies needed. Demonstrated good understanding of pump. RN will verify patient has hooked up insulin pump and then shut off drip once pump is confirmed to be running. Pharmacy does not follow patients on insulin pump but will ensure that CF-006 is signed and NS- [address] orders on DEC. Awaiting confirmation from attending provider to order T1DM diet with lunch and d/c fluids. PLAN FOR INPATIENT GLYCEMIC CONTROL: * IV Insulin Infusion * Currently running at 1.8 units/hr * Discontinue once patient has insulin pump connected and it's confirmed to be running * Home Medtronic 770G insulin pump * Follow home settings * Patient has all supplies * Pharmacy will sign off. Thank you for this consult.
[2024-03-20] MEDS ORDERED: INSULIN ASPART 100 UNITS/ML VIAL SC PRN (10:30)
[2024-03-20] MEDS ORDERED: PHENobarbital PO Alcohol Withdrawal PO STA (10:33)
[2024-03-20] MEDS: Continuous Glucose Monitor SCH (11:11)
[2024-03-20] MEDS: PHENobarbitaL 30 MG TAB PO SCH (11:11)
[2024-03-20] MEDS: INSULIN, Rapid-Acting PUMP SCH (11:13)
--- NOTE | 2024-03-20 14:46 | Hospitalist Progress Note ---
Date of Service March 20, 2024 Assessment & Plan (1) Alcoholic ketoacidosis: Plan: Ketoacidosis resolved Insulin drip discontinued Patient is back on his insulin pump He is feeling well overall, clinically improved Started on a diet (2) 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: (3) DKA (diabetic ketoacidosis): (4) HLD (hyperlipidemia): (5) Alcohol withdrawal: Plan: Patient has been trying to self taper his alcohol intake. Last drink / He is willing to undergo a alcohol abstinence in a supervised setting He has been started on phenobarb taper course Plan Chronic issues: HTN:Hypertensive HLD: Atorvastatin continued DVT prophylaxis: Heparin CODE STATUS: Full code Admission and Anticipated Discharge Date Admission Date: March 19, 2024 Subjective Patient feels better overall. Denies chest pain or shortness of breath. Review of Systems Review of Systems: All systems reviewed & are unremarkable except as noted in Subjective Physical Exam Physical Exam: General: Awake, conversant Heart: S1, S2/regular rate and rhythm, no murmur rubs or gallops Lungs: Clear to auscultation bilaterally. Normal effort Abdomen: Soft/nontender/nondistended. No hepatosplenomegaly Extremities: No clubbing/cyanosis. No edema Behavior: Appropriate, cooperative Results & Data Results & Data Vital Signs (Past 12 Hours) Vital Signs Temp Pulse Resp BP BP Pulse Ox O2 Del Method 03/20/24 11:39 37.3 C 89 18 131/69 96 Room Air 03/20/24 07:56 36.8 C 76 17 125/81 95 Room Air 03/20/24 03:09 36.6 C 75 18 122/77 94 Room Air Laboratory Results Abnormal lab results 03/19/24 03/19/24 03/19/24 Range/Units 15:14 15:44 17:03 RBC (4.70-6.10) M/uL Hgb (14.0-18.0) g/dl Hct (42.0-52.0) % [place] # (Auto) (0.11-0.59) K/uL VBG pH (7.36-7.41) VBG pCO2 (38-50) mmHg Sodium (136-145) mmol/L Carbon Dioxide 20 L (21-32) mmol/L Anion Gap 15 H (3-11) Creatinine (0.6-1.4) mg/dl BUN/Creatinine Ratio 27.0 H (10-20) Glucose 158 H (70-99(Fasting)) mg/dl POC Glucose 158 H 149 H (70-99) mg/dl Hemoglobin A1c (4.5-5.6) % Calcium 8.4 L (8.6-10.3) mg/dl Phosphorus 1.7 L (2.5-4.9) mg/dl Magnesium (1.7-2.4) mg/dl Total Bilirubin (0.2-1.0) mg/dl Total Protein (6.0-8.3) gm/dl Albumin (3.4-5.0) gm/dl Globulin (2.5-4.0) gm/dl 03/19/24 03/19/24 03/19/24 Range/Units 18:02 18:13 19:02 RBC (4.70-6.10) M/uL Hgb (14.0-18.0) g/dl Hct (42.0-52.0) % [place] # (Auto) (0.11-0.59) K/uL VBG pH 7.46 H (7.36-7.41) VBG pCO2 32 L (38-50) mmHg Sodium (136-145) mmol/L Carbon Dioxide (21-32) mmol/L Anion Gap (3-11) Creatinine (0.6-1.4) mg/dl BUN/Creatinine Ratio 24.6 H (10-20) Glucose 188 H (70-99(Fasting)) mg/dl POC Glucose 158 H 174 H (70-99) mg/dl Hemoglobin A1c (4.5-5.6) % Calcium 8.0 L (8.6-10.3) mg/dl Phosphorus 2.0 L (2.5-4.9) mg/dl Magnesium (1.7-2.4) mg/dl Total Bilirubin (0.2-1.0) mg/dl Total Protein (6.0-8.3) gm/dl Albumin (3.4-5.0) gm/dl Globulin (2.5-4.0) gm/dl 03/19/24 03/19/24 03/19/24 Range/Units 20:17 21:30 22:19 RBC (4.70-6.10) M/uL Hgb (14.0-18.0) g/dl Hct (42.0-52.0) % [place] # (Auto) (0.11-0.59) K/uL VBG pH (7.36-7.41) VBG pCO2 (38-50) mmHg Sodium (136-145) mmol/L Carbon Dioxide (21-32) mmol/L Anion Gap (3-11) Creatinine (0.6-1.4) mg/dl BUN/Creatinine Ratio (10-20) Glucose (70-99(Fasting)) mg/dl POC Glucose 194 H 187 H 195 H (70-99) mg/dl Hemoglobin A1c (4.5-5.6) % Calcium (8.6-10.3) mg/dl Phosphorus (2.5-4.9) mg/dl Magnesium (1.7-2.4) mg/dl Total Bilirubin (0.2-1.0) mg/dl Total Protein (6.0-8.3) gm/dl Albumin (3.4-5.0) gm/dl Globulin (2.5-4.0) gm/dl 03/19/24 03/20/24 03/20/24 Range/Units 22:39 00:04 01:53 RBC (4.70-6.10) M/uL Hgb (14.0-18.0) g/dl Hct (42.0-52.0) % [place] # (Auto) (0.11-0.59) K/uL VBG pH 7.49 H (7.36-7.41) VBG pCO2 31 L (38-50) mmHg Sodium 134 L (136-145) mmol/L Carbon Dioxide (21-32) mmol/L Anion Gap (3-11) Creatinine (0.6-1.4) mg/dl BUN/Creatinine Ratio 23.1 H (10-20) Glucose 219 H (70-99(Fasting)) mg/dl POC Glucose 212 H 256 H (70-99) mg/dl Hemoglobin A1c (4.5-5.6) % Calcium 7.9 L (8.6-10.3) mg/dl Phosphorus 1.7 L (2.5-4.9) mg/dl Magnesium 1.6 L (1.7-2.4) mg/dl Total Bilirubin (0.2-1.0) mg/dl Total Protein (6.0-8.3) gm/dl Albumin (3.4-5.0) gm/dl Globulin (2.5-4.0) gm/dl 03/20/24 03/20/24 03/20/24 Range/Units 02:22 03:06 04:04 RBC 4.33 L (4.70-6.10) M/uL Hgb 12.7 L D (14.0-18.0) g/dl Hct 36.9 L (42.0-52.0) % [place] # (Auto) 0.88 H (0.11-0.59) K/uL VBG pH 7.45 H (7.36-7.41) VBG pCO2 34 L (38-50) mmHg Sodium 132 L (136-145) mmol/L Carbon Dioxide (21-32) mmol/L Anion Gap (3-11) Creatinine (0.6-1.4) mg/dl BUN/Creatinine Ratio 21.9 H (10-20) Glucose 256 H (70-99(Fasting)) mg/dl POC Glucose 232 H 212 H (70-99) mg/dl Hemoglobin A1c (4.5-5.6) % Calcium 7.7 L (8.6-10.3) mg/dl Phosphorus 2.4 L (2.5-4.9) mg/dl Magnesium (1.7-2.4) mg/dl Total Bilirubin 1.6 H (0.2-1.0) mg/dl Total Protein 5.5 L D (6.0-8.3) gm/dl Albumin 3.2 L (3.4-5.0) gm/dl Globulin 2.3 L (2.5-4.0) gm/dl 03/20/24 03/20/24 03/20/24 Range/Units 05:06 05:35 05:37 RBC (4.70-6.10) M/uL Hgb (14.0-18.0) g/dl Hct (42.0-52.0) % [place] # (Auto) (0.11-0.59) K/uL VBG pH 7.43 H (7.36-7.41) VBG pCO2 34 L (38-50) mmHg Sodium 134 L (136-145) mmol/L Carbon Dioxide (21-32) mmol/L Anion Gap (3-11) Creatinine 0.57 L (0.6-1.4) mg/dl BUN/Creatinine Ratio 21.1 H (10-20) Glucose 215 H (70-99(Fasting)) mg/dl POC Glucose 208 H (70-99) mg/dl Hemoglobin A1c 7.5 H (4.5-5.6) % Calcium 7.5 L (8.6-10.3) mg/dl Phosphorus (2.5-4.9) mg/dl Magnesium (1.7-2.4) mg/dl Total Bilirubin (0.2-1.0) mg/dl Total Protein (6.0-8.3) gm/dl Albumin (3.4-5.0) gm/dl Globulin (2.5-4.0) gm/dl 03/20/24 03/20/24 03/20/24 Range/Units 07:04 08:02 08:59 RBC (4.70-6.10) M/uL Hgb (14.0-18.0) g/dl Hct (42.0-52.0) % [place] # (Auto) (0.11-0.59) K/uL VBG pH (7.36-7.41) VBG pCO2 (38-50) mmHg Sodium (136-145) mmol/L Carbon Dioxide (21-32) mmol/L Anion Gap (3-11) Creatinine (0.6-1.4) mg/dl BUN/Creatinine Ratio (10-20) Glucose (70-99(Fasting)) mg/dl POC Glucose 177 H 152 H 140 H (70-99) mg/dl Hemoglobin A1c (4.5-5.6) % Calcium (8.6-10.3) mg/dl Phosphorus (2.5-4.9) mg/dl Magnesium (1.7-2.4) mg/dl Total Bilirubin (0.2-1.0) mg/dl Total Protein (6.0-8.3) gm/dl Albumin (3.4-5.0) gm/dl Globulin (2.5-4.0) gm/dl 03/20/24 03/20/24 Range/Units 10:02 11:18 RBC (4.70-6.10) M/uL Hgb (14.0-18.0) g/dl Hct (42.0-52.0) % [place] # (Auto) (0.11-0.59) K/uL VBG pH (7.36-7.41) VBG pCO2 (38-50) mmHg Sodium (136-145) mmol/L Carbon Dioxide (21-32) mmol/L Anion Gap (3-11) Creatinine (0.6-1.4) mg/dl BUN/Creatinine Ratio (10-20) Glucose (70-99(Fasting)) mg/dl POC Glucose 165 H 219 H (70-99) mg/dl Hemoglobin A1c (4.5-5.6) % Calcium (8.6-10.3) mg/dl Phosphorus (2.5-4.9) mg/dl Magnesium (1.7-2.4) mg/dl Total Bilirubin (0.2-1.0) mg/dl Total Protein (6.0-8.3) gm/dl Albumin (3.4-5.0) gm/dl Globulin (2.5-4.0) gm/dl PG Care Time/CCT Total # of Minutes Spent Total Time Spent with Patient: Total time spent is greater than 50% in coordination of care (as documented) at patient's floor/unit and/or counseling patient: Coding Level of Care Code 81961 SUB INP/OBS CARE MIN Diagnoses Alcoholic ketoacidosis E87.29 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 E10.3299 Diabetic ketoacidosis without coma associated with type 1 diabetes mellitus E10.10 Diabetes mellitus type: type 1 Diabetes mellitus complication detail: without coma Mixed hyperlipidemia E78.2 Hyperlipidemia type: mixed hyperlipidemia Alcohol withdrawal F10.239 (3) DKA (diabetic ketoacidosis) Diabetes mellitus type: type 1 Diabetes mellitus complication detail: without coma Qualified Code(s): E10.10 - Type 1 diabetes mellitus with ketoacidosis without coma (4) HLD (hyperlipidemia) Hyperlipidemia type: mixed hyperlipidemia Qualified Code(s): E78.2 - Mixed hyperlipidemia
[2024-03-21] MEDS ORDERED: PHENobarbitaL 30 MG TAB PO SCH ×2 (04:45→08:30)
[2024-03-21 07:23] LABS: Basophils # (auto) 0.03 K/uL (0.00-0.20); Basophils % (auto) 0.5 %; Eosinophils # (auto) 0.02 K/uL (0.00-0.50); Eosinophils % (auto) 0.4 %; Hematocrit (blood only) 41.7 % (42.0-52.0); Hemoglobin 14.5 g/dl (14.0-18.0); Immature Granulocytes # (auto) 0.01 K/uL (0.01-0.20); Immature Granulocytes % (auto) 0.2 %; Lymphocytes # (auto) 1.63 K/uL (1.20-3.40); Lymphocytes % (auto) 28.8 %; Mean Corpuscular Hemoglobin 29.8 pg (25.0-34.0); Mean Corpuscular Hgb Conc 34.8 g/dL (32.0-36.0); Mean Corpuscular Volume 85.6 fL (80.0-100.0); Mean Platelet Volume 9.6 fL (9.4-12.4); Monocytes # (auto) 0.58 K/uL (0.11-0.59); Monocytes % (auto) 10.2 %; Neutrophils # (auto) 3.39 K/uL (1.40-6.50); Neutrophils % (auto) 59.9 %; Platelet Count 226 K/uL (130-400); RDW Coefficient of Variation 13.5 % (11.5-14.5); RDW Standard Deviation 42.4 fL (36.4-46.3); Red Blood Count 4.87 M/uL (4.70-6.10); White Blood Count 5.66 K/ul (4.8-10.8)
[2024-03-21 07:39] LABS: Albumin Globulin Ratio 1.1 (0.9-2); Albumin Level 3.3 gm/dl (3.4-5.0); BUN Creatinine Ratio 14.3 (10-20); Bilirubin,Total 1.7 mg/dl (0.2-1.0); Calcium 8.5 mg/dl (8.6-10.3); Creatinine Clr Calc Pharmacy 143.1 ml/min; Est GFR (African American) 132.1 ml/min; Globulin 2.9 gm/dl (2.5-4.0); Potassium 3.8 mmol/L (3.5-5.1); Total Protein 6.2 gm/dl (6.0-8.3)
[2024-03-21] MEDS ORDERED: THIAMINE HCL 100 MG in SYRINGE 9 ML IV SCH (09:00)
[2024-03-21] MEDS: PHENobarbitaL 30 MG TAB PO SCH (11:14)
--- NOTE | 2024-03-21 13:18 | Hospitalist Progress Note ---
Date of Service March 21, 2024 Assessment & Plan (1) Alcoholic ketoacidosis: Plan: Ketoacidosis resolved Insulin drip discontinued Patient is back on his insulin pump He is feeling well overall, clinically improved Tolerating diet (2) 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: (3) DKA (diabetic ketoacidosis): (4) HLD (hyperlipidemia): (5) Alcohol withdrawal: Plan: Patient has been trying to self taper his alcohol intake. Last drink 6/5 He is willing to continue to undergo a alcohol abstinence in a supervised setting Continue phenobarb taper course Plan Chronic issues: HTN:Hypertensive HLD: Atorvastatin continued DVT prophylaxis: Heparin CODE STATUS: Full code Likely discharge tomorrow Admission and Anticipated Discharge Date Admission Date: March 19, 2024 Subjective Patient feels well. Denies chest pain or shortness of breath. Review of Systems Review of Systems: All systems reviewed & are unremarkable except as noted in Subjective Physical Exam Physical Exam: General: Awake, conversant Heart: S1, S2/regular rate and rhythm, no murmur rubs or gallops Lungs: Clear to auscultation bilaterally. Normal effort Abdomen: Soft/nontender/nondistended. No hepatosplenomegaly Extremities: No clubbing/cyanosis. No edema Behavior: Appropriate, cooperative Results & Data Results & Data Vital Signs (Past 12 Hours) Vital Signs Temp Pulse Pulse Resp BP BP Pulse Ox 03/21/24 12:00 36.9 C 79 18 152/93 H 99 03/21/24 09:17 72 03/21/24 07:45 36.9 C 79 18 163/85 H 95 03/21/24 03:46 36.8 C 69 17 139/87 96 O2 Del Method 03/21/24 12:00 Room Air 03/21/24 09:17 03/21/24 07:45 Room Air 03/21/24 03:46 Room Air Laboratory Results Abnormal lab results 03/20/24 03/20/24 03/21/24 Range/Units 16:17 20:51 06:50 Hct 41.7 L (42.0-52.0) % Sodium 134 L (136-145) mmol/L Creatinine 0.56 L (0.6-1.4) mg/dl Glucose 110 H (70-99(Fasting)) mg/dl POC Glucose 259 H 210 H (70-99) mg/dl Calcium 8.5 L (8.6-10.3) mg/dl Total Bilirubin 1.7 H (0.2-1.0) mg/dl AST 66 H (13-39) U/L ALT 64 H (7-52) U/L Albumin 3.3 L (3.4-5.0) gm/dl 03/21/24 Range/Units 11:23 Hct (42.0-52.0) % Sodium (136-145) mmol/L Creatinine (0.6-1.4) mg/dl Glucose (70-99(Fasting)) mg/dl POC Glucose 183 H (70-99) mg/dl Calcium (8.6-10.3) mg/dl Total Bilirubin (0.2-1.0) mg/dl AST (13-39) U/L ALT (7-52) U/L Albumin (3.4-5.0) gm/dl PG Care Time/CCT Total # of Minutes Spent Total Time Spent with Patient: Total time spent is greater than 50% in coordination of care (as documented) at patient's floor/unit and/or counseling patient: Coding Level of Care Code 48997 SUB INP/OBS CARE 235MIN Diagnoses Alcoholic ketoacidosis E87.29 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 E10.3299 Diabetic ketoacidosis without coma associated with type 1 diabetes mellitus E10.10 Diabetes mellitus type: type 1 Diabetes mellitus complication detail: without coma Mixed hyperlipidemia E78.2 Hyperlipidemia type: mixed hyperlipidemia Alcohol withdrawal F10.239 (3) DKA (diabetic ketoacidosis) Diabetes mellitus type: type 1 Diabetes mellitus complication detail: without coma Qualified Code(s): E10.10 - Type 1 diabetes mellitus with ketoacidosis without coma (4) HLD (hyperlipidemia) Hyperlipidemia type: mixed hyperlipidemia Qualified Code(s): E78.2 - Mixed hyperlipidemia
[2024-03-21] MEDS: lisinopril 10 MG TAB PO SCH (20:39)
[2024-03-21] MEDS: ATORVASTATIN 40 MG TAB PO SCH (20:40)
[2024-03-22] MEDS ORDERED: PHENobarbitaL 30 MG TAB PO SCH ×3 (04:45→23:00)
[2024-03-22 08:02] LABS: Basophils # (auto) 0.02 K/uL (0.00-0.20); Basophils % (auto) 0.3 %; Eosinophils # (auto) 0.04 K/uL (0.00-0.50); Eosinophils % (auto) 0.6 %; Hematocrit (blood only) 43.9 % (42.0-52.0); Immature Granulocytes # (auto) 0.02 K/uL (0.01-0.20); Immature Granulocytes % (auto) 0.3 %; Lymphocytes # (auto) 1.37 K/uL (1.20-3.40); Lymphocytes % (auto) 20.1 %; Mean Corpuscular Hemoglobin 29.5 pg (25.0-34.0); Mean Corpuscular Hgb Conc 34.2 g/dL (32.0-36.0); Mean Corpuscular Volume 86.2 fL (80.0-100.0); Monocytes # (auto) 0.58 K/uL (0.11-0.59); Monocytes % (auto) 8.5 %; Neutrophils # (auto) 4.77 K/uL (1.40-6.50); Neutrophils % (auto) 70.2 %; Platelet Count 238 K/uL (130-400); RDW Coefficient of Variation 13.4 % (11.5-14.5); RDW Standard Deviation 42.5 fL (36.4-46.3); Red Blood Count 5.09 M/uL (4.70-6.10)
[2024-03-22 08:14] LABS: Albumin Globulin Ratio 1.2 (0.9-2); Albumin Level 3.5 gm/dl (3.4-5.0); BUN Creatinine Ratio 25.4 (10-20); Bilirubin,Total 1.5 mg/dl (0.2-1.0); Creatinine Clr Calc Pharmacy 135.8 ml/min; Est GFR (African American) 129.3 ml/min; Est GFR (Non-African American) 111.6 ml/min; Potassium 3.8 mmol/L (3.5-5.1); Total Protein 6.5 gm/dl (6.0-8.3)
--- NOTE | 2024-03-22 09:07 | Discharge Summary ---
Date of Service March 22, 2024 Admission HPI Per Admitting Provider Hung is a 58-year-old male with past medical history of alcohol abuse, type 1 diabetes mellitus, hypothyroidism who was self tapering alcohol use down with recent use around 1 pint of liquor per day last drink evening of 03/18/2024 who developed nausea/vomiting day of admission and unable to tolerate p.o. intake. In the ER he is with a BSG of 131, but has a anion gap of 30 and a bicarb of 15. VBG/alcohol/osmolality not drawn PUking all night. Checked ketones last night, normal. +N/V. Denies polyuria Denies abdominal pain Was normal 2 days ago No fevers, chills, or sweats. Did feel hot/cold overnight. No cough. No congestion. No diarrhea or constipation Other than DM takes a statin and blood pressure medicines. Both of these have been doing well Normally atkes 35-40 units total per day. Has an insulin pump. No malfunctions or issues lately. Is currently running at basal rate of .95/hr. ETOH: Normally drinks 1/2-1 pint of whiskey per day for 'years'. No hx of liver problems. In the last 3-4 days has been tapering down to 2-3 shots yesterday and none the day before. Has had shakes before, but never had diagnosed withdrawal or seizures. Medical History: Reviewed Medications: Reviewed Surgical History: Reviewed Family history: Reviewed Allergies: Reviewed. Unknown if allergic to PCN, pt has never got it but is concerned due to strong family history Social History: ETOH as noted. No tobacco. Occasional marijuana use. Code Status: Full Admission Exam Per Admitting Provider General: A&Ox3. NAD. Cooperative. HEENT: Atraumatic, normocephalic. Vision and hearing grossly intact Pulm: CTAB A&P. -wheezes, -rales, -rhonchi. Symmetrical chest rise. No increased work of breathing. No respiratory distress. Cardiac: Regular, tachycardic. Radial pulses intact and symmetrical. Abdominal: Trace epigastric tenderness to palpation, nondistended, soft. BS present. Extremities: Slight resting tremor. Warm, diaphoretic. Distal extremity strength and sensation are grossly intact Principal Diagnosis Alcoholic ketoacidosis versus diabetic ketoacidosis Alcohol withdrawal Type 1 diabetes Discharge Exam General: Awake, conversant Heart: S1, S2/regular rate and rhythm, no murmur rubs or gallops Lungs: Clear to auscultation bilaterally. Normal effort Abdomen: Soft/nontender/nondistended. No hepatosplenomegaly Extremities: No clubbing/cyanosis. No edema Behavior: Appropriate, cooperative Discharge Data Allergies Allergy/AdvReac Type Severity Reaction Status Date / Time Penicillins Allergy Unknown STRONG Verified 01/15/23 11:07 FAMILY HX Consultations 03/19/24 13:43 ED Decision to Admit Stat Ordered Studies 03/19/24 11:51 CT abd pelvis IV con only Stat Hospital Course (1) Alcoholic ketoacidosis: Ketoacidosis resolved after being treated with IV fluids and insulin drip. Insulin drip discontinued Patient is back on his insulin pump He is feeling well overall, clinically improved Tolerating diet (2) 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: (3) DKA (diabetic ketoacidosis): (4) HLD (hyperlipidemia): (5) Alcohol withdrawal: Patient has been trying to self taper his alcohol intake. Last drink 03/18 He is willing to continue to undergo a alcohol abstinence in a supervised setting He was put on a phenobarbital taper course. Last dose tonight. He is going home with a single dose prescribed Plan Chronic issues: HTN:Hypertensive HLD: Atorvastatin continued Discharge today Total Time Total Time Spent Total Time Spent (In Minutes): 35 Discharge Plan Discharge Items Patient Disposition: Home - Self-Care Reason For Visit: ETOH WITHDRAWAL, D1DM+ KETOSIS Discharge Diagnosis: Alcoholic ketoacidosis versus diabetic ketoacidosis Alcohol withdrawal Type 1 diabetes Activity: Resume your previous activity Non-emergency contact: Primary Care Provider Call non-emergency contact if: you have any medication questions and your symptoms worsen Follow-up/Referrals: Claudio Dumont PA-C [Primary Care Provider] - Diet: Carb Count or DM1 Addtl Attending Provider Instructions: Advised to follow-up with PCP in 1 week Pending Studies at Discharge: No Stand-Alone Forms: My [employer], Work/School Release Medications and DC Order Prescriptions: New phenobarbital 30 mg tablet 30 mg PO ONCE Qty: 1 0RF Rx Instructions: Take 1 tab at 10pm 03/22 Continued (DME) Accu-Chek Guide test strips Strip See Rx Instructions .Route Qty: 450 3RF Rx Instructions: test blood sugar 5 x daily lisinopril 10 mg tablet 10 mg PO HS Qty: 90 1RF atorvastatin 40 mg tablet 40 mg PO HS Qty: 90 3RF insulin aspart U-100 [Novolog U-100 Insulin aspart] 100 unit/mL solution See Rx Instructions .ROUTE .COMPLEX MDD 50 units Qty: 50 1RF Rx Instructions: Infuse via insulin pump up to 50 units per day; Saccharomyces boulardii [Daily Probiotic (S. boulardii)] 1 ea PO DAILY Rx Instructions: otc unable to verify omega-3 fatty acids [Fish Oil Concentrate] 1 cap PO DAILY Rx Instructions: otc unable to verify sildenafil 50 mg tablet 25 mg PO DAILY PRN (Reason: sexual activity) Rx Instructions: administer 30 minutes to 4 hours before activity; if unsuccessful with half tablet and can remaining half; do not take more then 50 mg in one day. (DME) lancets 33 gauge misc See Rx Instructions .ROUTE .MEDSUPPLY Qty: 500 3RF Rx Instructions: test 5 times daily oryx-khvho-fsk-D3-hyal-rafat bor 750 mg-100 mg- 25 mcg tablet 1 tab PO DAILY Rx Instructions: otc unable to verify multivitamin Tablet 1 tab PO HS Rx Instructions: otc unable to verify paroxetine HCl [Paxil] 20 mg Tablet 20 mg PO HS aspirin [Jose Alfredo Low Dose Aspirin] 81 mg Tablet,Delayed Release (Dr/Ec) 81 mg PO DAILY Rx Instructions: otc unable to verify insulin aspart U-100 [Novolog FlexPen U-100 Insulin] 100 unit/mL (3 mL) insulin pen 40 unit subcut UD PRN (Reason: pump failure) Rx Instructions: Not on record with pharmacy 40 units daily prn in case of pump failure Discharge Orders: Discharge Order (Routine); Ordered 03/22/24 Ordered By: Amish Dorantes/Other Patient Handouts: Alcoholism: Getting Help Admission Data Admit Date/Time: 03/19/24 14:52 Attending Provider: Amish Loja Admit Provider: William Evans Primary Care Provider: Claudio Dumont Other Providers: William Evans Other Interventions: Discharge Summary Assessment (RN) Last Done: 03/22/24 11:23 Coding Level of Care Code 42448 INP/OBS DISCH >30 MIN Diagnoses Alcoholic ketoacidosis E87.29 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 E10.3299 Diabetic ketoacidosis without coma associated with type 1 diabetes mellitus E10.10 Diabetes mellitus complication detail: without coma Diabetes mellitus type: type 1 Mixed hyperlipidemia E78.2 Hyperlipidemia type: mixed hyperlipidemia Alcohol withdrawal F10.239
[2024-03-23] MEDS ORDERED: PHENobarbitaL 30 MG TAB PO SCH (16:45)
== END 2024-03-22 12:23 | disposition home or self-care (01) | DRG 896 ==
LOC: ED 11:32 → 2E 14:52 → SUATTDRO 14:52 → 2E 16:21 → 3E 03-21 17:23

== ENCOUNTER 2025-08-26 19:32 | Inpatient (IN) ==
[2025-08-26] MEDS: SODIUM CHLORIDE 0.9% 1,000 ML IV ONE ×2 (19:51→23:11)
[2025-08-26 20:00] LABS: Base Excess VBG -1.2 mEq/L; HCO3 VBG 19 mmol/L; Oxygen Saturation VBG 65.7 %; PCO2 VBG 22 mmHg (38-50); PO2 VBG 39 mmHg; pH VBG 7.55 (7.36-7.41)
[2025-08-26 20:05] LABS: Hematocrit (blood only) 48.0 % (42.0-52.0); Hemoglobin 17.2 g/dL (14.0-18.0); Immature Granulocytes # (auto) 0.02 K/uL (0.01-0.20); Immature Granulocytes % (auto) 0.2 %; Mean Corpuscular Hemoglobin 30.0 pg (25.0-34.0); Mean Corpuscular Volume 83.6 fL (80.0-100.0); Platelet Count 335 K/uL (130-400); RDW Standard Deviation 42.3 fL (36.4-46.3); Red Blood Count 5.74 M/uL (4.70-6.10); White Blood Count 9.54 K/ul (4.8-10.8)
[2025-08-26] MEDS: LORazepam 1 MG TAB SL STA (20:19)
[2025-08-26 20:21] LABS: Alanine Aminotransferase 45.0 U/L (7-52); Albumin Globulin Ratio 1.3 (0.9-2); Albumin Level 4.5 gm/dl (3.4-5.0); Alkaline Phosphatase 86.0 U/L (34-104); Anion Gap 22.0 (3-11); Bilirubin,Total 2.2 mg/dl (0.2-1.0); Blood Urea Nitrogen 17.0 mg/dl (6-23); Calcium 10.2 mg/dl (8.6-10.3); Carbon Dioxide 18.0 mmol/L (21-32); Chloride 96.0 mmol/L (98-107); Creatinine Clr Calc Pharmacy 115.8 ml/min; Globulin 3.4 gm/dl (2.5-4.0); Glucose 205.0 mg/dl (70-99(Fasting)); Magnesium 1.3 mg/dl (1.7-2.4); Potassium 3.9 mmol/L (3.5-5.1); Sodium 136.0 mmol/L (136-145); Total Protein 7.9 gm/dl (6.0-8.3)
[2025-08-26 20:35] LABS: Lipase 9.0 U/L (11-82)
[2025-08-26] MEDS: OPTIRAY 320 100ml IV ONE (20:53)
[2025-08-26 22:17] LABS: Appearance Urine Clear (Clear); Glucose Urine UA Trace (Negative)
--- NOTE | 2025-08-27 00:15 | CT Scan Report ---
Exam(s): CT ABDOMEN + PELVIS With Contrast IV Amt: 93 ml optiray 320 EXAM: CT Abdomen and Pelvis With Intravenous Contrast CLINICAL HISTORY: Reason for exam: abd pain nv. TECHNIQUE: Axial computed tomography images of the abdomen and pelvis with intravenous contrast. CTDI is 17.94 mGy and DLP is 846.8 mGy-cm. Automated exposure control was utilized for the study. A dose lowering technique was utilized adhering to the principles of ALARA. CONTRAST: Patient received 93 ml optiray 320 of IV contrast COMPARISON: CT abdomen pelvis 04/30/2024. FINDINGS: Lung bases: Clear. Liver: Fatty. Gallbladder and bile ducts: Normal gallbladder. No ductal dilation. Pancreas: No ductal dilation, or acute pancreatitis. Spleen: Unremarkable. Adrenals: Unremarkable. Kidneys and ureters: No pyelonephritis or hydronephrosis. Stomach and bowel: Moderate fecal loading/impaction in the rectum. Mild fecal burden in the remaining colon. Diverticulosis without acute diverticulitis. No obstruction. Appendix: No acute appendicitis. Intraperitoneal space: No free air or fluid. Bones/joints: No acute fracture. Soft tissues: Unremarkable. Vasculature: No aortic aneurysm. Lymph nodes: No enlarged lymph nodes. Bladder: Wall thickening, nonspecific, and stable, correlate for cystitis. Reproductive: High-riding right testicle, stable. IMPRESSION: 1. Suspicious for cystitis, correlate clinically. 2. Fecal loading/fecal impaction in the rectum, without obvious proctitis. 3. Diverticulosis without definite acute diverticulitis. Electronically signed by: Katheryn Key M.D. 08/27/25 00:14 AM
--- NOTE | 2025-08-27 00:40 | Emergency Department Note ---
History of Present Illness General Chief complaint: Hyperglycemia Stated complaint: DIABETIC, HIGH KETONES, HYPERGLYCEMIA, NAUSEOUS Time Seen by Provider: 08/26/25 20:08 History of Present Illness Provider complaint: Nausea high blood sugar 59-year-old insulin-dependent diabetic male who is an alcoholic presents emergency department for nausea vomiting and high blood sugar. Patient reports he noticed he was feeling very nauseous today and having vomiting. Reports no hematemesis coffee-ground emesis or bilious vomiting. Patient states his blood sugars have been running in the 200s. Patient states he tested his urine and there were lots of ketones in it. He denies any fever. He reports mild abdominal pain. Denies any chest pain or difficulty breathing. No melena hematochezia. No hematuria or dysuria. Home Medications Medication Instructions Recorded Confirmed Type multivitamin 1 tab PO HS 03/13/19 08/27/25 History lancets 33 gauge #500 ea 10/26/19 08/27/25 Rx aspirin 81 mg tablet,delayed 81 mg PO HS 11/10/20 08/27/25 History release (Jose Alfredo Low Dose Aspirin) sildenafil 50 mg tablet 25 mg PO DAILY PRN sexual activity 01/15/23 08/27/25 History insulin aspart U-100 100 unit/mL 35 unit subcut UD PRN pump failure 03/19/24 08/27/25 History (3 mL) subcutaneous pen (Novolog FlexPen U-100 Insulin aspart) glucagon 3 mg/actuation nasal spray 3 mg intranasal ONCE PRN For low 04/02/24 08/27/25 Rx blood sugar #2 ea acetone (urine) test (Ketone Urine #100 ea 04/08/24 08/27/25 Rx Test strips) blood sugar diagnostic (Accu-Chek #450 ea 11/13/24 08/27/25 Rx Guide test strips) atorvastatin 40 mg tablet 40 mg PO HS #90 tabs 12/14/24 08/27/25 Rx Lactobacillus acidophilus 10 10,000 mmu cells PO HS 05/07/25 08/27/25 History billion cell capsule (Probiotic) lisinopril 20 mg tablet 20 mg PO HS #90 tabs 08/16/25 08/27/25 Rx subcutaneous insulin pump 08/16/25 08/27/25 History insulin aspart U-100 100 unit/mL 1 sliding scale dose continuous 08/27/25 08/27/25 History subcutaneous solution (Novolog subcutaneous infusion UD U-100 Insulin aspart) naltrexone 50 mg tablet 50 mg PO HS 08/27/25 08/27/25 History paroxetine HCl 10 mg tablet 10 mg PO HS 08/27/25 08/27/25 History Allergies Allergy/AdvReac Type Severity Reaction Status Date / Time Penicillins Allergy Unknown STRONG Verified 08/16/25 14:24 FAMILY HX Past Med/Surg History Problem List (Updated 08/27/25 @ 02:05 by Douglas Dick MD) DKA (diabetic ketoacidosis) (Acute) Hypertension Transaminitis Hyponatremia Alcohol abuse (Acute) Vomiting (Acute) 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 Abnormal thyroid function test Erectile dysfunction Hypophosphatemia Subclinical hyperthyroidism Alcoholism /alcohol abuse (Acute) Insulin pump in place Abnormal LFTs (liver function tests) Type 1 diabetes mellitus (Acute) Hyperthyroidism Anxiety HLD (hyperlipidemia) Pain in right knee (Acute) Medical History DKA (diabetic ketoacidosis) (10/2020) Lactic acidosis EVE (acute kidney injury) DKA (diabetic ketoacidoses) (07/2019) Atypical angina Dyslipidemia Surgical History Hx of vasectomy Family History Father Myocardial infarction Uncle Diabetes Social History Smoking Status: Never smoker Second Hand Exposure: No; Do You Dip or Chew Tobacco: No; Hx Alcohol Use: Yes Alcohol type: hard liquor Alcohol Intake Frequency: 4 or More x per/Week Hx Substance Use: No Preferred Language: Belarusian Communication Ability: Effective Bowstring Maker Required: No Beliefs That Will Affect Care: None marital status: Current Living Situation: Spouse Feels Safe at Home: Yes Assistive Devices: None Physical Exam Vital Signs Vital Signs - 24 hr 08/26/25 19:37 08/26/25 19:41 08/26/25 20:22 Temperature 36.4 C L Temperature Source Oral Pulse Rate 100 H 91 H Pulse Rate from SpO2 Sensor Respiratory Rate 20 Respiratory Effort / Characteristics Non-Labored Spontaneous Non-Labored Respiratory Depth Normal Normal Respiratory Pattern Regular Blood Pressure 156/99 H Blood Pressure Mean 118 Pulse Oximetry 99 Oxygen Delivery Method Room Air Sepsis Recent Fever Within 48 Hours No Sepsis New/Unexplained Change in Mental Status N/A Sepsis Action Taken by Nursing No Action Required 08/26/25 20:22 08/26/25 20:22 08/26/25 20:22 Temperature Temperature Source Pulse Rate Pulse Rate from SpO2 Sensor Respiratory Rate Respiratory Effort / Characteristics Respiratory Depth Respiratory Pattern Blood Pressure 157/98 H 157/98 H 157/98 H Blood Pressure Mean 115 115 115 Pulse Oximetry Oxygen Delivery Method Sepsis Recent Fever Within 48 Hours Sepsis New/Unexplained Change in Mental Status Sepsis Action Taken by Nursing 08/26/25 20:22 08/26/25 20:24 08/26/25 20:30 Temperature Temperature Source Pulse Rate 97 H 92 H Pulse Rate from SpO2 Sensor 93 H 93 H Respiratory Rate 16 15 Respiratory Effort / Characteristics Respiratory Depth Respiratory Pattern Blood Pressure 157/98 H Blood Pressure Mean 115 Pulse Oximetry 99 99 Oxygen Delivery Method Sepsis Recent Fever Within 48 Hours Sepsis New/Unexplained Change in Mental Status Sepsis Action Taken by Nursing 08/26/25 20:45 08/26/25 21:00 08/26/25 21:12 Temperature Temperature Source Pulse Rate 83 95 H 93 H Pulse Rate from SpO2 Sensor 83 96 H 92 H Respiratory Rate 15 15 15 Respiratory Effort / Characteristics Respiratory Depth Respiratory Pattern Blood Pressure Blood Pressure Mean Pulse Oximetry 100 99 98 Oxygen Delivery Method Sepsis Recent Fever Within 48 Hours Sepsis New/Unexplained Change in Mental Status Sepsis Action Taken by Nursing 08/26/25 21:21 08/26/25 21:30 08/26/25 21:42 Temperature Temperature Source Pulse Rate 95 H 99 H 100 H Pulse Rate from SpO2 Sensor 96 H 101 H 102 H Respiratory Rate 13 18 13 Respiratory Effort / Characteristics Respiratory Depth Respiratory Pattern Blood Pressure Blood Pressure Mean Pulse Oximetry 98 97 98 Oxygen Delivery Method Sepsis Recent Fever Within 48 Hours Sepsis New/Unexplained Change in Mental Status Sepsis Action Taken by Nursing 08/26/25 22:03 08/26/25 22:12 08/26/25 22:21 Temperature Temperature Source Pulse Rate 101 H 101 H 104 H Pulse Rate from SpO2 Sensor 101 H 101 H 104 H Respiratory Rate 18 17 19 Respiratory Effort / Characteristics Respiratory Depth Respiratory Pattern Blood Pressure Blood Pressure Mean Pulse Oximetry 97 97 96 Oxygen Delivery Method Sepsis Recent Fever Within 48 Hours Sepsis New/Unexplained Change in Mental Status Sepsis Action Taken by Nursing 08/26/25 22:30 08/26/25 22:42 08/26/25 22:51 Temperature Temperature Source Pulse Rate 106 H 106 H 110 H Pulse Rate from SpO2 Sensor 104 H 106 H 110 H Respiratory Rate 18 19 15 Respiratory Effort / Characteristics Respiratory Depth Respiratory Pattern Blood Pressure Blood Pressure Mean Pulse Oximetry 97 98 99 Oxygen Delivery Method Sepsis Recent Fever Within 48 Hours Sepsis New/Unexplained Change in Mental Status Sepsis Action Taken by Nursing 08/26/25 23:00 08/26/25 23:12 08/26/25 23:21 Temperature Temperature Source Pulse Rate 116 H 110 H 113 H Pulse Rate from SpO2 Sensor 116 H 111 H 113 H Respiratory Rate 21 16 16 Respiratory Effort / Characteristics Respiratory Depth Respiratory Pattern Blood Pressure Blood Pressure Mean Pulse Oximetry 99 100 100 Oxygen Delivery Method Sepsis Recent Fever Within 48 Hours Sepsis New/Unexplained Change in Mental Status Sepsis Action Taken by Nursing 08/27/25 00:27 Temperature Temperature Source Pulse Rate 120 H Pulse Rate from SpO2 Sensor Respiratory Rate Respiratory Effort / Characteristics Respiratory Depth Respiratory Pattern Blood Pressure Blood Pressure Mean Pulse Oximetry Oxygen Delivery Method Sepsis Recent Fever Within 48 Hours Sepsis New/Unexplained Change in Mental Status Sepsis Action Taken by Nursing Physical Exam GENERAL: oriented to person, place, and time. appears well-developed and well- nourished. She does not appear distressed. HENT: Exam performed. -Head: Normocephalic and atraumatic. -Right Ear: External ear normal. No mastoid erythema -Left Ear: External ear normal. No mastoid erythema -Mouth/Throat: The oropharynx is clear and moist. No trismus in the jaw. No dental abscesses or uvula swelling. No oropharyngeal exudate or tonsillar abscesses. EYES: Conjunctivae and EOM are normal.Right eye exhibits no discharge. Left eye exhibits no discharge. No scleral icterus. NECK: Normal range of motion. Neck supple. No JVD present. No tracheal deviation and normal range of motion present. CV: Normal rate, regular rhythm, normal heart sounds and intact distal pulses. There is no peripheral edema. Palpable radial pulses bue. PULM/CHEST: Effort normal and breath sounds normal. No respiratory distress. No stridor. no wheezes.no rales. -Chest Wall: no tenderness to palpation ABD: The abdomen is soft. Insulin pump in place on the patient's anterior abdominal wall. No distension. No mass is present. There is no tenderness. There is no rebound, no guarding, no Tsai's sign and no tenderness at McBurney's point. Rovsig negative MUSC/SKEL: Normal range of motion. There is no peripheral edema, tenderness or deformity. NEURO: Motor and sensation grossly intact. SKIN: Skin is warm and dry. not diaphoretic. PSYCH: normal mood and affect. Behavior is normal. Judgment and thought content normal. Course Course 2007: The patient was evaluated in room B6. A complete history and physical exam was performed Cardiac monitoring: An order was placed for continuous cardiac monitoring. The monitor shows a rate of 100 with sinus rhythm interpreted by me Patient was told to unhook his insulin pump. I-STAT shows a glucose of 199 with a POC anion gap of 22. IV fluids started for the patient. 1238: Vital signs stable. Labs show white blood cell count 9.54 hemoglobin 17.2 VBG shows a venous pH of 7.55 pCO2 of 22 bicarb 19. Patient's glucose was 205. Anion gap was 22. Magnesium 1.3. Lipase 9. Urinalysis shows 3+ ketones. Alcohol less than 10. CT abdomen pelvis is unremarkable. Patient was given 2 L normal saline. Magnesium repletion started in the emergency department. Discussed case with Dr. Alexandra [facility] admitting team. We will repeat the patient's BMP and VBG and he will evaluate the patient. 0125: Vital signs stable. On reassessment patient is reading a book in no acute distress. Repeat labs show a VBG with a venous pH of 7.53, venous pCO2 17 venous pO2 74 venous bicarb 14. Glucose of 204. Anion gap went down to 18. Discussed case with Dr. Alexandra. Will obtain lactic acid procalcitonin and blood cultures on the patient. Patient is an alcoholic. Will also add on serum osmolality to make sure that the patient does not have any elevation in his osmolar gap to indicate any sort of toxic alcohol ingestion. Patient adamantly denies any toxic alcohol ingestion or ingestion of rubbing alcohol, when she wiper fluid, or antifreeze. Patient states his last drink of alcohol was yesterday. 0201: Vital signs stable. Patient's osmolar gap is 19. No concern for toxic alcohol ingestion at this time. Discussed case with admitting team, patient will be started on insulin drip 0.1 units/kg/h with no bolus. Patient will also be started on D5 normal saline with KCl at 100 cc an hour. Patient will be admitted to the [place]ist team Dr. Alexandra. Administered Medications Magnesium Sulfate/Dextrose (Magnesium Sulfate / D5w) 1 gm in 100 mls @ 100 mls/hr IV Q1H KIKI Stop: 08/27/25 02:27 Last Admin: 08/27/25 00:59 Dose: 100 mls/hr Documented By: CRISTHIAN Co-signed By: GREG Discontinued Medications Sodium Chloride (Nss) 1,000 mls @ 999 mls/hr IV .Q1H1M ONE Stop: 08/26/25 20:42 Last Admin: 08/26/25 19:51 Dose: 999 mls/hr Documented By: CHALO Sodium Chloride (Nss) 1,000 mls @ 999 mls/hr IV .Q1H1M ONE Stop: 08/26/25 23:13 Last Admin: 08/26/25 23:11 Dose: 999 mls/hr Documented By: GREG Ioversol (Optiray 320 100ml) 93 ml IV ONCE ONE Stop: 08/26/25 20:54 Last Admin: 08/26/25 20:53 Dose: 93 ml Documented By: DORA Lorazepam (Lorazepam 1 Mg Tab) 1 mg SL NOW STA Stop: 08/26/25 20:14 Last Admin: 08/26/25 20:19 Dose: 1 mg Documented By: GREG Critical Care Time Critical Care Time: Yes Total Critical Care Time: 59 I have personally spent greater than 59 minutes of critical care time in the direct management of this patient. This includes bedside care, interpretation of diagnostic studies, and testing, discussion with consultants, patient, and family members, and other required patient management activities. This 59 minutes is in excess of all separately billable procedures. Medical Decision Making Laboratory Data Attestation: I reviewed the patient's lab results. 08/26/25 19:45 08/27/25 00:21 Lab Results 08/26/25 08/26/25 08/26/25 Range/Units 19:40 19:45 19:56 WBC 9.54 (4.8-10.8) K/ul RBC 5.74 (4.70-6.10) M/uL Hgb 17.2 (14.0-18.0) g/dL POC Hgb 15.3 (14.0-18.0) g/dl Hct 48.0 (42.0-52.0) % POC Hct 45 (42-52) % MCV 83.6 (80.0-100.0) fL MCH 30.0 (25.0-34.0) pg MCHC 35.8 (32.0-36.0) g/dL RDW Std Deviation 42.3 (36.4-46.3) fL RDW Coeff of Dennise 13.9 (11.5-14.5) % Plt Count 335 (130-400) K/uL MPV 9.4 (9.4-12.4) fL Immature Gran % (Auto) 0.2 % Neut % (Auto) 83.9 % Lymph % (Auto) 11.0 % Bibb % (Auto) 4.5 % Eos % (Auto) 0.0 % Baso % (Auto) 0.4 % Neut # (Auto) 8.00 H (1.40-6.50) K/uL Lymph # (Auto) 1.05 L (1.20-3.40) K/uL Bibb # (Auto) 0.43 (0.11-0.59) K/uL Eos # (Auto) 0.00 (0.00-0.50) K/uL Baso # (Auto) 0.04 (0.00-0.20) K/uL Immature Gran # (Auto) 0.02 (0.01-0.20) K/uL VBG pH 7.55 H (7.36-7.41) VBG pCO2 22 L (38-50) mmHg VBG pO2 39 mmHg VBG HCO3 19 mmol/L VBG O2 Saturation 65.7 % VBG Base Excess -1.2 mEq/L POC Sodium 135 (135-144) mmol/L Sodium 136 (136-145) mmol/L POC Potassium 3.8 (3.3-5.0) mmol/L Potassium 3.9 (3.5-5.1) mmol/L POC Chloride 101 (101-112) mmol/L Chloride 96 L (98-107) mmol/L Carbon Dioxide 18 L (21-32) mmol/L POC Total CO2 19 L (24-31) mmol/L Anion Gap 22 H (3-11) POC Anion Gap 20.0 (16-25) mmol/L POC BUN 20 H (7-18) mg/dl BUN 17 (6-23) mg/dl Creatinine 0.62 (0.6-1.4) mg/dl POC Creatinine 0.6 (0.6-1.3) mg/dl Est Cr Clr Drug Dosing 115.8 ml/min eGFR 110.11 BUN/Creatinine Ratio 27.4 H (10-20) Glucose 205 H (70-99(Fasting)) mg/dl POC Glucose 167 H (70-99) mg/dl POC Glucose (other) 199 H (70-99) mg/dl Osmolality 298 (280-300) mOsm/kg Calcium 10.2 (8.6-10.3) mg/dl POC Ioniz Calcium Gwendolyn 1.04 L (1.12-1.32) mmol/l Magnesium 1.3 L (1.7-2.4) mg/dl Total Bilirubin 2.2 H (0.2-1.0) mg/dl AST 50 H (13-39) U/L ALT 45 (7-52) U/L Alkaline Phosphatase 86 (34-104) U/L Total Protein 7.9 (6.0-8.3) gm/dl Albumin 4.5 (3.4-5.0) gm/dl Globulin 3.4 (2.5-4.0) gm/dl Albumin/Globulin Ratio 1.3 (0.9-2) Lipase 9 L (11-82) U/L Urine Color Urine Appearance (Clear) Urine pH (4.5-7.5) Ur Specific [place] (1.000-1.030) Urine Protein (Negative) Urine Glucose (UA) (Negative) Urine Ketones (Negative) Urine Blood (Negative) Urine Nitrite (Negative) Urine Bilirubin (Negative) Urine Urobilinogen (Negative) Ur Leukocyte Esterase (Negative) Urine Comment Ethyl Alcohol mg/dL < 10.0 (<10.0) mg/dl 08/26/25 08/26/25 08/27/25 Range/Units 21:32 22:05 00:21 WBC (4.8-10.8) K/ul RBC (4.70-6.10) M/uL Hgb (14.0-18.0) g/dL POC Hgb (14.0-18.0) g/dl Hct (42.0-52.0) % POC Hct (42-52) % MCV (80.0-100.0) fL MCH (25.0-34.0) pg MCHC (32.0-36.0) g/dL RDW Std Deviation (36.4-46.3) fL RDW Coeff of Dennise (11.5-14.5) % Plt Count (130-400) K/uL MPV (9.4-12.4) fL Immature Gran % (Auto) % Neut % (Auto) % Lymph % (Auto) % Bibb % (Auto) % Eos % (Auto) % Baso % (Auto) % Neut # (Auto) (1.40-6.50) K/uL Lymph # (Auto) (1.20-3.40) K/uL Bibb # (Auto) (0.11-0.59) K/uL Eos # (Auto) (0.00-0.50) K/uL Baso # (Auto) (0.00-0.20) K/uL Immature Gran # (Auto) (0.01-0.20) K/uL VBG pH (7.36-7.41) VBG pCO2 (38-50) mmHg VBG pO2 mmHg VBG HCO3 mmol/L VBG O2 Saturation % VBG Base Excess mEq/L POC Sodium (135-144) mmol/L Sodium 137 (136-145) mmol/L POC Potassium (3.3-5.0) mmol/L Potassium 4.1 (3.5-5.1) mmol/L POC Chloride (101-112) mmol/L Chloride 102 (98-107) mmol/L Carbon Dioxide 17 L (21-32) mmol/L POC Total CO2 (24-31) mmol/L Anion Gap 18 H (3-11) POC Anion Gap (16-25) mmol/L POC BUN (7-18) mg/dl BUN 16 (6-23) mg/dl Creatinine 0.56 L (0.6-1.4) mg/dl POC Creatinine (0.6-1.3) mg/dl Est Cr Clr Drug Dosing 128.2 ml/min eGFR 113.54 BUN/Creatinine Ratio 28.6 H (10-20) Glucose 204 H (70-99(Fasting)) mg/dl POC Glucose 176 H (70-99) mg/dl POC Glucose (other) (70-99) mg/dl Osmolality (280-300) mOsm/kg Calcium 9.3 (8.6-10.3) mg/dl POC Ioniz Calcium Gwendolyn (1.12-1.32) mmol/l Magnesium (1.7-2.4) mg/dl Total Bilirubin (0.2-1.0) mg/dl AST (13-39) U/L ALT (7-52) U/L Alkaline Phosphatase (34-104) U/L Total Protein (6.0-8.3) gm/dl Albumin (3.4-5.0) gm/dl Globulin (2.5-4.0) gm/dl Albumin/Globulin Ratio (0.9-2) Lipase (11-82) U/L Urine Color Yellow Urine Appearance Clear (Clear) Urine pH 7.5 (4.5-7.5) Ur Specific [place] > 1.045 H (1.000-1.030) Urine Protein Negative (Negative) Urine Glucose (UA) Trace H (Negative) Urine Ketones 3+ H (Negative) Urine Blood Negative (Negative) Urine Nitrite Negative (Negative) Urine Bilirubin Negative (Negative) Urine Urobilinogen Negative (Negative) Ur Leukocyte Esterase Negative (Negative) Urine Comment Ethyl Alcohol mg/dL (<10.0) mg/dl 08/27/25 Range/Units 00:44 WBC (4.8-10.8) K/ul RBC (4.70-6.10) M/uL Hgb (14.0-18.0) g/dL POC Hgb (14.0-18.0) g/dl Hct (42.0-52.0) % POC Hct (42-52) % MCV (80.0-100.0) fL MCH (25.0-34.0) pg MCHC (32.0-36.0) g/dL RDW Std Deviation (36.4-46.3) fL RDW Coeff of Dennise (11.5-14.5) % Plt Count (130-400) K/uL MPV (9.4-12.4) fL Immature Gran % (Auto) % Neut % (Auto) % Lymph % (Auto) % Bibb % (Auto) % Eos % (Auto) % Baso % (Auto) % Neut # (Auto) (1.40-6.50) K/uL Lymph # (Auto) (1.20-3.40) K/uL Bibb # (Auto) (0.11-0.59) K/uL Eos # (Auto) (0.00-0.50) K/uL Baso # (Auto) (0.00-0.20) K/uL Immature Gran # (Auto) (0.01-0.20) K/uL VBG pH 7.53 H (7.36-7.41) VBG pCO2 17 L (38-50) mmHg VBG pO2 74 mmHg VBG HCO3 14 mmol/L VBG O2 Saturation 96.6 % VBG Base Excess -5.7 mEq/L POC Sodium (135-144) mmol/L Sodium (136-145) mmol/L POC Potassium (3.3-5.0) mmol/L Potassium (3.5-5.1) mmol/L POC Chloride (101-112) mmol/L Chloride (98-107) mmol/L Carbon Dioxide (21-32) mmol/L POC Total CO2 (24-31) mmol/L Anion Gap (3-11) POC Anion Gap (16-25) mmol/L POC BUN (7-18) mg/dl BUN (6-23) mg/dl Creatinine (0.6-1.4) mg/dl POC Creatinine (0.6-1.3) mg/dl Est Cr Clr Drug Dosing ml/min eGFR BUN/Creatinine Ratio (10-20) Glucose (70-99(Fasting)) mg/dl POC Glucose (70-99) mg/dl POC Glucose (other) (70-99) mg/dl Osmolality (280-300) mOsm/kg Calcium (8.6-10.3) mg/dl POC Ioniz Calcium Gwendolyn (1.12-1.32) mmol/l Magnesium (1.7-2.4) mg/dl Total Bilirubin (0.2-1.0) mg/dl AST (13-39) U/L ALT (7-52) U/L Alkaline Phosphatase (34-104) U/L Total Protein (6.0-8.3) gm/dl Albumin (3.4-5.0) gm/dl Globulin (2.5-4.0) gm/dl Albumin/Globulin Ratio (0.9-2) Lipase (11-82) U/L Urine Color Urine Appearance (Clear) Urine pH (4.5-7.5) Ur Specific [place] (1.000-1.030) Urine Protein (Negative) Urine Glucose (UA) (Negative) Urine Ketones (Negative) Urine Blood (Negative) Urine Nitrite (Negative) Urine Bilirubin (Negative) Urine Urobilinogen (Negative) Ur Leukocyte Esterase (Negative) Urine Comment Ethyl Alcohol mg/dL (<10.0) mg/dl Imaging Data Radiologist's Impression: Abdomen/Pelvis CT 08/26/25 20:33 Exam(s): CT ABDOMEN + PELVIS With Contrast IV Amt: 93 ml optiray 320 EXAM: CT Abdomen and Pelvis With Intravenous Contrast CLINICAL HISTORY: Reason for exam: abd pain nv. TECHNIQUE: Axial computed tomography images of the abdomen and pelvis with intravenous contrast. CTDI is 17.94 mGy and DLP is 846.8 mGy-cm. Automated exposure control was utilized for the study. A dose lowering technique was utilized adhering to the principles of ALARA. CONTRAST: Patient received 93 ml optiray 320 of IV contrast COMPARISON: CT abdomen pelvis 04/30/2024. FINDINGS: Lung bases: Clear. Liver: Fatty. Gallbladder and bile ducts: Normal gallbladder. No ductal dilation. Pancreas: No ductal dilation, or acute pancreatitis. Spleen: Unremarkable. Adrenals: Unremarkable. Kidneys and ureters: No pyelonephritis or hydronephrosis. Stomach and bowel: Moderate fecal loading/impaction in the rectum. Mild fecal burden in the remaining colon. Diverticulosis without acute diverticulitis. No obstruction. Appendix: No acute appendicitis. Intraperitoneal space: No free air or fluid. Bones/joints: No acute fracture. Soft tissues: Unremarkable. Vasculature: No aortic aneurysm. Lymph nodes: No enlarged lymph nodes. Bladder: Wall thickening, nonspecific, and stable, correlate for cystitis. Reproductive: High-riding right testicle, stable. IMPRESSION: 1. Suspicious for cystitis, correlate clinically. 2. Fecal loading/fecal impaction in the rectum, without obvious proctitis. 3. Diverticulosis without definite acute diverticulitis. Electronically signed by: Katheryn Key M.D. 08/27/25 00:14 AM MDM Narrative 2008: The patient was evaluated in room B6. A complete history and physical exam was performed Cardiac monitoring: An order was placed for continuous cardiac monitoring. The monitor shows a rate of 100 with sinus rhythm interpreted by me Patient was told to unhook his insulin pump. I-STAT shows a glucose of 199 with a POC anion gap of 22. IV fluids started for the patient. 1238: Vital signs stable. Labs show white blood cell count 9.54 hemoglobin 17.2 VBG shows a venous pH of 7.55 pCO2 of 22 bicarb 19. Patient's glucose was 205. Anion gap was 22. Magnesium 1.3. Lipase 9. Urinalysis shows 3+ ketones. Alcohol less than 10. CT abdomen pelvis is unremarkable. Patient was given 2 L normal saline. Magnesium repletion started in the emergency department. [facility] We will repeat the patient's BMP and VBG and he will evaluate the patient. 0125: Vital signs stable. On reassessment patient is reading a book in no acute distress. Repeat labs show a VBG with a venous pH of 7.53, venous pCO2 17 venous pO2 74 venous bicarb 14. Glucose of 204. Anion gap went down to 18. Discussed case with Dr. Alexandra. Will obtain lactic acid procalcitonin and blood cultures on the patient. Patient is an alcoholic. Will also add on serum osmolality to make sure that the patient does not have any elevation in his osmolar gap to indicate any sort of toxic alcohol ingestion. Patient adamantly denies any toxic alcohol ingestion or ingestion of rubbing alcohol, when she wiper fluid, or antifreeze. Patient states his last drink of alcohol was yesterday. 0201: Vital signs stable. Patient's osmolar gap is 19. No concern for toxic alcohol ingestion at this time. Discussed case with admitting team, patient will be started on insulin drip 0.1 units/kg/h with no bolus. Patient will also be started on D5 normal saline with KCl at 100 cc an hour. Patient will be admitted to the [facility] hospitalist team Dr. Alexandra. Impression & Plan DKA (diabetic ketoacidosis), Alcoholism /alcohol abuse Discharge Plan Visit Data Chief Complaint: Hyperglycemia Stated Complaint: DIABETIC, HIGH KETONES, HYPERGLYCEMIA, NAUSEOUS ED Provider: Douglas Dick Discharge Problem: DKA (diabetic ketoacidosis), Alcoholism /alcohol abuse Patient Disposition: Admitted As Inpatient Condition: Serious Forms Stand Alone Forms: My [facility] [employer] Prescriptions Prescriptions: No Action (DME) Ketone Urine Test Strip See Rx Instructions .Route Qty: 100 3RF Rx Instructions: once daily as needed to test for ketones when BS is elevated atorvastatin 40 mg tablet 40 mg PO HS Qty: 90 3RF sildenafil 50 mg tablet 25 mg PO DAILY PRN (Reason: sexual activity) Rx Instructions: administer 30 minutes to 4 hours before activity; if unsuccessful with half tablet and can remaining half; do not take more then 50 mg in one day. (DME) lancets 33 gauge misc See Rx Instructions .ROUTE .MEDSUPPLY Qty: 500 3RF Rx Instructions: test 5 times daily (DME) Accu-Chek Guide test strips Strip See Rx Instructions .Route Qty: 450 3RF Rx Instructions: test blood sugar 5 x daily (DME) subcutaneous insulin pump Misc See Rx Instructions .ROUTE Rx Instructions: As directed lisinopril 20 mg tablet 20 mg PO HS Qty: 90 1RF glucagon 3 mg/actuation spray,non-aerosol 3 mg intranasal ONCE PRN (Reason: For low blood sugar) Qty: 2 3RF multivitamin Tablet 1 tab PO HS aspirin [Jose Alfredo Low Dose Aspirin] 81 mg Tablet,Delayed Release (Dr/Ec) 81 mg PO HS insulin aspart U-100 [Novolog FlexPen U-100 Insulin] 100 unit/mL (3 mL) insulin pen 35 unit subcut UD PRN (Reason: pump failure) Rx Instructions: 35 units daily prn in case of pump failure Probiotic 10 billion cell Capsule 10,000 mmu cells PO HS naltrexone 50 mg tablet 50 mg PO HS insulin aspart U-100 [Novolog U-100 Insulin aspart] 100 unit/mL solution 1 sliding scale dose continuous subcutaneous infusion UD Rx Instructions: per pt around 35 units daily paroxetine HCl 10 mg tablet 10 mg PO HS Referrals Referrals: Joselo Bingham MD [Primary Care Provider] -
[2025-08-27] MEDS: MAGNESIUM SULFATE / D5W 1 GM/100 ML BAG IV SCH (00:59)
[2025-08-27 01:09] LABS: Anion Gap 18.0 (3-11); Blood Urea Nitrogen 16.0 mg/dl (6-23); Calcium 9.3 mg/dl (8.6-10.3); Carbon Dioxide 17.0 mmol/L (21-32); Chloride 102.0 mmol/L (98-107); Creatinine Clr Calc Pharmacy 128.2 ml/min; Glucose 204.0 mg/dl (70-99(Fasting)); Potassium 4.1 mmol/L (3.5-5.1); Sodium 137.0 mmol/L (136-145)
[2025-08-27 01:10] LABS: Base Excess VBG -5.7 mEq/L; HCO3 VBG 14 mmol/L; Oxygen Saturation VBG 96.6 %; PCO2 VBG 17 mmHg (38-50); PO2 VBG 74 mmHg; pH VBG 7.53 (7.36-7.41)
[2025-08-27] MEDS ORDERED: GLUCOSE 10 TAB/TUBE PO PRN (01:54)
[2025-08-27] MEDS ORDERED: GLUCOSE 40% GEL 15 GM TUBE PO PRN (01:54)
[2025-08-27] MEDS ORDERED: CARBOHYDRATES FOR HYPOGLYCEMIA PO PRN (01:54)
[2025-08-27] MEDS ORDERED: GLUCAGON FOR INJ 1 MG VIAL SQ PRN (01:54)
--- NOTE | 2025-08-27 02:11 | History & Physical Report ---
Date of Service August 27, 2025 Assessment & Plan (1) DKA (diabetic ketoacidosis): (2) Hypertension: (3) Transaminitis: (4) Vomiting: (5) Alcohol use disorder, mild, abuse: (6) Type 1 diabetes mellitus: (7) Anxiety: (8) HLD (hyperlipidemia): Plan 59 yo male PMHx T1DM, EtOH use disorder previously in remission with current relapse, HTN, HLD, subclinical hyperthyroidism, anxiety presented to [facility] for nausea, vomiting, and hyperglycemia. #DKA/T1DM DC pt home insulin pump Start insulin drip with D5 1/2NSS w/20mEq K+ Follow BMP q2h, BSG checks q1h When gap closes - transition to SQ insulin basal bolus w/ISS Pt reports using a total of ~35U insulin daily, this is congruous with his insulin pump interrogation by endocrine in 03/2025 (at that time was utilizing 39.6 total U insulin per day) Zofran PRN nausea certified diabetes educator consulted #Alkalemia Appears metabolic in nature No osmolar gap - unlikely toxic alcohol ingestion Follow VBG as electrolytes and glucose correct #EtOH Use Disorder Per endocrine notes, relapse dating back to 04/07 Unclear if periods of sobriety in between, currently with relapse Has been on naltrexone PO therapy Suspect low risk for withdraw, AWSS w/PRN Ativan ordered Thiamine and #Hypomagnesemia Trend mag, replete as indicated #HTN Continue lisinopril - if develops hyperkalemia, hold #HLD Continue statin and ASA #Anxiety Continue paroxetine FENGI: T1DM diet, fluids as above Code status: full code DVT prophylaxis: Lovenox Disposition: PCU, anticipate discharge 1-2 days pending clinical course History of Present Illness Primary Care Provider: Joselo Bingham MD 59 yo male PMHx T1DM, EtOH use disorder previously in remission with current relapse, HTN, HLD, subclinical hyperthyroidism, anxiety presented to [facility] for nausea, vomiting, and hyperglycemia. Over the last 5 days he reports consuming ~1/2 pint of liquor/day and progressively worsening glucose control. Today when he woke up he had episodes of nausea and vomiting. Reports no hematemesis, melena, or hematochezia. No chest pain, SOB. History of mild withdraw symptoms, never required hospitalization, no history of withdraw seizure. At the time of admission, the patient was resting comfortably. States that nausea had begun to subside. With some epigastric burning/gastritis,reflux symptoms. Continues to deny CP, SOB, diarrhea. ED Course: Labs reveal: no leukocytosis, no anemia, Mg2+ 1.3, otherwise no acute electrolyte abnormalities, VBG w/metabolic alkalosis, no osmolar gap, +urine ketones, -EtOH level CTAP reveals: ?cystitis, stool in rectum, diverticulosis without diverticulitis Started on insulin drip with D5 1/2NSS w/20mEq K+ Given 1x 1mg Ativan for anxiety Allergies Allergy/AdvReac Type Severity Reaction Status Date / Time Penicillins Allergy Unknown STRONG Verified 08/16/25 14:24 FAMILY HX Home Medications Medication Instructions Recorded Confirmed Type multivitamin 1 tab PO HS 03/13/19 08/27/25 History lancets 33 gauge #500 ea 10/26/19 08/27/25 Rx aspirin 81 mg tablet,delayed 81 mg PO HS 11/10/20 08/27/25 History release (Jose Alfredo Low Dose Aspirin) sildenafil 50 mg tablet 25 mg PO DAILY PRN sexual activity 01/15/23 08/27/25 History insulin aspart U-100 100 unit/mL 35 unit subcut UD PRN pump failure 03/19/24 08/27/25 History (3 mL) subcutaneous pen (Novolog FlexPen U-100 Insulin aspart) glucagon 3 mg/actuation nasal spray 3 mg intranasal ONCE PRN For low 04/02/24 08/27/25 Rx blood sugar #2 ea acetone (urine) test (Ketone Urine #100 ea 04/08/24 08/27/25 Rx Test strips) blood sugar diagnostic (Accu-Chek #450 ea 11/13/24 08/27/25 Rx Guide test strips) atorvastatin 40 mg tablet 40 mg PO HS #90 tabs 12/14/24 08/27/25 Rx Lactobacillus acidophilus 10 10,000 mmu cells PO HS 05/07/25 08/27/25 History billion cell capsule (Probiotic) lisinopril 20 mg tablet 20 mg PO HS #90 tabs 08/16/25 08/27/25 Rx subcutaneous insulin pump 08/16/25 08/27/25 History insulin aspart U-100 100 unit/mL 1 sliding scale dose continuous 08/27/25 08/27/25 History subcutaneous solution (Novolog subcutaneous infusion UD U-100 Insulin aspart) naltrexone 50 mg tablet 50 mg PO HS 08/27/25 08/27/25 History paroxetine HCl 10 mg tablet 10 mg PO HS 08/27/25 08/27/25 History Past Med/Surg History Problem List (Updated 08/28/25 @ 08:06 by Lucas Hurd MD) Alcohol use disorder, mild, abuse DKA (diabetic ketoacidosis) (Acute) Hypertension Transaminitis Hyponatremia 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 Erectile dysfunction Subclinical hyperthyroidism Alcoholism /alcohol abuse (Acute) Insulin pump in place Type 1 diabetes mellitus (Acute) Hyperthyroidism Anxiety Medical History (Updated 08/28/25 @ 08:06 by Lucas Hurd MD) DKA (diabetic ketoacidosis) (10/2020) DKA (diabetic ketoacidoses) (07/2019) Atypical angina Dyslipidemia Surgical History Hx of vasectomy Family History Father Myocardial infarction Uncle Diabetes Social History Smoking Status: Never smoker Second Hand Exposure: No; Do You Dip or Chew Tobacco: No; Tobacco Cessation Education Requested by Patient: No Hx Alcohol Use: Yes Alcohol type: beer Alcohol Intake Frequency: 4 or More x per/Week Hx Substance Use: No Preferred Language: Danish Communication Ability: Effective Milling/Polishing Operator Required: No Beliefs That Will Affect Care: None marital status: Current Living Situation: Spouse Other Information That Helps Us Care for You: No Feels Safe at Home: No Is there a partner from a previous relationship who is making you feel unsafe now?: No Any Concerns about Your Family Situation: No Would You Like to Speak to Someone About Your Situation: No Safety Concerns: Feels Safe At This Time Assistive Devices: None Review of Systems Review of Systems: reviewed, per HPI Physical Exam Physical Exam: Constitutional: [well-appearing, no acute distress] HEENT: [NCAT, no conjunctival injection] CV: [regular rhythm, no murmur appreciated, extremities well-perfused, no LE edema] Resp: [CTABL, no wheezes/rales/rhonchi appreciated, no increased work of breathing] GI: [soft, nondistended, nontender, BS normoactive] MSK: [no gross deformities appreciated] Skin: [warm, dry, no rash appreciated] Neuro: [alert, oriented, no focal neurologic deficit appreciated] Results & Data Results & Data Vital Signs (Past 12 Hours) Vital Signs Temp Pulse Resp BP Pulse Ox O2 Del Method 08/27/25 00:27 120 H 08/26/25 23:21 113 H 16 100 08/26/25 23:12 110 H 16 100 08/26/25 23:00 116 H 21 99 08/26/25 22:51 110 H 15 99 08/26/25 22:42 106 H 19 98 08/26/25 22:30 106 H 18 97 08/26/25 22:21 104 H 19 96 08/26/25 22:12 101 H 17 97 08/26/25 22:03 101 H 18 97 08/26/25 21:42 100 H 13 98 08/26/25 21:30 99 H 18 97 08/26/25 21:21 95 H 13 98 08/26/25 21:12 93 H 15 98 08/26/25 21:00 95 H 15 99 08/26/25 20:45 83 15 100 08/26/25 20:30 92 H 15 99 08/26/25 20:24 97 H 16 99 08/26/25 20:22 157/98 H 08/26/25 20:22 157/98 H 08/26/25 20:22 157/98 H 08/26/25 20:22 157/98 H 08/26/25 20:22 91 H 08/26/25 19:37 36.4 C L 100 H 20 156/99 H 99 Room Air Code Status & VTE Plan VTE Prophylaxis Plan VTE Prophylaxis will be ordered: Yes Supervising Physician Co-Signing Physician Notes Attending addendum: I have physically seen this patient, have supervised the medical residents activities, and agree with the H&P unless as otherwise noted. Assessment and Plan: The patient is a 59-year-old male with past medical history including type 1 diabetes mellitus, alcohol use disorder in remission with current relapse, hypertension, hyperlipidemia, subclinical hyperthyroidism, and anxiety. He presented to the emergency department with symptoms of nausea, vomiting and was found to be hyperglycemic. DKA/diabetes mellitus type 1- Hold home insulin pump Start insulin drip with D5 half-normal saline and potassium at 20 mill equivalents as noted BMP every 2 hours with BSG is every hour Continue treatment till anion gap closes, then convert to IV fluids without glucose Zofran 4 mg IV every 6 hours as needed Diabetic education Check hemoglobin A1c Alcohol use disorder- Relapsed dating back to 04/07 as noted in endocrinology notes Naltrexone oral therapy LELAND S protocol as noted Thiamine and folic acid supplementation Hypomagnesemia- Magnesium 1.3 on admission. Replace and follow serially Hypertension- Continue lisinopril with hold parameters Hyperlipidemia- Continue aspirin and atorvastatin Check a fasting lipid panel Anxiety- Continue paroxetine Resident Activity Tracking Resident Involvement: Resident Care Provided Care Provided: Adult Hospital Medicine (2) Hypertension Hypertension type: essential hypertension Qualified Code(s): I10 - Essential (primary) hypertension (4) Vomiting Nausea presence: unspecified Vomiting type: unspecified Qualified Code(s): R11.10 - Vomiting, unspecified (6) Type 1 diabetes mellitus Diabetes mellitus complication status: with other specified complication Qualified Code(s): E10.69 - Type 1 diabetes mellitus with other specified complication (8) HLD (hyperlipidemia) Hyperlipidemia type: mixed hyperlipidemia Qualified Code(s): E78.2 - Mixed hyperlipidemia
[2025-08-27] MEDS: D5NSS + 20MEQ KCL 20 MEQ/1,000 ML BAG IV STA (02:33)
[2025-08-27] MEDS: INSULIN REGULAR 250 UNITS in SODIUM CHLORIDE 0.9% 247.5 ML IV SCH (02:34)
[2025-08-27] MEDS: DC HOME INSULIN PUMP STA (02:34)
[2025-08-27] MEDS: STAT IV Infusion **Titration per Protocol STA (02:34)
[2025-08-27] MEDS ORDERED: LORazepam Inj 1 MG in SYRINGE 0.5 ML IV PRN (02:40)
[2025-08-27] MEDS ORDERED: MELATONIN 3 MG TAB PO PRN (03:49)
[2025-08-27] MEDS ORDERED: ONDANSETRON INJ 2 MG/ML 2 ML VIAL IV PRN (03:49)
[2025-08-27] MEDS ORDERED: ALUMINUM/MAGNESIUM SUSP 30 ML UDC PO PRN (03:49)
[2025-08-27] MEDS ORDERED: ACETAMINOPHEN 325 MG TAB PO PRN (03:49)
[2025-08-27] MEDS ORDERED: POLYETHYLENE (MIRALAX) 17 GM PACK PO PRN (03:49)
[2025-08-27] MEDS ORDERED: MAGNESIUM HYDROXIDE SUSP 30 ML UDC PO PRN (03:49)
[2025-08-27 06:37] LABS: Base Excess VBG -1.5 mEq/L; HCO3 VBG 21 mmol/L; Oxygen Saturation VBG 95.1 %; PCO2 VBG 29 mmHg (38-50); PO2 VBG 71 mmHg; pH VBG 7.47 (7.36-7.41)
[2025-08-27 06:47] LABS: Hematocrit (blood only) 41.1 % (42.0-52.0); Hemoglobin 14.4 g/dL (14.0-18.0); Immature Granulocytes # (auto) 0.04 K/uL (0.01-0.20); Immature Granulocytes % (auto) 0.3 %; Mean Corpuscular Hemoglobin 29.6 pg (25.0-34.0); Mean Corpuscular Volume 84.4 fL (80.0-100.0); Platelet Count 247 K/uL (130-400); RDW Standard Deviation 43.6 fL (36.4-46.3); Red Blood Count 4.87 M/uL (4.70-6.10); White Blood Count 12.40 K/ul (4.8-10.8)
[2025-08-27 07:19] LABS: Alanine Aminotransferase 32.0 U/L (7-52); Albumin Globulin Ratio 1.7 (0.9-2); Albumin Level 3.8 gm/dl (3.4-5.0); Alkaline Phosphatase 58.0 U/L (34-104); Anion Gap 9.0 (3-11); Bilirubin,Total 1.8 mg/dl (0.2-1.0); Blood Urea Nitrogen 18.0 mg/dl (6-23); Calcium 8.8 mg/dl (8.6-10.3); Carbon Dioxide 20.0 mmol/L (21-32); Chloride 108.0 mmol/L (98-107); Creatinine Clr Calc Pharmacy 125.9 ml/min; Globulin 2.3 gm/dl (2.5-4.0); Glucose 193.0 mg/dl (70-99(Fasting)); Magnesium 1.9 mg/dl (1.7-2.4); Potassium 3.6 mmol/L (3.5-5.1); Sodium 137.0 mmol/L (136-145); Total Protein 6.1 gm/dl (6.0-8.3)
[2025-08-27] MEDS ORDERED: PHARMACY GLYCEMIC MGMT CONSULT PRN (07:22)
[2025-08-27] MEDS ORDERED: INSULIN ASPART PER UNIT CHARGE SC SCH (08:15)
[2025-08-27] MEDS: INSULIN ASPART PER UNIT CHARGE SC SCH ×3 (08:24→23:48)
[2025-08-27] MEDS: LANTUS PER UNIT CHARGE SC ONE (08:24)
[2025-08-27] MEDS: ENOXAPARIN INJ 40 MG/0.4 ML SYR SQ SCH (08:25)
[2025-08-27] MEDS: FOLIC ACID 1 MG TAB PO SCH (09:15)
[2025-08-27] MEDS: THIAMINE HCL 100 MG TAB PO SCH (09:16)
--- NOTE | 2025-08-27 09:42 | Hospitalist Progress Note ---
Date of Service August 27, 2025 Assessment & Plan (1) DKA (diabetic ketoacidosis): (2) Hypertension: (3) Transaminitis: (4) Vomiting: (5) Alcohol use disorder, mild, abuse: (6) Type 1 diabetes mellitus: (7) Anxiety: (8) HLD (hyperlipidemia): Plan 59 yo male PMHx T1DM, EtOH use disorder previously in remission with current relapse, HTN, HLD, subclinical hyperthyroidism, anxiety presented to [facility] for nausea, vomiting, and hyperglycemia. He was being admitted for management of Diabetic Ketoacidosis, Anion gap closed #DKA/T1DM Anion gap closed- transition to SQ insulin basal bolus w/ISS Repeat k+: 4.2 Anion gap:8 Pt reports using a total of ~35U insulin daily, this is congruous with his insulin pump interrogation by endocrine in 03/2025 (at that time was utilizing 39.6 total U insulin per day) Zofran PRN nausea in service educator consulted Repeat BMP in the AM Likely discharge tomorrow #Alkalemia Appears metabolic in nature No osmolar gap - unlikely toxic alcohol ingestion #EtOH Use Disorder Per endocrine notes, relapse dating back to 04/07 Unclear if periods of sobriety in between, currently with relapse Has been on naltrexone PO therapy Suspect low risk for withdraw, AWSS w/PRN Ativan ordered Thiamine and #Hypomagnesemia Trend mag, replete as indicated #HTN Continue lisinopril - if develops hyperkalemia, hold #HLD Continue statin and ASA #Anxiety Continue paroxetine FENGI: T1DM diet, fluids as above Code status: full code DVT prophylaxis: Lovenox Disposition: PCU, anticipate discharge 1-2 days pending clinical course Admission and Anticipated Discharge Date Admission Date: August 27, 2025 Supervising Physician Co-Signing Physician Notes ATTESTATION I also saw the patient and confirmed day portions of the history and exam. I agree with the impression and plan in the resident documentation, and as summarized below. Patient was admitted earlier this morning by the overnight team. At the time of morning rounds, he remained in the emergency department pending a bed. He is feeling better. Gap is closed. He is about to eat lunch. He does not have his insulin pump supplies with him so he is on a basal/bolus regimen. EXAM 158/88, 107, 21, 36.9, 90% room air he looks generally well. He looks tired. Heart mildly tachycardic Lungs clear throughout with nonlabored aspirations DATA Labs WBC 12.4, hemoglobin 14.4 BUN 18, creatinine 0.57 Micro blood culture pending IMPRESSION & PLAN DKA Hypertension Alcohol use disorder Still is little dry, so we will resume IV fluids Prescient glycemic consult; basal/bolus until he has his pump Recheck BMP later this afternoon to assure normal electrolytes Additional per resident documentation Carolina Granda was seen and examined in the bedside this morning. She was reading a book. She had just finished his breakfast. And he reported he tolerated it well. He denied nausea/vomiting currently. He reported he was feeling good and denied any concerns. Review of Systems Review of Systems: reviewed, per HPI Physical Exam Physical Exam: Constitutional: [well-appearing, no acute distress] HEENT: [NCAT, no conjunctival injection] CV: [regular rhythm, no murmur appreciated, extremities well-perfused, no LE edema] Resp: [CTABL, no wheezes/rales/rhonchi appreciated, no increased work of breathing] GI: [soft, nondistended, nontender, BS normoactive] MSK: [no gross deformities appreciated] Skin: [warm, dry, no rash appreciated] Neuro: [alert, oriented, no focal neurologic deficit appreciated] Results & Data Results & Data Vital Signs (Past 12 Hours) Vital Signs Temp Pulse Pulse Resp BP BP Pulse Ox 08/27/25 09:21 131 H 28 H 95 08/27/25 09:16 145/89 H 08/27/25 09:16 145/89 H 08/27/25 09:16 145/89 H 08/27/25 09:16 145/89 H 08/27/25 09:16 145/89 H 08/27/25 09:15 127 H 22 08/27/25 09:12 121 H 20 08/27/25 09:00 121 H 25 H 08/27/25 08:00 125 H 18 153/90 H 08/27/25 07:30 120 H 13 08/27/25 07:00 104 H 14 126/74 95 08/27/25 06:56 109 H 08/27/25 06:30 105 H 18 99 08/27/25 06:00 112 H 18 124/62 96 08/27/25 05:00 118 H 18 142/86 H 96 08/27/25 03:56 08/27/25 03:54 36.9 C 117 H 20 163/95 H 95 08/27/25 03:12 122 H 21 95 08/27/25 03:00 120 H 23 08/27/25 03:00 171/87 H 08/27/25 03:00 171/87 H 08/27/25 03:00 171/87 H 08/27/25 03:00 171/87 H 08/27/25 03:00 171/87 H 08/27/25 02:51 116 H 22 08/27/25 02:42 117 H 27 H 08/27/25 02:34 143/82 H 08/27/25 02:34 143/82 H 08/27/25 02:34 143/82 H 08/27/25 02:34 143/82 H 08/27/25 02:34 143/82 H 08/27/25 02:33 118 H 29 H 08/27/25 02:30 117 H 33 H 08/27/25 02:21 117 H 19 08/27/25 02:12 123 H 21 08/27/25 02:00 118 H 22 08/27/25 01:51 118 H 21 96 08/27/25 01:42 117 H 20 08/27/25 01:30 116 H 22 08/27/25 01:21 119 H 21 08/27/25 01:12 120 H 20 08/27/25 01:04 144/85 H 08/27/25 01:04 144/85 H 08/27/25 01:04 144/85 H 08/27/25 01:04 144/85 H 08/27/25 01:04 144/85 H 08/27/25 01:03 119 H 24 08/27/25 01:00 121 H 26 H 08/27/25 00:51 121 H 19 08/27/25 00:42 121 H 25 H 08/27/25 00:30 123 H 21 08/27/25 00:27 120 H 08/27/25 00:21 117 H 22 08/27/25 00:12 114 H 22 08/27/25 00:00 120 H 25 H 100 08/26/25 23:51 120 H 18 100 08/26/25 23:42 121 H 22 100 08/26/25 23:30 115 H 21 99 08/26/25 23:21 113 H 16 100 08/26/25 23:12 110 H 16 100 08/26/25 23:00 116 H 21 99 08/26/25 22:51 110 H 15 99 08/26/25 22:42 106 H 19 98 08/26/25 22:30 106 H 18 97 08/26/25 22:21 104 H 19 96 08/26/25 22:12 101 H 17 97 08/26/25 22:03 101 H 18 97 08/26/25 21:42 100 H 13 98 Pulse Ox O2 Del Method O2 Del Method 08/27/25 09:21 08/27/25 09:16 08/27/25 09:16 08/27/25 09:16 08/27/25 09:16 08/27/25 09:16 08/27/25 09:15 08/27/25 09:12 08/27/25 09:00 08/27/25 08:00 08/27/25 07:30 08/27/25 07:00 08/27/25 06:56 08/27/25 06:30 08/27/25 06:00 08/27/25 05:00 08/27/25 03:56 95 Room Air 08/27/25 03:54 Room Air 08/27/25 03:12 08/27/25 03:00 08/27/25 03:00 08/27/25 03:00 08/27/25 03:00 08/27/25 03:00 08/27/25 03:00 08/27/25 02:51 08/27/25 02:42 08/27/25 02:34 08/27/25 02:34 08/27/25 02:34 08/27/25 02:34 08/27/25 02:34 08/27/25 02:33 08/27/25 02:30 08/27/25 02:21 08/27/25 02:12 08/27/25 02:00 08/27/25 01:51 08/27/25 01:42 08/27/25 01:30 08/27/25 01:21 08/27/25 01:12 08/27/25 01:04 08/27/25 01:04 08/27/25 01:04 08/27/25 01:04 08/27/25 01:04 08/27/25 01:03 08/27/25 01:00 08/27/25 00:51 08/27/25 00:42 08/27/25 00:30 08/27/25 00:27 08/27/25 00:21 08/27/25 00:12 08/27/25 00:00 08/26/25 23:51 08/26/25 23:42 08/26/25 23:30 08/26/25 23:21 08/26/25 23:12 08/26/25 23:00 08/26/25 22:51 08/26/25 22:42 08/26/25 22:30 08/26/25 22:21 08/26/25 22:12 08/26/25 22:03 08/26/25 21:42 Resident Activity Tracking Resident Involvement: Resident Care Provided Care Provided: Adult Hospital Medicine (2) Hypertension Hypertension type: essential hypertension Qualified Code(s): I10 - Essential (primary) hypertension (4) Vomiting Nausea presence: unspecified Vomiting type: unspecified Qualified Code(s): R11.10 - Vomiting, unspecified (6) Type 1 diabetes mellitus Diabetes mellitus complication status: with other specified complication Qualified Code(s): E10.69 - Type 1 diabetes mellitus with other specified complication (8) HLD (hyperlipidemia) Hyperlipidemia type: mixed hyperlipidemia Qualified Code(s): E78.2 - Mixed hyperlipidemia
[2025-08-27] MEDS: DEXTROSE 50% 50 ML SYRINGE IV PRN (10:54)
[2025-08-27] MEDS: SODIUM CHLORIDE 0.9% 1,000 ML IV ONE (11:39)
--- NOTE | 2025-08-27 13:49 | Pharmacy Report ---
Pharmacy Glycemic Short Note 2 - Date of Service August 27, 2025 - Glycemic Short BSG Results (Last 24 hours): 08/26/25 08/26/25 08/26/25 19:40 19:45 19:56 Glucose 205 H POC Glucose 167 H POC Glucose (other) 199 H 08/26/25 08/27/25 08/27/25 21:32 00:21 02:09 Glucose 204 H POC Glucose 176 H 250 H POC Glucose (other) 08/27/25 08/27/25 08/27/25 03:32 03:33 04:30 Glucose POC Glucose 261 H 268 H 224 H POC Glucose (other) 08/27/25 08/27/25 08/27/25 05:36 06:22 06:33 Glucose 193 H POC Glucose 189 H 158 H POC Glucose (other) 08/27/25 08/27/25 08/27/25 07:28 08:27 09:40 Glucose POC Glucose 134 H 120 H 122 H POC Glucose (other) 08/27/25 08/27/25 10:42 11:11 Glucose POC Glucose 75 177 H POC Glucose (other) OUTPATIENT ANTIDIABETIC REGIMEN: * Novolog pump * Per most recent diabetes note on 08/16/25: daily basal of 16.4 units, 24 units of bolus for TDD of 40.4 units) * Carb ratio of 5.9 at 0000, and 5.4 at 1100, 1500 HbA1c: 6.4% (08/11/25) ASSESSMENT: * BL is a 59 year old male who presented to ED with nausea/vomiting and mild hyperglycemia * Initial labs indicative of possible DKA (anion gap 22, carbon dioxide 18, ketones 3+ in urine), although VBG pH elevated at 7.55 * Patient with history of T1DM and alcohol use disorder (currently with relapse) * Insulin gtt and IV fluids initiated in ED, anion gap is now resolved and diet ordered * Patient does not have insulin pump supplies with him so will transition to SC basal/bolus regimen at this time PLAN FOR INPATIENT GLYCEMIC CONTROL: * Hold insulin pump * Basal insulin * Lantus 15 units SC daily * Bolus insulin * NovoLog per scale ACHS or Q6hrs while NPO * Goal Range: Low 120 mg/dL - High 160 mg/dL * Correction Factor: 40 mg/dL/unit * Nutritional / Prandial insulin per carb ratio of 1 unit per 6 grams CHO consumed
[2025-08-27 15:26] LABS: Anion Gap 8.0 (3-11); Blood Urea Nitrogen 19.0 mg/dl (6-23); Calcium 8.5 mg/dl (8.6-10.3); Carbon Dioxide 21.0 mmol/L (21-32); Chloride 103.0 mmol/L (98-107); Creatinine Clr Calc Pharmacy 102.5 ml/min; Glucose 211.0 mg/dl (70-99(Fasting)); Potassium 4.2 mmol/L (3.5-5.1); Sodium 132.0 mmol/L (136-145)
[2025-08-27] MEDS: ATORVASTATIN 40 MG TAB PO SCH (22:14)
[2025-08-27] MEDS: NALTREXONE HCL 50 MG TAB PO SCH (22:14)
[2025-08-27] MEDS: ASPIRIN 81 MG ECTAB PO SCH (22:14)
[2025-08-28 06:41] LABS: Hematocrit (blood only) 38.7 % (42.0-52.0); Hemoglobin 13.7 g/dL (14.0-18.0); Immature Granulocytes # (auto) 0.03 K/uL (0.01-0.20); Immature Granulocytes % (auto) 0.5 %; Mean Corpuscular Hemoglobin 30.0 pg (25.0-34.0); Mean Corpuscular Volume 84.7 fL (80.0-100.0); Platelet Count 206 K/uL (130-400); RDW Standard Deviation 43.1 fL (36.4-46.3); Red Blood Count 4.57 M/uL (4.70-6.10); White Blood Count 6.24 K/ul (4.8-10.8)
[2025-08-28 07:26] LABS: Alanine Aminotransferase 43.0 U/L (7-52); Albumin Globulin Ratio 1.5 (0.9-2); Albumin Level 3.4 gm/dl (3.4-5.0); Alkaline Phosphatase 65.0 U/L (34-104); Anion Gap 8.0 (3-11); Bilirubin,Total 2.3 mg/dl (0.2-1.0); Blood Urea Nitrogen 12.0 mg/dl (6-23); Calcium 8.4 mg/dl (8.6-10.3); Carbon Dioxide 22.0 mmol/L (21-32); Chloride 103.0 mmol/L (98-107); Creatinine Clr Calc Pharmacy 147.4 ml/min; Globulin 2.3 gm/dl (2.5-4.0); Glucose 273.0 mg/dl (70-99(Fasting)); Magnesium 1.7 mg/dl (1.7-2.4); Potassium 4.3 mmol/L (3.5-5.1); Sodium 133.0 mmol/L (136-145); Total Protein 5.7 gm/dl (6.0-8.3)
[2025-08-28] MEDS ORDERED: INSULIN, Rapid-Acting PUMP SCH (08:30)
[2025-08-28] MEDS ORDERED: INSULIN ASPART 100 UNITS/ML VIAL SC PRN (08:45)
--- NOTE | 2025-08-28 09:39 | Discharge Summary ---
Date of Service August 28, 2025 Admission HPI Per Admitting Provider 59 yo male PMHx T1DM, EtOH use disorder previously in remission with current relapse, HTN, HLD, subclinical hyperthyroidism, anxiety presented to [facility] for nausea, vomiting, and hyperglycemia. Over the last 5 days he reports consuming ~1/2 pint of liquor/day and progressively worsening glucose control. Today when he woke up he had episodes of nausea and vomiting. Reports no hematemesis, melena, or hematochezia. No chest pain, SOB. History of mild withdraw symptoms, never required hospitalization, no history of withdraw seizure. At the time of admission, the patient was resting comfortably. States that nause a had begun to subside. With some epigastric burning/gastritis,reflux symptoms. Continues to deny CP, SOB, diarrhea. ED Course: Labs reveal: no leukocytosis, no anemia, Mg2+ 1.3, otherwise no acute e lectrolyte abnormalities, VBG w/metabolic alkalosis, no osmolar gap, +urine ketones, -EtOH level CTAP reveals: ?cystitis, stool in rectum, diverticulosis without diverticulitis Started on insulin drip with D5 1/2NSS w/20mEq K+ Given 1x 1mg Ativan for anxiety Admission Exam Per Admitting Provider Constitutional: [well-appearing, no acute distress] HEENT: [NCAT, no conjunctival injection] CV: [regular rhythm, no murmur appreciated, extremities well-perfused, no LE edema] Resp: [CTABL, no wheezes/rales/rhonchi appreciated, no increased work of breathing] GI: [soft, nondistended, nontender, BS normoactive] MSK: [no gross deformities appreciated] Skin: [warm, dry, no rash appreciated] Neuro: [alert, oriented, no focal neurologic deficit appreciated] Principal Diagnosis Diabetic Ketoacidosis(DKA) Discharge Exam Constitutional: [well-appearing, no acute distress] HEENT: [NCAT, no conjunctival injection] CV: [regular rhythm, no murmur appreciated, extremities well-perfused, no LE edema] Resp: [CTABL, no wheezes/rales/rhonchi appreciated, no increased work of breathing] GI: [soft, nondistended, nontender, BS normoactive] MSK: [no gross deformities appreciated] Skin: [warm, dry, no rash appreciated] Neuro: [alert, oriented, no focal neurologic deficit appreciated] Discharge Data Allergies Allergy/AdvReac Type Severity Reaction Status Date / Time Penicillins Allergy Unknown STRONG Verified 08/16/25 14:24 FAMILY HX Consultations 08/27/25 00:20 ED Decision to Admit Stat Ordered Studies 08/26/25 20:33 CT abd pelvis IV con only Stat Hospital Course (1) DKA (diabetic ketoacidosis): (2) Hypertension: (3) Transaminitis: (4) Alcohol use disorder, mild, abuse: (5) Type 1 diabetes mellitus: (6) Anxiety: Plan 59 yo male PMHx T1DM, EtOH use disorder previously in remission with current relapse, HTN, HLD, subclinical hyperthyroidism, anxiety presented to [facility] for nausea, vomiting, and hyperglycemia. 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 Stable for discharge today #Alkalemia Appears metabolic in nature No osmolar gap - unlikely toxic alcohol ingestion #EtOH Use Disorder -Continue Naltrexone #HTN Continue lisinopril #HLD Continue statin and ASA #Anxiety Continue paroxetine Total Time Total Time Spent Total Time Spent (In Minutes): See attending attestation Discharge Plan Discharge Items Patient Disposition: Home - Self-Care Reason For Visit: DKA Discharge Diagnosis: 1. Diabetic Ketoacidosis(Resolved) Condition on Discharge: Serious Activity: Per Instructions section Non-emergency contact: Primary Care Provider Call non-emergency contact if: you have any medication questions and your symptoms worsen Follow-up/Referrals: Joselo Bingham MD [Primary Care Provider] - Diet: Carb Count or DM1 Addtl Attending Provider Instructions: You came in hospital with Nausea, Vomiting and Increased blood sugar level. You were found to be in Diabetic Ketoacidosis(DKA) which resolved quite quickly. Since the DKA has resolved, your labs including blood sugar level looks good and you are tolerating your diet well , you are stable to go back home today. You were switched to Sliding scale insulin while at hospital since you didn't have complete requirements for insulin pump. Please start the pump as soon as you reach home . You are given sliding scale insulin before discharge to bridge the gap between hospital discharge and reaching home. Please continue your insulin pump and all your home medication as you were taking. Make sure to followup with your Primary Care provider and Diabetes Clinic within a week from discharge. Pending Studies at Discharge: No Stand-Alone Forms: [facility] [employer], Work/School Release, Smoking Cessation Medications and DC Order Prescriptions: Continued (DME) Ketone Urine Test Strip See Rx Instructions .Route Qty: 100 3RF Rx Instructions: once daily as needed to test for ketones when BS is elevated atorvastatin 40 mg tablet 40 mg PO HS Qty: 90 3RF sildenafil 50 mg tablet 25 mg PO DAILY PRN (Reason: sexual activity) Rx Instructions: administer 30 minutes to 4 hours before activity; if unsuccessful with half tablet and can remaining half; do not take more then 50 mg in one day. (DME) lancets 33 gauge misc See Rx Instructions .ROUTE .MEDSUPPLY Qty: 500 3RF Rx Instructions: test 5 times daily (DME) Accu-Chek Guide test strips Strip See Rx Instructions .Route Qty: 450 3RF Rx Instructions: test blood sugar 5 x daily (DME) subcutaneous insulin pump Misc See Rx Instructions .ROUTE Rx Instructions: As directed lisinopril 20 mg tablet 20 mg PO HS Qty: 90 1RF glucagon 3 mg/actuation spray,non-aerosol 3 mg intranasal ONCE PRN (Reason: For low blood sugar) Qty: 2 3RF multivitamin Tablet 1 tab PO HS aspirin [Jose Alfredo Low Dose Aspirin] 81 mg Tablet,Delayed Release (Dr/Ec) 81 mg PO HS insulin aspart U-100 [Novolog FlexPen U-100 Insulin] 100 unit/mL (3 mL) insulin pen 35 unit subcut UD PRN (Reason: pump failure) Rx Instructions: 35 units daily prn in case of pump failure Probiotic 10 billion cell Capsule 10,000 mmu cells PO HS naltrexone 50 mg tablet 50 mg PO HS insulin aspart U-100 [Novolog U-100 Insulin aspart] 100 unit/mL solution 1 sliding scale dose continuous subcutaneous infusion UD Rx Instructions: per pt around 35 units daily paroxetine HCl 10 mg tablet 10 mg PO HS Discharge Orders: Discharge Order (Routine); Ordered 11/15/25 Ordered By: Dago Banuelos Admission Data Admit Date/Time: 08/27/25 02:09 Attending Provider: Lucas Hurd Admit Provider: Raul Israel Primary Care Provider: Joselo Bingham Other Providers: Sudarshan Sal Other Interventions: Discharge Summary Assessment (RN) Last Done: 08/28/25 12:25 Supervising Physician Co-Signing Physician Notes Attending attestation Pt seen and examined in concert with Dr. Banuelos. In agreement with the documented findings as noted in the resident documentation with any exceptions or additions as noted here. Reports that he is approaching regular baseline and tolerating diet well. Unable to obtain pump supplies due to his w/ visual impairment and no other available contact. VS as noted. On examination, S1/S2 nl RRR no MCG. CTAB. Abd NT/ND BS+ve. WBC 6.24, HGB 13.7, Cr 0.53, Glu 273 nonfasting. BCx NGTD Diabetic ketoacidosis in the setting of type 1 diabetes on insulin pump - tolerating POI and basal/bolus insulin. Will continue bolus insulin and resume pump immediately upon discharge for coverage with precautions for worsening/changing sx. Close outpatient follow up with recommended repeat CMP to ensure stability. Alcohol use disorder - encourage cessation and seek supportive care and assistance. Pending blood culture - 24hr NGTD without signs of infectious pathology. Will proceed with discharge with monitoring and contact patient w/ positive results w/ precautions as noted. Else see resident documentation as noted. Total attending physician time spent with this patient's care on the day of discharge: 40 minutes. Resident Activity Tracking Resident Involvement: Resident Care Provided Care Provided: Adult Hospital Medicine
[2025-08-28 11:05] VITALS: RESP 20; TEMP 98.4; O2SAT 98
[2025-08-28] MEDS: INSULIN ASPART PER UNIT CHARGE SC SCH (11:57)
[2025-08-28] MEDS: INSULIN ASPART PER UNIT CHARGE SC ONE (11:57)
[2025-08-28 12:28] VITALS: BP 145/89; PULSE 79
--- NOTE | 2025-08-29 02:37 | Billing Data ---
Date of Service August 29, 2025 Coding Level of Care Code 56599 INT INP/OBS CARE
== END 2025-08-28 12:58 | disposition home or self-care (01) | DRG 638 ==
LOC: ED 19:32 → SUATTDRO 08-27 02:09 → EDINP 08-27 02:09 → 2E 08-27 12:27